=== PATIENT | female | born 1965 | race Caucasian/White ===

== ENCOUNTER 2023-11-13 18:46 | Inpatient (IN) | payer BC, SELFPAY ==
[2023-11-13] VITALS (31 sets, daily range): BP systolic 96–125; BP diastolic 52–82; PULSE 79–95; RESP 14–21; TEMP 36.4; O2SAT 96–100
--- NOTE | ~2023-11-13 | XR_ITS ---
EXAMINATION: XR chest 1V portable DATE: 11/13/2023 20:01 INDICATION: Shortness of breath. TECHNIQUE: A single frontal view of the chest was obtained. COMPARISON: Chest 2 views 02/19/2006, chest CT 03/08/2016 FINDINGS: Evette B lines are noted, consistent mild pulmonary edema. No pleural effusion or pneumotho rax. Cardiomegaly is noted. IMPRESSION: 1. Mild pulmonary edema. 2. Cardiomegaly. Reviewed, dictated and finalized at location E. CIPAL WEB DEVELOPER
--- NOTE | ~2023-11-13 | US_ITS ---
EXAMINATION: US art doppler w press UE BI DATE: 11/28/2023 10:49 INDICATION: Left upper extremity swelling TECHNIQUE: Segmental pressures and plethysmographic and Doppler waveforms of the upper extremity chelsea desmond were obtained. COMPARISON: None. FINDINGS: Left brachial artery pressures of 84 mm Hg. Right brachial artery pressures unable to be obtained due to a known venous thrombosis in the right upper arm. The right finger:brachial systolic pressure rat io is 0.90 (normal > 0.8). Arterial waveforms demonstrate brisk systolic upstrokes throughout the art eries of the right upper limb (normal upstroke < 0.2 s). The left finger:brachial systolic pressure ratio is 0.65. Arterial waveforms and brisk systolic upstr okes throughout the arteries of the left lower limb. IMPRESSION: 1. Mild arterial occlusive disease to the left lower limb with mildly decreased left finger brachial index of 0.65. 2. No significant arterial occlusive disease to the right lower limb with normal right finger brachia l index of 0.90. Reviewed, dictated and finalized at location A. OWNER ASSOCIATION MANAGER IMPRESSION: 1. Mild arterial occlusive disease to the left lower limb with mildly decreased left finger brachial index of 0.65. 2. No significant arterial occlusive disease to the right lower limb with mike l right finger brachial index of 0.90.
--- NOTE | ~2023-11-13 | US_ITS ---
EXAMINATION: US venous doppler UE RT DATE: 11/19/2023 15:03 INDICATION: New right arm edema . TECHNIQUE: Grayscale ultrasound images without and with compression and Doppler ultrasound images of the right upper extremity veins were obtained. COMPARISON: None. FINDINGS: The distal right basilic vein is distended and noncompressible, with partial flow. Incidental note of partial compressibility of the external jugular vein, with partial flow. The radial and ulnar veins are poorly visualized due to edema. The visualized portions of the right internal jugular vein, subcl nicole vein, axillary vein, brachial veins, and cephalic vein are patent. IMPRESSION: Acute-appearing nonocclusive thrombus in the distal right basilic vein. Incidental note of nonocclusi ve thrombus in the external jugular vein. Poorly visualized radial and ulnar veins. The remaining rig ht upper extremity veins are patent. Reviewed, dictated and finalized at location K. H MACHINE INSPECTOR IMPRESSION: Acute-appearing nonocclusive thrombus in the distal right basilic vein. Inciden trini note of nonocclusive thrombus in the external jugular vein. Poorly visualiz ed radial and ulnar veins. The remaining right upper extremity veins are patent .
--- NOTE | ~2023-11-13 | CT_ITS ---
EXAMINATION: CT chest abdomen pelvis wo con DATE: 11/21/2023 09:44 INDICATION: Hyperbilirubinemia. Elevated alkaline phosphatase. TECHNIQUE: Computed tomography (CT) of the chest, abdomen, and pelvis was performed without intraveno us contrast. Automated exposure control and iterative reconstruction technique were employed. The dos e-length product was 2043.24 mGy-cm. COMPARISON: Chest CT 03/08/16 FINDINGS: CHEST CT: There are small pleural effusions. There is mild dependent atelectasis bilaterally. There is smooth s eptal thickening in the lungs, consistent with mild pulmonary edema. Calcified pulmonary nodules and calcified hilar and mediastinal lymph nodes are consistent with old granulomatous disease. There is m ild noncalcified mediastinal lymphadenopathy, likely reactive. Cardiomegaly is noted. No pericardial effusion. The central pulmonary arteries are enlarged, consistent with pulmonary arterial hypertensio n. Body wall edema is noted. There is moderate thoracic spondylosis. There is mild chronic anterior w edging of multiple vertebral bodies. ABDOMEN/PELVIS CT: Calcifications in the liver and spleen are consistent with old granulomatous disease. There are galls tones in the gallbladder, which is normal in size. There is a small sliding hiatal hernia. The pancre as, adrenal glands, and kidneys are normal. There are no dilated loops of bowel. There is a ventral h ernia containing nonobstructed small and large bowel. There is a small volume of ascites. There is wi despread edema of the intra-abdominal fat and body wall. There is mild bilateral inguinal lymphadenop athy, likely reactive. There is moderate lumbar spondylosis. IMPRESSION: 1. Anasarca including small pleural effusions, mild pulmonary edema, and small volume of ascites. 2. Ventral hernia containing nonobstructed small and large bowel. 3. Mild mediastinal and bilateral inguinal lymphadenopathy, likely reactive. 4. Cholelithiasis. No evidence of acute cholecystitis. Reviewed, dictated and finalized at location A. LAR SPLITTING MACHINE TENDER
--- NOTE | ~2023-11-13 | US_ITS ---
EXAMINATION: US venous doppler [facility] DATE: 11/20/2023 20:17 INDICATION: Lower limb swelling TECHNIQUE: Grayscale ultrasound images without and with compression and Doppler ultrasound images of the bilateral lower extremity veins were obtained. COMPARISON: None. FINDINGS/IMPRESSION: Nondiagnostic quality study likely related to combination of patient body habitus and subcutaneous ed delmy with the deep veins of both lower limbs unable to be clearly visualized with either grayscale or color Doppler imaging. Reviewed, dictated and finalized at location A. TRICIAN BUS
--- NOTE | ~2023-11-13 | XR_ITS ---
EXAM: XR shoulder LT 1V DATE: 11/24/2023 15:18 HISTORY: pain and loss of rom, portable please . COMPARISON: None available. FINDINGS: Only frontal views are submitted and there is little change in position between the interna l and external rotation views. Decreased mineralization. Streaky left basilar pulmonary opacities. No fracture or dislocation. No lytic or blastic lesion. Moderate AC joint degenerative change. No erosi on or periosteal change. Soft tissues within normal limits. IMPRESSION: Exam limited by limited views and portable technique. No obvious acute osseous finding. C onsider a full series of dedicated, nonportable shoulder radiographs for further evaluation if the pa tient is capable. Possible left basilar atelectasis. Consider chest radiography if there are symptoms or complaints. Reviewed, dictated and finalized at [facility] K. TH SPA MANAGER IMPRESSION: Exam limited by limited views and portable technique. No obvious ac sonny osseous finding. Consider a full series of dedicated, nonportable shoulder radiographs for further evaluation if the patient is capable. Possible left basilar atelectasis. Consider chest radiography if there are symp toms or complaints.
--- NOTE | ~2023-11-13 | US_ITS ---
EXAMINATION: US venous doppler UE DATE: 11/23/2023 15:43 INDICATION: hx DVT; new onset arm pain . TECHNIQUE: Grayscale ultrasound images without and with compression and Doppler ultrasound images of the left upper extremity veins were obtained. COMPARISON: 11/16/2023. FINDINGS: The visualized portions of the left internal jugular vein, subclavian vein, axillary vein, brachial v eins, basilic vein, and cephalic vein, are patent. The radial and ulnar veins were not evaluated. IMPRESSION: No deep venous thrombosis. Reviewed, dictated and finalized at location K. STAINER IMPRESSION: No deep venous thrombosis.
--- NOTE | ~2023-11-13 | US_ITS ---
EXAMINATION: US abdomen limited DATE: 11/24/2023 12:47 INDICATION: ELEVATED TOTAL BILIRUBIN, GALLSTONE TECHNIQUE: Multiple grayscale and Doppler ultrasound images of limited portions of the abdomen were o btained. COMPARISON: Ultrasound renal 11/23/2023; CT CAP 11/21/2023. FINDINGS: Overall suboptimal imaging due to body habitus. Visualized portions of the pancreas are nor mal. The liver is normal with normal echogenicity and echotexture. No surface nodularity. Normal hepa topetal flow in the main portal vein. Gallbladder wall thickening. Gallbladder lumen is filled with s tones that obscure further evaluation. The common bile duct measures 5 mm. There was no sonographic M urphy sign. IMPRESSION: Cholelithiasis. Nonspecific gallbladder wall thickening. Negative sonographic Liu sign. Reviewed, dictated and finalized at location K. IE IMPRESSION: Cholelithiasis. Nonspecific gallbladder wall thickening. Negative sonographic M urphy sign.
--- NOTE | ~2023-11-13 | US_ITS ---
EXAMINATION: US venous doppler UE LT DATE: 11/16/2023 16:07 INDICATION: Edema of left arm . TECHNIQUE: Grayscale ultrasound images without and with compression and Doppler ultrasound images of the left upper extremity veins were obtained. COMPARISON: None. FINDINGS: The visualized portions of the left internal jugular vein, subclavian vein, axillary vein, brachial v eins, basilic vein, and cephalic vein are patent. The radial and ulnar veins were not evaluated. IMPRESSION: No deep venous thrombosis. Reviewed, dictated and finalized at location K. ING AGENCY MANAGER IMPRESSION: No deep venous thrombosis.
--- NOTE | ~2023-11-13 | XR_ITS ---
EXAMINATION: XR pelvis 1-2V DATE: 11/20/2023 20:21 INDICATION: Groin pain TECHNIQUE: An anteroposterior view of the pelvis was obtained. COMPARISON: None. FINDINGS: Evaluation is limited by patient body habitus which decreases contrast. Alignment appears normal. No fractures identified. Bilateral hip and right sacroiliac joint spaces appear normal. The left sacroil iac joint spaces not profiled due to some leftward rotation of the patient. IMPRESSION: 1. No evident osseous abnormality although evaluation is significantly limited by patient body habitu s. Reviewed, dictated and finalized at location A. STER IMPRESSION: 1. No evident osseous abnormality although evaluation is significantly limited by patient body habitus.
--- NOTE | ~2023-11-13 | XR_ITS ---
EXAMINATION: XR chest PICC line DATE: 11/29/2023 16:19 INDICATION: Central line placement. TECHNIQUE: A single frontal view of the chest was obtained. COMPARISON: Chest single view 11/26/2023 FINDINGS: There is no pneumonia, pleural effusion, or pneumothorax. Cardiomegaly is noted. A left upp er extremity peripherally inserted central venous catheter (PICC) is seen with tip at the superior ca voatrial junction. IMPRESSION: 1. PICC tip at the superior cavoatrial junction. 2. Cardiomegaly. Reviewed, dictated and finalized at location E. ING AND BRUSHING MACHINE OPERATOR
--- NOTE | ~2023-11-13 | US_ITS ---
EXAMINATION: US venous doppler UE DATE: 11/26/2023 14:16 INDICATION: Left upper limb swelling. TECHNIQUE: Grayscale ultrasound images without and with compression and Doppler ultrasound images of the left upper extremity veins were obtained. COMPARISON: Ultrasound 11/23/2023 FINDINGS: The visualized portions of the left internal jugular vein, subclavian vein, axillary vein, brachial v eins, basilic vein, cephalic vein, and ulnar vein are patent. Left renal vein is not visualized. Subc utaneous edema is noted. IMPRESSION: 1. No deep venous thrombosis. Reviewed, dictated and finalized at location A. GER ENVIRONMENTAL HEALTH
--- NOTE | ~2023-11-13 | US_ITS ---
Duplex Sonography of the right upper extremity: Indication: Thrombosis Sagittal and transverse B-mode images as well as color-flow imaging were performed on the right inter nal jugular, subclavian, axillary, brachial, basilic veins. B-mode examination was done without and with compression in the transverse plane. There is good visualization of the internal jugular, subcl nicole, axillary, brachial, and basilic veins. There is nonocclusive thrombus in the right internal jugular vein. There is nonocclusive thrombus in the right basilic vein. Remaining deep venous structures seen in the right upper extremity demonstrat e normal flow and compressibility. Right cephalic vein also patent. Impression: Nonocclusive DVT involving the right basilic vein and right internal jugular vein. Reviewed, dictated and finalized at location . R TUBE CUTTER Impression: Nonocclusive DVT involving the right basilic vein and right internal jugular ve in.
--- NOTE | ~2023-11-13 | XR_ITS ---
EXAMINATION: XR chest 1V portable DATE: 12/04/2023 12:31 INDICATION: Congestive heart failure. TECHNIQUE: A single frontal view of the chest was obtained. COMPARISON: Chest single view 11/29/23 FINDINGS: There is no pneumonia, pleural effusion, or pneumothorax. Cardiomegaly is noted. A left upp er extremity peripherally inserted central venous catheter (PICC) is seen with tip at the superior ca voatrial junction. IMPRESSION: 1. Cardiomegaly. Reviewed, dictated and finalized at location A. TING MACHINE OPERATOR TAPE CONTROL IMPRESSION: 1. Cardiomegaly.
--- NOTE | ~2023-11-13 | XR_ITS ---
EXAMINATION: XR chest 1V portable DATE: 11/26/2023 05:24 INDICATION: Shortness of breath. TECHNIQUE: A single frontal view of the chest was obtained. COMPARISON: Chest single view 11/13/2023 FINDINGS: There is no pneumonia, pleural effusion, or pneumothorax. Cardiomegaly is noted. IMPRESSION: 1. Cardiomegaly. Reviewed, dictated and finalized at location A. CASTING SUPERVISOR IMPRESSION: 1. Cardiomegaly.
--- NOTE | ~2023-11-13 | US_ITS ---
EXAMINATION: US renal BI DATE: 11/23/2023 15:46 INDICATION: MARY TECHNIQUE: Multiple grayscale and Doppler ultrasound images of the kidneys were obtained. COMPARISON: CT cap 11/21/2023 FINDINGS: Overall suboptimal imaging due to body habitus. The right kidney measures 10.7 x 6.0 x 6.7 cm. Right inferior pole is not well seen. The left kidney measures 12.0 x 5.4 x 7.3 cm. The kidneys demonstrate normal parenchymal echogenicity. There is no hydronephrosis. The bladder is empty/obscured by bowel gas. IMPRESSION: Limited examination. No hydronephrosis. Reviewed, dictated and finalized at location K. CIL MEMBER
--- NOTE | 2023-11-13 19:07 | ECG_ITS ---
Measurements Intervals [place] Rate: 93 P: 73 NV: 221 QRS: -61 QRSD: 150 T: 82 QT: 404 QTc: 503 Interpretive Statements SINUS RHYTHM WITH FIRST DEGREE AV BLOCK VENTRICULAR BIGEMINY LEFT AXIS DEVIATION LEFT BUNDLE BRANCH BLOCK LOW VOLTAGE- PRECORDIAL LEADS ABNORMAL ECG NO PREVIOUS ECG AVAILABLE FOR COMPARISON Electronically Signed On 11-14-2023 6:29:40 ENVIRONMENTAL COMPLIANCE TECHNICIAN by Sathish Sauer D.O.
--- NOTE | 2023-11-13 19:31 | ED.GENADULT ---
HPI - General Adult General Chief complaint: Arrhythmia/Palpitations Stated complaint: EXCESSIVE FLUID RETENTION, BIGEMINY Time Seen by Provider: 11/13/23 19:26 Source: patient and family (son) Mode of arrival: EMS Limitations: no limitations History of Present Illness HPI narrative: S patient presents with complaint of excess fluid retention. She notes that she has a history congestive failure seen doctor and has been medications over a year. She notes that she has had increased swelling in her legs and abdomen. She started developing shortness of breath overnight and worsening today. This occurs with exertion as well at rest occasionally today though reports she is not having any the time of HPI. She states she is feeling a bit anxious however given enterprise services manager told her she had bigeminy. No cough, fevers. She does have orthopnea and has to sleep sitting upright. She denies any pain (no chest pain). Does note an ulceration in left leg which is wrapped. Previous medication regimen was carvedilol, digoxin, lisinopril, spironolactone, and furosemide. Related Data Home Medications Medication Instructions Recorded Confirmed No Home Medications 11/14/23 11/14/23 Allergies Allergy/AdvReac Type Severity Reaction Status Date / Time No Known Allergies Allergy Mild Unverified 03/07/16 19:21 [facility] Past Medical History Medical History Congestive heart failure Family History Family History Father Patient's father is in good health Mother Family history of coronary artery disease Family history of congestive heart failure Acute myocardial infarction Social History Social History Smoking status: Former smoker Tobacco type: cigarettes Alcohol intake: never Substance use: never Substance use type: does not use Do You Feel Safe in your Home?: Yes Lack of Transportation: No Lack of Food: Never True Current Housing: I Have Housing Concerned About Future Housing: No Difficulty Paying Gas/Electric Bills: No Difficulty Paying for Meds: No Currently Unemployed: No Education: High School Diploma/GED Difficulty w/ Childcare or Family Care: No Living arrangements: with family Additional living arrangements comments: w/ son Spiritual care concerns: No Exam Narrative: GENERAL: well-nourished, and in no acute distress. HEAD: Normocephalic, atraumatic. EYES: Non injected, non icteric ENT: Nares clear, no rhinorrhea or epistaxis. Perioral cyanosis and cyanotic tip of nose. Poor dentition. NECK: Supple. CHEST: Speaking in complete sentences. No respiratory distress. Auscultation somewhat limited due to body habitus. HEART: Regular rate and rhythm. . ABDOMEN: Abdominal edema. Morbid obesity. EXTREMITIES: Venous stasis. Ulceration along R lower extremity. Significant bilateral edema into thighs. Peripheral cyanosis in the distal fingertips and nailbeds. SKIN: Warm, dry. NEURO: No focal deficits. Alert and oriented x3. PSYCH: Normal mood and affect. Course Vital Signs Vital signs: Vital Signs Temperature 97.6 F 11/13/23 18:47 Pulse Rate 95 11/13/23 18:47 Respiratory Rate 16 11/13/23 18:47 Blood Pressure 123/60 11/13/23 18:47 Pulse Oximetry 99 11/13/23 18:47 Oxygen Delivery Room Air 11/13/23 18:47 Temperature 97.7 F 11/14/23 05:58 Pulse Rate 79 11/14/23 08:00 Respiratory Rate 20 11/14/23 05:58 Blood Pressure 115/68 11/14/23 05:58 Pulse Oximetry 98 11/14/23 09:17 Oxygen Delivery Room Air 11/14/23 09:17 Medical Decision Making [facility] Narrative Medical decision making narrative: Patient presents with concern for swelling in legs and abdomen as well as acute shortenss of breath starting yesterday and worsening today. It is primarily with exertion though was occuring at res
[2023-11-13 19:33] LABS: Basophils Percent Auto 1.2 % (0.2-1.2); Eosinophils Absolute Auto 0.1 K/mm3 (0-0.3); Hematocrit 36.5 % (37.0-47.0); Hemoglobin 11.5 g/dL (12.0-15.0); Immature Granulocyte Absolute 0.01 K/mm3 (0.00-0.031); Immature Granulocyte Percent A 0.3 % (0-0.5); Lymphocytes Absolute Auto 0.44 K/mm3 (0.9-3.2); Lymphocytes Percent Auto 13.1 % (18.3-44.2); Mean Corpuscular HGB Conc 31.5 g/dl (32-36); Mean Corpuscular Hemoglobin 34.7 pg (26-34); Mean Corpuscular Volume 110.3 fl (80-100); Mean Platelet Volume 11.1 fl (7.4-10.4); Monocytes Absolute Auto 0.4 K/mm3 (0.1-0.6); Monocytes Percent Auto 12.2 % (2.6-8.5); Neutrophils Absolute Auto 2.4 K/mm3 (1.3-6.7); Neutrophils Percent Auto 70.2 % (45.5-73.1); Platelet Count Result 168 k/mm3 (150-375); Red Blood Count 3.31 M/mm3 (4.2-5.4); White Blood Count 3.4 K/mm3 (4.5-10.0)
[2023-11-13 19:42] LABS: Alanine Aminotransferase 12 U/L (6-35); Albumin Level 3.8 g/dL (3.5-5.1); Alkaline Phosphatase 224 U/L (38-126); Anion Gap 8 mmol/L (8-16); Aspartate Amino Transferase 22 U/L (14-36); Blood Urea Nitrogen 26 mg/dL (7-17); Calcium 8.8 mg/dL (8.4-10.2); Carbon Dioxide 29 mmol/L (22-30); Chloride 103 mmol/L (98-107); Estimated CRCL calculation 93 ml/min; Estimated Glomerular Filt Rate 57; Glucose 109 mg/dL (65-110); Potassium 3.4 mmol/L (3.4-5.0); Sodium 140 mmol/L (137-145)
[2023-11-13 19:44] LABS: INR 1.2; Partial Thromboplastin Time 34.8 SECONDS (22.3-36.8)
[2023-11-13 19:48] LABS: Platelet Estimate Adequate (Adequate)
[2023-11-13 19:49] LABS: Anisocytosis 2+ (NORMAL); Macrocytosis 1+ (NORMAL); Schistocytes None Seen (NORMAL)
[2023-11-13 19:50] LABS: Hypochromasia 1+ (NORMAL)
[2023-11-13 19:54] LABS: NT Pro B Type Natriuretic Pept 5450 pg/mL (19.9-100); Troponin I 0.014 ng/mL (0.000-0.034)
[2023-11-13 20:20] LABS: Alveolar/Arterial O2 Gradient 31.8 mmHg; Base Excess ABG 3.8 mEq/l (+/-2.0); Carboxyhemoglobin 1.3 % THb (0-2.0); Fractional Inspired Oxygen 21 %; HCO3 ABG 27.9 mEq/l (22.0-26.0); Methemoglobin ABG 0.2 %THb (0-1.5); Oxygen Content ABG 16.3 %vol (16.0-22.0); Oxygen Saturation ABG 94.8 % (95.0-100.0); Oxyhemoglobin 92.6 % THb (90.0-100.0); PCO2 ABG 40.3 mmHg (35.0-45.0); PO2 ABG 69.7 mmHg (80.0-100.0); PO2 FiO2 Ratio Arterial Blood 3.32 %; Reduced Hemoglobin 5.9 %THb (0-5.0); Total Hemoglobin 12.5 g/dL (12.0-18.0); pH ABG 7.458 (7.350-7.450)
[2023-11-13 20:21] LABS: Modified Allen's Test Pass; Site Drawn RIGHT RADIAL
[2023-11-13 20:28] LABS: Influenza A QL RT-PCR Negative (Negative); Influenza B QL RT-PCR Negative (Negative); RSV RNA, RT-PCR Negative (Negative); SARS-CoV-2 RNA PCR Negative (Negative)
--- NOTE | 2023-11-13 21:48 | PM.IMHP ---
H&P: HPI History of Present Illness Date/Time: 11/13/23 21:48 Chief Complaint: Shortness of breath Narrative: Patient presented to emergency department for evaluation of progressively worsening shortness of bread and weight gain. She has a history of CHF, she normally take furosemide but she has not been taking it for some months now because she ran out. She denies chest pain, cough congestion, sore throat or fever. She was evaluated in the ER and found to have elevated proBNP greater than 5000, and cardiomegaly with pulmonary edema. Oxygen saturation is above 90%. She was provided with 80 mg of IV furosemide in the ER and considering how much fluid evaluated patient he is, I was consulted for admission for observation of this patient. Patient told me that she is feeling better. Shortness of breath is less. Review of Systems Review of Systems: All systems reviewed & are unremarkable except as noted in HPI and below PMFSH Family History Family History (Updated 05/18/16 @ 23:21 by DOCTOR UNKNOWN) Father Patient's father is in good health Mother Family history of coronary artery disease Family history of congestive heart failure Acute myocardial infarction Social History Social History Alcohol intake: never Meds Home Medications and Allergies Allergies Allergy/AdvReac Type Severity Reaction Status Date / Time No Known Allergies Allergy Mild Unverified 03/07/16 19:21 Vital Signs Vital Signs - 24 hr 11/13/23 18:47 11/13/23 18:55 11/13/23 18:51 Temperature 97.6 F Pulse Rate 95 89 91 Respiratory Rate 16 20 Blood Pressure 123/60 Pulse Oximetry 99 98 Oxygen Delivery Room Air 11/13/23 19:00 11/13/23 19:01 11/13/23 19:15 Temperature Pulse Rate 87 89 86 Respiratory Rate 18 18 18 Blood Pressure 125/69 Pulse Oximetry 100 100 100 Oxygen Delivery 11/13/23 19:16 11/13/23 19:30 11/13/23 19:31 Temperature Pulse Rate 87 86 83 Respiratory Rate 17 14 16 Blood Pressure 124/72 Pulse Oximetry 100 100 100 Oxygen Delivery 11/13/23 19:32 11/13/23 19:45 11/13/23 19:46 Temperature Pulse Rate 83 84 88 Respiratory Rate 16 17 17 Blood Pressure 96/82 L Pulse Oximetry 100 100 100 Oxygen Delivery 11/13/23 20:00 11/13/23 20:01 11/13/23 20:15 Temperature Pulse Rate 83 83 86 Respiratory Rate 18 20 Blood Pressure 112/66 Pulse Oximetry 100 99 100 Oxygen Delivery Exam Narrative: General: Alert and oriented x4, pale, mild peripheral cyanosis involving the perioral area HEENT: Normocephalic atraumatic, EOMI, wet oral mucosa Respiratory: Decreased breath sounds bibasilarly, no wheezing Cardiovascular: Regular rate and rhythm, normal, intermittent skipped beats, bilateral lower extremity lymphedema with 2+ edema Gastrointestinal: Obese, umbilical hernia, nontender, bowel sounds hypoactive Musculoskeletal: Range of motion intact in all extremities Skin: No rash: Neurology: Alert and oriented x4, no focal neurological deficits Psych: Cooperative H&P: Results Labs Labs: Short CBC 11/13/23 Range/Units 19:08 WBC 3.4 L (4.5-10.0) K/mm3 Hgb 11.5 L (12.0-15.0) g/dL Hct 36.5 L (37.0-47.0) % Plt Count 168 (150-375) k/mm3 BMP 11/13/23 19:08 Sodium 140 Potassium 3.4 Chloride 103 Carbon Dioxide 29 BUN 26 H Creatinine 1.00 Glucose 109 Calcium 8.8 Cardiac Enzymes 11/13/23 Range/Units 19:08 Troponin I 0.014 (0.000-0.034) ng/mL Liver Function 11/13/23 Range/Units 19:08 Total Bilirubin 4.0 H (0.2-1.3) mg/dL AST 22 (14-36) U/L ALT 12 (6-35) U/L Alkaline Phosphatase 224 H (38-126) U/L Albumin 3.8 (3.5-5.1) g/dL ECG Interpretation: Sinus rhythm, First degree AV block, LAD, occasional PVCs, wide QRS, normal QT, No acute ST-T wave chnages Assessment and Plan Assessment and plan (1) 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
[2023-11-13] MEDS: FUROSEMIDE INJ 40 MG/4 ML VIAL IV PUSH ×2 (22:29→23:15)
[2023-11-14] VITALS (12 sets, daily range): BP systolic 100–119; BP diastolic 68–73; PULSE 72–101; RESP 17–22; TEMP 36.3–36.6; O2SAT 94–100; BMI 65.9
--- NOTE | 2023-11-14 | ECHO_ITS ---
Patient Info Name: Mey Herron Age: 58 years : 1965 Gender: Female Ht: 64 in Wt: 408 lbs BSA: 3.03 m2 HR: 73 bpm BP: 115 / 68 mmHg Heart Rhythm: Sinus Rhythm Technical Quality: Poor Exam Date: 11/14/2023 11:18 AM Exam Location: Echo Lab Patient Status: Inpatient Admit Date: 11/13/2023 Staff Ordering Physician: Renee Hickman Veterinarian Assistant: Steve Mccray RDCS Attending Provider: Renee Hickman Referring Physician: Vick ANG; Exam Type: CA echo dop color flow w con Study Info Indications - heart failure Complete two-dimensional, color flow and Doppler transthoracic echocardiogram is performed with contrast to opacify the left ventricle and to improve the deliniation of the left ventricle endocardial borders. Contrast/Agitated Saline Contrast/Ag. Saline: Definity Amount: 3.00 ml Reason for Poor Study: poor echocardiographic windows Summary 1. Left ventricular chamber dimension is severely enlarged. 2. Left ventricular systolic function is severely reduced, estimated at 15-20%. 3. The left ventricular diastolic function is grade III diastolic dysfunction. 4. Global hypokinesis of the left ventricle. 5. Right ventricular chamber dimension is mildly enlarged. 6. Left atrial chamber dimension is moderately enlarged. 7. Right atrial chamber dimension is moderately enlarged. 8. There is mild mitral valve regurgitation. 9. There is mild tricuspid valve regurgitation. 10. There is mild pulmonic regurgitation. 11. There is mildly increased left ventricular wall thickness. Left Ventricle Left ventricular chamber dimension is severely enlarged. Left ventricular systolic function is severely reduced, estimated at 15-20%. There is mildly increased left ventricular wall thickness. The left ventricular diastolic function is grade III diastolic dysfunction. Global hypokinesis of the left ventricle. Right Ventricle Right ventricular chamber dimension is mildly enlarged. Right ventricular systolic function is normal. Left Atria Left atrial chamber dimension is moderately enlarged. Right Atria Right atrial chamber dimension is moderately enlarged. Atrial Septum Intact interatrial septum visualized by color flow imaging. Aortic Valve The aortic valve is probable trileaflet. There is mild aortic valve sclerosis. There is no aortic valve stenosis. There is trace aortic valve regurgitation. Pulmonic Valve The pulmonic valve is normal. There is no pulmonic valve stenosis. There is mild pulmonic regurgitation. Mitral Valve The mitral valve has thickened leaflets. There is no mitral valve stenosis. There is mild mitral valve regurgitation. Tricuspid Valve The tricuspid valve leaflets are normal. There is no significant tricuspid valve stenosis. There is mild tricuspid valve regurgitation. No pulmonary hypertension, estimated pulmonary arterial systolic pressure is 34 mmHg. Pericardium/Pleural The pericardium appears normal. There is no pericardial effusion. Aorta The aortic root size at the sinus of Valsalva is normal. Left Ventricular Outflow Tract Name Value Normal LVOT 2D LVOT Diameter 2.19 cm LVOT Doppler
--- NOTE | 2023-11-14 03:17 | PC.NURSE ---
Patient stated that she was taking carvedilol, digoxin, spironolactone, and lisinopril. She was unsure of what the doses were and has not taken them in over a year, when she stopped seeing her tool crib supervisor. She was also prescribed furosemide 40 mg daily, but states PCP wouldn't refill until she saw a tool crib supervisor. Patient says she hasn't taken furosemide in about a month.
[2023-11-14 06:44] LABS: Eosinophils Absolute Auto 0.1 K/mm3 (0-0.3); Hematocrit 33.7 % (37.0-47.0); Hemoglobin 10.2 g/dL (12.0-15.0); Lymphocytes Absolute Auto 0.58 K/mm3 (0.9-3.2); Lymphocytes Percent Auto 19.3 % (18.3-44.2); Mean Corpuscular HGB Conc 30.3 g/dl (32-36); Mean Corpuscular Volume 112.3 fl (80-100); Mean Platelet Volume 11.2 fl (7.4-10.4); Monocytes Absolute Auto 0.4 K/mm3 (0.1-0.6); Monocytes Percent Auto 12.6 % (2.6-8.5); Neutrophils Absolute Auto 1.9 K/mm3 (1.3-6.7); Neutrophils Percent Auto 63.1 % (45.5-73.1); Platelet Count Result 138 k/mm3 (150-375); Red Cell Distribution Width 16.2 % (11.5-14.5)
[2023-11-14 07:06] LABS: Anion Gap 6 mmol/L (8-16); Blood Urea Nitrogen 26 mg/dL (7-17); Calcium 8.6 mg/dL (8.4-10.2); Carbon Dioxide 29 mmol/L (22-30); Chloride 105 mmol/L (98-107); Estimated CRCL calculation 94 ml/min; Estimated Glomerular Filt Rate 57; Glucose 89 mg/dL (65-110); Potassium 3.4 mmol/L (3.4-5.0); Sodium 140 mmol/L (137-145)
[2023-11-14 07:45] LABS: Microcytosis 1+ (NORMAL); Schistocytes None Seen (NORMAL)
[2023-11-14 07:46] LABS: Anisocytosis 1+ (NORMAL)
[2023-11-14] MEDS: BETAMETHASONE/CLOTRIMAZOLE CR 15 GM TUBE 1 APPLIC TOPICAL (09:33)
[2023-11-14] MEDS: ENOXAPARIN 40 MG/0.4 ML SYRINGE SUB-Q (09:34)
[2023-11-14] MEDS: TOLNAFTATE 1% POWDER 45 GM BTL 1 APPLIC TOPICAL ×2 (09:34→22:07)
[2023-11-14] MEDS: FUROSEMIDE INJ 40 MG/4 ML VIAL IV PUSH ×3 (09:34→17:31)
[2023-11-14] MEDS: PERFLUTREN LIPID MICROSPHERES 1.5 ML VIAL DILUTED TO 10 ML TOTAL VOLUME IV PUSH (11:30)
--- NOTE | 2023-11-14 11:54 | IVDEFINITY ---
Prior to administration of IV Definity the patient was educated on the risks and benefits of the imaging enhancing agent including potential adverse side effects. The patient verbalized understanding. Allergies were verified. No exclusion criteria were identified and at least one of the following inclusion criteria were met: 1) physician request, 2) patient technically difficult to image (per the [place] [employer] guidelines of two or more segments not discernable within the apical view), or 3) questionable left ventricular function. ?
--- NOTE | 2023-11-14 12:09 | PM.CNCAR ---
Assessment and Plan Assessment and plan (1) 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ailure: Code(s): I50.43 - 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ailure Status: Acute Assessment and Plan: Patient has not been taking any medications. Will increase her diuretics to 40 mg IV t.i.d.. Start her on standard CHF regimen including carvedilol 3.125 mg p.o. b.i.d. and up titrate as need be. Also will start her on Entresto 24/26 mg 1 tablet p.o. b.i.d.. Will follow her blood pressure and add to this regimen as needed or as able. Obviously like to start her on spironolactone and Jardiance or Farxiga also depending on tolerance of the above medications. 2D echocardiogram Doppler will be ordered and reviewed. Intake and output, daily weights, daily BMPs will be ordered. Encouraged compliance. (2) Hypokalemia: Code(s): E87.6 - Hypokalemia Status: Acute Assessment and Plan: Will replace with KCL 40 mEq p.o. x1 (3) Morbid obesity: Code(s): E66.01 - Morbid (severe) obesity due to excess calories Status: Acute Assessment and Plan: Dietary lifestyle modification for weight loss (4) Left bundle branch block: Code(s): I44.7 - Left bundle-branch block, unspecified Status: Acute Assessment and Plan: May benefit from resynchronization therapy at some point History of Present Illness History of Present Illness Consult date/time: 11/14/23 12:09 Reason For Visit: Acute on Chronic Heart Failure Exacerbation Narrative: Date of consultation 11/14/2023 Reason for consultation: CHF Requesting provider: Renee Hickman History patient is a 58-year-old female who has a history of chronic systolic and diastolic congestive heart failure, morbid obesity who presents to the hospital because of worsening swelling. She has been out of her furosemide for several months. She sees Dr. Puentes at [facility] as her primary client renewal specialist. She has not seen him in over a year. She also has a wound that she has been dealing with in treating herself in her left lower extremity. She also states she has been short of breath starting yesterday. Due to worsening edema, shortness of breath she finally came to hospital for further workup and evaluation. She is obviously of marked heart failure. No syncope, chest pain, paroxysmal nocturnal dyspnea, orthopnea, palpitations. She has been started on diuretics and Cardiology consultation has been requested. Review of Systems Review of Systems: All systems reviewed & are unremarkable except as noted in HPI and below Constitutional: Constitutional: Denies body ache(s) Eyes: Eyes: Denies blurry vision ENT: Reports Normal hearing present Cardiovascular: Cardiovascular: Denies chest pain, Reports pedal edema and Reports leg edema Respiratory: Respiratory: Reports dyspnea Gastrointestinal: Gastrointestinal: Reports abdominal pain Genitourinary: Genitourinary: Denies hematuria Musculoskeletal: Musculoskeletal: Denies back pain Integumentary/Breasts: Skin/Breast: Reports erythema and Reports wounds Neurologic: Denies Abnormal speech present Psychiatric: Psychiatric: Denies anxiety Endocrine: Endocrine: Denies excessive sweating Hematologic/Lymphatic: Hematologic/Lymphatic: Denies easy bleeding Allergic/Immunologic: Allergic/Immunologic: Denies GI upset with certain foods PMFSH Past Medical History Medical History Congestive heart failure Family History Family History Father Patient's father is in good health Mother Family history of coronary artery disease Family history of congestive heart failure Acute myocardial infarction Social History Social History
[2023-11-14] MEDS: POTASSIUM CHLORIDE 20 MEQ ER TABLET 40 MEQ PO (12:44)
--- NOTE | 2023-11-14 14:33 | PM.IMPN ---
Progress Note: A&P Assessment and Plan (1) 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ailure: Code(s): I50.43 - 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ailure Status: Acute Assessment and Plan: Presented in overt heart failure. ECHO showed decreased systolic function with EF of 15-20% and Grade 3 Diastolic Dysfunction Daily weight Accurate Intake and Output. Cardiology was consulted and I appreciate their recommendations. He has ordered increased Lasix to 40 mg TID IVP, Entresto and Carvedilol. BP tolerance permitting, would like to add Spironolactone with Jardiance or Farxiga. Continue to monitor VS and Labs Heart Healthy diet Encouraged compliance with medical treatment. (2) Candidal intertrigo: Code(s): B37.2 - Candidiasis of skin and nail Status: Acute Assessment and Plan: Wound nurse evaluated and recommendations were made for Tolfinate powder and wicking material to skin folds. To wound on LLE, apply Lotrisone cream. Encourage offloading weight by turning every two hours for skin health and drying skin thoroughly after bathing. (3) Left bundle branch block: Code(s): I44.7 - Left bundle-branch block, unspecified Status: Acute Assessment and Plan: As noted per Cardiology, Dr. Cruz. Continue Beta Blockade Consider conversion when medically appropriate (4) Noncompliance with medication regimen: Code(s): Z91.148 - Patient's other noncompliance with medication regimen for other reason Status: Acute Assessment and Plan: Acute on chronic in nature Pt was encouraged for compliance by both this provider and Cardiology. Will need routine maintenance appointments by Cardiology at discharge. (5) Abnormality of gait and mobility: Code(s): R26.9 - Unspecified abnormalities of gait and mobility Status: Acute Assessment and Plan: Most likely secondary to morbid obesity. BMI is 65.9. PT and OT therapies are ordered as pt states she hasn't been able to move for a month. Suspect pt may need placement at discharge as I cannot see how she can adequately care for herself in this state. (6) Morbid obesity: Code(s): E66.01 - Morbid (severe) obesity due to excess calories Status: Chronic Assessment and Plan: Heart healthy diet Compliance with regimens are promoted. Time Spent With Patient Time with patient: 25 - 35 minutes Subjective Date/time seen: 11/14/23 1015 Interval history: This 58 year old female pt was examined at the bedside today in interval assessment after being admitted to the hospital with fluid overload and wound to her LLE as well as to her coccyx. Pt. tells this provider that she has been without her Lasix for months. When asked why, she stated, I ran out, and when I asked my Primary doctor for a refill they wanted me to see a Floor Director and I just didn't. She states then that over the past few months she has had gradual weight increase and loss of mobility due partially to increased weight and partially due to being dyspneic when she attempts to move. She admits she hasn't been able to move for a month. She denies any acute pain, but states it is very hard for her to move her legs and likens the difficulty to the amount of edema she has. She has no other acute complaints or symptoms to discuss today. She has been evaluated by wound care for wound to her coccyx as well as chronic ulcer to LLE. Recommendations are made and ordered and will be continued upon discharge as well. In addition, cardiology is consulted and their recommendations have started as well. Pt with severe CHF. Started on Entresto, increased the dose of Lasix and started also on Carvedilol. After monitoring for toleration of this regimen, additional treatment with either Farxiga or Jardiance/Spironolactone will be started. Review of Systems Revie
[2023-11-14 21:32] LABS: Hemoglobin A1C 5.4 % (<5.7)
[2023-11-14] MEDS: SACUBITRIL/VALSARTAN 24-26 MG TABLET 1 TAB PO (22:06)
[2023-11-15] VITALS (15 sets, daily range): BP systolic 90–102; BP diastolic 38–57; PULSE 65–100; RESP 14–20; TEMP 36.1–36.4; O2SAT 91–100
[2023-11-15 06:32] LABS: Basophils Percent Auto 0.8 % (0.2-1.2); Eosinophils Absolute Auto 0.1 K/mm3 (0-0.3); Eosinophils Percent Auto 3.3 % (0-4.4); Hematocrit 31.9 % (37.0-47.0); Hemoglobin 10.1 g/dL (12.0-15.0); Immature Granulocyte Absolute 0.01 K/mm3 (0.00-0.031); Immature Granulocyte Percent A 0.3 % (0-0.5); Lymphocytes Absolute Auto 0.57 K/mm3 (0.9-3.2); Lymphocytes Percent Auto 15.4 % (18.3-44.2); Mean Corpuscular HGB Conc 31.7 g/dl (32-36); Mean Corpuscular Hemoglobin 34.7 pg (26-34); Mean Corpuscular Volume 109.6 fl (80-100); Mean Platelet Volume 10.6 fl (7.4-10.4); Monocytes Absolute Auto 0.4 K/mm3 (0.1-0.6); Monocytes Percent Auto 11.4 % (2.6-8.5); Neutrophils Absolute Auto 2.5 K/mm3 (1.3-6.7); Neutrophils Percent Auto 68.8 % (45.5-73.1); Platelet Count Result 147 k/mm3 (150-375); Red Blood Count 2.91 M/mm3 (4.2-5.4); Red Cell Distribution Width 16.2 % (11.5-14.5); White Blood Count 3.7 K/mm3 (4.5-10.0)
[2023-11-15 07:27] LABS: Blood Urea Nitrogen 28 mg/dL (7-17); Calcium 8.3 mg/dL (8.4-10.2); Carbon Dioxide 29 mmol/L (22-30); Estimated CRCL calculation 94 ml/min; Estimated Glomerular Filt Rate 57; Glucose 89 mg/dL (65-110)
[2023-11-15 07:28] LABS: Anisocytosis 1+ (NORMAL); Hypochromasia 1+ (NORMAL); Platelet Estimate Adequate (Adequate); Schistocytes None Seen (NORMAL)
[2023-11-15 07:30] LABS: Anion Gap 5 mmol/L (8-16); Chloride 103 mmol/L (98-107); Potassium 3.5 mmol/L (3.4-5.0); Sodium 137 mmol/L (137-145)
[2023-11-15] MEDS: SACUBITRIL/VALSARTAN 24-26 MG TABLET 1 TAB PO ×2 (08:19→20:40)
[2023-11-15] MEDS: ENOXAPARIN 40 MG/0.4 ML SYRINGE SUB-Q (08:19)
[2023-11-15] MEDS: carvediloL 3.125 MG TABLET PO ×2 (08:19→20:40)
[2023-11-15] MEDS: BETAMETHASONE/CLOTRIMAZOLE CR 15 GM TUBE 1 APPLIC TOPICAL (08:21)
[2023-11-15] MEDS: TOLNAFTATE 1% POWDER 45 GM BTL 1 APPLIC TOPICAL ×2 (08:22→20:40)
--- NOTE | 2023-11-15 09:32 | P.PNIM_ITS ---
Progress Note: A&P Assessment and Plan (1) 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ailure: Code(s): I50.43 - 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ailure Status: Acute Assessment and Plan: * Presented in overt heart failure. * ECHO showed decreased systolic function with EF of 15-20% and Grade 3 Diastolic Dysfunction * Daily weight * Accurate Intake and Output. * Cardiology was consulted and I appreciate their recommendations. He has ordered increased Lasix to 40 mg TID IVP, Entresto and Carvedilol. BP tolerance permitting, would like to add Spironolactone with Jardiance or Farxiga. * Continue to monitor VS and Labs * Heart Healthy diet * Encouraged compliance with medical treatment. * 11/15/23: Unable to initiate Spironolactone with Jardiance and/or Farxiga as pt's BP is maintaining low in the 90s/40s-50s. We will continue to monitor therapy with Entresto, Carvedilol and Lasix. I am hopeful that after we have adequate diuresis and are able to decrease her amount of Lasix we will be able to add Spironolactone. (2) Candidal intertrigo: Code(s): B37.2 - Candidiasis of skin and nail Status: Acute Assessment and Plan: * Wound nurse evaluated and recommendations were made for Tolfinate powder and wicking material to skin folds. * To wound on LLE, apply Lotrisone cream. * Encourage offloading weight by turning every two hours for skin health and drying skin thoroughly after bathing. * 11/15/23: Pt is intolerant of turning side to side in current bed. A bariatric bed has been ordered for her. (3) Left bundle branch block: Code(s): I44.7 - Left bundle-branch block, unspecified Status: Acute Assessment and Plan: * As noted per Cardiology, Dr. Cruz. * Continue Beta Blockade * Consider conversion when medically appropriate (4) Noncompliance with medication regimen: Code(s): Z91.148 - Patient's other noncompliance with medication regimen for other reason Status: Acute Assessment and Plan: * Acute on chronic in nature * Pt was encouraged for compliance by both this provider and Cardiology. * Will need routine maintenance appointments by Cardiology at discharge. * 11/15/23: Pt states she would be comfortable following with Dr. Cruz at discharge for continued cardiology care. (5) Abnormality of gait and mobility: Code(s): R26.9 - Unspecified abnormalities of gait and mobility Status: Acute Assessment and Plan: * Most likely secondary to morbid obesity. BMI is 65.9. * PT and OT therapies are ordered as pt states she hasn't been able to move for a month. * Suspect pt may need placement at discharge as I cannot see how she can adequately care for herself in this state. (6) Morbid obesity: Code(s): E66.01 - Morbid (severe) obesity due to excess calories Status: Chronic Assessment and Plan: * Heart healthy diet * Compliance with regimens are promoted. * 11/15/23: Pt with interval weight gain overnight of 2.86 lbs. Continue to monitor daily weights. Time Spent With Patient Time with patient: 15 - 25 minutes Subjective Date/time seen: 11/15/23 0900 Interval history: This pt was examined at the bedside today after having Cardiology evaluation yesterday with ECHO in her decompensated heart failure state. Pt was started on Entresto, Carvedilol and her Lasix dose was increased. Her BP's have tolerated, although they are running as low as 90s/40s. We are currently awaiting PT evaluation for santiago
--- NOTE | 2023-11-15 09:32 | PM.IMPN ---
Progress Note: A&P Assessment and Plan (1) 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ailure: Code(s): I50.43 - 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ailure Status: Acute Assessment and Plan: Presented in overt heart failure. ECHO showed decreased systolic function with EF of 15-20% and Grade 3 Diastolic Dysfunction Daily weight Accurate Intake and Output. Cardiology was consulted and I appreciate their recommendations. He has ordered increased Lasix to 40 mg TID IVP, Entresto and Carvedilol. BP tolerance permitting, would like to add Spironolactone with Jardiance or Farxiga. Continue to monitor VS and Labs Heart Healthy diet Encouraged compliance with medical treatment. 11/15/23: Unable to initiate Spironolactone with Jardiance and/or Farxiga as pt's BP is maintaining low in the 90s/40s-50s. We will continue to monitor therapy with Entresto, Carvedilol and Lasix. I am hopeful that after we have adequate diuresis and are able to decrease her amount of Lasix we will be able to add Spironolactone. (2) Candidal intertrigo: Code(s): B37.2 - Candidiasis of skin and nail Status: Acute Assessment and Plan: Wound nurse evaluated and recommendations were made for Tolfinate powder and wicking material to skin folds. To wound on LLE, apply Lotrisone cream. Encourage offloading weight by turning every two hours for skin health and drying skin thoroughly after bathing. 11/15/23: Pt is intolerant of turning side to side in current bed. A bariatric bed has been ordered for her. (3) Left bundle branch block: Code(s): I44.7 - Left bundle-branch block, unspecified Status: Acute Assessment and Plan: As noted per Cardiology, Dr. Cruz. Continue Beta Blockade Consider conversion when medically appropriate (4) Noncompliance with medication regimen: Code(s): Z91.148 - Patient's other noncompliance with medication regimen for other reason Status: Acute Assessment and Plan: Acute on chronic in nature Pt was encouraged for compliance by both this provider and Cardiology. Will need routine maintenance appointments by Cardiology at discharge. 11/15/23: Pt states she would be comfortable following with Dr. Nancy at discharge for continued cardiology care. (5) Abnormality of gait and mobility: Code(s): R26.9 - Unspecified abnormalities of gait and mobility Status: Acute Assessment and Plan: Most likely secondary to morbid obesity. BMI is 65.9. PT and OT therapies are ordered as pt states she hasn't been able to move for a month. Suspect pt may need placement at discharge as I cannot see how she can adequately care for herself in this state. (6) Morbid obesity: Code(s): E66.01 - Morbid (severe) obesity due to excess calories Status: Chronic Assessment and Plan: Heart healthy diet Compliance with regimens are promoted. 11/15/23: Pt with interval weight gain overnight of 2.86 lbs. Continue to monitor daily weights. Time Spent With Patient Time with patient: 15 - 25 minutes Subjective Date/time seen: 11/15/23 0900 Interval history: This pt was examined at the bedside today after having Cardiology evaluation yesterday with ECHO in her decompensated heart failure state. Pt was started on Entresto, Carvedilol and her Lasix dose was increased. Her BP's have tolerated, although they are running as low as 90s/40s. We are currently awaiting PT evaluation for further recommendations at this time. Pt. tells me today that she would be comfortable with following up with Dr. Cruz for continued Cardiac services. She complains today of being uncomfortable in her bed and also noted that her left arm is swollen but was not yesterday. She is going to receive a bariatric bed today and based upon appearance of the LUE, she is going to have a venous doppler. She denie
--- NOTE | 2023-11-15 10:00 | PM.PNCARD ---
Progress Note: A&P Assessment and Plan (1) 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ailure: Code(s): I50.43 - 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ailure Status: Acute Assessment and Plan: EF 15 - 20% with grade III diastolic dysfunction. Patient has not been taking any medications. Continue furosemide 40 mg IV t.i.d. Start her on standard GDMT including: Coreg 3.125 mg b.i.d Entresto b.i.d. Jardiance when she has diuresed more Spironolactone as BP allows Intake and output daily weights daily BMPs (2) Hypokalemia: Code(s): E87.6 - Hypokalemia Status: Acute Assessment and Plan: 3.5 today. Daily BMP while diuresing with K+ goal 4.0. Will add KCL 20 mEq p.o. daily. (3) Morbid obesity: Code(s): E66.01 - Morbid (severe) obesity due to excess calories Status: Chronic Assessment and Plan: Dietary lifestyle modification for weight loss (4) Left bundle branch block: Code(s): I44.7 - Left bundle-branch block, unspecified Status: Acute Assessment and Plan: May benefit from resynchronization therapy at some point Subjective Date/time seen: 11/15/23 10:00 Interval history: Cardiology follow up for cardiomyopathy, CHF She feels better today. Sitting up in the chair and is able to breath easier. Breathing comfortably on room air. No chest pain, palpitations. Review of Systems Review of Systems: All systems reviewed & are unremarkable except as noted in HPI and below Constitutional: Constitutional: Denies body ache(s) and Denies excessive sweating Eyes: Eyes: Denies blurry vision ENT: Reports Normal hearing present Cardiovascular: Cardiovascular: Denies chest pain, Reports pedal edema, Reports leg edema and Reports dyspnea Respiratory: Respiratory: Reports dyspnea Gastrointestinal: Gastrointestinal: Reports abdominal pain Genitourinary: Genitourinary: Denies hematuria Musculoskeletal: Musculoskeletal: Denies back pain Integumentary/Breasts: Skin/Breast: Reports erythema and Reports wounds Neurologic: Reports Normal hearing present and Denies Abnormal speech present Psychiatric: Psychiatric: Denies anxiety Endocrine: Endocrine: Denies excessive sweating Hematologic/Lymphatic: Hematologic/Lymphatic: Denies easy bleeding Allergic/Immunologic: Allergic/Immunologic: Denies GI upset with certain foods Exam Narrative: Awake alert oriented appears older than stated age Const: General: comfortable and no acute distress HENMT: Face/Nose/Sinus: Normal nares present Mouth: Yes moist mucous membranes Eyes: Sclera: sclerae normal Neck: Neck: supple and no JVD Carotids: no bruits Chest: Other: No reproducible chest wall pain to palpation Resp: Effort & Inspection: normal respiratory effort Auscultation: diminished lung sounds Cardio: Rate: regular rate Rhythm: regular rhythm Heart sounds: no murmurs Other: Distant heart tones GI: Inspection: non-distended Auscultation: normal bowel sounds Urinary Catheter: Urinary Catheter: patent and draining Skin: General skin exam: lesion Lesions: lesion noted Other: Large open wound noted to the medial left lower leg. Neuro: Cranial nerves: Yes Normal hearing present Speech: normal speech and No Abnormal speech present Extrem: General: edema Other: Markedly edematous up to and including her abdominal wall Psych: Mental Status: mental status grossly normal Affect: normal affect Objective Data Vital Signs Vital Signs: Vital Signs - 24 hr 11/14/23 13:01 11/14/23 14:00 11/14/23 15:50 Temperature 36.3 C L Pulse Rate 101 H 85 84 Respiratory Rate Blood Pressure 101/68 Pulse Oximetry 96 Oxygen Delivery 11/14/23 16:00 11/14/23 21:41 11/14/23 20:00 Temperature 36.3 C L Pulse Rate 85 88 Respiratory Rate 17
[2023-11-15] MEDS: FUROSEMIDE INJ 40 MG/4 ML VIAL IV PUSH (16:57)
[2023-11-16] VITALS (11 sets, daily range): BP systolic 90–118; BP diastolic 51–62; PULSE 61–68; RESP 20–24; TEMP 36.1–36.7; O2SAT 95–100
[2023-11-16 06:29] LABS: Hematocrit 33.8 % (37.0-47.0); Hemoglobin 10.4 g/dL (12.0-15.0); Mean Corpuscular HGB Conc 30.8 g/dl (32-36); Mean Corpuscular Hemoglobin 34.6 pg (26-34); Mean Corpuscular Volume 112.3 fl (80-100); Mean Platelet Volume 10.9 fl (7.4-10.4); Platelet Count Result 143 k/mm3 (150-375); Red Blood Count 3.01 M/mm3 (4.2-5.4); White Blood Count 3.7 K/mm3 (4.5-10.0)
[2023-11-16 06:44] LABS: Alanine Aminotransferase 9 U/L (6-35); Alkaline Phosphatase 179 U/L (38-126); Anion Gap 4 mmol/L (8-16); Aspartate Amino Transferase 20 U/L (14-36); Bilirubin,Total 3.2 mg/dL (0.2-1.3); Blood Urea Nitrogen 28 mg/dL (7-17); Calcium 8.3 mg/dL (8.4-10.2); Carbon Dioxide 32 mmol/L (22-30); Chloride 102 mmol/L (98-107); Estimated CRCL calculation 86 ml/min; Estimated Glomerular Filt Rate 51; Glucose 80 mg/dL (65-110); Potassium 3.4 mmol/L (3.4-5.0); Sodium 138 mmol/L (137-145)
[2023-11-16] MEDS: POTASSIUM CHLORIDE 20 MEQ ER TABLET PO (09:07)
[2023-11-16] MEDS: SACUBITRIL/VALSARTAN 24-26 MG TABLET 1 TAB PO (09:07)
[2023-11-16] MEDS: carvediloL 3.125 MG TABLET PO ×2 (09:07→20:30)
[2023-11-16] MEDS: ENOXAPARIN 40 MG/0.4 ML SYRINGE SUB-Q (09:07)
[2023-11-16] MEDS: TOLNAFTATE 1% POWDER 45 GM BTL 1 APPLIC TOPICAL ×2 (09:08→20:30)
[2023-11-16] MEDS: BETAMETHASONE/CLOTRIMAZOLE CR 15 GM TUBE 1 APPLIC TOPICAL (09:08)
--- NOTE | 2023-11-16 12:29 | PCOTNOTE ---
Pt is currently waiting to have a venous Doppler completed of LUE. At this time, pt is not appropriate for therapy until Doppler has been completed. Will continue per poc duration/frequency when medically appropriate.
--- NOTE | 2023-11-16 13:40 | P.PNIM_ITS ---
Progress Note: A&P Assessment and Plan (1) 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ailure: Code(s): I50.43 - 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ailure Status: Acute Assessment and Plan: * Presented in overt heart failure. * ECHO showed decreased systolic function with EF of 15-20% and Grade 3 Diastolic Dysfunction * Daily weight * Accurate Intake and Output. * Cardiology was consulted and I appreciate their recommendations. He has ordered increased Lasix to 40 mg TID IVP, Entresto and Carvedilol. BP tolerance permitting, would like to add Spironolactone with Jardiance or Farxiga. * Continue to monitor VS and Labs * Heart Healthy diet * Encouraged compliance with medical treatment. * 11/15/23: Unable to initiate Spironolactone with Jardiance and/or Farxiga as pt's BP is maintaining low in the 90s/40s-50s. We will continue to monitor therapy with Entresto, Carvedilol and Lasix. I am hopeful that after we have adequate diuresis and are able to decrease her amount of Lasix we will be able to add Spironolactone. * 11/16/23: BP remains low in 90/50s. Denies SOB/ Chest pain at this time * Cardiology adjusted medications: Decreased Entresto to 12/13 mg BID in order to allow ongoing diuresis with IV Lasix. Continue Coreg and Laxis at current doses. Still plan for Jardiance and Spironolactone when further diuresed. (2) Candidal intertrigo: Code(s): B37.2 - Candidiasis of skin and nail Status: Acute Assessment and Plan: * Wound nurse evaluated and recommendations were made for Tolfinate powder and wicking material to skin folds. * To wound on LLE, apply Lotrisone cream. * Encourage offloading weight by turning every two hours for skin health and drying skin thoroughly after bathing. * 11/15/23: Pt is intolerant of turning side to side in current bed. A bariatric bed has been ordered for her. * 11/16/23: Patient stated does not like bariatric bed. Educated on benefits of turning in bed to decrease skin or pressure issues. * LLE wound continue current care. (3) Left bundle branch block: Code(s): I44.7 - Left bundle-branch block, unspecified Status: Acute Assessment and Plan: * As noted per Cardiology, Dr. Cruz. * Continue Beta Blockade * Consider conversion when medically appropriate * 11/16/23: continue current management with Coreg (4) Noncompliance with medication regimen: Code(s): Z91.148 - Patient's other noncompliance with medication regimen for other reason Status: Acute Assessment and Plan: * Acute on chronic in nature * Pt was encouraged for compliance by both this provider and Cardiology. * Will need routine maintenance appointments by Cardiology at discharge. * 11/15/23: Pt states she would be comfortable following with Dr. Cruz at discharge for continued cardiology care. * 11/16/23: Discussed at length with the patient that compliance with medications and follow-up eare xtremely important. (5) Abnormality of gait and mobility: Code(s): R26.9 - Unspecified abnormalities of gait and mobility Status: Acute Assessment and Plan: * Most likely secondary to morbid obesity. BMI is 65.9. * PT and OT therapies are ordered as pt states she hasn't been able to move for a month. * Suspect pt may need placement at discharge as I cannot see how she can adequately care for herself in this state. * 11/16/23: PT evaluation noted she demonstrated decreased functional independence, min assist for sit/stand, CGA for EOB/commode, 3 ft of gait with 2w/w. PT stat
--- NOTE | 2023-11-16 13:40 | PM.IMPN ---
Progress Note: A&P Assessment and Plan (1) 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ailure: Code(s): I50.43 - 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ailure Status: Acute Assessment and Plan: Presented in overt heart failure. ECHO showed decreased systolic function with EF of 15-20% and Grade 3 Diastolic Dysfunction Daily weight Accurate Intake and Output. Cardiology was consulted and I appreciate their recommendations. He has ordered increased Lasix to 40 mg TID IVP, Entresto and Carvedilol. BP tolerance permitting, would like to add Spironolactone with Jardiance or Farxiga. Continue to monitor VS and Labs Heart Healthy diet Encouraged compliance with medical treatment. 11/15/23: Unable to initiate Spironolactone with Jardiance and/or Farxiga as pt's BP is maintaining low in the 90s/40s-50s. We will continue to monitor therapy with Entresto, Carvedilol and Lasix. I am hopeful that after we have adequate diuresis and are able to decrease her amount of Lasix we will be able to add Spironolactone. 11/16/23: BP remains low in 90/50s. Denies SOB/ Chest pain at this time Cardiology adjusted medications: Decreased Entresto to 12/13 mg BID in order to allow ongoing diuresis with IV Lasix. Continue Coreg and Laxis at current doses. Still plan for Jardiance and Spironolactone when further diuresed. (2) Candidal intertrigo: Code(s): B37.2 - Candidiasis of skin and nail Status: Acute Assessment and Plan: Wound nurse evaluated and recommendations were made for Tolfinate powder and wicking material to skin folds. To wound on LLE, apply Lotrisone cream. Encourage offloading weight by turning every two hours for skin health and drying skin thoroughly after bathing. 11/15/23: Pt is intolerant of turning side to side in current bed. A bariatric bed has been ordered for her. 11/16/23: Patient stated does not like bariatric bed. Educated on benefits of turning in bed to decrease skin or pressure issues. LLE wound continue current care. (3) Left bundle branch block: Code(s): I44.7 - Left bundle-branch block, unspecified Status: Acute Assessment and Plan: As noted per Cardiology, Dr. Cruz. Continue Beta Blockade Consider conversion when medically appropriate 11/16/23: continue current management with Coreg (4) Noncompliance with medication regimen: Code(s): Z91.148 - Patient's other noncompliance with medication regimen for other reason Status: Acute Assessment and Plan: Acute on chronic in nature Pt was encouraged for compliance by both this provider and Cardiology. Will need routine maintenance appointments by Cardiology at discharge. 11/15/23: Pt states she would be comfortable following with Dr. Cruz at discharge for continued cardiology care. 11/16/23: Discussed at length with the patient that compliance with medications and follow-up eare xtremely important. (5) Abnormality of gait and mobility: Code(s): R26.9 - Unspecified abnormalities of gait and mobility Status: Acute Assessment and Plan: Most likely secondary to morbid obesity. BMI is 65.9. PT and OT therapies are ordered as pt states she hasn't been able to move for a month. Suspect pt may need placement at discharge as I cannot see how she can adequately care for herself in this state. 11/16/23: PT evaluation noted she demonstrated decreased functional independence, min assist for sit/stand, CGA for EOB/commode, 3 ft of gait with 2w/w. PT state she could benefit from skilled PT post discharge. Patient is hopeful to return home, and questions if she could potentially have home health vs skilled facility (6) Morbid obesity: Code(s): E66.01 - Morbid (severe) obesity due to excess calories Status: Chronic Assessment and Plan: Heart healthy diet Compliance with regimens are promoted.
--- NOTE | 2023-11-16 14:34 | PM.PNCARD ---
Progress Note: A&P Assessment and Plan (1) 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ailure: Code(s): I50.43 - 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ailure Status: Acute Assessment and Plan: EF 15 - 20% with grade III diastolic dysfunction. Patient has not been taking any medications. Continue furosemide 40 mg IV t.i.d. Start her on standard GDMT including: Continue coreg 3.125 mg b.i.d Reduce entresto to 12/13 mg b.i.d. in order to allow ongoing diuresis with IV Lasix which she was not on this morning. Explained the benefit and function of her various medications. Jardiance when she has diuresed more Spironolactone as BP allows Continue accurate intake and output, daily weights. As documented she is essentially fluid balance positive thus far. daily weights Continue daily BMPs to monitor renal function electrolytes. DVT prophylaxis Discussed at length with the patient. All questions answered to her satisfaction. Compliance with medications a follow-up extremely important. Discussed length. (2) Hypokalemia: Code(s): E87.6 - Hypokalemia Status: Acute Assessment and Plan: 3.5 today. Daily BMP while diuresing with K+ goal 4.0. Will add KCL 20 mEq p.o. daily. Continue to replete and monitor daily. (3) Morbid obesity: Code(s): E66.01 - Morbid (severe) obesity due to excess calories Status: Chronic Assessment and Plan: Dietary lifestyle modification for weight loss (4) Left bundle branch block: Code(s): I44.7 - Left bundle-branch block, unspecified Status: Acute Assessment and Plan: May benefit from resynchronization therapy at some point Subjective Date/time seen: Date of Service: 11/16/23 14:34 Interval history: Cardiology follow up for cardiomyopathy, CHF She is uncomfortable in her bed but otherwise no chest pain or palpitations. She does no shortness of breath with moving around in her bed. She did not get her IV Lasix this morning due to reported hypotension. Review of Systems Review of Systems: All systems reviewed & are unremarkable except as noted in HPI and below Constitutional: Constitutional: Denies body ache(s) and Denies excessive sweating Eyes: Eyes: Denies blurry vision ENT: Reports Normal hearing present Cardiovascular: Cardiovascular: Denies chest pain, Reports pedal edema, Reports leg edema and Reports dyspnea Respiratory: Respiratory: Reports dyspnea Gastrointestinal: Gastrointestinal: Reports abdominal pain Genitourinary: Genitourinary: Denies hematuria Musculoskeletal: Musculoskeletal: Denies back pain Integumentary/Breasts: Skin/Breast: Reports erythema and Reports wounds Neurologic: Reports Normal hearing present and Denies Abnormal speech present Psychiatric: Psychiatric: Denies anxiety Endocrine: Endocrine: Denies excessive sweating Hematologic/Lymphatic: Hematologic/Lymphatic: Denies easy bleeding Allergic/Immunologic: Allergic/Immunologic: Denies GI upset with certain foods Exam Narrative: Awake alert oriented appears older than stated age Const: General: comfortable and no acute distress HENMT: Face/Nose/Sinus: Normal nares present Mouth: Yes moist mucous membranes Eyes: Sclera: sclerae normal Neck: Neck: supple and no JVD Carotids: no bruits Chest: Other: No reproducible chest wall pain to palpation Resp: Effort & Inspection: normal respiratory effort Auscultation: diminished lung sounds Cardio: Rate: regular rate Rhythm: regular rhythm Heart sounds: no murmurs Other: Distant heart tones GI: Inspection: non-distended Auscultation: normal bowel sounds Urinary Catheter: Urinary Catheter: patent and draining Skin: General skin exam: lesion Lesions: lesion noted Other: Large open wound noted to the medial left lower leg. Neuro: Cranial nerves: Yes No
[2023-11-16] MEDS: FUROSEMIDE INJ 40 MG/4 ML VIAL IV PUSH (17:49)
[2023-11-16] MEDS: SACUBITRIL/VALSARTAN 12-13 MG TABLET 1 TAB PO (20:30)
[2023-11-17] VITALS (10 sets, daily range): BP systolic 86–98; BP diastolic 44–50; PULSE 65–85; RESP 16–18; TEMP 36.4–37.1; O2SAT 96–98
[2023-11-17 07:22] LABS: Hematocrit 32.2 % (37.0-47.0); Mean Corpuscular HGB Conc 31.1 g/dl (32-36); Mean Corpuscular Hemoglobin 34.7 pg (26-34); Mean Corpuscular Volume 111.8 fl (80-100); Platelet Count Result 141 k/mm3 (150-375); Red Blood Count 2.88 M/mm3 (4.2-5.4); White Blood Count 3.5 K/mm3 (4.5-10.0)
[2023-11-17 07:37] LABS: Alanine Aminotransferase 9 U/L (6-35); Albumin Level 2.9 g/dL (3.5-5.1); Alkaline Phosphatase 173 U/L (38-126); Anion Gap 4 mmol/L (8-16); Aspartate Amino Transferase 18 U/L (14-36); Bilirubin,Total 3.3 mg/dL (0.2-1.3); Blood Urea Nitrogen 31 mg/dL (7-17); Calcium 8.2 mg/dL (8.4-10.2); Carbon Dioxide 30 mmol/L (22-30); Chloride 104 mmol/L (98-107); Estimated CRCL calculation 79 ml/min; Estimated Glomerular Filt Rate 46; Glucose 92 mg/dL (65-110); Potassium 3.8 mmol/L (3.4-5.0); Sodium 138 mmol/L (137-145)
[2023-11-17] MEDS: SACUBITRIL/VALSARTAN 12-13 MG TABLET 1 TAB PO ×2 (09:24→20:52)
[2023-11-17] MEDS: ENOXAPARIN 40 MG/0.4 ML SYRINGE SUB-Q (09:24)
[2023-11-17] MEDS: FUROSEMIDE INJ 40 MG/4 ML VIAL IV PUSH ×3 (09:24→16:31)
[2023-11-17] MEDS: TOLNAFTATE 1% POWDER 45 GM BTL 1 APPLIC TOPICAL ×2 (09:25→20:52)
[2023-11-17] MEDS: BETAMETHASONE/CLOTRIMAZOLE CR 15 GM TUBE 1 APPLIC TOPICAL (09:26)
--- NOTE | 2023-11-17 12:36 | PM.PNCARD ---
Progress Note: A&P Assessment and Plan (1) 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ailure: Code(s): I50.43 - 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ailure Status: Acute Assessment and Plan: EF 15 - 20% with grade III diastolic dysfunction. Patient has not been taking any medications. Continue furosemide 40 mg IV t.i.d. Start her on standard GDMT including: Continue coreg 3.125 mg b.i.d Reduce entresto to 12/13 mg b.i.d. in order to allow ongoing diuresis with IV Lasix which she was not on this morning. Explained the benefit and function of her various medications. Jardiance when she has diuresed more Spironolactone as BP allows Continue accurate intake and output, daily weights. As documented she is essentially fluid balance positive thus far. daily weights Continue daily BMPs to monitor renal function electrolytes. Give potassium chloride 40 mEq today. Increase daily potassium to 40 mEq daily. DVT prophylaxis Discussed at length with the patient. All questions answered to her satisfaction. Compliance with medications a follow-up extremely important. Discussed length. It is very difficult to assess her true volume status given in consistent daily weights, lack of reliable documentation input and output patient has conflicting description of her symptoms. The times she states she felt better she trip to Lasix yet her doses were held due to relative hypotension. She then states she felt better last night after receiving Lasix but then this morning feels worse where she also received Lasix. As such, will hold carvedilol for now but continue Entresto. May liberalize fluid intake to 2 L daily but continue IV diuresis. I explained the risk for counterproductive fluid balance yet 1500 cc daily is not a restriction she will maintain at home or in any other setting. No new issues on telemetry overnight. Hold carvedilol for now to observe response in BP, tolerance in general sense of well-being. Further recommendations to follow. I spent 37 minutes the care of this patient at bedside including examination, discussions, chart review, medical decision-making, and documentation. (2) Hypokalemia: Code(s): E87.6 - Hypokalemia Status: Acute Assessment and Plan: 3.5 today. Daily BMP while diuresing with K+ goal 4.0. Replete potassium. She states she cannot take pills will order powdered preparation. Continue to replete and monitor daily. (3) Left bundle branch block: Code(s): I44.7 - Left bundle-branch block, unspecified Status: Acute Assessment and Plan: May benefit from resynchronization therapy at some point (4) Morbid obesity: Code(s): E66.01 - Morbid (severe) obesity due to excess calories Status: Chronic Assessment and Plan: Dietary lifestyle modification for weight loss Subjective Date/time seen: Date of service: 11/17/23 12:36 Interval history: Cardiology follow up for cardiomyopathy, CHF Patient reports she has not feels well like she is dehydrated at times. Confusion we she states she feels better when she receives the Lasix and felt softer abdomen within this morning she is more firm his states she feels she needs to have more fluid intake to feel better. She also then mention that her blood pressure being lower may be causing her to feel less well at times but unable to correlate with particular hypotension. Ultimately, patient inquired if her fluid intake could be increased. She then states she felt better when she took Lasix at home when she was not on carvedilol and Entresto but denied having specific side effects with medications of which she was aware. No chest pain or palpitations. Patient was sitting on a couch working with physical therapy and has now noted her abdomen feels more full although she is sitting for words she had been lying back in bed unt
[2023-11-17] MEDS: POTASSIUM CHLORIDE 20 MEQ PACKET (FOR LIQUID) PO (13:18)
--- NOTE | 2023-11-17 13:50 | P.PNIM_ITS ---
Progress Note: A&P Assessment and Plan (1) 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ailure: Code(s): I50.43 - 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ailure Status: Acute Assessment and Plan: * Presented in overt heart failure. * ECHO showed decreased systolic function with EF of 15-20% and Grade 3 Diastolic Dysfunction * Daily weight * Accurate Intake and Output. * Cardiology was consulted and I appreciate their recommendations. He has ordered increased Lasix to 40 mg TID IVP, Entresto and Carvedilol. BP tolerance permitting, would like to add Spironolactone with Jardiance or Farxiga. * Continue to monitor VS and Labs * Heart Healthy diet * Encouraged compliance with medical treatment. * 11/15/23: Unable to initiate Spironolactone with Jardiance and/or Farxiga as pt's BP is maintaining low in the 90s/40s-50s. We will continue to monitor therapy with Entresto, Carvedilol and Lasix. I am hopeful that after we have adequate diuresis and are able to decrease her amount of Lasix we will be able to add Spironolactone. * 11/16/23: BP remains low in 90/50s. Denies SOB/ Chest pain at this time * Cardiology adjusted medications: Decreased Entresto to 12/13 mg BID in order to allow ongoing diuresis with IV Lasix. Continue Coreg and Laxis at current doses. Still plan for Jardiance and Spironolactone when further diuresed. * 11/17/23: BP this am 98/50: Cardiology to hold coreg, ass potassium chloride 40Mea daily, increase fluid intake to 2L/day, continue current entresto order and IV diuresis. (2) Candidal intertrigo: Code(s): B37.2 - Candidiasis of skin and nail Status: Acute Assessment and Plan: * Wound nurse evaluated and recommendations were made for Tolfinate powder and wicking material to skin folds. * To wound on LLE, apply Lotrisone cream. * Encourage offloading weight by turning every two hours for skin health and drying skin thoroughly after bathing. * 11/15/23: Pt is intolerant of turning side to side in current bed. A bariatric bed has been ordered for her. * 11/16/23: Patient stated does not like bariatric bed. Educated on benefits of turning in bed to decrease skin or pressure issues. * LLE wound continue current care. * 11/17/23: Patient agreeable to OOB with PT today, will aid in hygiene efforts. LLE covered with out signs of surrounding issues at this time (3) Left bundle branch block: Code(s): I44.7 - Left bundle-branch block, unspecified Status: Acute Assessment and Plan: * As noted per Cardiology, Dr. Cruz. * Continue Beta Blockade * Consider conversion when medically appropriate * 11/16/23: continue current management with Coreg * 11/17/23: Cardiology to hold Coreg, patient statements of too much medication at this time. Cardiology discussed medication uses as did this provider. (4) Noncompliance with medication regimen: Code(s): Z91.148 - Patient's other noncompliance with medication regimen for other reason Status: Acute Assessment and Plan: * Acute on chronic in nature * Pt was encouraged for compliance by both this provider and Cardiology. * Will need routine maintenance appointments by Cardiology at discharge. * 11/15/23: Pt states she would be comfortable following with Dr. Cruz at discharge for continued cardiology care. * 11/16/23: Discussed at length with the patient that compliance with medications and follow-up are extremely important * 11/17/23: Patient reluctant to continue all current medications, statements of too much medication at this time. Regimen and
--- NOTE | 2023-11-17 13:50 | PM.IMPN ---
Progress Note: A&P Assessment and Plan (1) 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ailure: Code(s): I50.43 - 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ailure Status: Acute Assessment and Plan: Presented in overt heart failure. ECHO showed decreased systolic function with EF of 15-20% and Grade 3 Diastolic Dysfunction Daily weight Accurate Intake and Output. Cardiology was consulted and I appreciate their recommendations. He has ordered increased Lasix to 40 mg TID IVP, Entresto and Carvedilol. BP tolerance permitting, would like to add Spironolactone with Jardiance or Farxiga. Continue to monitor VS and Labs Heart Healthy diet Encouraged compliance with medical treatment. 11/15/23: Unable to initiate Spironolactone with Jardiance and/or Farxiga as pt's BP is maintaining low in the 90s/40s-50s. We will continue to monitor therapy with Entresto, Carvedilol and Lasix. I am hopeful that after we have adequate diuresis and are able to decrease her amount of Lasix we will be able to add Spironolactone. 11/16/23: BP remains low in 90/50s. Denies SOB/ Chest pain at this time Cardiology adjusted medications: Decreased Entresto to 12/13 mg BID in order to allow ongoing diuresis with IV Lasix. Continue Coreg and Laxis at current doses. Still plan for Jardiance and Spironolactone when further diuresed. 11/17/23: BP this am 98/50: Cardiology to hold coreg, ass potassium chloride 40Mea daily, increase fluid intake to 2L/day, continue current entresto order and IV diuresis. (2) Candidal intertrigo: Code(s): B37.2 - Candidiasis of skin and nail Status: Acute Assessment and Plan: Wound nurse evaluated and recommendations were made for Tolfinate powder and wicking material to skin folds. To wound on LLE, apply Lotrisone cream. Encourage offloading weight by turning every two hours for skin health and drying skin thoroughly after bathing. 11/15/23: Pt is intolerant of turning side to side in current bed. A bariatric bed has been ordered for her. 11/16/23: Patient stated does not like bariatric bed. Educated on benefits of turning in bed to decrease skin or pressure issues. LLE wound continue current care. 11/17/23: Patient agreeable to OOB with PT today, will aid in hygiene efforts. LLE covered with out signs of surrounding issues at this time (3) Left bundle branch block: Code(s): I44.7 - Left bundle-branch block, unspecified Status: Acute Assessment and Plan: As noted per Cardiology, Dr. Cruz. Continue Beta Blockade Consider conversion when medically appropriate 11/16/23: continue current management with Coreg 11/17/23: Cardiology to hold Coreg, patient statements of too much medication at this time. Cardiology discussed medication uses as did this provider. (4) Noncompliance with medication regimen: Code(s): Z91.148 - Patient's other noncompliance with medication regimen for other reason Status: Acute Assessment and Plan: Acute on chronic in nature Pt was encouraged for compliance by both this provider and Cardiology. Will need routine maintenance appointments by Cardiology at discharge. 11/15/23: Pt states she would be comfortable following with Dr. Cruz at discharge for continued cardiology care. 11/16/23: Discussed at length with the patient that compliance with medications and follow-up are extremely important 11/17/23: Patient reluctant to continue all current medications, statements of too much medication at this time. Regimen and compliance discusse with patient by this provider and cardiology per note. Medications adjusted per cardiology. Patient agreeable to changes and continuing medications at this time. (5) Abnormality of gait and mobility: Code(s): R26.9 - Unspecified abnormalities of gait and mobility Status: Acute Assessment and Plan: Most likely seconda
[2023-11-18] VITALS (11 sets, daily range): BP systolic 79–113; BP diastolic 38–57; PULSE 62–86; RESP 18; TEMP 36.2–36.8; O2SAT 91–97
[2023-11-18 06:42] LABS: Hemoglobin 10.2 g/dL (12.0-15.0); Mean Corpuscular HGB Conc 31.9 g/dl (32-36); Mean Corpuscular Hemoglobin 34.6 pg (26-34); Mean Corpuscular Volume 108.5 fl (80-100); Mean Platelet Volume 10.6 fl (7.4-10.4); Platelet Count Result 142 k/mm3 (150-375); Red Blood Count 2.95 M/mm3 (4.2-5.4); Red Cell Distribution Width 16.1 % (11.5-14.5); White Blood Count 3.1 K/mm3 (4.5-10.0)
[2023-11-18 06:58] LABS: Alanine Aminotransferase 9 U/L (6-35); Albumin Level 2.9 g/dL (3.5-5.1); Alkaline Phosphatase 169 U/L (38-126); Anion Gap 3 mmol/L (8-16); Aspartate Amino Transferase 21 U/L (14-36); Bilirubin,Total 3.1 mg/dL (0.2-1.3); Blood Urea Nitrogen 32 mg/dL (7-17); Calcium 8.2 mg/dL (8.4-10.2); Carbon Dioxide 31 mmol/L (22-30); Chloride 103 mmol/L (98-107); Estimated CRCL calculation 79 ml/min; Estimated Glomerular Filt Rate 46; Glucose 96 mg/dL (65-110); Sodium 137 mmol/L (137-145)
[2023-11-18] MEDS: POTASSIUM CHLORIDE 20 MEQ PACKET (FOR LIQUID) 40 MEQ PO (08:49)
[2023-11-18] MEDS: FUROSEMIDE INJ 40 MG/4 ML VIAL IV PUSH ×3 (08:51→16:37)
[2023-11-18] MEDS: ENOXAPARIN 40 MG/0.4 ML SYRINGE SUB-Q (08:54)
[2023-11-18] MEDS: SACUBITRIL/VALSARTAN 12-13 MG TABLET 1 TAB PO ×2 (08:56→21:07)
[2023-11-18] MEDS: TOLNAFTATE 1% POWDER 45 GM BTL 1 APPLIC TOPICAL ×2 (08:57→21:07)
[2023-11-18] MEDS: BETAMETHASONE/CLOTRIMAZOLE CR 15 GM TUBE 1 APPLIC TOPICAL (08:58)
--- NOTE | 2023-11-18 10:16 | PM.PNCARD ---
Progress Note: A&P Assessment and Plan (1) 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ailure: Code(s): I50.43 - 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ailure Status: Acute Assessment and Plan: EF 15 - 20% with grade III diastolic dysfunction. Patient has not been taking any medications. Continue furosemide 40 mg IV t.i.d. Start her on standard GDMT including: Continue coreg 3.125 mg b.i.d continue entresto to 12/13 mg b.i.d. Jardiance when she has diuresed more Spironolactone as BP allows Continue accurate intake and output daily weights Continue daily BMPs to monitor renal function electrolytes. DVT prophylaxis Discussed at length with the patient. All questions answered to her satisfaction. Compliance with medications a follow-up extremely important. Discussed length. (2) Hypokalemia: Code(s): E87.6 - Hypokalemia Status: Acute Assessment and Plan: Daily BMP while diuresing with K+ goal 4.0. (3) Left bundle branch block: Code(s): I44.7 - Left bundle-branch block, unspecified Status: Acute Assessment and Plan: May benefit from resynchronization therapy at some point (4) Morbid obesity: Code(s): E66.01 - Morbid (severe) obesity due to excess calories Status: Chronic Assessment and Plan: Dietary lifestyle modification for weight loss Subjective Date/time seen: 11/18/23 10:16 Interval history: Cardiology follow up for cardiomyopathy, CHF Patient reports she has not feels well like she is dehydrated at times. Confusion we she states she feels better when she receives the Lasix and felt softer abdomen within this morning she is more firm his states she feels she needs to have more fluid intake to feel better. She also then mention that her blood pressure being lower may be causing her to feel less well at times but unable to correlate with particular hypotension. Ultimately, patient inquired if her fluid intake could be increased. She then states she felt better when she took Lasix at home when she was not on carvedilol and Entresto but denied having specific side effects with medications of which she was aware. No chest pain or palpitations. Patient was sitting on a couch working with physical therapy and has now noted her abdomen feels more full although she is sitting for words she had been lying back in bed until today. She also states she can not take potassium pills unable swallow them. She requests liquid form. Date of service 11/18/23: Feeling about the same today. No shortness of breath at rest but does have dyspnea with exertion including activity like moving around in bed. No chest pain or palpitations. Review of Systems Review of Systems: All systems reviewed & are unremarkable except as noted in HPI and below Constitutional: Constitutional: Denies body ache(s) and Denies excessive sweating Eyes: Eyes: Denies blurry vision ENT: Reports Normal hearing present Cardiovascular: Cardiovascular: Denies chest pain, Reports pedal edema, Reports leg edema and Reports dyspnea Respiratory: Respiratory: Reports dyspnea Gastrointestinal: Gastrointestinal: Reports abdominal pain Genitourinary: Genitourinary: Denies hematuria Musculoskeletal: Musculoskeletal: Denies back pain Integumentary/Breasts: Skin/Breast: Reports erythema and Reports wounds Neurologic: Reports Normal hearing present and Denies Abnormal speech present Psychiatric: Psychiatric: Denies anxiety Endocrine: Endocrine: Denies excessive sweating Hematologic/Lymphatic: Hematologic/Lymphatic: Denies easy bleeding Allergic/Immunologic: Allergic/Immunologic: Denies GI upset with certain foods Exam Narrative: Awake alert oriented appears older than stated age Const: General: comfortable and no acute distress HENMT: Face/Nose/Sinus: Normal nares prese
--- NOTE | 2023-11-18 12:56 | P.PNIM_ITS ---
Progress Note: A&P Assessment and Plan (1) 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ailure: Code(s): I50.43 - 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ailure Status: Acute Assessment and Plan: * Presented in overt heart failure. * ECHO showed decreased systolic function with EF of 15-20% and Grade 3 Diastolic Dysfunction * Daily weight * Accurate Intake and Output. * Cardiology was consulted and I appreciate their recommendations. He has ordered increased Lasix to 40 mg TID IVP, Entresto and Carvedilol. BP tolerance permitting, would like to add Spironolactone with Jardiance or Farxiga. * Continue to monitor VS and Labs * Heart Healthy diet * Encouraged compliance with medical treatment. * 11/15/23: Unable to initiate Spironolactone with Jardiance and/or Farxiga as pt's BP is maintaining low in the 90s/40s-50s. We will continue to monitor therapy with Entresto, Carvedilol and Lasix. I am hopeful that after we have adequate diuresis and are able to decrease her amount of Lasix we will be able to add Spironolactone. * 11/16/23: BP remains low in 90/50s. Denies SOB/ Chest pain at this time * Cardiology adjusted medications: Decreased Entresto to 12/13 mg BID in order to allow ongoing diuresis with IV Lasix. Continue Coreg and Laxis at current doses. Still plan for Jardiance and Spironolactone when further diuresed. * 11/17/23: BP this am 98/50: Cardiology to hold coreg, ass potassium chloride 40Mea daily, increase fluid intake to 2L/day, continue current entresto order and IV diuresis. * 11/18/23: BP this am 113/51. Patient received lasix dosing. * No daily weight charting available at this time. Continue to monitor daily weight, I&O * Appreciate Cardiology following patient and treatment as of 11/17 includes Entresto 12/13mg BID, Lasix 40 mg IV TID, 2L fluid restriction, hold Coreg, and hopeful to add spironolactone and Jardiance or Farxiga when she has diuresed more. (2) Candidal intertrigo: Code(s): B37.2 - Candidiasis of skin and nail Status: Acute Assessment and Plan: * Wound nurse evaluated and recommendations were made for Tolfinate powder and wicking material to skin folds. * To wound on LLE, apply Lotrisone cream. * Encourage offloading weight by turning every two hours for skin health and drying skin thoroughly after bathing. * 11/15/23: Pt is intolerant of turning side to side in current bed. A bariatric bed has been ordered for her. * 11/16/23: Patient stated does not like bariatric bed. Educated on benefits of turning in bed to decrease skin or pressure issues. * LLE wound continue current care. * 11/17/23: Patient agreeable to OOB with PT today, will aid in hygiene efforts. LLE covered with out signs of surrounding issues at this time * 11/18/23: LLE chronic venous stasis ulcer to left medial lower leg, lymphedema present to thigh, wound nurse recommendations continued- Lotrisone cream to open area to decrease yeast inflammation and irritation and cover with mepilex transfer to wick exudate. ABD pad and lightly wrapped kerlix. Elevate legs/ Compression. * Coccyx with yeast maceration and area of friction. Continue wound nurse reccomendations of Aloe [place] Clear Antifungal barrier cream. * Continue to monitor skin conditions. Educate patient to turn and reposition to aid with skin health. (3) Left bundle branch block: Code(s): I44.7 - Left bundle-branch block, unspecified Status: Acute Assessment and Plan: * As noted per Cardiology, Dr. Cruz. * Continue Beta Blockade * Consider conversi
--- NOTE | 2023-11-18 12:56 | PM.IMPN ---
Progress Note: A&P Assessment and Plan (1) 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ailure: Code(s): I50.43 - 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ailure Status: Acute Assessment and Plan: Presented in overt heart failure. ECHO showed decreased systolic function with EF of 15-20% and Grade 3 Diastolic Dysfunction Daily weight Accurate Intake and Output. Cardiology was consulted and I appreciate their recommendations. He has ordered increased Lasix to 40 mg TID IVP, Entresto and Carvedilol. BP tolerance permitting, would like to add Spironolactone with Jardiance or Farxiga. Continue to monitor VS and Labs Heart Healthy diet Encouraged compliance with medical treatment. 11/15/23: Unable to initiate Spironolactone with Jardiance and/or Farxiga as pt's BP is maintaining low in the 90s/40s-50s. We will continue to monitor therapy with Entresto, Carvedilol and Lasix. I am hopeful that after we have adequate diuresis and are able to decrease her amount of Lasix we will be able to add Spironolactone. 11/16/23: BP remains low in 90/50s. Denies SOB/ Chest pain at this time Cardiology adjusted medications: Decreased Entresto to 12/13 mg BID in order to allow ongoing diuresis with IV Lasix. Continue Coreg and Laxis at current doses. Still plan for Jardiance and Spironolactone when further diuresed. 11/17/23: BP this am 98/50: Cardiology to hold coreg, ass potassium chloride 40Mea daily, increase fluid intake to 2L/day, continue current entresto order and IV diuresis. 11/18/23: BP this am 113/51. Patient received lasix dosing. No daily weight charting available at this time. Continue to monitor daily weight, I&O Appreciate Cardiology following patient and treatment as of 11/17 includes Entresto 12/13mg BID, Lasix 40 mg IV TID, 2L fluid restriction, hold Coreg, and hopeful to add spironolactone and Jardiance or Farxiga when she has diuresed more. (2) Candidal intertrigo: Code(s): B37.2 - Candidiasis of skin and nail Status: Acute Assessment and Plan: Wound nurse evaluated and recommendations were made for Tolfinate powder and wicking material to skin folds. To wound on LLE, apply Lotrisone cream. Encourage offloading weight by turning every two hours for skin health and drying skin thoroughly after bathing. 11/15/23: Pt is intolerant of turning side to side in current bed. A bariatric bed has been ordered for her. 11/16/23: Patient stated does not like bariatric bed. Educated on benefits of turning in bed to decrease skin or pressure issues. LLE wound continue current care. 11/17/23: Patient agreeable to OOB with PT today, will aid in hygiene efforts. LLE covered with out signs of surrounding issues at this time 11/18/23: LLE chronic venous stasis ulcer to left medial lower leg, lymphedema present to thigh, wound nurse recommendations continued- Lotrisone cream to open area to decrease yeast inflammation and irritation and cover with mepilex transfer to wick exudate. ABD pad and lightly wrapped kerlix. Elevate legs/ Compression. Coccyx with yeast maceration and area of friction. Continue wound nurse reccomendations of Aloe [place] Clear Antifungal barrier cream. Continue to monitor skin conditions. Educate patient to turn and reposition to aid with skin health. (3) Left bundle branch block: Code(s): I44.7 - Left bundle-branch block, unspecified Status: Acute Assessment and Plan: As noted per Cardiology, Dr. Cruz. Continue Beta Blockade Consider conversion when medically appropriate 11/16/23: continue current management with Coreg 11/17/23: Cardiology to hold Coreg, patient statements of too much medication at this time. Cardiology discussed medication uses as did this provider. 11/18/23: HR 60s Cardiology to hold Coreg Continue to monitor (4) Noncompliance with medication regimen: Code(s): Z91.148
[2023-11-19] VITALS (12 sets, daily range): BP systolic 92–124; BP diastolic 41–70; PULSE 63–79; RESP 16–18; TEMP 36.2–36.3; O2SAT 93–98
[2023-11-19 06:42] LABS: Hematocrit 32.6 % (37.0-47.0); Hemoglobin 10.2 g/dL (12.0-15.0); Mean Corpuscular HGB Conc 31.3 g/dl (32-36); Mean Corpuscular Hemoglobin 34.3 pg (26-34); Mean Corpuscular Volume 109.8 fl (80-100); Mean Platelet Volume 10.7 fl (7.4-10.4); Platelet Count Result 143 k/mm3 (150-375); Red Blood Count 2.97 M/mm3 (4.2-5.4); Red Cell Distribution Width 16.2 % (11.5-14.5); White Blood Count 4.2 K/mm3 (4.5-10.0)
[2023-11-19 06:55] LABS: Alanine Aminotransferase 9 U/L (6-35); Albumin Level 2.8 g/dL (3.5-5.1); Alkaline Phosphatase 166 U/L (38-126); Anion Gap 4 mmol/L (8-16); Aspartate Amino Transferase 20 U/L (14-36); Bilirubin,Total 2.7 mg/dL (0.2-1.3); Blood Urea Nitrogen 33 mg/dL (7-17); Calcium 8.2 mg/dL (8.4-10.2); Carbon Dioxide 32 mmol/L (22-30); Chloride 103 mmol/L (98-107); Estimated CRCL calculation 79 ml/min; Estimated Glomerular Filt Rate 46; Glucose 94 mg/dL (65-110); Potassium 4.2 mmol/L (3.4-5.0); Sodium 139 mmol/L (137-145)
[2023-11-19] MEDS: BETAMETHASONE/CLOTRIMAZOLE CR 15 GM TUBE 1 APPLIC TOPICAL (09:00)
[2023-11-19] MEDS: TOLNAFTATE 1% POWDER 45 GM BTL 1 APPLIC TOPICAL ×2 (09:00→20:38)
[2023-11-19] MEDS: ENOXAPARIN 40 MG/0.4 ML SYRINGE SUB-Q (09:01)
[2023-11-19] MEDS: FUROSEMIDE INJ 40 MG/4 ML VIAL IV PUSH ×3 (09:02→17:37)
[2023-11-19] MEDS: POTASSIUM CHLORIDE 20 MEQ PACKET (FOR LIQUID) 40 MEQ PO (09:04)
[2023-11-19] MEDS: SACUBITRIL/VALSARTAN 12-13 MG TABLET 1 TAB PO ×2 (09:04→20:37)
--- NOTE | 2023-11-19 12:44 | P.PNIM_ITS ---
Progress Note: A&P Assessment and Plan (1) 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ailure: Code(s): I50.43 - 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ailure Status: Acute Assessment and Plan: * Presented in overt heart failure. * ECHO showed decreased systolic function with EF of 15-20% and Grade 3 Diastolic Dysfunction * Daily weight * Accurate Intake and Output. * Cardiology was consulted and I appreciate their recommendations. He has ordered increased Lasix to 40 mg TID IVP, Entresto and Carvedilol. BP tolerance permitting, would like to add Spironolactone with Jardiance or Farxiga. * Continue to monitor VS and Labs * Heart Healthy diet * Encouraged compliance with medical treatment. * 11/15/23: Unable to initiate Spironolactone with Jardiance and/or Farxiga as pt's BP is maintaining low in the 90s/40s-50s. We will continue to monitor therapy with Entresto, Carvedilol and Lasix. I am hopeful that after we have adequate diuresis and are able to decrease her amount of Lasix we will be able to add Spironolactone. * 11/16/23: BP remains low in 90/50s. Denies SOB/ Chest pain at this time * Cardiology adjusted medications: Decreased Entresto to 12/13 mg BID in order to allow ongoing diuresis with IV Lasix. Continue Coreg and Laxis at current doses. Still plan for Jardiance and Spironolactone when further diuresed. * 11/17/23: BP this am 98/50: Cardiology to hold coreg, ass potassium chloride 40Mea daily, increase fluid intake to 2L/day, continue current entresto order and IV diuresis. * 11/18/23: BP this am 113/51. Patient received lasix dosing. * No daily weight charting available at this time. Continue to monitor daily weight, I&O * Appreciate Cardiology following patient and treatment as of 11/17 includes Entresto 12/13mg BID, Lasix 40 mg IV TID, 2L fluid restriction, hold Coreg, and hopeful to add spironolactone and Jardiance or Farxiga when she has diuresed more. * 11/19/23: BP is am 102/41. Receiving lasix dosing consecutively. * Continue Cardiology treatment place: Entresto 12/13mg BID, Lasix 40 mg IV TID, 2L fluid restriction, hold Coreg, and hopeful to add spironolactone and Jardiance or Farxiga when she has diuresed * Discussed use of Jardiance or Farxiga (2) Candidal intertrigo: Code(s): B37.2 - Candidiasis of skin and nail Status: Acute Assessment and Plan: * Wound nurse evaluated and recommendations were made for Tolfinate powder and wicking material to skin folds. * To wound on LLE, apply Lotrisone cream. * Encourage offloading weight by turning every two hours for skin health and drying skin thoroughly after bathing. * 11/15/23: Pt is intolerant of turning side to side in current bed. A bariatric bed has been ordered for her. * 11/16/23: Patient stated does not like bariatric bed. Educated on benefits of turning in bed to decrease skin or pressure issues. * LLE wound continue current care. * 11/17/23: Patient agreeable to OOB with PT today, will aid in hygiene efforts. LLE covered with out signs of surrounding issues at this time * 11/18/23: LLE chronic venous stasis ulcer to left medial lower leg, lymphedema present to thigh, wound nurse recommendations continued- Lotrisone cream to open area to decrease yeast inflammation and irritation and cover with mepilex transfer to wick exudate. ABD pad and lightly wrapped kerlix. Elevate legs/ Compression. * Coccyx with yeast maceration and area of friction. Continue wound nurse reccom endations of Aloe [place] Clear Antifungal barrier cream. * Continue to monitor skin conditions. Educ
--- NOTE | 2023-11-19 12:44 | PM.IMPN ---
Progress Note: A&P Assessment and Plan (1) 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ailure: Code(s): I50.43 - 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ailure Status: Acute Assessment and Plan: Presented in overt heart failure. ECHO showed decreased systolic function with EF of 15-20% and Grade 3 Diastolic Dysfunction Daily weight Accurate Intake and Output. Cardiology was consulted and I appreciate their recommendations. He has ordered increased Lasix to 40 mg TID IVP, Entresto and Carvedilol. BP tolerance permitting, would like to add Spironolactone with Jardiance or Farxiga. Continue to monitor VS and Labs Heart Healthy diet Encouraged compliance with medical treatment. 11/15/23: Unable to initiate Spironolactone with Jardiance and/or Farxiga as pt's BP is maintaining low in the 90s/40s-50s. We will continue to monitor therapy with Entresto, Carvedilol and Lasix. I am hopeful that after we have adequate diuresis and are able to decrease her amount of Lasix we will be able to add Spironolactone. 11/16/23: BP remains low in 90/50s. Denies SOB/ Chest pain at this time Cardiology adjusted medications: Decreased Entresto to 12/13 mg BID in order to allow ongoing diuresis with IV Lasix. Continue Coreg and Laxis at current doses. Still plan for Jardiance and Spironolactone when further diuresed. 11/17/23: BP this am 98/50: Cardiology to hold coreg, ass potassium chloride 40Mea daily, increase fluid intake to 2L/day, continue current entresto order and IV diuresis. 11/18/23: BP this am 113/51. Patient received lasix dosing. No daily weight charting available at this time. Continue to monitor daily weight, I&O Appreciate Cardiology following patient and treatment as of 11/17 includes Entresto 12/13mg BID, Lasix 40 mg IV TID, 2L fluid restriction, hold Coreg, and hopeful to add spironolactone and Jardiance or Farxiga when she has diuresed more. 11/19/23: BP is am 102/41. Receiving lasix dosing consecutively. Continue Cardiology treatment place: Entresto 12/13mg BID, Lasix 40 mg IV TID, 2L fluid restriction, hold Coreg, and hopeful to add spironolactone and Jardiance or Farxiga when she has diuresed Discussed use of Jardiance or Farxiga (2) Candidal intertrigo: Code(s): B37.2 - Candidiasis of skin and nail Status: Acute Assessment and Plan: Wound nurse evaluated and recommendations were made for Tolfinate powder and wicking material to skin folds. To wound on LLE, apply Lotrisone cream. Encourage offloading weight by turning every two hours for skin health and drying skin thoroughly after bathing. 11/15/23: Pt is intolerant of turning side to side in current bed. A bariatric bed has been ordered for her. 11/16/23: Patient stated does not like bariatric bed. Educated on benefits of turning in bed to decrease skin or pressure issues. LLE wound continue current care. 11/17/23: Patient agreeable to OOB with PT today, will aid in hygiene efforts. LLE covered with out signs of surrounding issues at this time 11/18/23: LLE chronic venous stasis ulcer to left medial lower leg, lymphedema present to thigh, wound nurse recommendations continued- Lotrisone cream to open area to decrease yeast inflammation and irritation and cover with mepilex transfer to wick exudate. ABD pad and lightly wrapped kerlix. Elevate legs/ Compression. Coccyx with yeast maceration and area of friction. Continue wound nurse reccomendations of Aloe [place] Clear Antifungal barrier cream. Continue to monitor skin conditions. Educate patient to turn and reposition to aid with skin health. 11/19/23: LLE without pain per patient. She stated dressing has been changed daily. Stated unable to elevate legs, currently in high fowlers postion with LUE straight. Able to raise leg from bed minimally (3) Left bundle branch block: Code(s): I44.7 - Left bundle-branch block, uns
--- NOTE | 2023-11-19 15:02 | PM.PNCARD ---
Progress Note: A&P Assessment and Plan (1) 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ailure: Code(s): I50.43 - 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ailure Status: Acute Assessment and Plan: EF 15 - 20% with grade III diastolic dysfunction. Patient has not been taking any medications. Continue furosemide 40 mg IV t.i.d. Start her on standard GDMT including: Continue coreg 3.125 mg b.i.d Reduce entresto to 12/13 mg b.i.d. in order to allow ongoing diuresis with IV Lasix. Jardiance when she has diuresed more Spironolactone as BP allows Continue accurate intake and output, daily weights. As documented she is essentially fluid balance positive thus far ( No oral intake documented for today, which I doubt is accurate) daily weights. If possible, perform standing weight Continue daily BMPs to monitor renal function electrolytes. DVT prophylaxis Discussed at length with the patient. All questions answered to her satisfaction. Compliance with medications a follow-up extremely important. Discussed length. (2) Hypokalemia: Code(s): E87.6 - Hypokalemia Status: Acute Assessment and Plan: Daily BMP while diuresing with K+ goal 4.0. (3) Left bundle branch block: Code(s): I44.7 - Left bundle-branch block, unspecified Status: Acute Assessment and Plan: May benefit from resynchronization therapy at some point (4) Morbid obesity: Code(s): E66.01 - Morbid (severe) obesity due to excess calories Status: Chronic Assessment and Plan: Dietary lifestyle modification for weight loss Subjective Date/time seen: 11/19/23 15:02 Interval history: Cardiology follow up for cardiomyopathy, CHF Patient reports she has not feels well like she is dehydrated at times. Confusion we she states she feels better when she receives the Lasix and felt softer abdomen within this morning she is more firm his states she feels she needs to have more fluid intake to feel better. She also then mention that her blood pressure being lower may be causing her to feel less well at times but unable to correlate with particular hypotension. Ultimately, patient inquired if her fluid intake could be increased. She then states she felt better when she took Lasix at home when she was not on carvedilol and Entresto but denied having specific side effects with medications of which she was aware. No chest pain or palpitations. Patient was sitting on a couch working with physical therapy and has now noted her abdomen feels more full although she is sitting for words she had been lying back in bed until today. She also states she can not take potassium pills unable swallow them. She requests liquid form. Date of service 11/18/23: Feeling about the same today. No shortness of breath at rest but does have dyspnea with exertion including activity like moving around in bed. No chest pain or palpitations. Date of service 11/19/2023: doing okay today. She is complaining of some swelling in her right arm. She did just returned back from Radiology where she had a venous Doppler study done on the right arm that did show an acute appearing nonocclusive thrombus in the distal right basilic vein. Review of Systems Review of Systems: All systems reviewed & are unremarkable except as noted in HPI and below Constitutional: Constitutional: Denies body ache(s) and Denies excessive sweating Eyes: Eyes: Denies blurry vision ENT: Reports Normal hearing present Cardiovascular: Cardiovascular: Denies chest pain, Reports pedal edema, Reports leg edema and Reports dyspnea Respiratory: Respiratory: Reports dyspnea Gastrointestinal: Gastrointestinal: Reports abdominal pain Genitourinary: Genitourinary: Denies hematuria Musculoskeletal: Musculoskeletal: Denies back pain Integumentary/Breasts: Skin/Breast: Reports eryt
[2023-11-19] MEDS: APIXABAN 5 MG TABLET 10 MG PO (20:37)
[2023-11-20] VITALS (11 sets, daily range): BP systolic 95–114; BP diastolic 50–98; PULSE 67–102; RESP 16–18; TEMP 36.2–36.6; O2SAT 91–97
[2023-11-20 07:19] LABS: Hematocrit 33.6 % (37.0-47.0); Hemoglobin 10.2 g/dL (12.0-15.0); Mean Corpuscular HGB Conc 30.4 g/dl (32-36); Mean Platelet Volume 11.4 fl (7.4-10.4); Platelet Count Result 148 k/mm3 (150-375); Red Cell Distribution Width 16.2 % (11.5-14.5); White Blood Count 4.1 K/mm3 (4.5-10.0)
[2023-11-20 07:31] LABS: Alanine Aminotransferase 9 U/L (6-35); Albumin Level 2.9 g/dL (3.5-5.1); Alkaline Phosphatase 180 U/L (38-126); Anion Gap 4 mmol/L (8-16); Aspartate Amino Transferase 25 U/L (14-36); Bilirubin,Total 3.2 mg/dL (0.2-1.3); Blood Urea Nitrogen 32 mg/dL (7-17); Calcium 8.5 mg/dL (8.4-10.2); Carbon Dioxide 33 mmol/L (22-30); Chloride 101 mmol/L (98-107); Estimated CRCL calculation 85 ml/min; Estimated Glomerular Filt Rate 51; Glucose 89 mg/dL (65-110); Sodium 138 mmol/L (137-145)
--- NOTE | 2023-11-20 09:36 | PCNWS ---
Weekly nutritional screen. Patient is tolerating current diet with adequate intake. No weight loss reported. No nutritional needs at this time.
[2023-11-20] MEDS: APIXABAN 5 MG TABLET 10 MG PO ×2 (09:50→22:37)
[2023-11-20] MEDS: SACUBITRIL/VALSARTAN 12-13 MG TABLET 1 TAB PO ×2 (09:50→22:36)
[2023-11-20] MEDS: FUROSEMIDE INJ 40 MG/4 ML VIAL IV PUSH ×2 (09:50→13:51)
[2023-11-20] MEDS: POTASSIUM CHLORIDE 20 MEQ PACKET (FOR LIQUID) 40 MEQ PO (09:50)
[2023-11-20] MEDS: BETAMETHASONE/CLOTRIMAZOLE CR 15 GM TUBE 1 APPLIC TOPICAL (09:53)
[2023-11-20] MEDS: TOLNAFTATE 1% POWDER 45 GM BTL 1 APPLIC TOPICAL ×2 (09:53→22:36)
--- NOTE | 2023-11-20 11:30 | PCOTNOTE ---
Attempted to see Patient at this time. Patient stated she just recently layed down is not getting back up, she is feeling horrible. As Patient spoke, seems as if she is just having increased difficulty with the bed, for positioning, ease of getting in/out of. Patient declined this session.
--- NOTE | 2023-11-20 14:45 | PCOTNOTE ---
Attempted again this P.M. for OT treatment session. Upon entering the room, Patient was in bed, head covered, shaking. When addressed Patient verbalized she was freezing and very sore all over her body and can not move at all. Patient requested I get the RN, stating she is not doing well at all. RN assessing at this time.
[2023-11-21] VITALS (12 sets, daily range): BP systolic 82–95; BP diastolic 39–50; PULSE 68–99; RESP 18–32; TEMP 36.8–37.6; O2SAT 90–94
[2023-11-21] MEDS: MIDODRINE HCL 2.5 MG TABLET 15 MG PO (06:41)
[2023-11-21 07:58] LABS: Basophils Percent Auto 0.3 % (0.2-1.2); Eosinophils Percent Auto 0.2 % (0-4.4); Hematocrit 30.6 % (37.0-47.0); Hemoglobin 10.1 g/dL (12.0-15.0); Immature Granulocyte Absolute 0.05 K/mm3 (0.00-0.031); Immature Granulocyte Percent A 0.5 % (0-0.5); Lymphocytes Absolute Auto 0.37 K/mm3 (0.9-3.2); Lymphocytes Percent Auto 3.9 % (18.3-44.2); Mean Corpuscular Hemoglobin 35.2 pg (26-34); Mean Corpuscular Volume 106.6 fl (80-100); Mean Platelet Volume 11.5 fl (7.4-10.4); Monocytes Absolute Auto 0.7 K/mm3 (0.1-0.6); Monocytes Percent Auto 7.6 % (2.6-8.5); Neutrophils Absolute Auto 8.3 K/mm3 (1.3-6.7); Neutrophils Percent Auto 87.5 % (45.5-73.1); Platelet Count Result 144 k/mm3 (150-375); Red Blood Count 2.87 M/mm3 (4.2-5.4); Red Cell Distribution Width 16.3 % (11.5-14.5); White Blood Count 9.5 K/mm3 (4.5-10.0)
[2023-11-21 08:10] LABS: Anion Gap 5 mmol/L (8-16); Blood Urea Nitrogen 38 mg/dL (7-17); Calcium 8.3 mg/dL (8.4-10.2); Carbon Dioxide 32 mmol/L (22-30); Chloride 100 mmol/L (98-107); Estimated CRCL calculation 65 ml/min; Estimated Glomerular Filt Rate 39; Glucose 102 mg/dL (65-110); Magnesium 2.1 mg/dL (1.6-2.3); Potassium 4.5 mmol/L (3.4-5.0); Sodium 137 mmol/L (137-145)
--- NOTE | 2023-11-21 08:32 | P.PNIM_ITS ---
Progress Note: A&P Assessment and Plan (1) Abnormality of gait and mobility: Code(s): R26.9 - Unspecified abnormalities of gait and mobility Status: Acute (2) Noncompliance with medication regimen: Code(s): Z91.148 - Patient's other noncompliance with medication regimen for other reason Status: Acute (3) Candidal intertrigo: Code(s): B37.2 - Candidiasis of skin and nail Status: Acute (4) Left bundle branch block: Code(s): I44.7 - Left bundle-branch block, unspecified Status: Acute (5) Morbid obesity: Code(s): E66.01 - Morbid (severe) obesity due to excess calories Status: Chronic (6) Hypokalemia: Code(s): E87.6 - Hypokalemia Status: Acute (7) 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ailure: Code(s): I50.43 - 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ailure Status: Acute Plan Assessment and Plan (1) 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ailure: ?Code(s): I50.43 - 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ailure ?Status:?Acute ?Assessment and Plan: * Presented in overt heart failure. * ECHO showed decreased systolic function with EF of 15-20% and Grade 3 Diastolic Dysfunction * Daily weight * Accurate Intake and Output. * Cardiology was consulted and I appreciate their recommendations. He has ordered increased Lasix to 40 mg TID IVP, Entresto and Carvedilol. BP tolerance permitting, would like to add Spironolactone with Jardiance or Farxiga. * Continue to monitor VS and Labs * Heart Healthy diet * Encouraged compliance with medical treatment. * 11/15/23: Unable to initiate Spironolactone with Jardiance and/or Farxiga as pt's BP is maintaining low in the 90s/40s-50s. We will continue to monitor therapy with Entresto, Carvedilol and Lasix. I am hopeful that after we have adequate diuresis and are able to decrease her amount of Lasix we will be able to add Spironolactone. * 11/16/23: BP remains low in 90/50s. Denies SOB/ Chest pain at this time * Cardiology adjusted medications: Decreased Entresto to 12/13 mg BID in order to allow ongoing diuresis with IV Lasix. Continue Coreg and Laxis at current doses. Still plan for Jardiance and Spironolactone when further diuresed. * 11/17/23: BP this am 98/50: Cardiology to hold coreg, ass potassium chloride 40Mea daily, increase fluid intake to 2L/day, continue current entresto order and IV diuresis. * 11/18/23: BP this am 113/51. Patient received lasix dosing. * No daily weight charting available at this time. Continue to monitor daily weight, I&O * Appreciate Cardiology following patient and treatment as of 11/17 includes Entresto 12/13mg BID, Lasix 40 mg IV TID, 2L fluid restriction, hold Coreg, and hopeful to add spironolactone and Jardiance or Farxiga when she has diuresed more. * 11/19/23: BP is am 102/41. Receiving lasix dosing consecutively. * Continue Cardiology treatment place:? Entresto 12/13mg BID, Lasix 40 mg IV TID, 2L fluid restriction, hold Coreg, and hopeful to add spironolactone and Jardiance or Farxiga when she has diuresed * Discussed use of Jardiance or Farxiga 11/21 continue furosemide 40 mg t.i.d. push, converted low 3.125 mg b.i.d. per warehouse loader * Acute renal failure 11/21: BP is low creatinine is bumped up, albumin low, possible cardiorenal syndrome superimposed hypoalbuminemia Will provide albumin 50 g once 2 Elevated total bilirubin and alk phos,
--- NOTE | 2023-11-21 08:32 | PM.IMPN ---
Progress Note: A&P Assessment and Plan (1) Abnormality of gait and mobility: Code(s): R26.9 - Unspecified abnormalities of gait and mobility Status: Acute (2) Noncompliance with medication regimen: Code(s): Z91.148 - Patient's other noncompliance with medication regimen for other reason Status: Acute (3) Candidal intertrigo: Code(s): B37.2 - Candidiasis of skin and nail Status: Acute (4) Left bundle branch block: Code(s): I44.7 - Left bundle-branch block, unspecified Status: Acute (5) Morbid obesity: Code(s): E66.01 - Morbid (severe) obesity due to excess calories Status: Chronic (6) Hypokalemia: Code(s): E87.6 - Hypokalemia Status: Acute (7) 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ailure: Code(s): I50.43 - 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ailure Status: Acute Plan Assessment and Plan (1) 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ailure: ?Code(s): I50.43 - 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ailure ?Status:?Acute ?Assessment and Plan: Presented in overt heart failure. ECHO showed decreased systolic function with EF of 15-20% and Grade 3 Diastolic Dysfunction Daily weight Accurate Intake and Output. Cardiology was consulted and I appreciate their recommendations. He has ordered increased Lasix to 40 mg TID IVP, Entresto and Carvedilol. BP tolerance permitting, would like to add Spironolactone with Jardiance or Farxiga. Continue to monitor VS and Labs Heart Healthy diet Encouraged compliance with medical treatment. 11/15/23: Unable to initiate Spironolactone with Jardiance and/or Farxiga as pt's BP is maintaining low in the 90s/40s-50s. We will continue to monitor therapy with Entresto, Carvedilol and Lasix. I am hopeful that after we have adequate diuresis and are able to decrease her amount of Lasix we will be able to add Spironolactone. 11/16/23: BP remains low in 90/50s. Denies SOB/ Chest pain at this time Cardiology adjusted medications: Decreased Entresto to 12/13 mg BID in order to allow ongoing diuresis with IV Lasix. Continue Coreg and Laxis at current doses. Still plan for Jardiance and Spironolactone when further diuresed. 11/17/23: BP this am 98/50: Cardiology to hold coreg, ass potassium chloride 40Mea daily, increase fluid intake to 2L/day, continue current entresto order and IV diuresis. 11/18/23: BP this am 113/51. Patient received lasix dosing. No daily weight charting available at this time. Continue to monitor daily weight, I&O Appreciate Cardiology following patient and treatment as of 11/17 includes Entresto 12/13mg BID, Lasix 40 mg IV TID, 2L fluid restriction, hold Coreg, and hopeful to add spironolactone and Jardiance or Farxiga when she has diuresed more. 11/19/23: BP is am 102/41. Receiving lasix dosing consecutively. Continue Cardiology treatment place:? Entresto 12/13mg BID, Lasix 40 mg IV TID, 2L fluid restriction, hold Coreg, and hopeful to add spironolactone and Jardiance or Farxiga when she has diuresed Discussed use of Jardiance or Farxiga 2 continue furosemide 40 mg t.i.d. push, converted low 3.125 mg b.i.d. per filling technician Acute renal failure 2: BP is low creatinine is bumped up, albumin low, possible cardiorenal syndrome superimposed hypoalbuminemia Will provide albumin 50 g once 2/ Elevated total bilirubin and alk phos, AST ALT normal, hypoalbuminemia Patient has low-grade fever today order CT chest, abdomen pelvis, 1. Anasarca including small pleural effusions, mild pulmonary edema, and small volume of ascites. 2. Ventral hernia containing nonobstructed small and large bowel. 3. Mild mediastinal and bilateral inguinal lymphadenopathy, likely reactive. 4. Cholelithiasis. No evidence of acute cholecystitis. (2)
[2023-11-21 08:38] LABS: Platelet Estimate Adequate (Adequate)
[2023-11-21 08:39] LABS: Anisocytosis 1+ (NORMAL); Hypochromasia 1+ (NORMAL); Schistocytes None Seen (NORMAL)
[2023-11-21] MEDS: APIXABAN 5 MG TABLET 10 MG PO ×2 (10:16→20:26)
[2023-11-21] MEDS: POTASSIUM CHLORIDE 20 MEQ PACKET (FOR LIQUID) 40 MEQ PO (10:16)
[2023-11-21] MEDS: TOLNAFTATE 1% POWDER 45 GM BTL 1 APPLIC TOPICAL ×2 (10:17→20:27)
[2023-11-21] MEDS: BETAMETHASONE/CLOTRIMAZOLE CR 15 GM TUBE 1 APPLIC TOPICAL (10:17)
[2023-11-21] MEDS: ALBUMIN HUMAN 25% 25 GM/100 ML 200 ML IVPB (10:52)
[2023-11-21 10:59] LABS: Alanine Aminotransferase 13 U/L (6-35); Albumin Level 2.8 g/dL (3.5-5.1); Alkaline Phosphatase 203 U/L (38-126); Anion Gap 4 mmol/L (8-16); Aspartate Amino Transferase 30 U/L (14-36); Bilirubin,Total 7.3 mg/dL (0.2-1.3); Blood Urea Nitrogen 41 mg/dL (7-17); Calcium 8.2 mg/dL (8.4-10.2); Carbon Dioxide 32 mmol/L (22-30); Chloride 101 mmol/L (98-107); Estimated CRCL calculation 65 ml/min; Estimated Glomerular Filt Rate 39; Glucose 98 mg/dL (65-110); Potassium 4.5 mmol/L (3.4-5.0); Sodium 137 mmol/L (137-145)
--- NOTE | 2023-11-21 11:10 | PM.PNCARD ---
Progress Note: A&P Assessment and Plan (1) 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ailure: Code(s): I50.43 - 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ailure Status: Acute Assessment and Plan: EF 15 - 20% with grade III diastolic dysfunction. Patient has not been taking any medications. Resume furosemide 40 mg IV t.i.d. tomorrow If unable to tolerate bolus dosing of furosemide, can consider a furosemide drip Start her on standard GDMT including: Hold coreg 3.125 mg b.i.d for now continue entresto to 12/13 mg b.i.d. with holding parameters Jardiance when she has diuresed more Spironolactone as BP allows Continue accurate intake and output daily weights Continue daily BMPs to monitor renal function electrolytes. (2) Hypokalemia: Code(s): E87.6 - Hypokalemia Status: Acute Assessment and Plan: Daily BMP while diuresing with K+ goal 4.0. (3) Left bundle branch block: Code(s): I44.7 - Left bundle-branch block, unspecified Status: Acute Assessment and Plan: May benefit from resynchronization therapy at some point (4) Morbid obesity: Code(s): E66.01 - Morbid (severe) obesity due to excess calories Status: Chronic Assessment and Plan: Dietary lifestyle modification for weight loss Subjective Date/time seen: 11/21/23 11:10 Interval history: Cardiology follow up for cardiomyopathy, CHF Patient reports she has not feels well like she is dehydrated at times. Confusion we she states she feels better when she receives the Lasix and felt softer abdomen within this morning she is more firm his states she feels she needs to have more fluid intake to feel better. She also then mention that her blood pressure being lower may be causing her to feel less well at times but unable to correlate with particular hypotension. Ultimately, patient inquired if her fluid intake could be increased. She then states she felt better when she took Lasix at home when she was not on carvedilol and Entresto but denied having specific side effects with medications of which she was aware. No chest pain or palpitations. Patient was sitting on a couch working with physical therapy and has now noted her abdomen feels more full although she is sitting for words she had been lying back in bed until today. She also states she can not take potassium pills unable swallow them. She requests liquid form. Date of service 11/18/23: Feeling about the same today. No shortness of breath at rest but does have dyspnea with exertion including activity like moving around in bed. No chest pain or palpitations. Date of service 11/19/2023: doing okay today. She is complaining of some swelling in her right arm. She did just returned back from Radiology where she had a venous Doppler study done on the right arm that did show an acute appearing nonocclusive thrombus in the distal right basilic vein. Date of service 11/21/2023: Feels about the same today. She did have some asymptomatic hypotension last night. Therefore, her furosemide has been discontinued and carvedilol is on hold. Per RN report, her Entresto was also held this morning. Review of Systems Review of Systems: All systems reviewed & are unremarkable except as noted in HPI and below Constitutional: Constitutional: Denies body ache(s) and Denies excessive sweating Eyes: Eyes: Denies blurry vision ENT: Reports Normal hearing present Cardiovascular: Cardiovascular: Denies chest pain, Reports pedal edema, Reports leg edema and Reports dyspnea Respiratory: Respiratory: Reports dyspnea Gastrointestinal: Gastrointestinal: Reports abdominal pain Genitourinary: Genitourinary: Denies hematuria Musculoskeletal: Musculoskeletal: Denies back pain Integumentary/Breasts: Skin/Breast: Reports erythema and Reports wounds Neurologic: Reports Nor
[2023-11-21 12:06] LABS: NT Pro B Type Natriuretic Pept 18700 pg/mL (19.9-100)
[2023-11-22] VITALS (10 sets, daily range): BP systolic 85–115; BP diastolic 42–59; PULSE 64–81; RESP 16–20; TEMP 36.7–36.9; O2SAT 90–96
--- NOTE | 2023-11-22 08:13 | PM.IMPN ---
Progress Note: A&P Assessment and Plan (1) Abnormality of gait and mobility: Code(s): R26.9 - Unspecified abnormalities of gait and mobility Status: Acute (2) Noncompliance with medication regimen: Code(s): Z91.148 - Patient's other noncompliance with medication regimen for other reason Status: Acute (3) Candidal intertrigo: Code(s): B37.2 - Candidiasis of skin and nail Status: Acute (4) Left bundle branch block: Code(s): I44.7 - Left bundle-branch block, unspecified Status: Acute (5) Morbid obesity: Code(s): E66.01 - Morbid (severe) obesity due to excess calories Status: Chronic (6) Hypokalemia: Code(s): E87.6 - Hypokalemia Status: Acute (7) 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ailure: Code(s): I50.43 - 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ailure Status: Acute Plan Assessment and Plan (1) 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ailure: ?Code(s): I50.43 - 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ailure ?Status:?Acute ?Assessment and Plan: Presented in overt heart failure. ECHO showed decreased systolic function with EF of 15-20% and Grade 3 Diastolic Dysfunction Daily weight Accurate Intake and Output. Cardiology was consulted and I appreciate their recommendations. He has ordered increased Lasix to 40 mg TID IVP, Entresto and Carvedilol. BP tolerance permitting, would like to add Spironolactone with Jardiance or Farxiga. Continue to monitor VS and Labs Heart Healthy diet Encouraged compliance with medical treatment. 11/15/23: Unable to initiate Spironolactone with Jardiance and/or Farxiga as pt's BP is maintaining low in the 90s/40s-50s. We will continue to monitor therapy with Entresto, Carvedilol and Lasix. I am hopeful that after we have adequate diuresis and are able to decrease her amount of Lasix we will be able to add Spironolactone. 11/16/23: BP remains low in 90/50s. Denies SOB/ Chest pain at this time Cardiology adjusted medications: Decreased Entresto to 12/13 mg BID in order to allow ongoing diuresis with IV Lasix. Continue Coreg and Laxis at current doses. Still plan for Jardiance and Spironolactone when further diuresed. 11/17/23: BP this am 98/50: Cardiology to hold coreg, ass potassium chloride 40Mea daily, increase fluid intake to 2L/day, continue current entresto order and IV diuresis. 11/18/23: BP this am 113/51. Patient received lasix dosing. No daily weight charting available at this time. Continue to monitor daily weight, I&O Appreciate Cardiology following patient and treatment as of 11/17 includes Entresto 12/13mg BID, Lasix 40 mg IV TID, 2L fluid restriction, hold Coreg, and hopeful to add spironolactone and Jardiance or Farxiga when she has diuresed more. 11/19/23: BP is am 102/41. Receiving lasix dosing consecutively. Continue Cardiology treatment place:? Entresto 12/13mg BID, Lasix 40 mg IV TID, 2L fluid restriction, hold Coreg, and hopeful to add spironolactone and Jardiance or Farxiga when she has diuresed Discussed use of Jardiance or Farxiga 2 continue furosemide 40 mg t.i.d. push, converted low 3.125 mg b.i.d. per medical customer service representative Acute renal failure 2/: BP is low creatinine is bumped up, albumin low, possible cardiorenal syndrome superimposed hypoalbuminemia Will provide albumin 50 g once 2/2 BP on the lower side and BUN CR trends up. pt is on iv lasix per medical customer service representative, start ALBUMIN 50 G, Consult hotbed lever operator 2/1 Elevated total bilirubin and alk phos, AST ALT normal, hypoalbuminemia Patient has low-grade fever today order CT chest, abdomen pelvis, 1. Anasarca including small pleural effusions, mild pulmonary edema, and small volume of ascites. 2. Ventral hernia containing nonobstructed small and large bowel. 3. Mild med
--- NOTE | 2023-11-22 08:38 | PM.PNCARD ---
Progress Note: A&P Assessment and Plan (1) 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ailure: Code(s): I50.43 - 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ailure Status: Acute Plan 58-year-old lady with decompensated CHF and a challenging combination of soft blood pressure and massive obesity. Will continue low doses of Entresto and carvedilol. I will transition her diuretic regimen to oral furosemide and add spironolactone and stop the potassium supplement. Her noncompliance with medication as well as massive obesity makes this a very challenging situation. We will continue to follow with you while she is in the hospital, prognosis is obviously not good given these comorbidities. Chaz Hays MD [facility] Subjective Date/time seen: Date of service: 11/22/23 08:38 Interval history: Cardiology follow up for cardiomyopathy, CHF Patient reports she has not feels well like she is dehydrated at times. Confusion we she states she feels better when she receives the Lasix and felt softer abdomen within this morning she is more firm his states she feels she needs to have more fluid intake to feel better. She also then mention that her blood pressure being lower may be causing her to feel less well at times but unable to correlate with particular hypotension. Ultimately, patient inquired if her fluid intake could be increased. She then states she felt better when she took Lasix at home when she was not on carvedilol and Entresto but denied having specific side effects with medications of which she was aware. No chest pain or palpitations. Patient was sitting on a couch working with physical therapy and has now noted her abdomen feels more full although she is sitting for words she had been lying back in bed until today. She also states she can not take potassium pills unable swallow them. She requests liquid form. Date of service 11/18/23: Feeling about the same today. No shortness of breath at rest but does have dyspnea with exertion including activity like moving around in bed. No chest pain or palpitations. Date of service 11/19/2023: doing okay today. She is complaining of some swelling in her right arm. She did just returned back from Radiology where she had a venous Doppler study done on the right arm that did show an acute appearing nonocclusive thrombus in the distal right basilic vein. Date of service 11/21/2023: Feels about the same today. She did have some asymptomatic hypotension last night. Therefore, her furosemide has been discontinued and carvedilol is on hold. Per RN report, her Entresto was also held this morning. Date of service 11/22/2023: Patient without new or active cardiac complaints. She is massively obese and bed describes that her shortness of breath on presentation is improved. As stated above she had been a any cardiac medications for a long time because of noncompliance with follow-up with his physician. Exam Narrative: Awake alert oriented appears older than stated age Const: General: comfortable and no acute distress HENMT: Face/Nose/Sinus: Normal nares present Mouth: Yes moist mucous membranes Eyes: Sclera: sclerae normal Neck: Neck: supple and no JVD Carotids: no bruits Other: Impossible to assess for JVD Chest: Other: No reproducible chest wall pain to palpation Resp: Effort & Inspection: normal respiratory effort Auscultation: diminished lung sounds Cardio: Rate: regular rate Rhythm: regular rhythm Heart sounds: no murmurs Other: Distant heart tones GI: Inspection: distended Auscultation: normal bowel sounds Other: Morbidly obese, palpable subcutaneous edema Urinary Catheter: Urinary Catheter: patent and draining Skin: General skin exam: lesion Lesions: lesion noted Other: Large open wound noted to the medial left lower leg. Neuro: Front End Application Developer
[2023-11-22 09:00] LABS: Basophils Percent Auto 0.4 % (0.2-1.2); Eosinophils Percent Auto 0.7 % (0-4.4); Hemoglobin 9.5 g/dL (12.0-15.0); Immature Granulocyte Absolute 0.03 K/mm3 (0.00-0.031); Immature Granulocyte Percent A 0.5 % (0-0.5); Lymphocytes Percent Auto 5.5 % (18.3-44.2); Mean Corpuscular HGB Conc 31.7 g/dl (32-36); Mean Corpuscular Hemoglobin 34.3 pg (26-34); Mean Corpuscular Volume 108.3 fl (80-100); Mean Platelet Volume 11.1 fl (7.4-10.4); Monocytes Absolute Auto 0.4 K/mm3 (0.1-0.6); Monocytes Percent Auto 6.9 % (2.6-8.5); Neutrophils Absolute Auto 4.7 K/mm3 (1.3-6.7); Platelet Count Result 123 k/mm3 (150-375); Red Blood Count 2.77 M/mm3 (4.2-5.4); Red Cell Distribution Width 16.3 % (11.5-14.5); White Blood Count 5.5 K/mm3 (4.5-10.0)
[2023-11-22 09:20] LABS: Alanine Aminotransferase 12 U/L (6-35); Albumin Level 2.9 g/dL (3.5-5.1); Alkaline Phosphatase 189 U/L (38-126); Anion Gap 6 mmol/L (8-16); Aspartate Amino Transferase 26 U/L (14-36); Bilirubin,Total 8.1 mg/dL (0.2-1.3); Blood Urea Nitrogen 46 mg/dL (7-17); Calcium 8.3 mg/dL (8.4-10.2); Carbon Dioxide 29 mmol/L (22-30); Chloride 100 mmol/L (98-107); Estimated CRCL calculation 58 ml/min; Estimated Glomerular Filt Rate 33; Glucose 98 mg/dL (65-110); Potassium 4.4 mmol/L (3.4-5.0); Sodium 135 mmol/L (137-145)
[2023-11-22 09:23] LABS: Anisocytosis 1+ (NORMAL); Hypochromasia 1+ (NORMAL); Ovalocytes 1+ (NORMAL); Platelet Estimate Decreased (Adequate)
[2023-11-22 09:24] LABS: Schistocytes None Seen (NORMAL)
[2023-11-22 09:31] LABS: Magnesium 2.2 mg/dL (1.6-2.3); Phosphorus 3.6 mg/dL (2.5-4.5)
[2023-11-22] MEDS: SACUBITRIL/VALSARTAN 12-13 MG TABLET 1 TAB PO ×2 (10:05→20:20)
[2023-11-22] MEDS: APIXABAN 5 MG TABLET 10 MG PO ×2 (10:05→20:20)
[2023-11-22] MEDS: BETAMETHASONE/CLOTRIMAZOLE CR 15 GM TUBE 1 APPLIC TOPICAL (10:05)
[2023-11-22] MEDS: ACETAMINOPHEN 325 MG TABLET 650 MG PO ×2 (10:06→22:57)
[2023-11-22] MEDS: TOLNAFTATE 1% POWDER 45 GM BTL 1 APPLIC TOPICAL ×2 (10:06→20:20)
[2023-11-22] MEDS: FUROSEMIDE 40 MG TABLET PO ×2 (10:17→16:23)
[2023-11-22] MEDS: SPIRONOLACTONE 25 MG TABLET PO (10:17)
--- NOTE | 2023-11-22 13:39 | PCPTNOTE ---
Patient declined PT at this time. Patient states she would like to get up and walk but she has loose stool when she moves. PT will continue to follow per plan of care.
--- NOTE | 2023-11-22 14:13 | PCOTNOTE ---
Attempted Patient 2 times this date. Patient declining therapy services this date due to having continuous incontinent bowel accidents. Patient stated she can not move without going and she is worn out for today.
[2023-11-22] MEDS: ALBUMIN HUMAN 25% 25 GM/100 ML 200 ML IVPB (16:15)
--- NOTE | 2023-11-22 16:35 | PM.CNNEP ---
Assessment and Plan Assessment and plan (1) MARY (acute kidney injury): Code(s): N17.9 - Acute kidney failure, unspecified Status: Acute Assessment and Plan: normal creatinine at baseline/prior to admission HOWEVER, I wonder if this creatinine was dilutional due to her volume overload/#2 slow increase in creatinie/renal function with diuresus suspect she has an element of cardiorenal syndrome worsened by the need for diuretic therapy her relative hypotension may be contributing as well check urine studies and CPK check renal ultrasound follow repeat labs and UOP (2) 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ailure: Code(s): I50.43 - 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ailure Status: Acute Assessment and Plan: Echo with EF 15 - 20% with grade III diastolic dysfunction this is complicated by patient's non-compliance with medications on diuretics - switched to oral today on medical management - entresto and jardiance follow I/Os, daily weights, and volume status suspect her renal will always fluctuate depending on her cardiovasular status benefit to ionotropic therapy??? -- will defer to Cardiology I will continue to follow the patient with you while she remains hospitalized to make further recommendations as deemed necessary. Thank you for allowing me to participate in care this patient. History of Present Illness Reason for Consult Consult date: 11/22/23 Reason for consult: acute renal failure Chief Complaint Chief complaint: Acute on Chronic Heart Failure Exacerbation History of Present Illness Narrative: The patient is a 58-year-old female with a past medical history as outlined below who presented to [facility] Emergency room due to complaints of shortness of breath and increased swelling /edema. Apparently, the patient has not seen her primary core piler in almost a year and further complicating matters is that she has not been taking any medications for her known history of congestive heart failure for last several weeks if not longer. She apparently ran out of her diuretic therapy but did not disclose this information to anybody. She has noted in the last few days had particularly the day before admission that her shortness of breath and lower extremity swelling edema had been getting significantly worse and this prompted her to come to the emergency room for further assessment. Workup and evaluation in the emergency room demonstrated patient be relatively hypotensive but in no acute distress. Her exam was significant for significant volume overload and anasarca and her routine blood tests did not demonstrate any significant abnormalities per se. She was instead do an IV diuretic therapy and subsequently admitted to the hospital for further evaluation and therapy. It has been noted in the last few days that her creatinine has been trending up in conjunction with aggressive diuretic therapy and her her relative hypotension. Cardiology has been following the patient and just recently switched her diuretic therapy to oral meds. Renal consultation was requested due to her acute kidney injury/acute renal failure. From review of her labs at least on admission here at [facility], her creatinine was in the normal range at 1.0 mg/dL. Over the last several days it has been slowly climbing in conjunction with medical therapy geared at trying to optimize her volume status given her volume overload / chronic heart failure. She does not report or recall ever being told that she had any issues or problems with her kidneys but given her known history of noncompliance with medical follow-up and medications, is difficult to know for sure. In any case, her renal dysfunction is likely secondary to her a significant component /element of cardiorenal syndrome worsened by the need for diure
[2023-11-22 20:21] LABS: Folic Acid 6.9 ng/mL (2.76->20)
[2023-11-22 20:46] LABS: Sodium Urine Random 35 meq/L; Total Protein Urine Random 63 mg/dL; Ur Ttl Prot Creatinine Ratio 0.63 mg/mg (0-0.20); Urea Random Urine 633 MG/DL
[2023-11-22 20:59] LABS: Appearance Urine Turbid (Clear); Bacteria Urine 4+ /hpf; Bilirubin Urine 1+ (Negative); Blood Urine 3+ (Negative); Color Urine Dark Yellow (Yellow); Glucose Urine UA Negative (Negative); Ketones Urine Negative (Negative); Leukocyte Esterase Ur 3+ LEU/UL (Negative); Need Manual Microscopic Reviewed; Nitrate Urine Positive (Negative); Non Pathogenic Casts >20; Protein Urine 1+ mg/dL (Negative); RBC Urine 21-50 /hpf (0-2); Specific Grav Ur 1.013 (1.001-1.035); Squamous Epithelial Cell Urine Occasional /hpf (Few); WBC Urine >100 /hpf
[2023-11-22 21:00] LABS: Eosinophil Urine Rare % (None Seen); Urine Eos QC 2nd Tech Confirmed
[2023-11-22 21:02] LABS: Add Urine Microscopic? YES
[2023-11-23] VITALS (11 sets, daily range): BP systolic 81–112; BP diastolic 42–55; PULSE 70–83; RESP 20–22; TEMP 36.1–36.9; O2SAT 92–100
[2023-11-23] MEDS: ACETAMINOPHEN 325 MG TABLET 650 MG PO (05:44)
[2023-11-23 07:24] LABS: Basophils Percent Auto 0.5 % (0.2-1.2); Eosinophils Absolute Auto 0.1 K/mm3 (0-0.3); Eosinophils Percent Auto 2.4 % (0-4.4); Hematocrit 31.3 % (37.0-47.0); Immature Granulocyte Absolute 0.01 K/mm3 (0.00-0.031); Immature Granulocyte Percent A 0.2 % (0-0.5); Lymphocytes Absolute Auto 0.36 K/mm3 (0.9-3.2); Lymphocytes Percent Auto 8.5 % (18.3-44.2); Mean Corpuscular HGB Conc 31.9 g/dl (32-36); Mean Corpuscular Hemoglobin 34.5 pg (26-34); Mean Corpuscular Volume 107.9 fl (80-100); Mean Platelet Volume 11.5 fl (7.4-10.4); Monocytes Absolute Auto 0.4 K/mm3 (0.1-0.6); Monocytes Percent Auto 9.7 % (2.6-8.5); Neutrophils Absolute Auto 3.3 K/mm3 (1.3-6.7); Neutrophils Percent Auto 78.7 % (45.5-73.1); Platelet Count Result 112 k/mm3 (150-375); Red Cell Distribution Width 16.2 % (11.5-14.5); White Blood Count 4.2 K/mm3 (4.5-10.0)
[2023-11-23 07:27] LABS: Alanine Aminotransferase 12 U/L (6-35); Albumin Level 3.4 g/dL (3.5-5.1); Alkaline Phosphatase 189 U/L (38-126); Anion Gap 8 mmol/L (8-16); Aspartate Amino Transferase 25 U/L (14-36); Bilirubin,Total 7.3 mg/dL (0.2-1.3); Blood Urea Nitrogen 48 mg/dL (7-17); Calcium 8.5 mg/dL (8.4-10.2); Carbon Dioxide 28 mmol/L (22-30); Chloride 98 mmol/L (98-107); Estimated CRCL calculation 54 ml/min; Estimated Glomerular Filt Rate 31; Glucose 99 mg/dL (65-110); Magnesium 2.2 mg/dL (1.6-2.3); Phosphorus 3.5 mg/dL (2.5-4.5); Sodium 134 mmol/L (137-145)
[2023-11-23 07:42] LABS: Creatine Kinase 27 U/L (30-135)
--- NOTE | 2023-11-23 08:44 | P.PNIM_ITS ---
Progress Note: A&P Assessment and Plan (1) Abnormality of gait and mobility: Code(s): R26.9 - Unspecified abnormalities of gait and mobility Status: Acute (2) Noncompliance with medication regimen: Code(s): Z91.148 - Patient's other noncompliance with medication regimen for other reason Status: Acute (3) Candidal intertrigo: Code(s): B37.2 - Candidiasis of skin and nail Status: Acute (4) Left bundle branch block: Code(s): I44.7 - Left bundle-branch block, unspecified Status: Acute (5) Morbid obesity: Code(s): E66.01 - Morbid (severe) obesity due to excess calories Status: Chronic (6) Hypokalemia: Code(s): E87.6 - Hypokalemia Status: Acute (7) 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ailure: Code(s): I50.43 - 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ailure Status: Acute Plan Assessment and Plan 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ailure: ?Code(s): I50.43 - 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ailure ?Status:?Acute ?Assessment and Plan: * Presented in overt heart failure. * ECHO showed decreased systolic function with EF of 15-20% and Grade 3 Diastolic Dysfunction * Daily weight * Accurate Intake and Output. * Cardiology was consulted and I appreciate their recommendations. He has ordered increased Lasix to 40 mg TID IVP, Entresto and Carvedilol. BP tolerance permitting, would like to add Spironolactone with Jardiance or Farxiga. * Continue to monitor VS and Labs * Heart Healthy diet * Encouraged compliance with medical treatment. * 11/15/23: Unable to initiate Spironolactone with Jardiance and/or Farxiga as pt's BP is maintaining low in the 90s/40s-50s. We will continue to monitor therapy with Entresto, Carvedilol and Lasix. I am hopeful that after we have adequate diuresis and are able to decrease her amount of Lasix we will be able to add Spironolactone. * 11/16/23: BP remains low in 90/50s. Denies SOB/ Chest pain at this time * Cardiology adjusted medications: Decreased Entresto to 12/13 mg BID in order to allow ongoing diuresis with IV Lasix. Continue Coreg and Laxis at current doses. Still plan for Jardiance and Spironolactone when further diuresed. * 11/17/23: BP this am 98/50: Cardiology to hold coreg, ass potassium chloride 40Mea daily, increase fluid intake to 2L/day, continue current entresto order and IV diuresis. * 11/18/23: BP this am 113/51. Patient received lasix dosing. * No daily weight charting available at this time. Continue to monitor daily weight, I&O * Appreciate Cardiology following patient and treatment as of 11/17 includes Entresto 12/13mg BID, Lasix 40 mg IV TID, 2L fluid restriction, hold Coreg, and hopeful to add spironolactone and Jardiance or Farxiga when she has diuresed more. * 11/19/23: BP is am 102/41. Receiving lasix dosing consecutively. * Continue Cardiology treatment place:? Entresto 12/13mg BID, Lasix 40 mg IV TID, 2L fluid restriction, hold Coreg, and hopeful to add spironolactone and Jardiance or Farxiga when she has diuresed * Discussed use of Jardiance or Farxiga 11/21 continue furosemide 40 mg t.i.d. push, converted low 3.125 mg b.i.d. per glaze grinder 2/3: Per glaze grinder, continue low doses of Entresto and carvedilol.? transition her diuretic regimen to oral furosemide and add spironolactone and stop the potassium supplement. * Acute renal failure 2: BP is low cre
--- NOTE | 2023-11-23 08:44 | PM.IMPN ---
Progress Note: A&P Assessment and Plan (1) Abnormality of gait and mobility: Code(s): R26.9 - Unspecified abnormalities of gait and mobility Status: Acute (2) Noncompliance with medication regimen: Code(s): Z91.148 - Patient's other noncompliance with medication regimen for other reason Status: Acute (3) Candidal intertrigo: Code(s): B37.2 - Candidiasis of skin and nail Status: Acute (4) Left bundle branch block: Code(s): I44.7 - Left bundle-branch block, unspecified Status: Acute (5) Morbid obesity: Code(s): E66.01 - Morbid (severe) obesity due to excess calories Status: Chronic (6) Hypokalemia: Code(s): E87.6 - Hypokalemia Status: Acute (7) 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ailure: Code(s): I50.43 - 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ailure Status: Acute Plan Assessment and Plan 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ailure: ?Code(s): I50.43 - 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ailure ?Status:?Acute ?Assessment and Plan: Presented in overt heart failure. ECHO showed decreased systolic function with EF of 15-20% and Grade 3 Diastolic Dysfunction Daily weight Accurate Intake and Output. Cardiology was consulted and I appreciate their recommendations. He has ordered increased Lasix to 40 mg TID IVP, Entresto and Carvedilol. BP tolerance permitting, would like to add Spironolactone with Jardiance or Farxiga. Continue to monitor VS and Labs Heart Healthy diet Encouraged compliance with medical treatment. 11/15/23: Unable to initiate Spironolactone with Jardiance and/or Farxiga as pt's BP is maintaining low in the 90s/40s-50s. We will continue to monitor therapy with Entresto, Carvedilol and Lasix. I am hopeful that after we have adequate diuresis and are able to decrease her amount of Lasix we will be able to add Spironolactone. 11/16/23: BP remains low in 90/50s. Denies SOB/ Chest pain at this time Cardiology adjusted medications: Decreased Entresto to 12/13 mg BID in order to allow ongoing diuresis with IV Lasix. Continue Coreg and Laxis at current doses. Still plan for Jardiance and Spironolactone when further diuresed. 11/17/23: BP this am 98/50: Cardiology to hold coreg, ass potassium chloride 40Mea daily, increase fluid intake to 2L/day, continue current entresto order and IV diuresis. 11/18/23: BP this am 113/51. Patient received lasix dosing. No daily weight charting available at this time. Continue to monitor daily weight, I&O Appreciate Cardiology following patient and treatment as of 11/17 includes Entresto 12/13mg BID, Lasix 40 mg IV TID, 2L fluid restriction, hold Coreg, and hopeful to add spironolactone and Jardiance or Farxiga when she has diuresed more. 11/19/23: BP is am 102/41. Receiving lasix dosing consecutively. Continue Cardiology treatment place:? Entresto 12/13mg BID, Lasix 40 mg IV TID, 2L fluid restriction, hold Coreg, and hopeful to add spironolactone and Jardiance or Farxiga when she has diuresed Discussed use of Jardiance or Farxiga 2 continue furosemide 40 mg t.i.d. push, converted low 3.125 mg b.i.d. per customer orders clerk 2/3: Per customer orders clerk, continue low doses of Entresto and carvedilol.? transition her diuretic regimen to oral furosemide and add spironolactone and stop the potassium supplement. Acute renal failure 2/1: BP is low creatinine is bumped up, albumin low, possible cardiorenal syndrome superimposed hypoalbuminemia Will provide albumin 50 g once 2/2 BP on the lower side and BUN CR trends up. pt is on iv lasix per customer orders clerk, start ALBUMIN 50 G, Consult burr bench hand 2/3: Creatinine is trending up, renal ultrasound pending, consult burr bench hand, management per burr bench hand Complicated UTI UA shows pyuria, ur
[2023-11-23 09:03] LABS: Anisocytosis 1+ (NORMAL); Ovalocytes 1+ (NORMAL); Platelet Estimate Decreased (Adequate); Schistocytes None Seen (NORMAL)
[2023-11-23] MEDS: APIXABAN 5 MG TABLET 10 MG PO ×2 (09:05→20:07)
[2023-11-23] MEDS: TOLNAFTATE 1% POWDER 45 GM BTL 1 APPLIC TOPICAL ×2 (09:06→20:07)
[2023-11-23] MEDS: SPIRONOLACTONE 25 MG TABLET PO (09:06)
[2023-11-23] MEDS: SACUBITRIL/VALSARTAN 12-13 MG TABLET 1 TAB PO (09:06)
[2023-11-23] MEDS: BETAMETHASONE/CLOTRIMAZOLE CR 15 GM TUBE 1 APPLIC TOPICAL (09:06)
[2023-11-23] MEDS: FUROSEMIDE 40 MG TABLET PO ×2 (09:06→17:53)
--- NOTE | 2023-11-23 11:53 | PM.PNNEP ---
Progress Note: A&P Assessment and Plan (1) MARY (acute kidney injury): Code(s): N17.9 - Acute kidney failure, unspecified Status: Acute Assessment and Plan: normal creatinine at baseline/prior to admission Urine electrolytes are non pre renal but the fractional excretion of urea shows pre renal azotemia. CT abdomen shows normal kidneys. CK is normal urine protein is only 630 and so is not contributing much to the edema. I agree with Dr. Bain that the normal creatinine from before may have been due to dilution from all the fluid. The higher creatinine could be from several things. It could be from chronic pre renal azotemia due to the reduced LV ejection fraction. Renal venous hypertension could cause this as well. slow increase in creatinine/renal function with diuresus She was on furosemide 40mg IV 3 times a day during that time her creatinine michael from 1.0-1.4. Since then it michael to 1.7. This would speak against the renal venous hypertension because usually paresis well help the creatinine in that instance ( However, her intake/ output was not very negative these last few days either). consider a dobutamine drip? (2) 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ailure: Code(s): I50.43 - 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ailure Status: Acute Assessment and Plan: Echo with EF 15 - 20% with grade III diastolic dysfunction this is complicated by patient's non-compliance with medications on diuretics - switched to oral today on medical management - entresto and jardiance follow I/Os, daily weights, and volume status Subjective Date/time seen: 11/23/23 11:53 Interval history: Patient is resting in bed comfortably. Family in the room. She has swelling in the arms and legs. She had an IV in the left arm and it caused some shoulder pain. The nurses talking with the hospitalist. She already had a nonocclusive acute thrombus in the right jugular. She is on Eliquis. She is not short of breath. Review of Systems Cardiovascular: Cardiovascular: Reports no additional cardiovascular complaints Respiratory: Respiratory: Reports no additional respiratory complaints Gastrointestinal: Gastrointestinal: Reports no additional gastrointestinal complaints Genitourinary: Genitourinary: Reports no additional female genitourinary complaints Exam Narrative: WDWN in NAD skin no rash head ncat lungs clear cor reg no rub abd BS+ nontender and soft ext 2+ bilateral edema. Objective Data Vital Signs Vital Signs: Vital Signs - 24 hr 11/22/23 13:12 11/22/23 12:00 11/22/23 16:00 Temperature 98.5 F Pulse Rate 72 66 64 Respiratory Rate 18 Blood Pressure 95/42 L Pulse Oximetry 90 Oxygen Delivery Oxygen Flow Rate 11/22/23 21:41 11/22/23 20:20 11/22/23 20:00 Temperature 98.0 F Pulse Rate 71 69 Respiratory Rate 20 Blood Pressure 115/59 L Pulse Oximetry 96 96 Oxygen Delivery Nasal Cannula Oxygen Flow Rate 2 11/23/23 00:00 11/23/23 04:00 11/23/23 06:00 Temperature 97.0 F L Pulse Rate 70 77 71 Respiratory Rate 22 H Blood Pressure 83/48 L Pulse Oximetry 92 Oxygen Delivery Oxygen Flow Rate 11/23/23 09:00 Temperature Pulse Rate Respiratory Rate Blood Pressure Pulse Oximetry 92 Oxygen Delivery Room Air Oxygen Flow Rate Intake/Output Intake/Output: Intake & Output 11/20/23 11/21/23 11/22/23 11/23/23 23:59 23:59 23:59 23:59 Intake Total 1956 1800 2120 877 Output Total 1450 1450 525 450 Balance 807 157 7974 427 Meds/Results Medications: Active Medications Generic Name Dose Route Start Last Admin Trade Name Freq PRN Reason Stop Dose Admin Acetaminophen 650 mg 11/13/23 21:01 11/23/23 05:44 Acetaminophen 325 Mg Tablet PO 650 mg Q4H PRN Administration Mild Pain (1-3) or
--- NOTE | 2023-11-23 12:40 | PC.NURSE ---
This RN found the pt on RA. Pt appeared to be SOB. O2 was 85%; this RN put NC back on pt. This RN inquired why the oxygen was taken off and pt replied, I could not feel any air coming out of the tube, so I took it off. This RN educated pt about the importance of oxygen needs at this time; pt stated that she understood. MD notified of new oxygen requirements.
--- NOTE | 2023-11-23 13:08 | PCPTNOTE ---
PT was attempted for today and pt refused due to L arm pain, she reports RN is aware. Will continue physical therapy per POC.
[2023-11-23] MEDS: oxyCODONE/ACETAMINOPHEN (*CRX) 5-325 MG TABLET 1 TABLET PO (13:18)
--- NOTE | 2023-11-23 13:24 | PCOTNOTE ---
Attempted to see pt for occuaptional therapy treatment. Per RN, pt is currently not appropirate for therapy at this time due to change in medical status. Will continue if appropriate.
[2023-11-24] VITALS (24 sets, daily range): BP systolic 75–104; BP diastolic 15–57; PULSE 60–96; RESP 20; TEMP 36.3–37.1; O2SAT 96–100; BMI 10.0
[2023-11-24] MEDS: oxyCODONE/ACETAMINOPHEN (*CRX) 5-325 MG TABLET 1 TABLET PO ×2 (01:05→14:02)
[2023-11-24 06:31] LABS: Basophils Percent Auto 0.3 % (0.2-1.2); Eosinophils Absolute Auto 0.1 K/mm3 (0-0.3); Hematocrit 30.5 % (37.0-47.0); Hemoglobin 9.9 g/dL (12.0-15.0); Immature Granulocyte Absolute 0.04 K/mm3 (0.00-0.031); Immature Granulocyte Percent A 0.6 % (0-0.5); Lymphocytes Absolute Auto 0.39 K/mm3 (0.9-3.2); Lymphocytes Percent Auto 6.2 % (18.3-44.2); Mean Corpuscular HGB Conc 32.5 g/dl (32-36); Mean Corpuscular Hemoglobin 34.6 pg (26-34); Mean Corpuscular Volume 106.6 fl (80-100); Monocytes Absolute Auto 0.9 K/mm3 (0.1-0.6); Monocytes Percent Auto 13.7 % (2.6-8.5); Neutrophils Absolute Auto 4.9 K/mm3 (1.3-6.7); Neutrophils Percent Auto 78.2 % (45.5-73.1); Platelet Count Result 114 k/mm3 (150-375); Red Blood Count 2.86 M/mm3 (4.2-5.4); White Blood Count 6.3 K/mm3 (4.5-10.0)
[2023-11-24 06:58] LABS: Alanine Aminotransferase 11 U/L (6-35); Albumin Level 2.8 g/dL (3.5-5.1); Alkaline Phosphatase 192 U/L (38-126); Anion Gap 4 mmol/L (8-16); Aspartate Amino Transferase 28 U/L (14-36); Blood Urea Nitrogen 50 mg/dL (7-17); Calcium 8.3 mg/dL (8.4-10.2); Carbon Dioxide 30 mmol/L (22-30); Chloride 99 mmol/L (98-107); Estimated CRCL calculation 57 ml/min; Estimated Glomerular Filt Rate 33; Glucose 100 mg/dL (65-110); Magnesium 2.2 mg/dL (1.6-2.3); Phosphorus 3.7 mg/dL (2.5-4.5); Potassium 4.1 mmol/L (3.4-5.0); Sodium 133 mmol/L (137-145)
[2023-11-24] MEDS: APIXABAN 5 MG TABLET 10 MG PO ×2 (08:18→22:32)
[2023-11-24] MEDS: FUROSEMIDE 40 MG TABLET PO ×2 (08:18→16:53)
[2023-11-24] MEDS: SPIRONOLACTONE 25 MG TABLET PO (08:18)
[2023-11-24] MEDS: ACETAMINOPHEN 325 MG TABLET 650 MG PO (08:23)
[2023-11-24] MEDS: SACUBITRIL/VALSARTAN 12-13 MG TABLET 1 TAB PO (08:23)
[2023-11-24] MEDS: BETAMETHASONE/CLOTRIMAZOLE CR 15 GM TUBE 1 APPLIC TOPICAL (08:24)
[2023-11-24] MEDS: TOLNAFTATE 1% POWDER 45 GM BTL 1 APPLIC TOPICAL ×2 (08:25→22:33)
--- NOTE | 2023-11-24 10:06 | P.PNNP_ITS ---
Progress Note: A&P Assessment and Plan (1) MARY (acute kidney injury): Code(s): N17.9 - Acute kidney failure, unspecified Status: Acute Assessment and Plan: * normal creatinine at baseline/prior to admission * Urine electrolytes are non pre renal but the fractional excretion of urea shows pre renal azotemia. * CT abdomen shows normal kidneys. * CK is normal * urine protein is only 630 and so is not contributing much to the edema. * I agree with Dr. Bain that the normal creatinine from before may have been due to dilution from all the fluid. * most likely the patient has chronic pre renal azotemia from cardiorenal syndrome. I discussed with Dr. Triplett. he will start the patient on dobutamine. * Consider restarting IV diuretics as well depending on how she response to the dobutamine. (2) 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ailure: Code(s): I50.43 - 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ailure Status: Acute Assessment and Plan: * Echo with EF 15 - 20% with grade III diastolic dysfunction * this is complicated by patient's non-compliance with medications * on medical management - diuretics, entresto and jardiance * follow I/Os, daily weights, and volume status Subjective Date/time seen: 11/24/23 10:06 Interval history: Mey is feeling about the same. Sitting up in bed and eating some breakfast. Still very swollen. Breathing is fair Exam Narrative: WDWN in NAD skin no acute rash. Significant chronic venous stasis changes head ncat lungs clear cor reg no rub abd BS+ nontender and soft ext 2+ bilateral edema. Objective Data Vital Signs Vital Signs: Vital Signs - 24 hr 11/23/23 14:00 11/23/23 10:37 11/23/23 12:00 Temperature 97.7 F Pulse Rate 83 81 Respiratory Rate 22 H Blood Pressure 112/55 L Pulse Oximetry 100 94 Oxygen Delivery Nasal Cannula Oxygen Flow Rate 3 11/23/23 16:00 11/23/23 20:05 11/23/23 20:00 Temperature 98.4 F Pulse Rate 72 74 78 Respiratory Rate 20 Blood Pressure 81/42 L Pulse Oximetry 96 Oxygen Delivery Oxygen Flow Rate 11/24/23 00:00 11/24/23 04:00 11/24/23 06:00 Temperature 98.6 F Pulse Rate 70 60 70 Respiratory Rate 20 Blood Pressure 84/39 L Pulse Oximetry 99 Oxygen Delivery Oxygen Flow Rate 11/24/23 08:15 Temperature Pulse Rate Respiratory Rate Blood Pressure Pulse Oximetry 98 Oxygen Delivery Nasal Cannula Oxygen Flow Rate 3 Intake/Output Intake/Output: Intake & Output 11/21/23 11/22/23 11/23/23 11/24/23 23:59 23:59 23:59 23:59 Intake Total 1800 2120 1784 240 Output Total 3588 685 3318 500 Balance 350 1595 584 -260 Meds/Results Medications: Active Medications Generic Name Dose Route Start Last Admin Trade Name Freq PRN Reason Stop Dose Admin Acetaminophen 650 mg 11/13/23 21:01 11/24/23 08:23 Acetaminophe
--- NOTE | 2023-11-24 10:06 | PM.PNNEP ---
Progress Note: A&P Assessment and Plan (1) MARY (acute kidney injury): Code(s): N17.9 - Acute kidney failure, unspecified Status: Acute Assessment and Plan: normal creatinine at baseline/prior to admission Urine electrolytes are non pre renal but the fractional excretion of urea shows pre renal azotemia. CT abdomen shows normal kidneys. CK is normal urine protein is only 630 and so is not contributing much to the edema. I agree with Dr. Bain that the normal creatinine from before may have been due to dilution from all the fluid. most likely the patient has chronic pre renal azotemia from cardiorenal syndrome. I discussed with Dr. Triplett. he will start the patient on dobutamine. Consider restarting IV diuretics as well depending on how she response to the dobutamine. (2) 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ailure: Code(s): I50.43 - 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ailure Status: Acute Assessment and Plan: Echo with EF 15 - 20% with grade III diastolic dysfunction this is complicated by patient's non-compliance with medications on medical management - diuretics, entresto and jardiance follow I/Os, daily weights, and volume status Subjective Date/time seen: 11/24/23 10:06 Interval history: Mey is feeling about the same. Sitting up in bed and eating some breakfast. Still very swollen. Breathing is fair Exam Narrative: WDWN in NAD skin no acute rash. Significant chronic venous stasis changes head ncat lungs clear cor reg no rub abd BS+ nontender and soft ext 2+ bilateral edema. Objective Data Vital Signs Vital Signs: Vital Signs - 24 hr 11/23/23 14:00 11/23/23 10:37 11/23/23 12:00 Temperature 97.7 F Pulse Rate 83 81 Respiratory Rate 22 H Blood Pressure 112/55 L Pulse Oximetry 100 94 Oxygen Delivery Nasal Cannula Oxygen Flow Rate 3 11/23/23 16:00 11/23/23 20:05 11/23/23 20:00 Temperature 98.4 F Pulse Rate 72 74 78 Respiratory Rate 20 Blood Pressure 81/42 L Pulse Oximetry 96 Oxygen Delivery Oxygen Flow Rate 11/24/23 00:00 11/24/23 04:00 11/24/23 06:00 Temperature 98.6 F Pulse Rate 70 60 70 Respiratory Rate 20 Blood Pressure 84/39 L Pulse Oximetry 99 Oxygen Delivery Oxygen Flow Rate 11/24/23 08:15 Temperature Pulse Rate Respiratory Rate Blood Pressure Pulse Oximetry 98 Oxygen Delivery Nasal Cannula Oxygen Flow Rate 3 Intake/Output Intake/Output: Intake & Output 11/21/23 11/22/23 11/23/23 11/24/23 23:59 23:59 23:59 23:59 Intake Total 1800 2120 1784 240 Output Total 6248 793 0949 500 Balance 350 1595 584 -260 Meds/Results Medications: Active Medications Generic Name Dose Route Start Last Admin Trade Name Freq PRN Reason Stop Dose Admin Acetaminophen 650 mg 11/13/23 21:01 11/24/23 08:23 Acetaminophen 325 Mg Tablet PO 650 mg Q4H PRN Administration Mild Pain (1-3) or Fever Apixaban 10 mg 11/19/23 21:00 11/24/23 08:18 Apixaban 5 Mg Tablet PO 11/26/23 20:59 10 mg Q12HR ALEXYS Administration Apixaban 5 mg 11/26/23 21:00 Apixaban 5 Mg Tablet PO Q12HR [facility] Carvedilol 3.125 mg 11/14/23 21:00 11/17/23 13:12 Carvedilol 3.125 Mg Tablet PO Not Given Q12HR [facility] Clotrimazole 1 applic 11/14/23 09:00 11/24/23 08:24 Betamethasone/Clotrimazole Cr 15 Gm Tube TOPICAL 1 applic DAILY ALEXYS Administration Furosemide 40 mg 11/22/23 09:00 11/24/23 08:18 Furosemide 40 Mg Tablet PO 40 mg BID ALEXYS Administration Ceftriaxone Sodium 1 gm in 50 mls @ 100 mls/hr 11/23/23 09:00 11/23/23 09:15 Rocephin 1 Gm/Ns 50 Ml IVPB Not Given Q24H [facility] Miconazole Nitrate 1 applic 11/14/23 09:00 11/24/23 08:25 Miconazole 2% Antifungal Ointment 56 Gm TOPICAL 1 applic Q12HR ALEXYS Administration Oxycodone/A
--- NOTE | 2023-11-24 11:03 | PM.PNCARD ---
Progress Note: A&P Assessment and Plan (1) 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ailure: Code(s): I50.43 - 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ailure Status: Acute Assessment and Plan: 58-year-old female with history of CHF with reduced ejection fraction (unclear etiology)-with acute on chronic CHF with reduced ejection fraction. -diuresis with oral furosemide with close monitoring of electrolytes, renal function, ins and outs. -patient currently on beta-zeb, very low-dose sacubitril/valsartan, spironolactone. May have to hold sacubitril/valsartan and spironolactone if worsening renal function. Add SGLT2i when able. -spoke at length with the patient and her son about previous cardiac workup. She does not recall any invasive ischemic workup in the past. 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 In any case, at this time, optimal tolerable medical treatment for CHF with reduced ejection fraction is recommended. -outpatient Cardiology follow-up for additional management. Patient intends to follow up with Dr. Cruz after hospital discharge. (2) MARY (acute kidney injury): Code(s): N17.9 - Acute kidney failure, unspecified Status: Acute Assessment and Plan: MARY with decreased urine output in the setting of CHF with reduced ejection fraction, likely cardiorenal syndrome. Patient reluctant for inotropic support at this time. Continue to monitor electrolytes and renal function. Discussed with Nephrology. (3) At risk for sleep apnea: Code(s): Z91.89 - Other specified personal risk factors, not elsewhere classified Status: Acute Assessment and Plan: Patient is morbidly obese and probably has KRZYSZTOF. Not interested in sleep study as an outpatient at this time. (4) Noncompliance with medication regimen: Code(s): Z91.148 - Patient's other noncompliance with medication regimen for other reason Status: Acute Assessment and Plan: Discussed importance of medication compliance and outpatient follow-up with the patient. She verbalized understanding. She remains at risk for rehospitalization. Subjective Date/time seen: 11/24/23 11:03 Interval history: Date of service: 11/24/2023 Interval history: Patient was sitting up in the recliner, reported improvement in her shortness of breath. At the time of evaluation, patient's son and the nurse was in the room. I spoke at length with the patient and her son about her previous cardiac history. She states that she was diagnosed with CHF many many years ago. According to patient's son, she was probably diagnosed with heart failure after childbirth. Patient does not recall any ischemic evaluation in the past. She has not been fully compliant with medical regimen as an outpatient. Patient denies documented history of KRZYSZTOF and is not willing for evaluation for possible sleep apnea given her morbid obesity. Dr. Alcazar from Nephrology had concerns about patient's renal function and decreased urine output and was wondering about inotropic support. However, after discussion with the patient, patient does not want any additional IV medications at this time. Exam Narrative: PHYSICAL EXAMINATION: GENERAL: Morbidly obese female, alert, oriented, no acute distress MENTAL STATUS: affect appropriate to mood EYES: Extraocular movements intact, no pallor EARS: External ears appear normal, hearing grossly normal NOSE: Normal and patent, no discharge MOUTH: Mucous membranes moist, tongue normal NECK: Supple, no JVD CHEST: Decreased breath sounds due to body habitus HEART: Normal rate, regular rhythm at present ABDOMEN: Soft, obese NEUROLOGICAL: Alert, oriented, normal speech, no gross motor deficits MUSCULOSKELETAL: No major deformity, no amputation EXTREMITIES: Bi
--- NOTE | 2023-11-24 14:39 | PM.IMPN ---
Progress Note: A&P Assessment and Plan (1) 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ailure: Code(s): I50.43 - 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ailure Status: Acute Assessment and Plan: ECHO ?1. Left ventricular chamber dimension is severely enlarged. ? 2. Left ventricular systolic function is severely reduced, estimated at 15-20%. ? 3. The left ventricular diastolic function is grade III diastolic dysfunction. ? 4. Global hypokinesis of the left ventricle. ? 5. Right ventricular chamber dimension is mildly enlarged. ? 6. Left atrial chamber dimension is moderately enlarged. ? 7. Right atrial chamber dimension is moderately enlarged. ? 8. There is mild mitral valve regurgitation. ? 9. There is mild tricuspid valve regurgitation. ? 10. There is mild pulmonic regurgitation. ? 11. There is mildly increased left ventricular wall thickness. 2/4 Discussed with patient and family at bedside possible dobutamine infusion to improve the perfusion of kidneys and no they were initially opposed because of misconception about additional IVs they currently wished to proceed. Cardiology notified by nursing staff and orders for dobutamine and transfer to IMU entered. Continue to monitor labs, I and O. (2) Left bundle branch block: Code(s): I44.7 - Left bundle-branch block, unspecified Status: Acute Assessment and Plan: Stable (3) MARY (acute kidney injury): Code(s): N17.9 - Acute kidney failure, unspecified Status: Acute Assessment and Plan: Likely due to poor perfusion caused by acute on chronic systolic heart failure (4) UTI (urinary tract infection), bacterial: Code(s): N39.0 - Urinary tract infection, site not specified; A49.9 - Bacterial infection, unspecified Status: Acute Assessment and Plan: 2/4 culture growing E coli, continue ceftriaxone (5) Deep vein thrombosis: Code(s): I82.409 - Acute embolism and thrombosis of unspecified deep veins of unspecified lower extremity Status: Acute Assessment and Plan: right basilic vein continue apixaban (6) Jaundice: Code(s): R17 - Unspecified jaundice Status: Acute Assessment and Plan: Possible cardiac cirrhosis 2/4 abdominal ultrasound completed and results pending (7) Left shoulder pain: Code(s): M25.512 - Pain in left shoulder Status: Acute Assessment and Plan: Clinically has adhesive capsulitis 2/4 x-ray, heat, physical therapy ordered (8) Venous stasis ulcer: Code(s): I83.009 - Varicose veins of unspecified lower extremity with ulcer of unspecified site; L97.909 - Non-pressure chronic ulcer of unspecified part of unspecified lower leg with unspecified severity Status: Acute Assessment and Plan: Distal left leg Continue dressing changes (9) Candidal intertrigo: Code(s): B37.2 - Candidiasis of skin and nail Status: Acute Assessment and Plan: Continue topical medication (10) Noncompliance with medication regimen: Code(s): Z91.148 - Patient's other noncompliance with medication regimen for other reason Status: Acute Assessment and Plan: 2/ discussed with patient and family at bedside the importance of regular follow-up with primary care and Cardiology as well as her high risk for sudden cardiac in light of her severely impaired ejection fraction. (11) Morbid obesity: Code(s): E66.01 - Morbid (severe) obesity due to excess calories Status: Chronic (12) Hypokalemia: Code(s): E87.6 - Hypokalemia Status: Acute Assessment and Plan: Resolved (13) Abnormality of gait and mobility: Code(s): R26.9 - Unspecified abnormalities of gait and mobility Status: Acute Assessment and Plan: Would benefit from therapy Subjective Date/time seen: 11/24/23
--- NOTE | 2023-11-24 17:34 | PC.NURSE ---
This RN gave report to receiving IMU RNPoli. RN accepted to provide pt with care.
--- NOTE | 2023-11-24 17:52 | PC.NURSE ---
Pt transferred to [facility] @ [id number]
[2023-11-24] MEDS: DOBUTamine 250 MG/D5W 250 ML 250 MG/250 ML BAG 25.71 MG IV CONT ×2 (18:03→21:39)
--- NOTE | 2023-11-24 18:34 | WPDGICN ---
Assessment and Plan Assessment and plan (1) Jaundice: Code(s): R17 - Unspecified jaundice Status: Acute Assessment and Plan: Most likely congestive hepatopathy from heart failure and anasarca will check hepatitis panel and work up for other chronic liver conditions she is morbidly obese and wonder if could have underlying nafld vs knapp noted bilirubin increased since admission and probably related to heart condition- cardiology to start on dobutamine drip, no abdominal pain (2) 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ailure: Code(s): I50.43 - 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ailure Status: Acute Assessment and Plan: by cardiology on diuretics dobutamine gtt (3) Morbid obesity: Code(s): E66.01 - Morbid (severe) obesity due to excess calories Status: Chronic (4) Left bundle branch block: Code(s): I44.7 - Left bundle-branch block, unspecified Status: Acute (5) MARY (acute kidney injury): Code(s): N17.9 - Acute kidney failure, unspecified Status: Acute GI Consult Note Consult date/time: 11/24/23 18:34 Reason for consult: jaundice, CHF exacerbation HPI: Mey Herron is a 58 year old female with history of chronic systolic and diastolic congestive heart failure apparently also cardiomyopathy during her , morbid obesity who presents to the hospital several days ago with worsening swelling and dyspnea on exertion, she was out of her furosemide for several months.?ECHO with left ventricular chamber dimension is severely enlarged. Left ventricular systolic function is severely reduced, estimated at 15-20%. CT scan showed Anasarca including small pleural effusions, mild pulmonary edema, and small volume of ascites. Ventral hernia containing nonobstructed small and large bowel. Mild mediastinal and bilateral inguinal lymphadenopathy, likely reactive. Cholelithiasis. No evidence of acute cholecystitis. She has been diuresed but still symptomatic with leg edema. Cardiology team planning to start dobutamine drip. Denies abdominal pain, no history of liver disease, no alcohol use. Bili from 3 on admission up to 7-8 but normal transaminases, platelets 120. Review of Systems Constitutional: Constitutional: Denies chills Eyes: Eyes: Denies blurry vision ENT: Reports Normal hearing present Cardiovascular: Cardiovascular: Reports leg edema Respiratory: Respiratory: Reports dyspnea on exertion Gastrointestinal: Gastrointestinal: Denies abdominal pain Genitourinary: Genitourinary: Denies urinary urgency Musculoskeletal: Musculoskeletal: Denies neck pain Integumentary/Breasts: Skin/Breast: Denies rash Neurologic: Denies Abnormal speech present Psychiatric: Psychiatric: Denies behavioral changes [facility] Past Medical History Medical History (Updated 11/24/23 @ 15:09 by Malik Kurtz MD) Abnormality of gait and mobility Candidal intertrigo Congestive heart failure Noncompliance with medication regimen Family History Family History Father Patient's father is in good health Mother Family history of coronary artery disease Family history of congestive heart failure Acute myocardial infarction Social History Social History Smoking status: Former smoker Tobacco type: cigarettes Alcohol intake: never Substance use: never Substance use type: does not use Do You Feel Safe in your Home?: Yes Lack of Transportation: No Lack of Food: Never True Current Housing: I Have Housing Concerned About Future Housing: No Difficulty Paying Gas/Electric Bills: No Difficulty Paying for Meds: No Currently Unemployed: No Education: High School Diploma/GED Difficulty w/ Childcare or Family Care: No Living arrangements: with family
--- NOTE | 2023-11-24 19:58 | PC.NURSE ---
This patient, Mey Herron, was received from [3rd med-surg ] on 11/24/23 at 1800. Patient/family oriented to unit policies and routines. patient alert and oriented.
--- NOTE | 2023-11-24 20:01 | PC.NURSE ---
Patient's blood pressure remains low (83/33). Started dobutamine drip, patient's BP remains low at 78/34. JAILYN Godwin notified.
[2023-11-24] MEDS: MIDODRINE HCL 2.5 MG TABLET 10 MG PO (23:31)
--- NOTE | 2023-11-24 23:33 | P.PNCROSS_ITS ---
Event Note Event Note Event Note: Cross Coverage Starting at around 21:15, patient sustaining systolic in the 70's. Patient is currently asymptomatic and denying dizziness, syncope, blurred vision, chest pain, or palpitations. Hypotensive despite dobutamine gtt, initially running at 2.5 mcg/kg/min. Drip titrated by 0.5 mcg/kg/min. Increased to 5 mcg/kg/min without change in current blood pressure. Nursing staff directed to reach out to Cardiology. Bedside RN spoke with Marybeth QUINN. She recommended stopping all blood pressure lowering medications, discontinuing dobutamine drip, and add midodrine. Meds d/c'd at 23:00: Dobutamine gtt, Entresto, spironolactone, and Lasix. [place] continued, however may be discontinued if concerns arise that this is also contributing to patient's hypotension. Patient is requesting less blood pressure assessments, does not want a central line, and would like to avoid an a-line. Voiced frustrations with current medical conditions. Critical Care Time: I personally spent 30 minutes of direct patient care including (but not limited to) the physical examination, decision-making, bedside evaluation, review of medical records, review of labs and imaging, discussion with nursing staff and other providers for collaborative, critical care management of this patient.
--- NOTE | 2023-11-24 23:40 | PC.NURSE ---
Spoke with patient about further care decisions. Blood pressures have been low on floor and are decreasing with dobutamine drip. Patient does not want a central line for blood pressure support or arterial line for accurate BP. Patient also confirms DNR status.
[2023-11-25] VITALS (20 sets, daily range): BP systolic 74–112; BP diastolic 26–98; PULSE 68–90; RESP 16–20; TEMP 36.3–37.5; O2SAT 93–100
[2023-11-25 04:11] LABS: Basophils Percent Auto 0.2 % (0.2-1.2); Eosinophils Percent Auto 0.4 % (0-4.4); Hematocrit 29.9 % (37.0-47.0); Hemoglobin 9.6 g/dL (12.0-15.0); Immature Granulocyte Absolute 0.09 K/mm3 (0.00-0.031); Immature Granulocyte Percent A 0.9 % (0-0.5); Lymphocytes Absolute Auto 0.38 K/mm3 (0.9-3.2); Lymphocytes Percent Auto 3.7 % (18.3-44.2); Mean Corpuscular HGB Conc 32.1 g/dl (32-36); Mean Corpuscular Hemoglobin 34.4 pg (26-34); Mean Corpuscular Volume 107.2 fl (80-100); Mean Platelet Volume 12.1 fl (7.4-10.4); Monocytes Percent Auto 9.6 % (2.6-8.5); Neutrophils Absolute Auto 8.8 K/mm3 (1.3-6.7); Neutrophils Percent Auto 85.2 % (45.5-73.1); Platelet Count Result 117 k/mm3 (150-375); Red Blood Count 2.79 M/mm3 (4.2-5.4); Red Cell Distribution Width 15.8 % (11.5-14.5); White Blood Count 10.3 K/mm3 (4.5-10.0)
[2023-11-25 04:21] LABS: Alanine Aminotransferase 12 U/L (6-35); Albumin Level 2.8 g/dL (3.5-5.1); Alkaline Phosphatase 193 U/L (38-126); Anion Gap 5 mmol/L (8-16); Aspartate Amino Transferase 25 U/L (14-36); Bilirubin,Total 7.5 mg/dL (0.2-1.3); Blood Urea Nitrogen 53 mg/dL (7-17); Calcium 8.1 mg/dL (8.4-10.2); Carbon Dioxide 31 mmol/L (22-30); Chloride 98 mmol/L (98-107); Estimated CRCL calculation 46 ml/min; Estimated Glomerular Filt Rate 26; Glucose 102 mg/dL (65-110); Magnesium 2.2 mg/dL (1.6-2.3); Phosphorus 3.5 mg/dL (2.5-4.5); Potassium 3.8 mmol/L (3.4-5.0); Sodium 134 mmol/L (137-145)
[2023-11-25 04:37] LABS: Anisocytosis 1+ (NORMAL); Platelet Estimate Adequate (Adequate); Schistocytes Rare (NORMAL)
[2023-11-25 04:38] LABS: Ovalocytes 1+ (NORMAL)
[2023-11-25 04:50] LABS: Hepatitis B Surface Antigen Negative (Negative)
[2023-11-25 04:55] LABS: HAV RESULT Negative (Negative); Hepatitis B Core IgM Result Negative (Negative)
[2023-11-25 05:07] LABS: Hepatitis C Virus Antibody Negative (Negative)
[2023-11-25] MEDS: APIXABAN 5 MG TABLET 10 MG PO ×2 (09:34→21:42)
[2023-11-25] MEDS: MIDODRINE HCL 10 MG TABLET PO ×3 (09:35→16:49)
[2023-11-25] MEDS: BETAMETHASONE/CLOTRIMAZOLE CR 15 GM TUBE 1 APPLIC TOPICAL (09:37)
[2023-11-25] MEDS: TOLNAFTATE 1% POWDER 45 GM BTL 1 APPLIC TOPICAL ×2 (09:38→21:42)
--- NOTE | 2023-11-25 10:46 | PM.PNNEP ---
Progress Note: A&P Assessment and Plan (1) MARY (acute kidney injury): Code(s): N17.9 - Acute kidney failure, unspecified Status: Acute Assessment and Plan: ongoing worsening noted normal creatinine at baseline/prior to admission evaluation to date: urine electrolytes are non pre renal by FeNA but the FeUrea shows pre renal azotemia CT abdomen/renal ultrasound shows normal kidneys and no hydronephrosois CK is normal urine protein/creatinine ratio 630 (so this is not contributing much to the edema) suspect the normal creatinine from before may have been due to dilution from all the fluid/volume overload this is likely chronic pre renal azotemia from cardiorenal syndrome unfortunately, limited response to dobutamine gtt (as noted by events overnight -- off dobutamine gtt currently. follow trend of renal function and UOP (2) 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ailure: Code(s): I50.43 - 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ailure Status: Acute Assessment and Plan: Echo with EF 15 - 20% with grade III diastolic dysfunction this is complicated by patient's non-compliance with medications medical management and therapy difficult to continue due to hypotension Cardiology following follow I/Os, daily weights, and volume status Long and extensive discussion (> 20minutes) with patient and family at bedside; the patient seems somewhat frustrated by ongoing medication changes and therapy that has not really improved her clinical situation -- family and patient inquired about no further escalation of care and possibility just going home. Encouraged them to discuss this with hospitalist and care coordination. Will continue to follow. Subjective Date/time seen: 11/25/23 10:46 Interval history: Follow-up for acute kidney injury/acute renal failure. Chart reviewed since last seen -- events noted with significant hypotension overnight despite titration of dobutamine gtt; all BP medications as well as dobutamine gtt has since been discontinued and was started on high dose midodrine with better BP reading this AM. Exam Narrative: General: Large Caucasioan female in NAD Heart: normal S1 and S2; no rub Lungs: clear anteriorly Abdomen: soft, nontender, nondistended, positive bowel sounds Extremities: no cyanosis or clubbing; 2+ edema Skin: chronic venous stasis changes Objective Data Vital Signs Vital Signs: Vital Signs Temp Pulse Resp BP Pulse Ox O2 Del Method O2 Flow Rate 11/25/23 10:00 80 11/25/23 08:00 86 11/25/23 08:53 94 Nasal Cannula 2 11/25/23 08:09 98.2 F 80 16 112/98 H 96 11/25/23 06:00 73 11/25/23 04:00 97 Nasal Cannula 2 11/25/23 04:00 84 11/25/23 04:28 97.3 F L 86 20 74/26 L 97 11/25/23 01:59 74 11/25/23 00:00 83 11/24/23 22:00 96 11/24/23 20:00 92 11/24/23 20:00 98 Nasal Cannula 3 11/25/23 00:16 97.8 F 90 20 76/28 L 93 11/24/23 22:20 76/25 L 11/24/23 22:10 77/31 L 11/24/23 22:01 76/24 L 11/24/23 21:50 78/30 L 11/24/23 21:30 76/22 L 11/24/23 21:15 76/17 L 11/24/23 21:56 78/21 L 11/24/23 21:45 75/30 L 11/24/23 21:00 81/15 L 11/24/23 21:39 76/17 L 11/24/23 20:47 98 Nasal Cannula 2 11/24/23 20:11 97.6 F 91 20 78/34 L 97 11/24/23 18:00 79 11/24/23 18:06 98.8 F 81 20 83/33 L 96 11/24/23 18:03 82 83/33 L 11/24/23 14:00 97.4 F L 87 20 104/57 L 100 Intake/Output Intake/Output: Intake & Output 11/22/23 11/23/23 11/24/23 11/25/23 23:59 23:59 23:59 23:59 Intake Total 2120 1784 780 240 Output Total 525 1200 825 200 Balance 1595 584 -45 40 Meds/Results Medications: Active Medications Generic Name Dose Route Start Last Adm
--- NOTE | 2023-11-25 10:46 | P.PNNP_ITS ---
Progress Note: A&P Assessment and Plan (1) AMRY (acute kidney injury): Code(s): N17.9 - Acute kidney failure, unspecified Status: Acute Assessment and Plan: * ongoing worsening noted * normal creatinine at baseline/prior to admission * evaluation to date: * urine electrolytes are non pre renal by FeNA but the FeUrea shows pre renal azotemia * CT abdomen/renal ultrasound shows normal kidneys and no hydronephrosois * CK is normal * urine protein/creatinine ratio 630 (so this is not contributing much to the edema) * suspect the normal creatinine from before may have been due to dilution from all the fluid/volume overload * this is likely chronic pre renal azotemia from cardiorenal syndrome * unfortunately, limited response to dobutamine gtt (as noted by events overnight -- off dobutamine gtt currently. * follow trend of renal function and UOP (2) 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ailure: Code(s): I50.43 - 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ailure Status: Acute Assessment and Plan: * Echo with EF 15 - 20% with grade III diastolic dysfunction * this is complicated by patient's non-compliance with medications * medical management and therapy difficult to continue due to hypotension * Cardiology following * follow I/Os, daily weights, and volume status Long and extensive discussion (> 20minutes) with patient and family at bedside; the patient seems somewhat frustrated by ongoing medication changes and therapy that has not really improved her clinical situation -- family and patient inquired about no further escalation of care and possibility just going home. Encouraged them to discuss this with hospitalist and care coordination. Will continue to follow. Subjective Date/time seen: 11/25/23 10:46 Interval history: Follow-up for acute kidney injury/acute renal failure. Chart reviewed since last seen -- events noted with significant hypotension overnight despite titration of dobutamine gtt; all BP medications as well as d obutamine gtt has since been discontinued and was started on high dose midodrine with better BP reading this AM. Exam Narrative: General: Large Caucasioan female in NAD Heart: normal S1 and S2; no rub Lungs: clear anteriorly Abdomen: soft, nontender, nondistended, positive bowel sounds Extremities: no cyanosis or clubbing; 2+ edema Skin: chronic venous stasis changes Objective Data Vital Signs Vital Signs: Vital Signs Temp Pulse Resp BP Pulse Ox O2 Del Method O2 Flow Rate 11/25/23 10:00 80 11/25/23 08:00 86 11/25/23 08:53 94 Nasal Cannula 2 11/25/23 08:09 98.2 F 80 16 112/98 H 96 11/25/23 06:00 73 11/25/23 04:00 97 Nasal Cannula 2 11/25/23 04:00 84 11/25/23 04:28 97.3 F L 86 20 7426 L 97 11/25/23 01:59 74 11/25/23 00:00 83 11/24/23 22:00 96 11/24/23 20:00 92 11/24/23 20:00 98 Nasal Cannula 3 11/25/23 00:16 97.8 F 90 20 76/28 L 93 11/24/23 22:20 76/25 L 11/24/23 22:10 77/31 L 11/24/23 22:01 76/24 L 11/24/23 21:50 78/30 L 11/24/23 21:30 76/22 L 11/24/23 21:15 76/17 L 11/24/23 21:56
--- NOTE | 2023-11-25 14:34 | WPDGIPROGNO ---
Progress Note: A&P Assessment and Plan (1) 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ailure: Code(s): I50.43 - 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ailure Status: Acute Assessment and Plan: by cardiology, here with anasarca did not tolerate dobutamine drip (2) Jaundice: Code(s): R17 - Unspecified jaundice Status: Acute Assessment and Plan: most likely driven by CHF and subsequent congestive hepatopathy she also probably have component of fatty liver disease given morbid obesity continue medical support hepatitis negative, pending seymour/ama will follow from [place] as needed (3) Anasarca: Code(s): R60.1 - Generalized edema Status: Acute (4) MARY (acute kidney injury): Code(s): N17.9 - Acute kidney failure, unspecified Status: Acute Assessment and Plan: by nephrology (5) Morbid obesity: Code(s): E66.01 - Morbid (severe) obesity due to excess calories Status: Chronic Subjective Date/time seen: 11/25/23 14:34 Interval history: she did not tolerate dobutamine gtt because hypotension and worsening renal failure today no changes otherwise Review of Systems Review of Systems: All systems reviewed & are unremarkable except as noted in HPI and below Exam Narrative: GENERAL: Morbidly obese female, alert, oriented, no acute distress MENTAL STATUS: affect appropriate to mood EYES: Extraocular movements intact, no pallor EARS: External ears appear normal, hearing grossly normal NOSE: Normal and patent, no discharge MOUTH: Mucous membranes moist, tongue normal NECK: Supple CHEST: Decreased breath sounds due to body habitus HEART: Normal rate, regular rhythm at present ABDOMEN: Soft, obese NEUROLOGICAL: Alert, oriented, normal speech, no gross motor deficits MUSCULOSKELETAL: No major deformity EXTREMITIES: Bilateral pedal edema with chronic venous stasis changes SKIN: Skin changes due to underlying edema in the lower extremities PSYCHIATRIC: Normal mood, appropriate affect Objective Data Vital Signs Vital Signs: Vital Signs - 24 hr 11/24/23 18:03 11/24/23 18:06 11/24/23 18:00 Temperature 98.8 F Pulse Rate 82 81 79 Respiratory Rate 20 Blood Pressure 83/33 L 83/33 L Pulse Oximetry 96 Oxygen Delivery Oxygen Flow Rate 11/24/23 20:11 11/24/23 20:47 11/24/23 21:39 Temperature 97.6 F Pulse Rate 91 Respiratory Rate 20 Blood Pressure 78/34 L 76/17 L Pulse Oximetry 97 98 Oxygen Delivery Nasal Cannula Oxygen Flow Rate 2 11/24/23 21:00 11/24/23 21:45 11/24/23 21:56 Temperature Pulse Rate Respiratory Rate Blood Pressure 81/15 L 75/30 L 78/21 L Pulse Oximetry Oxygen Delivery Oxygen Flow Rate 11/24/23 21:15 11/24/23 21:30 11/24/23 21:50 Temperature Pulse Rate Respiratory Rate Blood Pressure 76/17 L 76/22 L 78/30 L Pulse Oximetry Oxygen Delivery Oxygen Flow Rate 11/24/23 22:01 11/24/23 22:10 11/24/23 22:20 Temperature Pulse Rate Respiratory Rate Blood Pressure 76/24 L 77/31 L 76/25 L Pulse Oximetry Oxygen Delivery Oxygen Flow Rate 11/25/23 00:16 11/24/23 20:00 11/24/23 20:00 Temperature 97.8 F Pulse Rate 90 92 Respiratory Rate 20 Blood Pressure 76/28 L Pulse Oximetry 93 98 Oxygen Delivery Nasal Cannula Oxygen Flow Rate 3 11/24/23 22:00 11/25/23 00:00 11/25/23 01:59 Temperature Pulse Rate 96 83 74 Respiratory Rate Blood Pressure Pulse Oximetry Oxygen Delivery Oxygen Flow Rate 11/25/23 04:28 11/25/23 04:00 11/25/23 04:00 Temperature 97.3 F L Pulse Rate 86 84 Respiratory Rate 20 Blood Pressure 74/26 L Pulse Oximetry 97 97 Oxygen Delivery Nasal Cannula Oxygen Flow Rate 2 11/25/23 06:00 11/25/23 08:09 11/25/23 08:53 Temperature 98.2 F Pulse Rate 73 80 Respir
--- NOTE | 2023-11-25 14:46 | PM.IMPN ---
Progress Note: A&P Assessment and Plan (1) 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ailure: Code(s): I50.43 - 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ailure Status: Acute Assessment and Plan: ECHO ?EF is 20% (2) Left bundle branch block: Code(s): I44.7 - Left bundle-branch block, unspecified Status: Acute Assessment and Plan: Stable (3) MARY (acute kidney injury): Code(s): N17.9 - Acute kidney failure, unspecified Status: Acute Assessment and Plan: Likely due to poor perfusion caused by acute on chronic systolic heart failure creat is 2 pt has been on lasix/ dobutamine drip (4) UTI (urinary tract infection), bacterial: Code(s): N39.0 - Urinary tract infection, site not specified; A49.9 - Bacterial infection, unspecified Status: Acute Assessment and Plan: 2/4 culture growing E coli, continue ceftriaxone for EColi UTI (5) Deep vein thrombosis: Code(s): I82.409 - Acute embolism and thrombosis of unspecified deep veins of unspecified lower extremity Status: Acute Assessment and Plan: right basilic vein continue apixaban (6) Jaundice: Code(s): R17 - Unspecified jaundice Status: Acute Assessment and Plan: Possible cardiac cirrhosis 2/4 abdominal ultrasound completed and results pending (7) Left shoulder pain: Code(s): M25.512 - Pain in left shoulder Status: Acute Assessment and Plan: Clinically has adhesive capsulitis 2/4 x-ray, heat, physical therapy ordered (8) Venous stasis ulcer: Code(s): I83.009 - Varicose veins of unspecified lower extremity with ulcer of unspecified site; L97.909 - Non-pressure chronic ulcer of unspecified part of unspecified lower leg with unspecified severity Status: Acute Assessment and Plan: Distal left leg Continue dressing changes (9) Candidal intertrigo: Code(s): B37.2 - Candidiasis of skin and nail Status: Acute Assessment and Plan: Continue topical medication (10) Noncompliance with medication regimen: Code(s): Z91.148 - Patient's other noncompliance with medication regimen for other reason Status: Acute Assessment and Plan: severely impaired ejection fraction. stressed emphasis on compliance to medications (11) Morbid obesity: Code(s): E66.01 - Morbid (severe) obesity due to excess calories Status: Chronic (12) Hypokalemia: Code(s): E87.6 - Hypokalemia Status: Acute Assessment and Plan: Resolved (13) Abnormality of gait and mobility: Code(s): R26.9 - Unspecified abnormalities of gait and mobility Status: Acute Assessment and Plan: Would benefit from therapy PT/ OT ordered pt will benefit from sitting in chair Subjective Date/time seen: 11/25/23 14:46 Interval history: Patient presented to emergency department for evaluation of progressively worsening shortness of bread and weight gain.? She has a history of CHF, she normally take furosemide but she has not been taking it for some months now because she ran out.? Pt admitted for chf exacerbation has been on lasix and dobutamine but blood pressure dropped so they were stopped and midodrine started. kidney function being followed by nephrology. As per nephrology, pt may benefit from palliative care consult. Continue to follow in hospital. Review of Systems Review of Systems: Ongoing edema of arms and legs and abdomen All systems reviewed & are unremarkable except as noted in HPI and below (Subjective) Exam Narrative: GENERAL: Pleasant, in no acute distress. Well-nourished. Morbid obesity - EYES: EOMI. Jaundice - HENT: Moist mucous membranes. - LUNGS: Scattered coarse breath sound bilateral lobe no wheezing, rhonchi - CARDIOVASCULAR: Regular rate and rhythm. N
[2023-11-25] MEDS: ACETAMINOPHEN 325 MG TABLET 650 MG PO (17:02)
[2023-11-26] VITALS (18 sets, daily range): BP systolic 77–95; BP diastolic 29–43; PULSE 3–78; RESP 18–22; TEMP 36.1–36.7; O2SAT 94–100
[2023-11-26] MEDS: CEPHALEXIN 500 MG CAPSULE PO (06:33)
[2023-11-26 06:41] LABS: Basophils Percent Auto 0.4 % (0.2-1.2); Eosinophils Absolute Auto 0.1 K/mm3 (0-0.3); Eosinophils Percent Auto 1.3 % (0-4.4); Hematocrit 28.3 % (37.0-47.0); Hemoglobin 8.9 g/dL (12.0-15.0); Immature Granulocyte Absolute 0.21 K/mm3 (0.00-0.031); Immature Granulocyte Percent A 2.2 % (0-0.5); Lymphocytes Absolute Auto 0.56 K/mm3 (0.9-3.2); Lymphocytes Percent Auto 5.9 % (18.3-44.2); Mean Corpuscular HGB Conc 31.4 g/dl (32-36); Mean Corpuscular Hemoglobin 34.1 pg (26-34); Mean Corpuscular Volume 108.4 fl (80-100); Mean Platelet Volume 12.4 fl (7.4-10.4); Monocytes Absolute Auto 0.7 K/mm3 (0.1-0.6); Monocytes Percent Auto 7.5 % (2.6-8.5); Neutrophils Absolute Auto 7.8 K/mm3 (1.3-6.7); Neutrophils Percent Auto 82.7 % (45.5-73.1); Platelet Count Result 136 k/mm3 (150-375); Red Blood Count 2.61 M/mm3 (4.2-5.4); Red Cell Distribution Width 15.9 % (11.5-14.5); White Blood Count 9.4 K/mm3 (4.5-10.0)
[2023-11-26 06:59] LABS: Anisocytosis 1+ (NORMAL); Crenated RBC 1+ (NORMAL); Macrocytosis 1+ (NORMAL); Ovalocytes 1+ (NORMAL); Platelet Estimate Decreased (Adequate); Schistocytes None Seen (NORMAL)
[2023-11-26 08:13] LABS: Alanine Aminotransferase 11 U/L (6-35); Albumin Level 2.6 g/dL (3.5-5.1); Alkaline Phosphatase 181 U/L (38-126); Anion Gap 5 mmol/L (8-16); Aspartate Amino Transferase 28 U/L (14-36); Bilirubin,Total 8.2 mg/dL (0.2-1.3); Blood Urea Nitrogen 59 mg/dL (7-17); Carbon Dioxide 28 mmol/L (22-30); Chloride 99 mmol/L (98-107); Estimated CRCL calculation 44 ml/min; Estimated Glomerular Filt Rate 23; Glucose 100 mg/dL (65-110); Magnesium 2.2 mg/dL (1.6-2.3); Phosphorus 3.7 mg/dL (2.5-4.5); Potassium 3.8 mmol/L (3.4-5.0); Sodium 132 mmol/L (137-145)
[2023-11-26] MEDS: MIDODRINE HCL 10 MG TABLET PO ×3 (08:55→17:41)
[2023-11-26] MEDS: APIXABAN 5 MG TABLET 10 MG PO (08:55)
[2023-11-26] MEDS: BETAMETHASONE/CLOTRIMAZOLE CR 15 GM TUBE 1 APPLIC TOPICAL (08:59)
[2023-11-26] MEDS: TOLNAFTATE 1% POWDER 45 GM BTL 1 APPLIC TOPICAL ×2 (08:59→21:14)
--- NOTE | 2023-11-26 09:13 | PM.PNCARD ---
Progress Note: A&P Assessment and Plan (1) 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ailure: Code(s): I50.43 - 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ailure Status: Acute Assessment and Plan: 58-year-old female with history of CHF with reduced ejection fraction (unclear etiology)-with acute on chronic CHF with reduced ejection fraction. -Furosemide on hold for now because of hypotension. Chest x-ray this morning did not show any pulmonary edema. -hold sacubitril/valsartan, spironolactone because of worsening renal function in addition to hypotension. Resume when renal function improves. - Coreg also on hold because of hypotension. Resume when appropriate. -outpatient Cardiology follow-up for additional management. Patient intends to follow up with Dr. Cruz after hospital discharge. (2) MARY (acute kidney injury): Code(s): N17.9 - Acute kidney failure, unspecified Status: Acute Assessment and Plan: MARY with decreased urine output in the setting of CHF with reduced ejection fraction, likely cardiorenal syndrome. Patient reluctant for inotropic support at this time. Continue to monitor electrolytes and renal function. (3) At risk for sleep apnea: Code(s): Z91.89 - Other specified personal risk factors, not elsewhere classified Status: Acute Assessment and Plan: Patient is morbidly obese and probably has KRZYSZTOF. Not interested in sleep study as an outpatient at this time. (4) Noncompliance with medication regimen: Code(s): Z91.148 - Patient's other noncompliance with medication regimen for other reason Status: Acute Assessment and Plan: Discussed importance of medication compliance and outpatient follow-up with the patient. She verbalized understanding. She remains at risk for rehospitalization. Subjective Date/time seen: 11/26/23 09:13 Interval history: Date of service: 11/24/2023 Interval history: Patient was sitting up in the recliner, reported improvement in her shortness of breath. At the time of evaluation, patient's son and the nurse was in the room. I spoke at length with the patient and her son about her previous cardiac history. She states that she was diagnosed with CHF many many years ago. According to patient's son, she was probably diagnosed with heart failure after childbirth. Patient does not recall any ischemic evaluation in the past. She has not been fully compliant with medical regimen as an outpatient. Patient denies documented history of KRZYSZTOF and is not willing for evaluation for possible sleep apnea given her morbid obesity. Dr. Alcazar from Nephrology had concerns about patient's renal function and decreased urine output and was wondering about inotropic support. However, after discussion with the patient, patient does not want any additional IV medications at this time. Date of service 11/26/2023: denies any shortness of breath, chest pain, palpitations. She is complaining of pain and swelling in her left arm. Review of Systems Review of Systems: All systems reviewed & are unremarkable except as noted in HPI and below Constitutional: Constitutional: Denies body ache(s) and Denies excessive sweating Eyes: Eyes: Denies blurry vision ENT: Reports Normal hearing present Cardiovascular: Cardiovascular: Denies chest pain, Reports pedal edema, Reports leg edema and Reports dyspnea Respiratory: Respiratory: Reports dyspnea Gastrointestinal: Gastrointestinal: Reports abdominal pain Genitourinary: Genitourinary: Denies hematuria Musculoskeletal: Musculoskeletal: Denies back pain Integumentary/Breasts: Skin/Breast: Reports erythema and Reports wounds Neurologic: Reports Normal hearing present and Denies Abnormal speech present Psychiatric: Psychiatric: Denies anxiety Endocrine: Endocrine: Denies excessive sweating Hematologic/Lymphatic: Hem
[2023-11-26 09:56] LABS: Albumin 3.4 g/dL (3.8-4.8); Alpha 1 Globulin 0.3 g/dL (0.2-0.3); Alpha 2 Globulin 0.5 g/dL (0.5-0.9); Beta 1 Globulin 0.3 g/dL (0.4-0.6); Gamma Globulin 1.8 g/dL (0.8-1.7); Protein, Total 6.6 g/dL (6.1-8.1)
--- NOTE | 2023-11-26 10:21 | P.PNNP_ITS ---
Progress Note: A&P Assessment and Plan (1) MARY (acute kidney injury): Code(s): N17.9 - Acute kidney failure, unspecified Status: Acute Assessment and Plan: * ongoing worsening noted * normal creatinine at baseline/prior to admission * evaluation to date: * urine electrolytes are non pre renal by FeNA but the FeUrea shows pre renal azotemia * CT abdomen/renal ultrasound shows normal kidneys and no hydronephrosois * CK is normal * urine protein/creatinine ratio 630 (so this is not contributing much to the edema) * suspect the normal creatinine from before may have been due to dilution from all the fluid/volume overload * this is likely chronic pre renal azotemia from cardiorenal syndrome * unfortunately, limited response to dobutamine gtt (as noted by events 11/24/23 evening) -- off dobutamine gtt currently. * this is further complicated by her chronic hypotension * follow trend of renal function and UOP (2) 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ailure: Code(s): I50.43 - 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ailure Status: Acute Assessment and Plan: * Echo with EF 15 - 20% with grade III diastolic dysfunction * this is complicated by patient's non-compliance with medications * medical management and therapy difficult to continue due to hypotension * Cardiology following * follow I/Os, daily weights, and volume status (3) Urinary tract infection: Code(s): N39.0 - Urinary tract infection, site not specified Status: Acute Assessment and Plan: * culture with E.coli * on antibiotics Patient has repeatedly stated that she is not interested in escalation of care (i.e. transfer to ICU) or invasive procedure (i.e. MERCERIZER/dialysis); unfortunately, we may be reaching the limits of care given the patient's wishes... Will continue to follow. Subjective Date/time seen: 11/26/23 10:21 Interval history: Follow-up for acute kidney injury/acute renal failure. Renal function continues to worsen in association with declining urine output; still with issues related to hypotension despite high dose midodrine therapy; no acite distress at the time of my visit. Exam Narrative: General: Large Caucasioan female in NAD Heart: normal S1 and S2; no rub Lungs: clear anteriorly Abdomen: soft, nontender, nondistended, positive bowel sounds Extremities: no cyanosis or clubbing; 2+ edema Skin: chronic venous stasis changes Objective Data Vital Signs Vital Signs: Vital Signs Temp Pulse Resp BP Pulse Ox O2 Del Method O2 Flow Rate 11/26/23 08:00 97 Nasal Cannula 1.5 11/26/23 08:00 97 F L 78 22 H 94/43 L 97 11/26/23 08:31 95 Nasal Cannula 1.5 11/26/23 08:25 96 Nasal Cannula 2 11/26/23 06:00 64 11/26/23 05:20 97.6 F 64 20 82/32 L 98 11/26/23 04:00 98 Nasal Cannula 2 11/26/23 04:00 60 11/26/23 02:00 67 11/26/23 00:00 97 Nasal Cannula 2 11/26/23 00:00 73 11/26/23 00:26 97.5 F L 77 20 77/29 L 94 11/25/23 20:00 100 Nasal Cannula 2 11/25/23 22:00 68 11/25/23 20:00 82 11/25/23 20:30 84/36 L 11/25/23 20:25 98.0 F 75 20 84/39 L 100 11/25/23 18:00 73
--- NOTE | 2023-11-26 10:21 | PM.PNNEP ---
Progress Note: A&P Assessment and Plan (1) MARY (acute kidney injury): Code(s): N17.9 - Acute kidney failure, unspecified Status: Acute Assessment and Plan: ongoing worsening noted normal creatinine at baseline/prior to admission evaluation to date: urine electrolytes are non pre renal by FeNA but the FeUrea shows pre renal azotemia CT abdomen/renal ultrasound shows normal kidneys and no hydronephrosois CK is normal urine protein/creatinine ratio 630 (so this is not contributing much to the edema) suspect the normal creatinine from before may have been due to dilution from all the fluid/volume overload this is likely chronic pre renal azotemia from cardiorenal syndrome unfortunately, limited response to dobutamine gtt (as noted by events 11/24/23 evening) -- off dobutamine gtt currently. this is further complicated by her chronic hypotension follow trend of renal function and UOP (2) 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ailure: Code(s): I50.43 - 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ailure Status: Acute Assessment and Plan: Echo with EF 15 - 20% with grade III diastolic dysfunction this is complicated by patient's non-compliance with medications medical management and therapy difficult to continue due to hypotension Cardiology following follow I/Os, daily weights, and volume status (3) Urinary tract infection: Code(s): N39.0 - Urinary tract infection, site not specified Status: Acute Assessment and Plan: culture with E.coli on antibiotics Patient has repeatedly stated that she is not interested in escalation of care (i.e. transfer to ICU) or invasive procedure (i.e. TUBE REBUILDER/dialysis); unfortunately, we may be reaching the limits of care given the patient's wishes... Will continue to follow. Subjective Date/time seen: 11/26/23 10:21 Interval history: Follow-up for acute kidney injury/acute renal failure. Renal function continues to worsen in association with declining urine output; still with issues related to hypotension despite high dose midodrine therapy; no acite distress at the time of my visit. Exam Narrative: General: Large Caucasioan female in NAD Heart: normal S1 and S2; no rub Lungs: clear anteriorly Abdomen: soft, nontender, nondistended, positive bowel sounds Extremities: no cyanosis or clubbing; 2+ edema Skin: chronic venous stasis changes Objective Data Vital Signs Vital Signs: Vital Signs Temp Pulse Resp BP Pulse Ox O2 Del Method O2 Flow Rate 11/26/23 08:00 97 Nasal Cannula 1.5 11/26/23 08:00 97 F L 78 22 H 94/43 L 97 11/26/23 08:31 95 Nasal Cannula 1.5 11/26/23 08:25 96 Nasal Cannula 2 11/26/23 06:00 64 11/26/23 05:20 97.6 F 64 20 82/32 L 98 11/26/23 04:00 98 Nasal Cannula 2 11/26/23 04:00 60 11/26/23 02:00 67 11/26/23 00:00 97 Nasal Cannula 2 11/26/23 00:00 73 11/26/23 00:26 97.5 F L 77 20 77/29 L 94 11/25/23 20:00 100 Nasal Cannula 2 11/25/23 22:00 68 11/25/23 20:00 82 11/25/23 20:30 84/36 L 11/25/23 20:25 98.0 F 75 20 84/39 L 100 11/25/23 18:00 73 11/25/23 16:00 80 11/25/23 14:00 79 11/25/23 12:00 84 11/25/23 15:50 99.4 F 70 20 80/26 L 98 11/25/23 11:51 99.5 F 82 18 82/41 L 97 Intake/Output Intake/Output: Intake & Output 11/23/23 11/24/23 11/25/23 11/26/23 23:59 23:59 23:59 23:59 Intake Total 1649 704 8074 550 Output Total 1200 825 450 50 Balance 584 -45 670 500 Meds/Results Medications: Active Medications Generic Name Dose Route Start Last Admin Trade Name Freq PRN Reason Stop Dose Admin Acetaminophen 650 mg 11/13/23 21:01 11/25/23 17:02 Acetaminophen 325 Mg Tablet PO 650 mg Q4H PRN Administration Mi
[2023-11-26 11:13] LABS: Folic Acid 4.8 ng/mL (2.76->20)
[2023-11-26] MEDS: APIXABAN 5 MG TABLET PO (21:13)
[2023-11-27] VITALS (11 sets, daily range): BP systolic 82–94; BP diastolic 33–45; PULSE 59–82; RESP 16–18; TEMP 36.4–36.7; O2SAT 94–100
[2023-11-27 05:32] LABS: Basophils Percent Auto 0.5 % (0.2-1.2); Eosinophils Absolute Auto 0.2 K/mm3 (0-0.3); Eosinophils Percent Auto 1.9 % (0-4.4); Hematocrit 29.7 % (37.0-47.0); Hemoglobin 9.6 g/dL (12.0-15.0); Immature Granulocyte Percent A 2.3 % (0-0.5); Lymphocytes Absolute Auto 0.71 K/mm3 (0.9-3.2); Lymphocytes Percent Auto 8.3 % (18.3-44.2); Mean Corpuscular HGB Conc 32.3 g/dl (32-36); Mean Corpuscular Hemoglobin 34.2 pg (26-34); Mean Corpuscular Volume 105.7 fl (80-100); Mean Platelet Volume 11.9 fl (7.4-10.4); Monocytes Absolute Auto 0.6 K/mm3 (0.1-0.6); Monocytes Percent Auto 7.2 % (2.6-8.5); Neutrophils Absolute Auto 6.8 K/mm3 (1.3-6.7); Neutrophils Percent Auto 79.8 % (45.5-73.1); Platelet Count Result 163 k/mm3 (150-375); Red Blood Count 2.81 M/mm3 (4.2-5.4); White Blood Count 8.6 K/mm3 (4.5-10.0)
[2023-11-27 05:51] LABS: Alanine Aminotransferase 12 U/L (6-35); Albumin Level 2.8 g/dL (3.5-5.1); Alkaline Phosphatase 216 U/L (38-126); Anion Gap 5 mmol/L (8-16); Aspartate Amino Transferase 26 U/L (14-36); Bilirubin,Total 8.4 mg/dL (0.2-1.3); Blood Urea Nitrogen 64 mg/dL (7-17); Calcium 8.2 mg/dL (8.4-10.2); Carbon Dioxide 26 mmol/L (22-30); Chloride 100 mmol/L (98-107); Estimated CRCL calculation 44 ml/min; Estimated Glomerular Filt Rate 23; Glucose 92 mg/dL (65-110); Magnesium 2.4 mg/dL (1.6-2.3); Phosphorus 3.8 mg/dL (2.5-4.5); Sodium 131 mmol/L (137-145)
[2023-11-27] MEDS: CEPHALEXIN 500 MG CAPSULE PO ×3 (06:00→20:15)
[2023-11-27 06:43] LABS: Anisocytosis 1+ (NORMAL); Macrocytosis 2+ (NORMAL); Platelet Estimate Adequate (Adequate)
[2023-11-27 06:44] LABS: Hypochromasia 1+ (NORMAL); Ovalocytes 1+ (NORMAL); Schistocytes None Seen (NORMAL)
[2023-11-27] MEDS: APIXABAN 5 MG TABLET PO ×2 (10:22→20:15)
[2023-11-27] MEDS: MIDODRINE HCL 10 MG TABLET PO ×3 (10:22→17:28)
[2023-11-27] MEDS: BETAMETHASONE/CLOTRIMAZOLE CR 15 GM TUBE 1 APPLIC TOPICAL (10:23)
[2023-11-27] MEDS: TOLNAFTATE 1% POWDER 45 GM BTL 1 APPLIC TOPICAL ×2 (10:23→20:16)
--- NOTE | 2023-11-27 11:52 | PCOTNOTE ---
Patient refused treatment this session due to I'm really not wanting to do anything that is going to mess with this arm. Patient was educated on importance of continuing to move and participate in therapy. Patient continue to refuse.
--- NOTE | 2023-11-27 12:34 | PM.PNNEP ---
Progress Note: A&P Assessment and Plan (1) MARY (acute kidney injury): Code(s): N17.9 - Acute kidney failure, unspecified Status: Acute Assessment and Plan: ongoing worsening noted normal creatinine at baseline/prior to admission evaluation to date: urine electrolytes are non pre renal by FeNA but the FeUrea shows pre renal azotemia CT abdomen/renal ultrasound shows normal kidneys and no hydronephrosois CK is normal urine protein/creatinine ratio 630 (so this is not contributing much to the edema) suspect the normal creatinine from before may have been due to dilution from all the fluid/volume overload this is likely chronic pre renal azotemia from cardiorenal syndrome unfortunately, limited response to dobutamine gtt (as noted by events 11/24/23 evening) -- off dobutamine gtt currently this is further complicated by her chronic hypotension follow trend of renal function and UOP (2) 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ailure: Code(s): I50.43 - 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ailure Status: Acute Assessment and Plan: Echo with EF 15 - 20% with grade III diastolic dysfunction this is complicated by patient's non-compliance with medications medical management and therapy difficult to continue due to hypotension Cardiology following follow I/Os, daily weights, and volume status (3) Urinary tract infection: Code(s): N39.0 - Urinary tract infection, site not specified Status: Acute Assessment and Plan: culture with E.coli on antibiotics Reportedly willing to consider LAND DEVELOPMENT PROJECT MANAGER/dialysis now but this intervention maybe limited by the same issue we have been dealing with -- chronic hypotension; it may be difficult to achieve reasonable/significant ultrafiltration/fluid removal with dialysis with sub-optimal hemodynamics... Will continue to follow. Subjective Date/time seen: 11/27/23 12:34 Interval history: Follow-up for acute kidney injury/acute renal failure. No real significant change at this time -- still quite swollen and marginal urine output noted in the last 24 hours; systolic BP a tad better with midodrine therapy; no other acute issues/events overnight or earlier this morning; renal function remains unchanged since yesterday. Exam Narrative: General: Large Caucasioan female in NAD Heart: normal S1 and S2; no rub Lungs: clear anteriorly Abdomen: soft, nontender, nondistended, positive bowel sounds Extremities: no cyanosis or clubbing; 2+ edema Skin: chronic venous stasis changes present Objective Data Vital Signs Vital Signs: Vital Signs Temp Pulse Resp BP Pulse Ox O2 Del Method O2 Flow Rate 11/27/23 08:00 82 11/27/23 08:27 98 Nasal Cannula 1 11/27/23 05:14 97.6 F 67 18 82/41 L 100 11/27/23 04:00 62 11/27/23 00:00 59 L 11/26/23 20:00 98 Nasal Cannula 2 11/26/23 20:00 67 11/26/23 23:43 97.5 F L 61 18 80/33 L 98 11/26/23 20:41 98.1 F 67 18 80/30 L 99 11/26/23 16:00 72 11/26/23 16:11 97.5 F L 78 18 85/32 L 100 11/26/23 14:00 64 Intake/Output Intake/Output: Intake & Output 11/24/23 11/25/23 11/26/23 11/27/23 23:59 23:59 23:59 23:59 Intake Total 780 1120 1660 490 Output Total 825 450 425 200 Balance -45 670 1235 290 Meds/Results Medications: Active Medications Generic Name Dose Route Start Last Admin Trade Name Freq PRN Reason Stop Dose Admin Acetaminophen 650 mg 11/13/23 21:01 11/25/23 17:02 Acetaminophen 325 Mg Tablet PO 650 mg Q4H PRN Administration Mild Pain (1-3) or Fever Apixaban 5 mg 11/26/23 21:00 11/27/23 10:22 Apixaban 5 Mg Tablet PO 5 mg Q12HR ALEXYS Administration Cephalexin HCl 500 mg 11/27/23 06:00 11/27/23 06:00 Cephalexin 500 Mg Capsule PO 11/27/23 22:01 500 mg Q8HR ALEXYS
--- NOTE | 2023-11-27 12:34 | P.PNNP_ITS ---
Progress Note: A&P Assessment and Plan (1) MARY (acute kidney injury): Code(s): N17.9 - Acute kidney failure, unspecified Status: Acute Assessment and Plan: * ongoing worsening noted * normal creatinine at baseline/prior to admission * evaluation to date: * urine electrolytes are non pre renal by FeNA but the FeUrea shows pre renal azotemia * CT abdomen/renal ultrasound shows normal kidneys and no hydronephrosois * CK is normal * urine protein/creatinine ratio 630 (so this is not contributing much to the edema) * suspect the normal creatinine from before may have been due to dilution from all the fluid/volume overload * this is likely chronic pre renal azotemia from cardiorenal syndrome * unfortunately, limited response to dobutamine gtt (as noted by events 11/24/23 evening) -- off dobutamine gtt currently * this is further complicated by her chronic hypotension * follow trend of renal function and UOP (2) 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ailure: Code(s): I50.43 - 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ailure Status: Acute Assessment and Plan: * Echo with EF 15 - 20% with grade III diastolic dysfunction * this is complicated by patient's non-compliance with medications * medical management and therapy difficult to continue due to hypotension * Cardiology following * follow I/Os, daily weights, and volume status (3) Urinary tract infection: Code(s): N39.0 - Urinary tract infection, site not specified Status: Acute Assessment and Plan: * culture with E.coli * on antibiotics Reportedly willing to consider TECHNICAL PUBLICATIONS WRITER/dialysis now but this intervention maybe limited by the same issue we have been dealing with -- chronic hypotension; it may be difficult to achieve reasonable/significant ultrafiltration/fluid removal with dialysis with sub-optimal hemodynamics... Will continue to follow. Subjective Date/time seen: 11/27/23 12:34 Interval history: Follow-up for acute kidney injury/acute renal failure. No real significant change at this time -- still quite swollen and marginal urin e output noted in the last 24 hours; systolic BP a tad better with midodrine therapy; no other acute issues/events overnight or earlier this morning; renal function remains unchanged since yesterday. Exam Narrative: General: Large Caucasioan female in NAD Heart: normal S1 and S2; no rub Lungs: clear anteriorly Abdomen: soft, nontender, nondistended, positive bowel sounds Extremities: no cyanosis or clubbing; 2+ edema Skin: chronic venous stasis changes present Objective Data Vital Signs Vital Signs: Vital Signs Temp Pulse Resp BP Pulse Ox O2 Del Method O2 Flow Rate 11/27/23 08:00 82 11/27/23 08:27 98 Nasal Cannula 1 11/27/23 05:14 97.6 F 67 18 82/41 L 100 11/27/23 04:00 62 11/27/23 00:00 59 L 11/26/23 20:00 98 Nasal Cannula 2 11/26/23 20:00 67 11/26/23 23:43 97.5 F L 61 18 80/33 L 98 11/26/23 20:41 98.1 F 67 18 80/30 L 99 11/26/23 16:00 72 11/26/23 16:11 97.5 F L 78 18 85/32 L 100 11/26/23 14:00 64 Intake/Output Intake/Output: Intake & Output 11/24/23
--- NOTE | 2023-11-27 15:42 | P.PNIM_ITS ---
Progress Note: A&P Assessment and Plan (1) 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ailure: Code(s): I50.43 - 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ailure Status: Acute Assessment and Plan: ECHO ?EF is 20% (2) Left bundle branch block: Code(s): I44.7 - Left bundle-branch block, unspecified Status: Acute Assessment and Plan: * Stable (3) MARY (acute kidney injury): Code(s): N17.9 - Acute kidney failure, unspecified Status: Acute Assessment and Plan: * Likely due to poor perfusion caused by acute on chronic systolic heart failure * creat is 2 * pt has been on lasix/ dobutamine drip (4) UTI (urinary tract infection), bacterial: Code(s): N39.0 - Urinary tract infection, site not specified; A49.9 - Bacterial infection, unspecified Status: Acute Assessment and Plan: * 2/4 culture growing E coli, continue ceftriaxone for EColi UTI (5) Deep vein thrombosis: Code(s): I82.409 - Acute embolism and thrombosis of unspecified deep veins of unspecified lower extremity Status: Acute Assessment and Plan: * right basilic vein * continue apixaban (6) Jaundice: Code(s): R17 - Unspecified jaundice Status: Acute Assessment and Plan: * Possible cardiac cirrhosis * 2/4 abdominal ultrasound completed and results pending (7) Left shoulder pain: Code(s): M25.512 - Pain in left shoulder Status: Acute Assessment and Plan: * Clinically has adhesive capsulitis * 2/4 x-ray, heat, physical therapy ordered (8) Venous stasis ulcer: Code(s): I83.009 - Varicose veins of unspecified lower extremity with ulcer of unspecified site; L97.909 - Non-pressure chronic ulcer of unspecified part of unspecified lower leg with unspecified severity Status: Acute Assessment and Plan: * Distal left leg * Continue dressing changes (9) Candidal intertrigo: Code(s): B37.2 - Candidiasis of skin and nail Status: Acute Assessment and Plan: * Continue topical medication (10) Noncompliance with medication regimen: Code(s): Z91.148 - Patient's other noncompliance with medication regimen for other reason Status: Acute Assessment and Plan: * severely impaired ejection fraction. stressed emphasis on compliance to medications (11) Morbid obesity: Code(s): E66.01 - Morbid (severe) obesity due to excess calories Status: Chronic (12) Hypokalemia: Code(s): E87.6 - Hypokalemia Status: Acute Assessment and Plan: * Resolved (13) Abnormality of gait and mobility: Code(s): R26.9 - Unspecified abnormalities of gait and mobility Status: Acute Assessment and Plan: * Would benefit from therapy * PT/ OT ordered * pt will benefit from sitting in chair Subjective Date/time seen: 11/27/23 15:42 Interval history: Patient off dobutamine and lasix drip BP still soft Review of Systems Review of Systems: Ongoing edema of arms and legs and abdomen All systems reviewed & are unremarkable except as noted in HPI and below (Subjective) Exam Narrative: GENERAL: Pleasant, in no acute distress. Well-nourished. Morbid obesity - EYES: EOMI. Jaundice - HENT: Moist mucous membranes.
--- NOTE | 2023-11-27 15:42 | PM.IMPN ---
Progress Note: A&P Assessment and Plan (1) 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ailure: Code(s): I50.43 - 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ailure Status: Acute Assessment and Plan: ECHO ?EF is 20% (2) Left bundle branch block: Code(s): I44.7 - Left bundle-branch block, unspecified Status: Acute Assessment and Plan: Stable (3) MARY (acute kidney injury): Code(s): N17.9 - Acute kidney failure, unspecified Status: Acute Assessment and Plan: Likely due to poor perfusion caused by acute on chronic systolic heart failure creat is 2 pt has been on lasix/ dobutamine drip (4) UTI (urinary tract infection), bacterial: Code(s): N39.0 - Urinary tract infection, site not specified; A49.9 - Bacterial infection, unspecified Status: Acute Assessment and Plan: 2/4 culture growing E coli, continue ceftriaxone for EColi UTI (5) Deep vein thrombosis: Code(s): I82.409 - Acute embolism and thrombosis of unspecified deep veins of unspecified lower extremity Status: Acute Assessment and Plan: right basilic vein continue apixaban (6) Jaundice: Code(s): R17 - Unspecified jaundice Status: Acute Assessment and Plan: Possible cardiac cirrhosis 2/4 abdominal ultrasound completed and results pending (7) Left shoulder pain: Code(s): M25.512 - Pain in left shoulder Status: Acute Assessment and Plan: Clinically has adhesive capsulitis 2/4 x-ray, heat, physical therapy ordered (8) Venous stasis ulcer: Code(s): I83.009 - Varicose veins of unspecified lower extremity with ulcer of unspecified site; L97.909 - Non-pressure chronic ulcer of unspecified part of unspecified lower leg with unspecified severity Status: Acute Assessment and Plan: Distal left leg Continue dressing changes (9) Candidal intertrigo: Code(s): B37.2 - Candidiasis of skin and nail Status: Acute Assessment and Plan: Continue topical medication (10) Noncompliance with medication regimen: Code(s): Z91.148 - Patient's other noncompliance with medication regimen for other reason Status: Acute Assessment and Plan: severely impaired ejection fraction. stressed emphasis on compliance to medications (11) Morbid obesity: Code(s): E66.01 - Morbid (severe) obesity due to excess calories Status: Chronic (12) Hypokalemia: Code(s): E87.6 - Hypokalemia Status: Acute Assessment and Plan: Resolved (13) Abnormality of gait and mobility: Code(s): R26.9 - Unspecified abnormalities of gait and mobility Status: Acute Assessment and Plan: Would benefit from therapy PT/ OT ordered pt will benefit from sitting in chair Subjective Date/time seen: 11/27/23 15:42 Interval history: Patient off dobutamine and lasix drip BP still soft Review of Systems Review of Systems: Ongoing edema of arms and legs and abdomen All systems reviewed & are unremarkable except as noted in HPI and below (Subjective) Exam Narrative: GENERAL: Pleasant, in no acute distress. Well-nourished. Morbid obesity - EYES: EOMI. Jaundice - HENT: Moist mucous membranes. - LUNGS: Scattered coarse breath sound bilateral lobe no wheezing, rhonchi - CARDIOVASCULAR: Regular rate and rhythm. No murmur. No JVD. - ABDOMEN: Soft, non-tender and non-distended. No palpable masses. - EXTREMITIES: 3+ lower extremities edema. Right arm edema, peripheral pulses 2+. Non-tender. - NEUROLOGIC: No focal neurological deficits. CN II-XII grossly intact. General weakness - PSYCHIATRIC: Awake, Alert and oriented x 3. Appropriate mood and affect. - SKIN: Nonhealing ulcer of left lower extremity. Const: General: comfortable and no acute distress Other: A&O x3
--- NOTE | 2023-11-27 15:59 | P.PNIM_ITS ---
Progress Note: A&P Assessment and Plan (1) 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ailure: Code(s): I50.43 - 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ailure Status: Acute Assessment and Plan: ECHO ?EF is 20% patient may need dialysis for fluid overload, since BP precludes diuresis (2) Left bundle branch block: Code(s): I44.7 - Left bundle-branch block, unspecified Status: Acute Assessment and Plan: * Stable (3) MARY (acute kidney injury): Code(s): N17.9 - Acute kidney failure, unspecified Status: Acute Assessment and Plan: * Likely due to poor perfusion caused by acute on chronic systolic heart failure * creat is 2.2 * s/p dobutamine and lasix * Patient not on any diuresis at this time due to soft BP (4) UTI (urinary tract infection), bacterial: Code(s): N39.0 - Urinary tract infection, site not specified; A49.9 - Bacterial infection, unspecified Status: Acute Assessment and Plan: * 2/4 culture growing E coli, sensitivity evaluated now on Kelflex (5) Deep vein thrombosis: Code(s): I82.409 - Acute embolism and thrombosis of unspecified deep veins of unspecified lower extremity Status: Acute Assessment and Plan: * right basilic vein, a superficial vein, i do not think needs anticoagulation. will research and make sure i am uptodate with the literature, if consistent will discontinue * continue apixaban * US venous doppler negative for LUE (6) Jaundice: Code(s): R17 - Unspecified jaundice Status: Acute Assessment and Plan: * Possible cardiac cirrhosis * 2/4 US abd showed cholelithiasis with non specific gb thickening negative smith's sign * Bilirubin still elevated, unable to do MRCP due to GFR less than 30 to avoid NSF * b12/folate, LDH, haptoglobin (7) Left shoulder pain: Code(s): M25.512 - Pain in left shoulder Status: Acute Assessment and Plan: * Clinically has adhesive capsulitis * 2/4 x-ray, heat, physical therapy ordered (8) Venous stasis ulcer: Code(s): I83.009 - Varicose veins of unspecified lower extremity with ulcer of unspecified site; L97.909 - Non-pressure chronic ulcer of unspecified part of unspecified lower leg with unspecified severity Status: Acute Assessment and Plan: * Distal left leg * Continue dressing changes (9) Candidal intertrigo: Code(s): B37.2 - Candidiasis of skin and nail Status: Acute Assessment and Plan: * Continue topical medication (10) Noncompliance with medication regimen: Code(s): Z91.148 - Patient's other noncompliance with medication regimen for other reason Status: Acute Assessment and Plan: * severely impaired ejection fraction. stressed emphasis on compliance to medications (11) Morbid obesity: Code(s): E66.01 - Morbid (severe) obesity due to excess calories Status: Chronic (12) Hypokalemia: Code(s): E87.6 - Hypokalemia Status: Acute Assessment and Plan: * Resolved (13) Abnormality of gait and mobility: Code(s): R26.9 - Unspecified abnormalities of gait and mobility Status: Acute Assessment and Plan: * Would benefit from therapy * PT/ OT ordered * pt will benefit from sitting in chair Subjective Date/time seen: 11/27/23 15:59 Interval history: Patient initially against dialysis and now open to it BP
--- NOTE | 2023-11-27 15:59 | PM.IMPN ---
Progress Note: A&P Assessment and Plan (1) 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ailure: Code(s): I50.43 - 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ailure Status: Acute Assessment and Plan: ECHO ?EF is 20% patient may need dialysis for fluid overload, since BP precludes diuresis (2) Left bundle branch block: Code(s): I44.7 - Left bundle-branch block, unspecified Status: Acute Assessment and Plan: Stable (3) MARY (acute kidney injury): Code(s): N17.9 - Acute kidney failure, unspecified Status: Acute Assessment and Plan: Likely due to poor perfusion caused by acute on chronic systolic heart failure creat is 2.2 s/p dobutamine and lasix Patient not on any diuresis at this time due to soft BP (4) UTI (urinary tract infection), bacterial: Code(s): N39.0 - Urinary tract infection, site not specified; A49.9 - Bacterial infection, unspecified Status: Acute Assessment and Plan: 2/4 culture growing E coli, sensitivity evaluated now on Kelflex (5) Deep vein thrombosis: Code(s): I82.409 - Acute embolism and thrombosis of unspecified deep veins of unspecified lower extremity Status: Acute Assessment and Plan: right basilic vein, a superficial vein, i do not think needs anticoagulation. will research and make sure i am uptodate with the literature, if consistent will discontinue continue apixaban US venous doppler negative for LUE (6) Jaundice: Code(s): R17 - Unspecified jaundice Status: Acute Assessment and Plan: Possible cardiac cirrhosis 2/4 US abd showed cholelithiasis with non specific gb thickening negative smith's sign Bilirubin still elevated, unable to do MRCP due to GFR less than 30 to avoid NSF b12/folate, LDH, haptoglobin (7) Left shoulder pain: Code(s): M25.512 - Pain in left shoulder Status: Acute Assessment and Plan: Clinically has adhesive capsulitis 2/4 x-ray, heat, physical therapy ordered (8) Venous stasis ulcer: Code(s): I83.009 - Varicose veins of unspecified lower extremity with ulcer of unspecified site; L97.909 - Non-pressure chronic ulcer of unspecified part of unspecified lower leg with unspecified severity Status: Acute Assessment and Plan: Distal left leg Continue dressing changes (9) Candidal intertrigo: Code(s): B37.2 - Candidiasis of skin and nail Status: Acute Assessment and Plan: Continue topical medication (10) Noncompliance with medication regimen: Code(s): Z91.148 - Patient's other noncompliance with medication regimen for other reason Status: Acute Assessment and Plan: severely impaired ejection fraction. stressed emphasis on compliance to medications (11) Morbid obesity: Code(s): E66.01 - Morbid (severe) obesity due to excess calories Status: Chronic (12) Hypokalemia: Code(s): E87.6 - Hypokalemia Status: Acute Assessment and Plan: Resolved (13) Abnormality of gait and mobility: Code(s): R26.9 - Unspecified abnormalities of gait and mobility Status: Acute Assessment and Plan: Would benefit from therapy PT/ OT ordered pt will benefit from sitting in chair Subjective Date/time seen: 11/27/23 15:59 Interval history: Patient initially against dialysis and now open to it BP still soft all medcations on hold except for Midodrine Review of Systems Review of Systems: Ongoing edema of arms and legs and abdomen All systems reviewed & are unremarkable except as noted in HPI and below (Subjective) Exam Narrative: GENERAL: Pleasant, in no acute distress. Well-nourished. Morbid obesity - EYES: EOMI. Jaundice - HENT: Moist mucous membranes. - LUNGS: Scattered coarse breath sound bilateral lobe no wheezing, rhonchi
[2023-11-27 19:44] LABS: Lactate Dehydrogenase 190 U/L (120-246)
[2023-11-27] MEDS: SENNOSIDES 8.6 MG TABLET PO (20:15)
[2023-11-28] VITALS (12 sets, daily range): BP systolic 90–100; BP diastolic 40–49; PULSE 57–82; RESP 18–20; TEMP 36.6–36.8; O2SAT 93–99; BMI 10.0
[2023-11-28 06:03] LABS: Basophils Absolute Auto 0.1 K/mm3 (0.0-0.1); Basophils Percent Auto 0.9 % (0.2-1.2); Eosinophils Absolute Auto 0.1 K/mm3 (0-0.3); Eosinophils Percent Auto 1.7 % (0-4.4); Hematocrit 28.6 % (37.0-47.0); Hemoglobin 9.3 g/dL (12.0-15.0); Immature Granulocyte Absolute 0.18 K/mm3 (0.00-0.031); Immature Granulocyte Percent A 2.6 % (0-0.5); Lymphocytes Absolute Auto 0.61 K/mm3 (0.9-3.2); Lymphocytes Percent Auto 8.7 % (18.3-44.2); Mean Corpuscular HGB Conc 32.5 g/dl (32-36); Mean Corpuscular Hemoglobin 34.7 pg (26-34); Mean Corpuscular Volume 106.7 fl (80-100); Mean Platelet Volume 11.9 fl (7.4-10.4); Monocytes Absolute Auto 0.6 K/mm3 (0.1-0.6); Neutrophils Absolute Auto 5.4 K/mm3 (1.3-6.7); Neutrophils Percent Auto 77.1 % (45.5-73.1); Platelet Count Result 187 k/mm3 (150-375); Red Blood Count 2.68 M/mm3 (4.2-5.4); Red Cell Distribution Width 16.1 % (11.5-14.5)
[2023-11-28 06:22] LABS: Alanine Aminotransferase 11 U/L (6-35); Albumin Level 2.6 g/dL (3.5-5.1); Alkaline Phosphatase 243 U/L (38-126); Anion Gap 3 mmol/L (8-16); Aspartate Amino Transferase 33 U/L (14-36); Bilirubin,Total 7.3 mg/dL (0.2-1.3); Blood Urea Nitrogen 63 mg/dL (7-17); Calcium 8.1 mg/dL (8.4-10.2); Carbon Dioxide 31 mmol/L (22-30); Chloride 100 mmol/L (98-107); Estimated CRCL calculation 44 ml/min; Estimated Glomerular Filt Rate 23; Glucose 92 mg/dL (65-110); Magnesium 2.4 mg/dL (1.6-2.3); Potassium 3.9 mmol/L (3.4-5.0); Sodium 134 mmol/L (137-145)
[2023-11-28 06:56] LABS: Macrocytosis 1+ (NORMAL); Ovalocytes 1+ (NORMAL); Platelet Estimate Adequate (Adequate); Schistocytes Rare (NORMAL); Target Cells 1+ (NORMAL)
--- NOTE | 2023-11-28 09:32 | PM.PNCARD ---
Progress Note: A&P Assessment and Plan (1) 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ailure: Code(s): I50.43 - 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ailure Status: Acute Assessment and Plan: 58-year-old female with history of CHF with reduced ejection fraction (unclear etiology)-with acute on chronic CHF with reduced ejection fraction. -Furosemide on hold for now because of hypotension. Chest x-ray yesterday did not show any pulmonary edema. -hold sacubitril/valsartan, spironolactone because of worsening renal function in addition to hypotension. Resume when renal function improves. -Coreg also on hold because of hypotension. Resume when appropriate. -outpatient Cardiology follow-up for additional management. Patient intends to follow up with Dr. Cruz after hospital discharge. (2) MARY (acute kidney injury): Code(s): N17.9 - Acute kidney failure, unspecified Status: Acute Assessment and Plan: MARY with decreased urine output in the setting of CHF with reduced ejection fraction, likely cardiorenal syndrome. Nephrology is following. (3) At risk for sleep apnea: Code(s): Z91.89 - Other specified personal risk factors, not elsewhere classified Status: Acute Assessment and Plan: Patient is morbidly obese and probably has KRZYSZTOF. Not interested in sleep study as an outpatient at this time. (4) Noncompliance with medication regimen: Code(s): Z91.148 - Patient's other noncompliance with medication regimen for other reason Status: Acute Assessment and Plan: Discussed importance of medication compliance and outpatient follow-up with the patient. She verbalized understanding. She remains at risk for rehospitalization. Subjective Date/time seen: 11/28/23 09:32 Interval history: Date of service: 11/24/2023 Interval history: Patient was sitting up in the recliner, reported improvement in her shortness of breath. At the time of evaluation, patient's son and the nurse was in the room. I spoke at length with the patient and her son about her previous cardiac history. She states that she was diagnosed with CHF many many years ago. According to patient's son, she was probably diagnosed with heart failure after childbirth. Patient does not recall any ischemic evaluation in the past. She has not been fully compliant with medical regimen as an outpatient. Patient denies documented history of KRZYSZTOF and is not willing for evaluation for possible sleep apnea given her morbid obesity. Dr. Alcazar from Nephrology had concerns about patient's renal function and decreased urine output and was wondering about inotropic support. However, after discussion with the patient, patient does not want any additional IV medications at this time. Date of service 11/26/2023: denies any shortness of breath, chest pain, palpitations. She is complaining of pain and swelling in her left arm. Date of service 11/28/2023: Feels about the same today. Denies any shortness of breath, chest pain. She is feeling frustrated with the length of her hospitalization. Review of Systems Review of Systems: All systems reviewed & are unremarkable except as noted in HPI and below Constitutional: Constitutional: Denies body ache(s) and Denies excessive sweating Eyes: Eyes: Denies blurry vision ENT: Reports Normal hearing present Cardiovascular: Cardiovascular: Denies chest pain, Reports pedal edema, Reports leg edema and Reports dyspnea Respiratory: Respiratory: Reports dyspnea Gastrointestinal: Gastrointestinal: Reports abdominal pain Genitourinary: Genitourinary: Denies hematuria Musculoskeletal: Musculoskeletal: Denies back pain Integumentary/Breasts: Skin/Breast: Reports erythema and Reports wounds Neurologic: Reports Normal hearing present and Denies Abnormal speech present Psychiatric: Psychiatric: Denies a
[2023-11-28] MEDS: MIDODRINE HCL 10 MG TABLET PO ×3 (09:39→16:20)
[2023-11-28] MEDS: APIXABAN 5 MG TABLET PO ×2 (09:39→21:02)
[2023-11-28] MEDS: TOLNAFTATE 1% POWDER 45 GM BTL 1 APPLIC TOPICAL ×2 (09:40→21:03)
[2023-11-28] MEDS: BETAMETHASONE/CLOTRIMAZOLE CR 15 GM TUBE 1 APPLIC TOPICAL (09:54)
--- NOTE | 2023-11-28 11:18 | PCOTNOTE ---
Patient refused treatment this session. Patient stated No I just can't do anything with that arm.
--- NOTE | 2023-11-28 12:15 | PM.PNNEP ---
Progress Note: A&P Assessment and Plan (1) MARY (acute kidney injury): Code(s): N17.9 - Acute kidney failure, unspecified Status: Acute Assessment and Plan: ongoing worsening noted normal creatinine at baseline/prior to admission evaluation to date: urine electrolytes are non pre renal by FeNA but the FeUrea shows pre renal azotemia CT abdomen/renal ultrasound shows normal kidneys and no hydronephrosois CK is normal urine protein/creatinine ratio 630 (so this is not contributing much to the edema) suspect the normal creatinine from before may have been due to dilution from all the fluid/volume overload this is likely chronic pre renal azotemia from cardiorenal syndrome unfortunately, limited response to dobutamine gtt (as noted by events 11/24/23 evening) -- off dobutamine gtt this is further complicated by her chronic hypotension follow trend of renal function and UOP (2) 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ailure: Code(s): I50.43 - 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ailure Status: Acute Assessment and Plan: Echo with EF 15 - 20% with grade III diastolic dysfunction this is complicated by patient's non-compliance with medications medical management and therapy difficult to continue due to hypotension Cardiology following is it worth giving another trial of dobutamine and IV diuretics? - defer to Cardiology with regard to that decision... follow I/Os, daily weights, and volume status (3) Urinary tract infection: Code(s): N39.0 - Urinary tract infection, site not specified Status: Acute Assessment and Plan: culture with E.coli on antibiotics Reportedly willing to consider PALEOLOGY TEACHER/dialysis now but this intervention maybe limited by the same issue we have been dealing with up until now -- chronic hypotension; it may be difficult to achieve reasonable/significant ultrafiltration/fluid removal with dialysis with sub-optimal hemodynamics... long and extensive discussion (> 20 minutes) with patient regarding this issue. Will continue to follow. Subjective Date/time seen: 11/28/23 12:15 Interval history: Follow-up for acute kidney injury/acute renal failure. Better urine output noted in the last 24 hours -- possibly secondary to improved systolic BP with use of midodrine therapy (?); creatinine/renal function remains stable as well; no apparent distress other than swelling/discomfort in right arm; no other acute issues voiced on this visit. Exam Narrative: General: Large Caucasioan female in NAD Heart: normal S1 and S2; no rub Lungs: clear anteriorly Abdomen: soft, nontender, nondistended, positive bowel sounds Extremities: no cyanosis or clubbing; 2+ edema Skin: chronic venous stasis changes apparent Objective Data Vital Signs Vital Signs: Vital Signs Temp Pulse Resp BP Pulse Ox O2 Del Method O2 Flow Rate 11/28/23 12:04 77 11/28/23 08:01 60 11/28/23 09:54 97 Nasal Cannula 1 11/28/23 05:40 97.8 F 74 18 90/40 L 98 11/28/23 04:00 66 11/28/23 00:00 57 L 11/27/23 20:00 69 11/27/23 20:00 78 18 94 Nasal Cannula 1 11/27/23 19:58 98.0 F 82 18 94/33 L 96 Intake/Output Intake/Output: Intake & Output 11/25/23 11/26/23 11/27/23 11/28/23 23:59 23:59 23:59 23:59 Intake Total 1120 1660 970 480 Output Total 450 103 925 0356 Balance 670 1235 120 -800 Meds/Results Medications: Active Medications Generic Name Dose Route Start Last Admin Trade Name Freq PRN Reason Stop Dose Admin Acetaminophen 650 mg 11/13/23 21:01 11/25/23 17:02 Acetaminophen 325 Mg Tablet PO 650 mg Q4H PRN Administration Mild Pain (1-3) or Fever Apixaban 5 mg 11/26/23 21:00 11/28/23 09:39 Apixaban 5 Mg Tablet PO 5 mg Q12HR ALEXYS Administration Clotrimazole 1 applic 11/14/
--- NOTE | 2023-11-28 12:15 | P.PNNP_ITS ---
Progress Note: A&P Assessment and Plan (1) MARY (acute kidney injury): Code(s): N17.9 - Acute kidney failure, unspecified Status: Acute Assessment and Plan: * ongoing worsening noted * normal creatinine at baseline/prior to admission * evaluation to date: * urine electrolytes are non pre renal by FeNA but the FeUrea shows pre renal azotemia * CT abdomen/renal ultrasound shows normal kidneys and no hydronephrosois * CK is normal * urine protein/creatinine ratio 630 (so this is not contributing much to the edema) * suspect the normal creatinine from before may have been due to dilution from all the fluid/volume overload * this is likely chronic pre renal azotemia from cardiorenal syndrome * unfortunately, limited response to dobutamine gtt (as noted by events 11/24/23 evening) -- off dobutamine gtt * this is further complicated by her chronic hypotension * follow trend of renal function and UOP (2) 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ailure: Code(s): I50.43 - 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ailure Status: Acute Assessment and Plan: * Echo with EF 15 - 20% with grade III diastolic dysfunction * this is complicated by patient's non-compliance with medications * medical management and therapy difficult to continue due to hypotension * Cardiology following * is it worth giving another trial of dobutamine and IV diuretics? - defer to Cardiology with regard to that decision... * follow I/Os, daily weights, and volume status (3) Urinary tract infection: Code(s): N39.0 - Urinary tract infection, site not specified Status: Acute Assessment and Plan: * culture with E.coli * on antibiotics Reportedly willing to consider VOUCHER CLERK/dialysis now but this intervention maybe limited by the same issue we have been dealing with up until now -- chronic hypotension; it may be difficult to achieve reasonable/significant u ltrafiltration/fluid removal with dialysis with sub-optimal hemodynamics... long and extensive discussion (> 20 minutes) with patient regarding this issue. Will continue to follow. Subjective Date/time seen: 11/28/23 12:15 Interval history: Follow-up for acute kidney injury/acute renal failure. Better urine output noted in the last 24 hours -- possibly secondary to improved systolic BP with use of midodrine therapy (?); creatinine/renal function remains stable as well; no apparent distress other than swelling/discomfort in right arm; no other acute issues voiced on this visit. Exam Narrative: General: Large Caucasioan female in NAD Heart: normal S1 and S2; no rub Lungs: clear anteriorly Abdomen: soft, nontender, nondistended, positive bowel sounds Extremities: no cyanosis or clubbing; 2+ edema Skin: chronic venous stasis changes apparent Objective Data Vital Signs Vital Signs: Vital Signs Temp Pulse Resp BP Pulse Ox O2 Del Method O2 Flow Rate 11/28/23 12:04 77 11/28/23 08:01 60 11/28/23 09:54 97 Nasal Cannula 1 11/28/23 05:40 97.8 F 74 18 90/40 L 98 11/28/23 04:00 66 11/28/23 00:00 57 L 11/27/23 20:00 69 11/27/23 20:00 78 18 94 Nasal Cannula 1 11/27/23 19:58 98.0 F 82 18 94/33 L 96 Intake/Output Intake/Output:
--- NOTE | 2023-11-28 12:24 | P.PNIM_ITS ---
Progress Note: A&P Assessment and Plan (1) 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ailure: Code(s): I50.43 - 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ailure Status: Acute Assessment and Plan: ECHO ?EF is 20% patient may need dialysis for fluid overload, since BP precludes diuresis cardiology following (2) Left bundle branch block: Code(s): I44.7 - Left bundle-branch block, unspecified Status: Acute Assessment and Plan: * Stable (3) MARY (acute kidney injury): Code(s): N17.9 - Acute kidney failure, unspecified Status: Acute Assessment and Plan: * Likely due to poor perfusion caused by acute on chronic systolic heart failure * creat is 2.2 * s/p dobutamine and lasix * Patient not on any diuresis at this time due to soft BP * Nephrology on board (4) UTI (urinary tract infection), bacterial: Code(s): N39.0 - Urinary tract infection, site not specified; A49.9 - Bacterial infection, unspecified Status: Acute Assessment and Plan: * 2/4 culture growing E coli, sensitivity evaluated now on Kelflex (5) Deep vein thrombosis: Code(s): I82.409 - Acute embolism and thrombosis of unspecified deep veins of unspecified lower extremity Status: Acute Assessment and Plan: * right basilic vein and external jugular vein thrombosis * continue apixaban * US venous doppler negative for LUE (6) Jaundice: Code(s): R17 - Unspecified jaundice Status: Acute Assessment and Plan: * Possible cardiac cirrhosis * 2/4 US abd showed cholelithiasis with non specific gb thickening negative smith's sign * Bilirubin still elevated, unable to do MRCP due to GFR less than 30 to avoid NSF * b12/folate wnl, LDH, haptoglobin pending (7) Left shoulder pain: Code(s): M25.512 - Pain in left shoulder Status: Acute Assessment and Plan: * Clinically has adhesive capsulitis * 2/4 x-ray, heat, physical therapy ordered (8) Venous stasis ulcer: Code(s): I83.009 - Varicose veins of unspecified lower extremity with ulcer of unspecified site; L97.909 - Non-pressure chronic ulcer of unspecified part of unspecified lower leg with unspecified severity Status: Acute Assessment and Plan: * Distal left leg * Continue dressing changes (9) Candidal intertrigo: Code(s): B37.2 - Candidiasis of skin and nail Status: Acute Assessment and Plan: * Continue topical medication (10) Noncompliance with medication regimen: Code(s): Z91.148 - Patient's other noncompliance with medication regimen for other reason Status: Acute Assessment and Plan: * severely impaired ejection fraction. stressed emphasis on compliance to medications (11) Morbid obesity: Code(s): E66.01 - Morbid (severe) obesity due to excess calories Status: Chronic (12) Hypokalemia: Code(s): E87.6 - Hypokalemia Status: Acute Assessment and Plan: * Resolved (13) Abnormality of gait and mobility: Code(s): R26.9 - Unspecified abnormalities of gait and mobility Status: Acute Assessment and Plan: * Would benefit from therapy * PT/ OT ordered * pt will benefit from sitting in chair Subjective Date/time seen: 11/28/23 12:24 Interval history: Patient being managed for CHF exacerbation with ef 15-20%, s/p Dobutamine and lasix infusion, all medications on hold now
--- NOTE | 2023-11-28 12:24 | PM.IMPN ---
Progress Note: A&P Assessment and Plan (1) 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ailure: Code(s): I50.43 - 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ailure Status: Acute Assessment and Plan: ECHO ?EF is 20% patient may need dialysis for fluid overload, since BP precludes diuresis cardiology following (2) Left bundle branch block: Code(s): I44.7 - Left bundle-branch block, unspecified Status: Acute Assessment and Plan: Stable (3) MARY (acute kidney injury): Code(s): N17.9 - Acute kidney failure, unspecified Status: Acute Assessment and Plan: Likely due to poor perfusion caused by acute on chronic systolic heart failure creat is 2.2 s/p dobutamine and lasix Patient not on any diuresis at this time due to soft BP Nephrology on board (4) UTI (urinary tract infection), bacterial: Code(s): N39.0 - Urinary tract infection, site not specified; A49.9 - Bacterial infection, unspecified Status: Acute Assessment and Plan: 2/4 culture growing E coli, sensitivity evaluated now on Kelflex (5) Deep vein thrombosis: Code(s): I82.409 - Acute embolism and thrombosis of unspecified deep veins of unspecified lower extremity Status: Acute Assessment and Plan: right basilic vein and external jugular vein thrombosis continue apixaban US venous doppler negative for LUE (6) Jaundice: Code(s): R17 - Unspecified jaundice Status: Acute Assessment and Plan: Possible cardiac cirrhosis 2/4 US abd showed cholelithiasis with non specific gb thickening negative smith's sign Bilirubin still elevated, unable to do MRCP due to GFR less than 30 to avoid NSF b12/folate wnl, LDH, haptoglobin pending (7) Left shoulder pain: Code(s): M25.512 - Pain in left shoulder Status: Acute Assessment and Plan: Clinically has adhesive capsulitis 2/4 x-ray, heat, physical therapy ordered (8) Venous stasis ulcer: Code(s): I83.009 - Varicose veins of unspecified lower extremity with ulcer of unspecified site; L97.909 - Non-pressure chronic ulcer of unspecified part of unspecified lower leg with unspecified severity Status: Acute Assessment and Plan: Distal left leg Continue dressing changes (9) Candidal intertrigo: Code(s): B37.2 - Candidiasis of skin and nail Status: Acute Assessment and Plan: Continue topical medication (10) Noncompliance with medication regimen: Code(s): Z91.148 - Patient's other noncompliance with medication regimen for other reason Status: Acute Assessment and Plan: severely impaired ejection fraction. stressed emphasis on compliance to medications (11) Morbid obesity: Code(s): E66.01 - Morbid (severe) obesity due to excess calories Status: Chronic (12) Hypokalemia: Code(s): E87.6 - Hypokalemia Status: Acute Assessment and Plan: Resolved (13) Abnormality of gait and mobility: Code(s): R26.9 - Unspecified abnormalities of gait and mobility Status: Acute Assessment and Plan: Would benefit from therapy PT/ OT ordered pt will benefit from sitting in chair Subjective Date/time seen: 11/28/23 12:24 Interval history: Patient being managed for CHF exacerbation with ef 15-20%, s/p Dobutamine and lasix infusion, all medications on hold now except for Midodrine for soft blood pressure . Still fluid overloaded and initially declined possible [employer], she is now open to it after discussing her options yesterday Review of Systems Review of Systems: Ongoing edema of arms and legs and abdomen All systems reviewed & are unremarkable except as noted in HPI and below (Subjective) Exam Narrative: GENERAL: Pleasant, in no acute distress. Well-nourished. Morbid obesity - EYES: EOMI.
--- NOTE | 2023-11-28 12:43 | PCNWS ---
Weekly nutritional screen. Patient is tolerating current diet with adequate intake (80-100%). No weight loss reported. No nutritional needs at this time. Assistance needed with opening items on meal tray. Will ask food truck caterer to help with this.
[2023-11-28 23:06] LABS: Creatinine, Random Urine 97 mg/dL (20-275); Total Protein/Creatinine Ratio 753 mg/g creat (24-184)
[2023-11-29] VITALS (13 sets, daily range): BP systolic 79–99; BP diastolic 27–47; PULSE 67–98; RESP 18–20; TEMP 36.1–36.6; O2SAT 93–100
[2023-11-29 04:55] LABS: Anti Nuclear Antibody Titer 1:40 (Negative)
[2023-11-29 05:59] LABS: Basophils Absolute Auto 0.1 K/mm3 (0.0-0.1); Basophils Percent Auto 1.1 % (0.2-1.2); Eosinophils Absolute Auto 0.1 K/mm3 (0-0.3); Eosinophils Percent Auto 1.1 % (0-4.4); Hematocrit 33.9 % (37.0-47.0); Hemoglobin 10.2 g/dL (12.0-15.0); Immature Granulocyte Absolute 0.28 K/mm3 (0.00-0.031); Immature Granulocyte Percent A 3.8 % (0-0.5); Lymphocytes Percent Auto 9.4 % (18.3-44.2); Mean Corpuscular HGB Conc 30.1 g/dl (32-36); Mean Corpuscular Hemoglobin 35.1 pg (26-34); Mean Corpuscular Volume 116.5 fl (80-100); Mean Platelet Volume 11.4 fl (7.4-10.4); Monocytes Absolute Auto 0.7 K/mm3 (0.1-0.6); Monocytes Percent Auto 9.2 % (2.6-8.5); Neutrophils Absolute Auto 5.6 K/mm3 (1.3-6.7); Neutrophils Percent Auto 75.4 % (45.5-73.1); Platelet Count Result 204 k/mm3 (150-375); Red Blood Count 2.91 M/mm3 (4.2-5.4); Red Cell Distribution Width 16.6 % (11.5-14.5); White Blood Count 7.4 K/mm3 (4.5-10.0)
[2023-11-29 06:10] LABS: Alanine Aminotransferase 11 U/L (6-35); Albumin Level 2.7 g/dL (3.5-5.1); Alkaline Phosphatase 238 U/L (38-126); Anion Gap 5 mmol/L (8-16); Aspartate Amino Transferase 33 U/L (14-36); Bilirubin,Total 7.9 mg/dL (0.2-1.3); Blood Urea Nitrogen 67 mg/dL (7-17); Carbon Dioxide 26 mmol/L (22-30); Chloride 101 mmol/L (98-107); Estimated CRCL calculation 52 ml/min; Estimated Glomerular Filt Rate 29; Glucose 93 mg/dL (65-110); Magnesium 2.5 mg/dL (1.6-2.3); Potassium 4.6 mmol/L (3.4-5.0); Sodium 132 mmol/L (137-145)
[2023-11-29 06:23] LABS: Platelet Estimate Adequate (Adequate); Schistocytes None Seen (NORMAL)
[2023-11-29 06:24] LABS: Hypochromasia 2+ (NORMAL); Ovalocytes 2+ (NORMAL); Target Cells 2+ (NORMAL)
[2023-11-29] MEDS: MIDODRINE HCL 10 MG TABLET PO ×2 (08:49→13:42)
[2023-11-29] MEDS: APIXABAN 5 MG TABLET PO ×2 (08:49→23:03)
[2023-11-29] MEDS: BETAMETHASONE/CLOTRIMAZOLE CR 15 GM TUBE 1 APPLIC TOPICAL (08:50)
[2023-11-29] MEDS: TOLNAFTATE 1% POWDER 45 GM BTL 1 APPLIC TOPICAL ×2 (08:50→23:04)
[2023-11-29] MEDS: ACETAMINOPHEN 325 MG TABLET 650 MG PO ×2 (08:55→18:35)
--- NOTE | 2023-11-29 12:17 | PM.PNNEP ---
Progress Note: A&P Assessment and Plan (1) MARY (acute kidney injury): Code(s): N17.9 - Acute kidney failure, unspecified Status: Acute Assessment and Plan: ongoing worsening noted normal creatinine at baseline/prior to admission evaluation to date: urine electrolytes are non pre renal by FeNA but the FeUrea shows pre renal azotemia CT abdomen/renal ultrasound shows normal kidneys and no hydronephrosois CK is normal urine protein/creatinine ratio 630 (so this is not contributing much to the edema) suspect the normal creatinine from before may have been due to dilution from all the fluid/volume overload this is likely chronic pre renal azotemia from cardiorenal syndrome this is further complicated by her chronic hypotension follow trend of renal function and UOP (2) 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ailure: Code(s): I50.43 - 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ailure Status: Acute Assessment and Plan: Echo with EF 15 - 20% with grade III diastolic dysfunction this is complicated by patient's non-compliance with medications medical management and therapy difficult to continue due to hypotension Cardiology following trial of dobutamine gtt again (discussed with JAILYN Carlson with Cardiology) hold midodrine resume diuretics PRN follow I/Os, daily weights, and volume status (3) Urinary tract infection: Code(s): N39.0 - Urinary tract infection, site not specified Status: Acute Assessment and Plan: culture with E.coli completed course of antibiotics Will continue to follow. Subjective Date/time seen: 11/29/23 12:17 Interval history: Follow-up for acute kidney injury/acute renal failure. Better urine output noted in the last 24 - 48 hours -- possibly secondary to improved systolic BP with use of midodrine therapy (?); creatinine/renal function better by AM labs as well; no other issues/events overnight or earlier today; swelling/edema seem about the same. Exam Narrative: General: Large Caucasioan female in NAD Heart: normal S1 and S2; no rub Lungs: clear anteriorly Abdomen: soft, nontender, nondistended, positive bowel sounds Extremities: no cyanosis or clubbing; 2+ edema Skin: chronic venous stasis changes noted Objective Data Vital Signs Vital Signs: Vital Signs Temp Pulse Resp BP Pulse Ox O2 Del Method 11/29/23 12:00 97.9 68 20 90/30 L 96 Room Air 11/29/23 08:00 77 11/29/23 08:39 Room Air 11/28/23 22:34 96 Room Air 11/29/23 05:00 67 11/29/23 03:13 97.5 F L 72 20 90/30 L 96 11/29/23 00:00 68 11/28/23 20:00 81 11/28/23 20:50 Room Air 11/28/23 20:27 98.2 F 77 20 100/49 L 93 Intake/Output Intake/Output: Intake & Output 11/26/23 11/27/23 11/28/23 11/29/23 23:59 23:59 23:59 23:59 Intake Total 1660 970 720 770 Output Total 358 169 8174 1100 Balance 1235 677 -085 -395 Meds/Results Medications: Active Medications Generic Name Dose Route Start Last Admin Trade Name Freq PRN Reason Stop Dose Admin Acetaminophen 650 mg 11/13/23 21:01 11/29/23 08:55 Acetaminophen 325 Mg Tablet PO 650 mg Q4H PRN Administration Mild Pain (1-3) or Fever Apixaban 5 mg 11/26/23 21:00 11/29/23 08:49 Apixaban 5 Mg Tablet PO 5 mg Q12HR ALEXYS Administration Clotrimazole 1 applic 11/14/23 09:00 11/29/23 08:50 Betamethasone/Clotrimazole Cr 15 Gm Tube TOPICAL 1 applic DAILY ALEXYS Administration Dobutamine HCl/Dextrose 250 mg in 250 mls @ 26.505 mls/hr 11/29/23 13:20 11/29/23 17:03 Dobutamine 250 Mg/D5w 250 Ml IV CONT 2.5 mcg/kg/min .Q9H26M ALEXYS 26.51 mls/hr Administration 2.5 MCG/KG/MIN Miconazole Nitrate 1 applic 11/14/23 09:00 11/29/23 08:50 Miconazole 2% Antifungal Ointment 56 Gm TOPICAL 1 applic Q12HR ALEXYS Admi
--- NOTE | 2023-11-29 12:17 | P.PNNP_ITS ---
Progress Note: A&P Assessment and Plan (1) MARY (acute kidney injury): Code(s): N17.9 - Acute kidney failure, unspecified Status: Acute Assessment and Plan: * ongoing worsening noted * normal creatinine at baseline/prior to admission * evaluation to date: * urine electrolytes are non pre renal by FeNA but the FeUrea shows pre renal azotemia * CT abdomen/renal ultrasound shows normal kidneys and no hydronephrosois * CK is normal * urine protein/creatinine ratio 630 (so this is not contributing much to the edema) * suspect the normal creatinine from before may have been due to dilution from all the fluid/volume overload * this is likely chronic pre renal azotemia from cardiorenal syndrome * this is further complicated by her chronic hypotension * follow trend of renal function and UOP (2) 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ailure: Code(s): I50.43 - 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ailure Status: Acute Assessment and Plan: * Echo with EF 15 - 20% with grade III diastolic dysfunction * this is complicated by patient's non-compliance with medications * medical management and therapy difficult to continue due to hypotension * Cardiology following * trial of dobutamine gtt again (discussed with JAILYN Carlson with Cardiology) * hold midodrine * resume diuretics PRN * follow I/Os, daily weights, and volume status (3) Urinary tract infection: Code(s): N39.0 - Urinary tract infection, site not specified Status: Acute Assessment and Plan: * culture with E.coli * completed course of antibiotics Will continue to follow. Subjective Date/time seen: 11/29/23 12:17 Interval history: Follow-up for acute kidney injury/acute renal failure. Better urine output noted in the last 24 - 48 hours -- possibly secondary to improved systolic BP with use of midodrine therapy (?); creatinine/renal func tion better by AM labs as well; no other issues/events overnight or earlier today; swelling/edema seem about the same. Exam Narrative: General: Large Caucasioan female in NAD Heart: normal S1 and S2; no rub Lungs: clear anteriorly Abdomen: soft, nontender, nondistended, positive bowel sounds Extremities: no cyanosis or clubbing; 2+ edema Skin: chronic venous stasis changes noted Objective Data Vital Signs Vital Signs: Vital Signs Temp Pulse Resp BP Pulse Ox O2 Del Method 11/29/23 12:00 97.9 68 20 90/30 L 96 Room Air 11/29/23 08:00 77 11/29/23 08:39 Room Air 11/28/23 22:34 96 Room Air 11/29/23 05:00 67 11/29/23 03:13 97.5 F L 72 20 90/30 L 96 11/29/23 00:00 68 11/28/23 20:00 81 11/28/23 20:50 Room Air 11/28/23 20:27 98.2 F 77 20 100/49 L 93 Intake/Output Intake/Output: Intake & Output 11/26/23 11/27/23 11/28/23 11/29/23 23:59 23:59 23:59 23:59 Intake Total 1660 970 720 770 Output Total 122 629 9443 1100 Balance 1235 619 -159 -399 Meds/Results Medications: Active Medications Generic Name Dose Route Start Last Admin Trade Name Freq PRN Reason Stop Dose Admin
--- NOTE | 2023-11-29 12:58 | PM.PNCARD ---
Progress Note: A&P Assessment and Plan (1) 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ailure: Code(s): I50.43 - 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ailure Status: Acute Assessment and Plan: 58-year-old female with history of CHF with reduced ejection fraction (unclear etiology)-with acute on chronic CHF with reduced ejection fraction. -Furosemide has been on hold because of worsening renal function and MARY -sacubitril/valsartan, spironolactone also on hold because of worsening renal function in addition to hypotension. -Coreg also on hold because of hypotension. -Discussed patient's case at length with Dr. Bain. Plan to once again trial diuresing with the help of Dobutamine. Transfer to IMU -Discontinue midodrine -resume furosemide -outpatient Cardiology follow-up for additional management. Patient intends to follow up with Dr. Cruz after hospital discharge. (2) MARY (acute kidney injury): Code(s): N17.9 - Acute kidney failure, unspecified Status: Acute Assessment and Plan: MARY with decreased urine output in the setting of CHF with reduced ejection fraction, likely cardiorenal syndrome. Nephrology is following. Plan as above (3) At risk for sleep apnea: Code(s): Z91.89 - Other specified personal risk factors, not elsewhere classified Status: Acute Assessment and Plan: Patient is morbidly obese and probably has KRZYSZTOF. Not interested in sleep study as an outpatient at this time. (4) Noncompliance with medication regimen: Code(s): Z91.148 - Patient's other noncompliance with medication regimen for other reason Status: Acute Assessment and Plan: Discussed importance of medication compliance and outpatient follow-up with the patient. She verbalized understanding. She remains at risk for rehospitalization. Subjective Date/time seen: 11/29/23 12:58 Interval history: Date of service: 11/24/2023 Interval history: Patient was sitting up in the recliner, reported improvement in her shortness of breath. At the time of evaluation, patient's son and the nurse was in the room. I spoke at length with the patient and her son about her previous cardiac history. She states that she was diagnosed with CHF many many years ago. According to patient's son, she was probably diagnosed with heart failure after childbirth. Patient does not recall any ischemic evaluation in the past. She has not been fully compliant with medical regimen as an outpatient. Patient denies documented history of KRZYSZTOF and is not willing for evaluation for possible sleep apnea given her morbid obesity. Dr. Alcazar from Nephrology had concerns about patient's renal function and decreased urine output and was wondering about inotropic support. However, after discussion with the patient, patient does not want any additional IV medications at this time. Date of service 11/26/2023: denies any shortness of breath, chest pain, palpitations. She is complaining of pain and swelling in her left arm. Date of service 11/28/2023: Feels about the same today. Denies any shortness of breath, chest pain. She is feeling frustrated with the length of her hospitalization. Date of service 11/29/2023: Left arm remains painful and swollen. BP slightly better and she is actually urinating a little more despite diuretics being held. Review of Systems Review of Systems: All systems reviewed & are unremarkable except as noted in HPI and below Constitutional: Constitutional: Denies body ache(s) and Denies excessive sweating Eyes: Eyes: Denies blurry vision ENT: Reports Normal hearing present Cardiovascular: Cardiovascular: Denies chest pain, Reports pedal edema, Reports leg edema and Reports dyspnea Respiratory: Respiratory: Reports dyspnea Gastrointestinal: Gastrointestinal: Reports abdominal pain Genitourinary: Genitou
--- NOTE | 2023-11-29 13:07 | P.PNIM_ITS ---
Progress Note: A&P Assessment and Plan (1) 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ailure: Code(s): I50.43 - 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ailure Status: Acute Assessment and Plan: ECHO ?EF is 20% patient may need dialysis for fluid overload, since BP precludes diuresis cardiology following Nephrology following (2) Left bundle branch block: Code(s): I44.7 - Left bundle-branch block, unspecified Status: Acute Assessment and Plan: * Stable (3) MARY (acute kidney injury): Code(s): N17.9 - Acute kidney failure, unspecified Status: Acute Assessment and Plan: * Creatinine on admission was 1. Worsened with diuresis with creatinine up to 2.2 Associated acute on chronic systolic heart failure Was placed on dobutamine infusion during the hospital stay Now off dobutamine Diuresis currently on hold due to MARY Nephrology on board (4) UTI (urinary tract infection), bacterial: Code(s): N39.0 - Urinary tract infection, site not specified; A49.9 - Bacterial infection, unspecified Status: Acute Assessment and Plan: * 2/4 culture growing E coli, sensitivity evaluated now on Kelflex finished course of antibiotics (5) Deep vein thrombosis: Code(s): I82.409 - Acute embolism and thrombosis of unspecified deep veins of unspecified lower extremity Status: Acute Assessment and Plan: * right basilic vein and external jugular vein thrombosis * continue apixaban * US venous doppler negative for LUE this is still edematous. Elevate arm (6) Jaundice: Code(s): R17 - Unspecified jaundice Status: Acute Assessment and Plan: * Possible cardiac cirrhosis * 2/4 US abd showed cholelithiasis with non specific gb thickening negative smith's sign * Bilirubin still elevated, unable to do MRCP due to GFR less than 30 to avoid NSF * b12/folate wnl, LDH, haptoglobin pending Anti mitochondrial antibody pending ROSEANNA positive, 1 is 40 * Nuclear, Homogeneous * Homogeneous pattern is associated with systemic lupus * erythematosus (SLE), drug-induced lupus and juvenile * idiopathic arthritis. * AC-1: Homogeneous * Will check specific panel (7) Left shoulder pain: Code(s): M25.512 - Pain in left shoulder Status: Acute Assessment and Plan: * Clinically has adhesive capsulitis * 2/4 x-ray, heat, physical therapy ordered (8) Venous stasis ulcer: Code(s): I83.009 - Varicose veins of unspecified lower extremity with ulcer of unspecified site; L97.909 - Non-pressure chronic ulcer of unspecified part of unspecified lower leg with unspecified severity Status: Acute Assessment and Plan: * Distal left leg * Continue dressing changes (9) Candidal intertrigo: Code(s): B37.2 - Candidiasis of skin and nail Status: Acute Assessment and Plan: * Continue topical medication (10) Noncompliance with medication regimen: Code(s): Z91.148 - Patient's other noncompliance with medication regimen for other reason Status: Acute Assessment and Plan: * severely impaired ejection fraction. stressed emphasis on compliance to medications (11) Morbid obesity: Code(s): E66.01 - Morbid (severe) obesity due to excess calories Status: Chronic (12) Hypokalemia: Code(s): E87.6 - Hypokalemia Status: Acute Assessment and Plan: * Resolved (13) Abnormality of
--- NOTE | 2023-11-29 13:07 | PM.IMPN ---
Progress Note: A&P Assessment and Plan (1) 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ailure: Code(s): I50.43 - 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ailure Status: Acute Assessment and Plan: ECHO ?EF is 20% patient may need dialysis for fluid overload, since BP precludes diuresis cardiology following Nephrology following (2) Left bundle branch block: Code(s): I44.7 - Left bundle-branch block, unspecified Status: Acute Assessment and Plan: Stable (3) MARY (acute kidney injury): Code(s): N17.9 - Acute kidney failure, unspecified Status: Acute Assessment and Plan: Creatinine on admission was 1. Worsened with diuresis with creatinine up to 2.2 Associated acute on chronic systolic heart failure Was placed on dobutamine infusion during the hospital stay Now off dobutamine Diuresis currently on hold due to MARY Nephrology on board (4) UTI (urinary tract infection), bacterial: Code(s): N39.0 - Urinary tract infection, site not specified; A49.9 - Bacterial infection, unspecified Status: Acute Assessment and Plan: 2/4 culture growing E coli, sensitivity evaluated now on Kelflex finished course of antibiotics (5) Deep vein thrombosis: Code(s): I82.409 - Acute embolism and thrombosis of unspecified deep veins of unspecified lower extremity Status: Acute Assessment and Plan: right basilic vein and external jugular vein thrombosis continue apixaban US venous doppler negative for LUE this is still edematous. Elevate arm (6) Jaundice: Code(s): R17 - Unspecified jaundice Status: Acute Assessment and Plan: Possible cardiac cirrhosis 2/4 US abd showed cholelithiasis with non specific gb thickening negative smith's sign Bilirubin still elevated, unable to do MRCP due to GFR less than 30 to avoid NSF b12/folate wnl, LDH, haptoglobin pending Anti mitochondrial antibody pending ROSEANNA positive, 1 is 40 Nuclear, Homogeneous Homogeneous pattern is associated with systemic lupus erythematosus (SLE), drug-induced lupus and juvenile idiopathic arthritis. AC-1: Homogeneous Will check specific panel (7) Left shoulder pain: Code(s): M25.512 - Pain in left shoulder Status: Acute Assessment and Plan: Clinically has adhesive capsulitis 2/4 x-ray, heat, physical therapy ordered (8) Venous stasis ulcer: Code(s): I83.009 - Varicose veins of unspecified lower extremity with ulcer of unspecified site; L97.909 - Non-pressure chronic ulcer of unspecified part of unspecified lower leg with unspecified severity Status: Acute Assessment and Plan: Distal left leg Continue dressing changes (9) Candidal intertrigo: Code(s): B37.2 - Candidiasis of skin and nail Status: Acute Assessment and Plan: Continue topical medication (10) Noncompliance with medication regimen: Code(s): Z91.148 - Patient's other noncompliance with medication regimen for other reason Status: Acute Assessment and Plan: severely impaired ejection fraction. stressed emphasis on compliance to medications (11) Morbid obesity: Code(s): E66.01 - Morbid (severe) obesity due to excess calories Status: Chronic (12) Hypokalemia: Code(s): E87.6 - Hypokalemia Status: Acute Assessment and Plan: Resolved (13) Abnormality of gait and mobility: Code(s): R26.9 - Unspecified abnormalities of gait and mobility Status: Acute Assessment and Plan: Would benefit from therapy PT/ OT ordered pt will benefit from sitting in chair Subjective Date/time seen: 11/29/23 13:07 Interval history: No overnight events. Feels okay. Shortness of breath on exertion. On midodrine Lasix on hold blood pressure borderline. Remains on apixaban 5 mg b.i.d.. Pr
[2023-11-29 13:45] LABS: Mitochondrial (M2) Ab (IgG) <=20.0 U (<=20.0)
[2023-11-29] MEDS: LIDOCAINE HCL 1% PF INJ 5 ML VIAL INFILTRATE (15:45)
[2023-11-29] MEDS: DOBUTamine 250 MG/D5W 250 ML 250 MG/250 ML BAG 26.51 MG IV CONT (17:03)
--- NOTE | 2023-11-29 17:23 | PC.NURSE ---
This patient, Mey Herron, was received from [[address] [place] [address] ] on 11/29/23 at 1500. Patient/family oriented to unit policies and routines. Patient alert and oriented vitals stable at this time.
[2023-11-29 19:46] LABS: Haptoglobin 80 mg/dL (43-212)
[2023-11-29] MEDS: CENTRAL LINE FLUSH 10 ML IV PUSH ×2 (23:05)
[2023-11-30] VITALS (24 sets, daily range): BP systolic 74–90; BP diastolic 27–43; PULSE 78–118; RESP 16–20; TEMP 36–36.9; O2SAT 93–95; BMI 10.0
[2023-11-30] MEDS: DOBUTamine 250 MG/D5W 250 ML 250 MG/250 ML BAG 26.51 MG IV CONT (03:06)
[2023-11-30] MEDS: CENTRAL LINE FLUSH 20 ML IV PUSH (05:56)
[2023-11-30] MEDS: CENTRAL LINE FLUSH 10 ML IV PUSH ×4 (05:56→21:37)
[2023-11-30 06:12] LABS: Basophils Percent Auto 0.4 % (0.2-1.2); Eosinophils Absolute Auto 0.1 K/mm3 (0-0.3); Eosinophils Percent Auto 0.9 % (0-4.4); Hematocrit 26.8 % (37.0-47.0); Hemoglobin 8.8 g/dL (12.0-15.0); Immature Granulocyte Absolute 0.25 K/mm3 (0.00-0.031); Immature Granulocyte Percent A 3.7 % (0-0.5); Lymphocytes Absolute Auto 0.57 K/mm3 (0.9-3.2); Lymphocytes Percent Auto 8.5 % (18.3-44.2); Mean Corpuscular HGB Conc 32.8 g/dl (32-36); Mean Corpuscular Hemoglobin 34.5 pg (26-34); Mean Corpuscular Volume 105.1 fl (80-100); Mean Platelet Volume 11.6 fl (7.4-10.4); Monocytes Absolute Auto 0.6 K/mm3 (0.1-0.6); Monocytes Percent Auto 8.5 % (2.6-8.5); Neutrophils Absolute Auto 5.2 K/mm3 (1.3-6.7); Platelet Count Result 185 k/mm3 (150-375); Red Blood Count 2.55 M/mm3 (4.2-5.4); Red Cell Distribution Width 16.3 % (11.5-14.5); White Blood Count 6.7 K/mm3 (4.5-10.0)
[2023-11-30 06:21] LABS: Alanine Aminotransferase 10 U/L (6-35); Albumin Level 2.5 g/dL (3.5-5.1); Alkaline Phosphatase 227 U/L (38-126); Anion Gap 2 mmol/L (8-16); Aspartate Amino Transferase 32 U/L (14-36); Blood Urea Nitrogen 63 mg/dL (7-17); Calcium 8.1 mg/dL (8.4-10.2); Carbon Dioxide 32 mmol/L (22-30); Chloride 101 mmol/L (98-107); Estimated CRCL calculation 54 ml/min; Estimated Glomerular Filt Rate 29; Glucose 97 mg/dL (65-110); Magnesium 2.3 mg/dL (1.6-2.3); Potassium 3.9 mmol/L (3.4-5.0); Sodium 135 mmol/L (137-145)
[2023-11-30 07:13] LABS: Platelet Estimate Adequate (Adequate); Schistocytes Rare (NORMAL)
[2023-11-30 07:14] LABS: Hypochromasia 2+ (NORMAL); Ovalocytes 1+ (NORMAL)
--- NOTE | 2023-11-30 09:27 | PM.PNCARD ---
Progress Note: A&P Assessment and Plan (1) 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ailure: Code(s): I50.43 - 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ailure Status: Acute Assessment and Plan: 58-year-old female with history of CHF with reduced ejection fraction (unclear etiology)-with acute on chronic CHF with reduced ejection fraction. Basically on no medications at this point to treat her heart failure due to hypotension and renal failure. She does seem to be diuresing some with the addition of dobutamine. Will increase dobutamine to 5 micrograms/kilogram per minute. If no significant progress is made within the next 48 hours or so, should consider transferring her to [facility] for advanced heart failure management -Furosemide has been on hold because of worsening renal function and MARY -sacubitril/valsartan, spironolactone also on hold because of worsening renal function in addition to hypotension. -Coreg also on hold because of hypotension. -Discussed patient's case at length with Dr. Bain. Plan to once again trial diuresing with the help of Dobutamine. Transfer to IMU -Discontinue midodrine -outpatient Cardiology follow-up for additional management. Patient intends to follow up with Dr. Cruz after hospital discharge. (2) MARY (acute kidney injury): Code(s): N17.9 - Acute kidney failure, unspecified Status: Acute Assessment and Plan: Creatinine is stable 1.8 today. Likely from cardiorenal syndrome Nephrology is following. Plan as above (3) At risk for sleep apnea: Code(s): Z91.89 - Other specified personal risk factors, not elsewhere classified Status: Acute Assessment and Plan: Patient is morbidly obese and probably has KRZYSZTOF. Not interested in sleep study as an outpatient at this time. (4) Noncompliance with medication regimen: Code(s): Z91.148 - Patient's other noncompliance with medication regimen for other reason Status: Acute Assessment and Plan: Discussed importance of medication compliance and outpatient follow-up with the patient. She verbalized understanding. She remains at risk for rehospitalization. Subjective Date/time seen: 11/30/23 09:27 Interval history: Date of service: 11/24/2023 Interval history: Patient was sitting up in the recliner, reported improvement in her shortness of breath. At the time of evaluation, patient's son and the nurse was in the room. I spoke at length with the patient and her son about her previous cardiac history. She states that she was diagnosed with CHF many many years ago. According to patient's son, she was probably diagnosed with heart failure after childbirth. Patient does not recall any ischemic evaluation in the past. She has not been fully compliant with medical regimen as an outpatient. Patient denies documented history of KRZYSZTOF and is not willing for evaluation for possible sleep apnea given her morbid obesity. Dr. Alcazar from Nephrology had concerns about patient's renal function and decreased urine output and was wondering about inotropic support. However, after discussion with the patient, patient does not want any additional IV medications at this time. Date of service 11/26/2023: denies any shortness of breath, chest pain, palpitations. She is complaining of pain and swelling in her left arm. Date of service 11/28/2023: Feels about the same today. Denies any shortness of breath, chest pain. She is feeling frustrated with the length of her hospitalization. Date of service 11/29/2023: Left arm remains painful and swollen. BP slightly better and she is actually urinating a little more despite diuretics being held. Date of service 11/30/2023: Seems to be tolerating dobutamine. No chest pain or shortness of breath. Renal function creatinine 1.8 Review of Systems Review of Systems: All systems reviewed & are
[2023-11-30] MEDS: APIXABAN 5 MG TABLET PO ×2 (09:48→21:36)
[2023-11-30] MEDS: BETAMETHASONE/CLOTRIMAZOLE CR 15 GM TUBE 1 APPLIC TOPICAL (09:50)
[2023-11-30] MEDS: TOLNAFTATE 1% POWDER 45 GM BTL 1 APPLIC TOPICAL ×2 (09:50→21:36)
--- NOTE | 2023-11-30 10:32 | P.PNNP_ITS ---
Progress Note: A&P Assessment and Plan (1) MARY (acute kidney injury): Code(s): N17.9 - Acute kidney failure, unspecified Status: Acute Assessment and Plan: * holding stable at this time if not better * normal creatinine at baseline/prior to admission * evaluation to date: * urine electrolytes are non pre renal by FeNA but the FeUrea shows pre renal azotemia * CT abdomen/renal ultrasound shows normal kidneys and no hydronephrosois * CK is normal * urine protein/creatinine ratio 630 (so this is not contributing much to the edema) * suspect the normal creatinine from before may have been due to dilution from a ll the fluid/volume overload * this is likely chronic pre renal azotemia from cardiorenal syndrome * this is further complicated by her chronic hypotension * follow trend of renal function and UOP (2) 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ailure: Code(s): I50.43 - 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ailure Status: Acute Assessment and Plan: * Echo with EF 15 - 20% with grade III diastolic dysfunction * this is complicated by patient's non-compliance with medications * medical management and therapy difficult to continue due to hypotension * Cardiology following * trial of dobutamine gtt currently * IV diuretics PRN * follow I/Os, daily weights, and volume status (3) Urinary tract infection: Code(s): N39.0 - Urinary tract infection, site not specified Status: Acute Assessment and Plan: * culture with E.coli * completed course of antibiotics Will continue to follow. Subjective Date/time seen: 11/30/23 10:32 Interval history: Follow-up for acute kidney injury/acute renal failure. Moved to IMU with subsequent initiation of dobutamine gtt -- renal function and urine output seem stable at this time; no other significant change noted; no apparent distress noted at the time of my visit; appears comfortable. Exam Narrative: General: Large female in NAD Heart: normal S1 and S2; no rub Lungs: clear anteriorly Abdomen: soft, nontender, nondistended, positive bowel sounds Extremities: no cyanosis or clubbing; 2+ edema Skin: chronic venous stasis changes noted Objective Data Vital Signs Vital Signs: Vital Signs Temp Pulse Resp BP Pulse Ox O2 Del Method 11/30/23 10:00 98.4 F 101 H 18 81/43 L 93 02/10/24 08:00 91 11/30/23 08:00 Room Air 11/30/23 09:48 84 11/30/23 07:00 78 11/30/23 07:37 98.2 F 90 20 76/33 L 95 11/30/23 06:00 81 11/30/23 04:00 89 11/30/23 04:00 87 20 94 Room Air 11/30/23 04:00 96.8 F L 87 20 90/27 L 94 11/30/23 03:06 78 83/40 L 11/30/23 02:00 81 83/40 L 11/30/23 00:00 87 20 93 Room Air 11/29/23 20:00 96 20 94 Room Air 11/30/23 00:00 87 79/27 L 11/29/23 22:00 84 11/29/23 20:00 96 82/29 L 11/30/23 01:44 81 11/30/23 00:00 88 11/29/23 22:00 84 11/29/23 20:00 98 11/29/23 23:40 97 F L 87 20 79/27 L 93 11/29/23 19:56 97.1 F L 96 20 82/29 L 94 Intake/Output Intake/Output: Intake & Output
--- NOTE | 2023-11-30 10:32 | PM.PNNEP ---
Progress Note: A&P Assessment and Plan (1) MARY (acute kidney injury): Code(s): N17.9 - Acute kidney failure, unspecified Status: Acute Assessment and Plan: holding stable at this time if not better normal creatinine at baseline/prior to admission evaluation to date: urine electrolytes are non pre renal by FeNA but the FeUrea shows pre renal azotemia CT abdomen/renal ultrasound shows normal kidneys and no hydronephrosois CK is normal urine protein/creatinine ratio 630 (so this is not contributing much to the edema) suspect the normal creatinine from before may have been due to dilution from all the fluid/volume overload this is likely chronic pre renal azotemia from cardiorenal syndrome this is further complicated by her chronic hypotension follow trend of renal function and UOP (2) 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ailure: Code(s): I50.43 - 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ailure Status: Acute Assessment and Plan: Echo with EF 15 - 20% with grade III diastolic dysfunction this is complicated by patient's non-compliance with medications medical management and therapy difficult to continue due to hypotension Cardiology following trial of dobutamine gtt currently IV diuretics PRN follow I/Os, daily weights, and volume status (3) Urinary tract infection: Code(s): N39.0 - Urinary tract infection, site not specified Status: Acute Assessment and Plan: culture with E.coli completed course of antibiotics Will continue to follow. Subjective Date/time seen: 11/30/23 10:32 Interval history: Follow-up for acute kidney injury/acute renal failure. Moved to IMU with subsequent initiation of dobutamine gtt -- renal function and urine output seem stable at this time; no other significant change noted; no apparent distress noted at the time of my visit; appears comfortable. Exam Narrative: General: Large female in NAD Heart: normal S1 and S2; no rub Lungs: clear anteriorly Abdomen: soft, nontender, nondistended, positive bowel sounds Extremities: no cyanosis or clubbing; 2+ edema Skin: chronic venous stasis changes noted Objective Data Vital Signs Vital Signs: Vital Signs Temp Pulse Resp BP Pulse Ox O2 Del Method 11/30/23 10:00 98.4 F 101 H 18 81/43 L 93 11/30/23 08:00 91 11/30/23 08:00 Room Air 11/30/23 09:48 84 11/30/23 07:00 78 11/30/23 07:37 98.2 F 90 20 76/33 L 95 11/30/23 06:00 81 11/30/23 04:00 89 11/30/23 04:00 87 20 94 Room Air 11/30/23 04:00 96.8 F L 87 20 90/27 L 94 11/30/23 03:06 78 83/40 L 11/30/23 02:00 81 83/40 L 11/30/23 00:00 87 20 93 Room Air 11/29/23 20:00 96 20 94 Room Air 11/30/23 00:00 87 79/27 L 11/29/23 22:00 84 11/29/23 20:00 96 82/29 L 11/30/23 01:44 81 11/30/23 00:00 88 11/29/23 22:00 84 11/29/23 20:00 98 11/29/23 23:40 97 F L 87 20 79/27 L 93 11/29/23 19:56 97.1 F L 96 20 82/29 L 94 Intake/Output Intake/Output: Intake & Output 11/27/23 11/28/23 11/29/23 11/30/23 23:59 23:59 23:59 23:59 Intake Total 161 883 2387 1140 Output Total 850 1280 1450 450 Balance 120 560 -226 690 Meds/Results Medications: Active Medications Generic Name Dose Route Start Last Admin Trade Name Freq PRN Reason Stop Dose Admin Acetaminophen 650 mg 11/13/23 21:01 11/30/23 10:35 Acetaminophen 325 Mg Tablet PO 650 mg Q4H PRN Administration Mild Pain (1-3) or Fever Apixaban 5 mg 11/26/23 21:00 11/30/23 09:48 Apixaban 5 Mg Tablet PO 5 mg Q12HR ALEXYS Administration Clotrimazole 1 applic 11/14/23 09:00 11/30/23 09:50 Betamethasone/Clotrimazole Cr 15 Gm Tube TOPICAL 1 applic DAILY ALEXYS Administration Dobutamine HCl/
[2023-11-30] MEDS: ACETAMINOPHEN 325 MG TABLET 650 MG PO (10:35)
[2023-11-30] MEDS: DOBUTamine 250 MG/D5W 250 ML 250 MG/250 ML BAG 53.01 MG IV CONT ×3 (12:07→22:29)
--- NOTE | 2023-11-30 13:55 | P.PNIM_ITS ---
Progress Note: A&P Assessment and Plan (1) 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ailure: Code(s): I50.43 - 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ailure Status: Acute Assessment and Plan: ECHO ?EF is 20% patient may need dialysis for fluid overload, since BP precludes diuresis cardiology following Nephrology following (2) Left bundle branch block: Code(s): I44.7 - Left bundle-branch block, unspecified Status: Acute Assessment and Plan: * Stable (3) MARY (acute kidney injury): Code(s): N17.9 - Acute kidney failure, unspecified Status: Acute Assessment and Plan: * Creatinine on admission was 1. Worsened with diuresis with creatinine up to 2.2 Associated acute on chronic systolic heart failure Was placed on dobutamine infusion during the hospital stay Now off dobutamine Diuresis currently on hold due to MARY Nephrology on board (4) UTI (urinary tract infection), bacterial: Code(s): N39.0 - Urinary tract infection, site not specified; A49.9 - Bacterial infection, unspecified Status: Acute Assessment and Plan: * 2/ culture growing E coli, sensitivity evaluated now on Kelflex finished course of antibiotics (5) Deep vein thrombosis: Code(s): I82.409 - Acute embolism and thrombosis of unspecified deep veins of unspecified lower extremity Status: Acute Assessment and Plan: * right basilic vein and external jugular vein thrombosis * continue apixaban * US venous doppler negative for LUE this is still edematous. Elevate arm * Will cover with Ancef for possible cellulitis (6) Jaundice: Code(s): R17 - Unspecified jaundice Status: Acute Assessment and Plan: * Possible cardiac cirrhosis * 2/4 US abd showed cholelithiasis with non specific gb thickening negative smith's sign * Bilirubin still elevated, unable to do MRCP due to GFR less than 30 to avoid NSF * b12/folate wnl, LDH, haptoglobin pending Anti mitochondrial antibody pending ROSEANNA positive, 1 is 40 * Nuclear, Homogeneous * Homogeneous pattern is associated with systemic lupus * erythematosus (SLE), drug-induced lupus and juvenile * idiopathic arthritis. * AC-1: Homogeneous * Will check specific panel (7) Left shoulder pain: Code(s): M25.512 - Pain in left shoulder Status: Acute Assessment and Plan: * Clinically has adhesive capsulitis * 2/4 x-ray, heat, physical therapy ordered (8) Venous stasis ulcer: Code(s): I83.009 - Varicose veins of unspecified lower extremity with ulcer of unspecified site; L97.909 - Non-pressure chronic ulcer of unspecified part of unspecified lower leg with unspecified severity Status: Acute Assessment and Plan: * Distal left leg * Continue dressing changes (9) Candidal intertrigo: Code(s): B37.2 - Candidiasis of skin and nail Status: Acute Assessment and Plan: * Continue topical medication (10) Noncompliance with medication regimen: Code(s): Z91.148 - Patient's other noncompliance with medication regimen for other reason Status: Acute Assessment and Plan: * severely impaired ejection fraction. stressed emphasis on compliance to medications (11) Morbid obesity: Code(s): E66.01 - Morbid (severe) obesity due to excess calories Status: Chronic (12) Hypokalemia: Code(s): E87.6 - Hypokalemia Status: Acute Assessment
--- NOTE | 2023-11-30 13:55 | PM.IMPN ---
Progress Note: A&P Assessment and Plan (1) 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ailure: Code(s): I50.43 - 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ailure Status: Acute Assessment and Plan: ECHO ?EF is 20% patient may need dialysis for fluid overload, since BP precludes diuresis cardiology following Nephrology following (2) Left bundle branch block: Code(s): I44.7 - Left bundle-branch block, unspecified Status: Acute Assessment and Plan: Stable (3) MARY (acute kidney injury): Code(s): N17.9 - Acute kidney failure, unspecified Status: Acute Assessment and Plan: Creatinine on admission was 1. Worsened with diuresis with creatinine up to 2.2 Associated acute on chronic systolic heart failure Was placed on dobutamine infusion during the hospital stay Now off dobutamine Diuresis currently on hold due to MARY Nephrology on board (4) UTI (urinary tract infection), bacterial: Code(s): N39.0 - Urinary tract infection, site not specified; A49.9 - Bacterial infection, unspecified Status: Acute Assessment and Plan: 2/4 culture growing E coli, sensitivity evaluated now on Kelflex finished course of antibiotics (5) Deep vein thrombosis: Code(s): I82.409 - Acute embolism and thrombosis of unspecified deep veins of unspecified lower extremity Status: Acute Assessment and Plan: right basilic vein and external jugular vein thrombosis continue apixaban US venous doppler negative for LUE this is still edematous. 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 AC-1: Homogeneous Will check specific panel (7) Left shoulder pain: Code(s): M25.512 - Pain in left shoulder Status: Acute Assessment and Plan: Clinically has adhesive capsulitis 2/4 x-ray, heat, physical therapy ordered (8) Venous stasis ulcer: Code(s): I83.009 - Varicose veins of unspecified lower extremity with ulcer of unspecified site; L97.909 - Non-pressure chronic ulcer of unspecified part of unspecified lower leg with unspecified severity Status: Acute Assessment and Plan: Distal left leg Continue dressing changes (9) Candidal intertrigo: Code(s): B37.2 - Candidiasis of skin and nail Status: Acute Assessment and Plan: Continue topical medication (10) Noncompliance with medication regimen: Code(s): Z91.148 - Patient's other noncompliance with medication regimen for other reason Status: Acute Assessment and Plan: severely impaired ejection fraction. stressed emphasis on compliance to medications (11) Morbid obesity: Code(s): E66.01 - Morbid (severe) obesity due to excess calories Status: Chronic (12) Hypokalemia: Code(s): E87.6 - Hypokalemia Status: Acute Assessment and Plan: Resolved (13) Abnormality of gait and mobility: Code(s): R26.9 - Unspecified abnormalities of gait and mobility Status: Acute Assessment and Plan: Would benefit from therapy PT/ OT ordered pt will benefit from sitting in chair Subjective Date/time seen: 11/30/23 13:55 Interval history: No overnight events. Feels okay. Shortness of breath on exertion. On midodrine Lasix on hold blood pressure b
[2023-11-30] MEDS: ceFAZolin 1 GM/NS 50 ML 1 GM/50 ML BAG IVPB ×2 (15:26→21:36)
[2023-12-01] VITALS (21 sets, daily range): BP systolic 77–105; BP diastolic 30–61; PULSE 73–116; RESP 18–20; TEMP 36.3–36.9; O2SAT 95–97
[2023-12-01] MEDS: DOBUTamine 250 MG/D5W 250 ML 250 MG/250 ML BAG 53.01 MG IV CONT ×4 (04:48→20:52)
[2023-12-01] MEDS: CENTRAL LINE FLUSH 10 ML IV PUSH ×3 (06:25→20:52)
[2023-12-01] MEDS: ceFAZolin 1 GM/NS 50 ML 1 GM/50 ML BAG IVPB ×3 (06:25→20:51)
[2023-12-01] MEDS: FUROSEMIDE INJ 40 MG/4 ML VIAL IV PUSH (09:34)
[2023-12-01] MEDS: APIXABAN 5 MG TABLET PO ×2 (09:34→20:50)
[2023-12-01] MEDS: BETAMETHASONE/CLOTRIMAZOLE CR 15 GM TUBE 1 APPLIC TOPICAL (09:34)
[2023-12-01] MEDS: TOLNAFTATE 1% POWDER 45 GM BTL 1 APPLIC TOPICAL ×2 (09:34→20:51)
--- NOTE | 2023-12-01 09:58 | PM.PNCARD ---
Progress Note: A&P Assessment and Plan (1) 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ailure: Code(s): I50.43 - 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ailure Status: Acute Assessment and Plan: 58-year-old female with history of CHF with reduced ejection fraction (unclear etiology)-with acute on chronic CHF with reduced ejection fraction. Basically on no medications at this point to treat her heart failure due to hypotension and renal failure. She does seem to be diuresing some with the addition of dobutamine. Continue dobutamine to 5 micrograms/kilogram per minute. If no significant progress is made within the next 48 hours or so, should consider transferring her to [facility] for advanced heart failure management -furosemide 40 mg IV x1 now that she is on inotropes -sacubitril/valsartan, spironolactone also on hold because of worsening renal function in addition to hypotension. -Coreg also on hold because of hypotension. -Discussed patient's case at length with Dr. Bain. Plan to once again trial diuresing with the help of Dobutamine. Transfer to IMU -she very well may need transfer to advanced heart failure facilities. May need to dialyze simply for volume removal which may actually help her get back on the Starling curve. Defer to nephrology -outpatient Cardiology follow-up for additional management. Patient intends to follow up with Dr. Cruz after hospital discharge. (2) MARY (acute kidney injury): Code(s): N17.9 - Acute kidney failure, unspecified Status: Acute Assessment and Plan: Creatinine is stable 1.8 today. Likely from cardiorenal syndrome Nephrology is following. Plan as above (3) At risk for sleep apnea: Code(s): Z91.89 - Other specified personal risk factors, not elsewhere classified Status: Acute Assessment and Plan: Patient is morbidly obese and probably has KRZYSZTOF. Not interested in sleep study as an outpatient at this time. (4) Noncompliance with medication regimen: Code(s): Z91.148 - Patient's other noncompliance with medication regimen for other reason Status: Acute Assessment and Plan: Discussed importance of medication compliance and outpatient follow-up with the patient. She verbalized understanding. She remains at risk for rehospitalization. Subjective Date/time seen: 12/01/23 09:58 Interval history: Date of service: 11/24/2023 Interval history: Patient was sitting up in the recliner, reported improvement in her shortness of breath. At the time of evaluation, patient's son and the nurse was in the room. I spoke at length with the patient and her son about her previous cardiac history. She states that she was diagnosed with CHF many many years ago. According to patient's son, she was probably diagnosed with heart failure after childbirth. Patient does not recall any ischemic evaluation in the past. She has not been fully compliant with medical regimen as an outpatient. Patient denies documented history of KRZYSZTOF and is not willing for evaluation for possible sleep apnea given her morbid obesity. Dr. Alcazar from Nephrology had concerns about patient's renal function and decreased urine output and was wondering about inotropic support. However, after discussion with the patient, patient does not want any additional IV medications at this time. Date of service 11/26/2023: denies any shortness of breath, chest pain, palpitations. She is complaining of pain and swelling in her left arm. Date of service 11/28/2023: Feels about the same today. Denies any shortness of breath, chest pain. She is feeling frustrated with the length of her hospitalization. Date of service 11/29/2023: Left arm remains painful and swollen. BP slightly better and she is actually urinating a little more despite diuretics being held. Date of service 11/30/2023: Seems to be tolerating
[2023-12-01] MEDS: ACETAMINOPHEN 325 MG TABLET 650 MG PO (10:37)
[2023-12-01 11:21] LABS: Hematocrit 27.7 % (37.0-47.0); Hemoglobin 8.9 g/dL (12.0-15.0); Mean Corpuscular HGB Conc 32.1 g/dl (32-36); Mean Corpuscular Hemoglobin 34.1 pg (26-34); Mean Corpuscular Volume 106.1 fl (80-100); Mean Platelet Volume 11.3 fl (7.4-10.4); Platelet Count Result 201 k/mm3 (150-375); Red Blood Count 2.61 M/mm3 (4.2-5.4); Red Cell Distribution Width 16.4 % (11.5-14.5); White Blood Count 6.6 K/mm3 (4.5-10.0)
[2023-12-01 11:31] LABS: Albumin Level 2.5 g/dL (3.5-5.1); Anion Gap 4 mmol/L (8-16); Blood Urea Nitrogen 58 mg/dL (7-17); Calcium 8.2 mg/dL (8.4-10.2); Carbon Dioxide 30 mmol/L (22-30); Chloride 100 mmol/L (98-107); Estimated CRCL calculation 64 ml/min; Estimated Glomerular Filt Rate 36; Glucose 104 mg/dL (65-110); Phosphorus 3.5 mg/dL (2.5-4.5); Potassium 4.2 mmol/L (3.4-5.0); Sodium 134 mmol/L (137-145)
--- NOTE | 2023-12-01 11:47 | P.PNNP_ITS ---
Progress Note: A&P Assessment and Plan (1) MARY (acute kidney injury): Code(s): N17.9 - Acute kidney failure, unspecified Status: Acute Assessment and Plan: * holding stable at this time if not better * normal creatinine at baseline/prior to admission * evaluation to date: * urine electrolytes are non pre renal by FeNA but the FeUrea shows pre renal azotemia * CT abdomen/renal ultrasound shows normal kidneys and no hydronephrosois * CK is normal * urine protein/creatinine ratio 630 (so this is not contributing much to the edema) * suspect the normal creatinine from before may have been due to dilution from a ll the fluid/volume overload * this is likely chronic pre renal azotemia from cardiorenal syndrome * this is further complicated by her chronic hypotension * follow trend of renal function and UOP (2) 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ailure: Code(s): I50.43 - 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ailure Status: Acute Assessment and Plan: * Echo with EF 15 - 20% with grade III diastolic dysfunction * this is complicated by patient's non-compliance with medications * medical management and therapy difficult to continue due to hypotension * Cardiology following * trial of dobutamine gtt currently * IV diuretics PRN * follow I/Os, daily weights, and volume status (3) Urinary tract infection: Code(s): N39.0 - Urinary tract infection, site not specified Status: Acute Assessment and Plan: * culture with E.coli * completed course of antibiotics Will continue to follow. Subjective Date/time seen: 12/01/23 11:47 Interval history: Follow-up for acute kidney injury/acute renal failure. Despite dobutamine gtt, swelling/edema persists and remains in positive fluid balance; renal function slightly better and making urine; IV diuretics give this AM in an attempt to facilitate more aggressive diuresis; otherwise, no significant changes noted. Exam Narrative: General: Large female in NAD Heart: normal S1 and S2; no rub Lungs: clear anteriorly Abdomen: soft, nontender, nondistended, positive bowel sounds Extremities: no cyanosis or clubbing; 2+ edema Skin: chronic venous stasis changes present Objective Data Vital Signs Vital Signs: Vital Signs Temp Pulse Resp BP Pulse Ox O2 Del Method 12/01/23 11:22 98.0 F 100 18 89/38 L 95 12/01/23 10:00 86 12/01/23 08:00 101 H 12/01/23 08:00 Room Air 12/01/23 10:03 95 Room Air 12/01/23 09:33 80 12/01/23 09:31 80 12/01/23 08:00 98.1 F 100 20 84/31 L 96 12/01/23 06:00 91 12/01/23 04:00 97 Room Air 12/01/23 04:00 73 12/01/23 02:00 101 H 12/01/23 04:00 97.4 F L 79 18 90/48 L 97 12/01/23 00:00 95 Room Air 12/01/23 00:00 100 11/30/23 22:00 111 H 11/30/23 20:00 94 Room Air 11/30/23 20:00 104 H 11/30/23 23:44 97.4 F L 104 H 16 89/37 L 95 11/30/23 20:00 96.8 F L 113 H 18 87/29 L 94 11/30/23 18:00 104 H 11/30/23 17:58 80 Intake/Output Intake/Output: Intake
--- NOTE | 2023-12-01 11:47 | PM.PNNEP ---
Progress Note: A&P Assessment and Plan (1) MARY (acute kidney injury): Code(s): N17.9 - Acute kidney failure, unspecified Status: Acute Assessment and Plan: holding stable at this time if not better normal creatinine at baseline/prior to admission evaluation to date: urine electrolytes are non pre renal by FeNA but the FeUrea shows pre renal azotemia CT abdomen/renal ultrasound shows normal kidneys and no hydronephrosois CK is normal urine protein/creatinine ratio 630 (so this is not contributing much to the edema) suspect the normal creatinine from before may have been due to dilution from all the fluid/volume overload this is likely chronic pre renal azotemia from cardiorenal syndrome this is further complicated by her chronic hypotension follow trend of renal function and UOP (2) 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ailure: Code(s): I50.43 - 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ailure Status: Acute Assessment and Plan: Echo with EF 15 - 20% with grade III diastolic dysfunction this is complicated by patient's non-compliance with medications medical management and therapy difficult to continue due to hypotension Cardiology following trial of dobutamine gtt currently IV diuretics PRN follow I/Os, daily weights, and volume status (3) Urinary tract infection: Code(s): N39.0 - Urinary tract infection, site not specified Status: Acute Assessment and Plan: culture with E.coli completed course of antibiotics Will continue to follow. Subjective Date/time seen: 12/01/23 11:47 Interval history: Follow-up for acute kidney injury/acute renal failure. Despite dobutamine gtt, swelling/edema persists and remains in positive fluid balance; renal function slightly better and making urine; IV diuretics give this AM in an attempt to facilitate more aggressive diuresis; otherwise, no significant changes noted. Exam Narrative: General: Large female in NAD Heart: normal S1 and S2; no rub Lungs: clear anteriorly Abdomen: soft, nontender, nondistended, positive bowel sounds Extremities: no cyanosis or clubbing; 2+ edema Skin: chronic venous stasis changes present Objective Data Vital Signs Vital Signs: Vital Signs Temp Pulse Resp BP Pulse Ox O2 Del Method 12/01/23 11:22 98.0 F 100 18 89/38 L 95 12/01/23 10:00 86 12/01/23 08:00 101 H 12/01/23 08:00 Room Air 12/01/23 10:03 95 Room Air 12/01/23 09:33 80 12/01/23 09:31 80 12/01/23 08:00 98.1 F 100 20 84/31 L 96 12/01/23 06:00 91 12/01/23 04:00 97 Room Air 12/01/23 04:00 73 12/01/23 02:00 101 H 12/01/23 04:00 97.4 F L 79 18 90/48 L 97 12/01/23 00:00 95 Room Air 12/01/23 00:00 100 11/30/23 22:00 111 H 11/30/23 20:00 94 Room Air 11/30/23 20:00 104 H 11/30/23 23:44 97.4 F L 104 H 16 89/37 L 95 11/30/23 20:00 96.8 F L 113 H 18 87/29 L 94 11/30/23 18:00 104 H 11/30/23 17:58 80 Intake/Output Intake/Output: Intake & Output 11/28/23 11/29/23 11/30/23 12/01/23 23:59 23:59 23:59 23:59 Intake Total 720 1010 2600 1406 Output Total 1280 1450 1250 1750 Balance -560 -440 1350 -344 Meds/Results Medications: Active Medications Generic Name Dose Route Start Last Admin Trade Name Freq PRN Reason Stop Dose Admin Acetaminophen 650 mg 11/13/23 21:01 12/01/23 10:37 Acetaminophen 325 Mg Tablet PO 650 mg Q4H PRN Administration Mild Pain (1-3) or Fever Apixaban 5 mg 11/26/23 21:00 12/01/23 09:34 Apixaban 5 Mg Tablet PO 5 mg Q12HR ALEXYS Administration Clotrimazole 1 applic 11/14/23 09:00 12/01/23 09:34 Betamethasone/Clotrimazole Cr 15 Gm Tube TOPICAL 1 applic DAILY ALEXYS Administration Dobutamine HCl/Dex
--- NOTE | 2023-12-01 13:17 | P.PNIM_ITS ---
Progress Note: A&P Assessment and Plan (1) 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ailure: Code(s): I50.43 - 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ailure Status: Acute Assessment and Plan: ECHO ?EF is 20% patient may need dialysis for fluid overload, since BP precludes diuresis cardiology following Nephrology following (2) Left bundle branch block: Code(s): I44.7 - Left bundle-branch block, unspecified Status: Acute Assessment and Plan: * Stable (3) MARY (acute kidney injury): Code(s): N17.9 - Acute kidney failure, unspecified Status: Acute Assessment and Plan: * Creatinine on admission was 1. Worsened with diuresis with creatinine up to 2.2 Associated acute on chronic systolic heart failure Was placed on dobutamine infusion during the hospital stay Now off dobutamine Diuresis currently on hold due to MARY but now restarted Nephrology on board Will also add albumin (4) UTI (urinary tract infection), bacterial: Code(s): N39.0 - Urinary tract infection, site not specified; A49.9 - Bacterial infection, unspecified Status: Acute Assessment and Plan: * 2/4 culture growing E coli, sensitivity evaluated now on Kelflex finished course of antibiotics (5) Deep vein thrombosis: Code(s): I82.409 - Acute embolism and thrombosis of unspecified deep veins of unspecified lower extremity Status: Acute Assessment and Plan: * right basilic vein and external jugular vein thrombosis * continue apixaban * US venous doppler negative for LUE this is still edematous. Elevate arm * Will cover with Ancef for possible cellulitis (6) Jaundice: Code(s): R17 - Unspecified jaundice Status: Acute Assessment and Plan: * Possible cardiac cirrhosis * 2/4 US abd showed cholelithiasis with non specific gb thickening negative smith's sign * Bilirubin still elevated, unable to do MRCP due to GFR less than 30 to avoid NSF * b12/folate wnl, LDH, haptoglobin pending Anti mitochondrial antibody pending ROSEANNA positive, 1 is 40 * Nuclear, Homogeneous * Homogeneous pattern is associated with systemic lupus * erythematosus (SLE), drug-induced lupus and juvenile * idiopathic arthritis. * AC-1: Homogeneous * Will check specific panel (7) Left shoulder pain: Code(s): M25.512 - Pain in left shoulder Status: Acute Assessment and Plan: * Clinically has adhesive capsulitis * 2/4 x-ray, heat, physical therapy ordered (8) Venous stasis ulcer: Code(s): I83.009 - Varicose veins of unspecified lower extremity with ulcer of unspecified site; L97.909 - Non-pressure chronic ulcer of unspecified part of unspecified lower leg with unspecified severity Status: Acute Assessment and Plan: * Distal left leg * Continue dressing changes (9) Candidal intertrigo: Code(s): B37.2 - Candidiasis of skin and nail Status: Acute Assessment and Plan: * Continue topical medication (10) Noncompliance with medication regimen: Code(s): Z91.148 - Patient's other noncompliance with medication regimen for other reason Status: Acute Assessment and Plan: * severely impaired ejection fraction. stressed emphasis on compliance to medications (11) Morbid obesity: Code(s): E66.01 - Morbid (severe) obesity due to excess calories Status: Chronic (12) Hypokalemia: Code(s): E87.6 - Hypokalemia
--- NOTE | 2023-12-01 13:17 | PM.IMPN ---
Progress Note: A&P Assessment and Plan (1) 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ailure: Code(s): I50.43 - 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ailure Status: Acute Assessment and Plan: ECHO ?EF is 20% patient may need dialysis for fluid overload, since BP precludes diuresis cardiology following Nephrology following (2) Left bundle branch block: Code(s): I44.7 - Left bundle-branch block, unspecified Status: Acute Assessment and Plan: Stable (3) MARY (acute kidney injury): Code(s): N17.9 - Acute kidney failure, unspecified Status: Acute Assessment and Plan: Creatinine on admission was 1. Worsened with diuresis with creatinine up to 2.2 Associated acute on chronic systolic heart failure Was placed on dobutamine infusion during the hospital stay Now off dobutamine Diuresis currently on hold due to MARY but now restarted Nephrology on board Will also add albumin (4) UTI (urinary tract infection), bacterial: Code(s): N39.0 - Urinary tract infection, site not specified; A49.9 - Bacterial infection, unspecified Status: Acute Assessment and Plan: 2/4 culture growing E coli, sensitivity evaluated now on Kelflex finished course of antibiotics (5) Deep vein thrombosis: Code(s): I82.409 - Acute embolism and thrombosis of unspecified deep veins of unspecified lower extremity Status: Acute Assessment and Plan: right basilic vein and external jugular vein thrombosis continue apixaban US venous doppler negative for LUE this is still edematous. 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 AC-1: Homogeneous Will check specific panel (7) Left shoulder pain: Code(s): M25.512 - Pain in left shoulder Status: Acute Assessment and Plan: Clinically has adhesive capsulitis 2/4 x-ray, heat, physical therapy ordered (8) Venous stasis ulcer: Code(s): I83.009 - Varicose veins of unspecified lower extremity with ulcer of unspecified site; L97.909 - Non-pressure chronic ulcer of unspecified part of unspecified lower leg with unspecified severity Status: Acute Assessment and Plan: Distal left leg Continue dressing changes (9) Candidal intertrigo: Code(s): B37.2 - Candidiasis of skin and nail Status: Acute Assessment and Plan: Continue topical medication (10) Noncompliance with medication regimen: Code(s): Z91.148 - Patient's other noncompliance with medication regimen for other reason Status: Acute Assessment and Plan: severely impaired ejection fraction. stressed emphasis on compliance to medications (11) Morbid obesity: Code(s): E66.01 - Morbid (severe) obesity due to excess calories Status: Chronic (12) Hypokalemia: Code(s): E87.6 - Hypokalemia Status: Acute Assessment and Plan: Resolved (13) Abnormality of gait and mobility: Code(s): R26.9 - Unspecified abnormalities of gait and mobility Status: Acute Assessment and Plan: Would benefit from therapy PT/ OT ordered pt will benefit from sitting in chair Subjective Date/time seen: 12/01/23 13:17 Interval history: No overnight events. Feels okay. Shortness of breath on exertion. On mi
[2023-12-01] MEDS: FUROSEMIDE INJ 40 MG/4 ML VIAL 20 MG IV PUSH (14:32)
[2023-12-01] MEDS: ALBUMIN HUMAN 25% 25 GM/100 ML 100 ML IVPB ×2 (17:55→23:57)
[2023-12-02] VITALS (18 sets, daily range): BP systolic 83–106; BP diastolic 32–55; PULSE 74–108; RESP 18–20; TEMP 36.5–37.2; O2SAT 92–100
[2023-12-02] MEDS: DOBUTamine 250 MG/D5W 250 ML 250 MG/250 ML BAG 53.01 MG IV CONT ×5 (02:08→22:42)
[2023-12-02] MEDS: ceFAZolin 1 GM/NS 50 ML 1 GM/50 ML BAG IVPB ×3 (05:45→22:43)
[2023-12-02] MEDS: CENTRAL LINE FLUSH 10 ML IV PUSH ×3 (05:46→20:55)
[2023-12-02] MEDS: ALBUMIN HUMAN 25% 25 GM/100 ML 100 ML IVPB ×4 (05:46→23:22)
[2023-12-02 05:59] LABS: Basophils Percent Auto 0.5 % (0.2-1.2); Eosinophils Absolute Auto 0.1 K/mm3 (0-0.3); Eosinophils Percent Auto 1.4 % (0-4.4); Hematocrit 25.4 % (37.0-47.0); Hemoglobin 8.2 g/dL (12.0-15.0); Immature Granulocyte Absolute 0.27 K/mm3 (0.00-0.031); Immature Granulocyte Percent A 4.8 % (0-0.5); Lymphocytes Absolute Auto 0.55 K/mm3 (0.9-3.2); Lymphocytes Percent Auto 9.8 % (18.3-44.2); Mean Corpuscular HGB Conc 32.3 g/dl (32-36); Mean Corpuscular Hemoglobin 34.2 pg (26-34); Mean Corpuscular Volume 105.8 fl (80-100); Mean Platelet Volume 11.2 fl (7.4-10.4); Monocytes Absolute Auto 0.4 K/mm3 (0.1-0.6); Monocytes Percent Auto 7.3 % (2.6-8.5); Neutrophils Absolute Auto 4.3 K/mm3 (1.3-6.7); Neutrophils Percent Auto 76.2 % (45.5-73.1); Platelet Count Result 207 k/mm3 (150-375); Red Cell Distribution Width 16.4 % (11.5-14.5); White Blood Count 5.6 K/mm3 (4.5-10.0)
[2023-12-02 06:19] LABS: Alanine Aminotransferase 9 U/L (6-35); Albumin Level 2.9 g/dL (3.5-5.1); Alkaline Phosphatase 207 U/L (38-126); Anion Gap 2 mmol/L (8-16); Aspartate Amino Transferase 38 U/L (14-36); Bilirubin,Total 5.5 mg/dL (0.2-1.3); Blood Urea Nitrogen 56 mg/dL (7-17); Calcium 8.4 mg/dL (8.4-10.2); Carbon Dioxide 33 mmol/L (22-30); Chloride 100 mmol/L (98-107); Estimated CRCL calculation 68 ml/min; Estimated Glomerular Filt Rate 39; Glucose 95 mg/dL (65-110); Magnesium 2.2 mg/dL (1.6-2.3); Phosphorus 3.5 mg/dL (2.5-4.5); Potassium 4.1 mmol/L (3.4-5.0); Sodium 135 mmol/L (137-145)
--- NOTE | 2023-12-02 08:30 | PM.PNCARD ---
Progress Note: A&P Assessment and Plan (1) 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ailure: Code(s): I50.43 - 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ailure Status: Acute Assessment and Plan: 58-year-old female with history of CHF with reduced ejection fraction (unclear etiology)-with acute on chronic CHF with reduced ejection fraction. Basically on no medications at this point to treat her heart failure due to hypotension and renal failure. She does seem to be diuresing some with the addition of dobutamine. Continue dobutamine to 5 micrograms/kilogram per minute. If no significant progress is made within the next 48 hours or so, should consider transferring her to [place] for advanced heart failure management Tolerated furosemide yesterday. Will start scheduled furosemide 40 mg IV q.12 hours -sacubitril/valsartan, spironolactone also on hold because of worsening renal function in addition to hypotension. -Coreg also on hold because of hypotension. -Discussed patient's case at length with Dr. Bain. Plan to once again trial diuresing with the help of Dobutamine. Transfer to IMU -she very well may need transfer to advanced heart failure facilities. May need to dialyze simply for volume removal which may actually help her get back on the Starling curve. Defer to nephrology -outpatient Cardiology follow-up for additional management. Patient intends to follow up with Dr. Cruz after hospital discharge. (2) MARY (acute kidney injury): Code(s): N17.9 - Acute kidney failure, unspecified Status: Acute Assessment and Plan: Creatinine is stable 1.4 today. Likely from cardiorenal syndrome Nephrology is following. Plan as above (3) At risk for sleep apnea: Code(s): Z91.89 - Other specified personal risk factors, not elsewhere classified Status: Acute Assessment and Plan: Patient is morbidly obese and probably has KRZYSZTOF. Not interested in sleep study as an outpatient at this time. (4) Noncompliance with medication regimen: Code(s): Z91.148 - Patient's other noncompliance with medication regimen for other reason Status: Acute Assessment and Plan: Discussed importance of medication compliance and outpatient follow-up with the patient. She verbalized understanding. She remains at risk for rehospitalization. Subjective Date/time seen: 12/02/23 08:30 Interval history: Date of service: 11/24/2023 Interval history: Patient was sitting up in the recliner, reported improvement in her shortness of breath. At the time of evaluation, patient's son and the nurse was in the room. I spoke at length with the patient and her son about her previous cardiac history. She states that she was diagnosed with CHF many many years ago. According to patient's son, she was probably diagnosed with heart failure after childbirth. Patient does not recall any ischemic evaluation in the past. She has not been fully compliant with medical regimen as an outpatient. Patient denies documented history of KRZYSZTOF and is not willing for evaluation for possible sleep apnea given her morbid obesity. Dr. Alcazar from Nephrology had concerns about patient's renal function and decreased urine output and was wondering about inotropic support. However, after discussion with the patient, patient does not want any additional IV medications at this time. Date of service 11/26/2023: denies any shortness of breath, chest pain, palpitations. She is complaining of pain and swelling in her left arm. Date of service 11/28/2023: Feels about the same today. Denies any shortness of breath, chest pain. She is feeling frustrated with the length of her hospitalization. Date of service 11/29/2023: Left arm remains painful and swollen. BP slightly better and she is actually urinating a little more despite diuretics being held. Date of service
[2023-12-02] MEDS: APIXABAN 5 MG TABLET PO ×2 (09:30→20:54)
[2023-12-02] MEDS: FUROSEMIDE INJ 40 MG/4 ML VIAL IV PUSH ×2 (09:31→17:44)
--- NOTE | 2023-12-02 11:40 | P.PNNP_ITS ---
Progress Note: A&P Assessment and Plan (1) MARY (acute kidney injury): Code(s): N17.9 - Acute kidney failure, unspecified Status: Acute Assessment and Plan: * improvement noted * normal creatinine at baseline/prior to admission * evaluation to date: * urine electrolytes are non pre renal by FeNA but the FeUrea shows pre renal azotemia * CT abdomen/renal ultrasound shows normal kidneys and no hydronephrosois * CK is normal * urine protein/creatinine ratio 630 (so this is not contributing much to the edema) * suspect the normal creatinine from admision may have been due to dilution from all the fluid/volume overload * this is likely chronic pre renal azotemia from cardiorenal syndrome * this is further complicated by her chronic hypotension * follow trend of renal function and UOP (2) 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ailure: Code(s): I50.43 - 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ailure Status: Acute Assessment and Plan: * Echo with EF 15 - 20% with grade III diastolic dysfunction * this is complicated by patient's non-compliance with medications * medical management and therapy difficult to continue due to hypotension * Cardiology following * trial of dobutamine gtt currently * IV diuretics scheduled * follow I/Os, daily weights, and volume status (3) Deep vein thrombosis: Code(s): I82.409 - Acute embolism and thrombosis of unspecified deep veins of unspecified lower extremity Status: Acute Assessment and Plan: * right basilic vein and external jugular vein thrombosis by imaging * on apixaban (4) Urinary tract infection: Code(s): N39.0 - Urinary tract infection, site not specified Status: Acute Assessment and Plan: * culture with E.coli * completed course of antibiotics Although dialysis is an option with regard to fluid removal/ultrafiltration, I suspect the same problem that she has here will be the same problem with dialysis; her blood pressure -- her chronic hypotension will probably limit how much fluid we can remove with each dialysis treatment Will continue to follow. Subjective Date/time seen: 12/02/23 11:40 Interval history: Follow-up for acute kidney injury/acute renal failure. Better urine output with IV lasix yesterday but still remains markedly swollen/edematous at this time; started on scheduled IV lasix today and being continued on dobutamine gtt; no apparent distress noted; renal function improving by trend of labs. Exam Narrative: General: Large female in NAD Heart: normal S1 and S2; no rub Lungs: clear anteriorly Abdomen: soft, nontender, nondistended, positive bowel sounds Extremities: no cyanosis or clubbing; 2+ edema Skin: chronic venous stasis changes apparent Objective Data Vital Signs Vital Signs: Vital Signs Temp Pulse Resp BP Pulse Ox O2 Del Method 12/02/23 11:40 97.8 F 108 H 18 106/51 L 95 12/02/23 08:00 Room Air 12/02/23 10:00 105 H 12/02/23 08:00 98 12/02/23 08:00 98.9 F 102 H 20 104/46 L 93 12/02/23 07:49 102 H 20 93 Room Air 12/02/23 04:00 95 Room Air 12/02/23 04:00 101 H 12/02/23 04:16 98.7 F 104 H 18 89/43 L 95 12/02/23 02:00 101 H
--- NOTE | 2023-12-02 11:40 | PM.PNNEP ---
Progress Note: A&P Assessment and Plan (1) MARY (acute kidney injury): Code(s): N17.9 - Acute kidney failure, unspecified Status: Acute Assessment and Plan: improvement noted normal creatinine at baseline/prior to admission evaluation to date: urine electrolytes are non pre renal by FeNA but the FeUrea shows pre renal azotemia CT abdomen/renal ultrasound shows normal kidneys and no hydronephrosois CK is normal urine protein/creatinine ratio 630 (so this is not contributing much to the edema) suspect the normal creatinine from admision may have been due to dilution from all the fluid/volume overload this is likely chronic pre renal azotemia from cardiorenal syndrome this is further complicated by her chronic hypotension follow trend of renal function and UOP (2) 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ailure: Code(s): I50.43 - 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ailure Status: Acute Assessment and Plan: Echo with EF 15 - 20% with grade III diastolic dysfunction this is complicated by patient's non-compliance with medications medical management and therapy difficult to continue due to hypotension Cardiology following trial of dobutamine gtt currently IV diuretics scheduled follow I/Os, daily weights, and volume status (3) Deep vein thrombosis: Code(s): I82.409 - Acute embolism and thrombosis of unspecified deep veins of unspecified lower extremity Status: Acute Assessment and Plan: right basilic vein and external jugular vein thrombosis by imaging on apixaban (4) Urinary tract infection: Code(s): N39.0 - Urinary tract infection, site not specified Status: Acute Assessment and Plan: culture with E.coli completed course of antibiotics Although dialysis is an option with regard to fluid removal/ultrafiltration, I suspect the same problem that she has here will be the same problem with dialysis; her blood pressure -- her chronic hypotension will probably limit how much fluid we can remove with each dialysis treatment Will continue to follow. Subjective Date/time seen: 12/02/23 11:40 Interval history: Follow-up for acute kidney injury/acute renal failure. Better urine output with IV lasix yesterday but still remains markedly swollen/edematous at this time; started on scheduled IV lasix today and being continued on dobutamine gtt; no apparent distress noted; renal function improving by trend of labs. Exam Narrative: General: Large female in NAD Heart: normal S1 and S2; no rub Lungs: clear anteriorly Abdomen: soft, nontender, nondistended, positive bowel sounds Extremities: no cyanosis or clubbing; 2+ edema Skin: chronic venous stasis changes apparent Objective Data Vital Signs Vital Signs: Vital Signs Temp Pulse Resp BP Pulse Ox O2 Del Method 12/02/23 11:40 97.8 F 108 H 18 106/51 L 95 12/02/23 08:00 Room Air 12/02/23 10:00 105 H 12/02/23 08:00 98 12/02/23 08:00 98.9 F 102 H 20 104/46 L 93 12/02/23 07:49 102 H 20 93 Room Air 12/02/23 04:00 95 Room Air 12/02/23 04:00 101 H 12/02/23 04:16 98.7 F 104 H 18 89/43 L 95 12/02/23 02:00 101 H 12/02/23 00:00 92 Room Air 12/02/23 00:00 92 12/02/23 00:24 98.8 F 106 H 18 83/32 L 92 12/01/23 22:00 91 12/01/23 20:00 96 Room Air 12/01/23 20:00 100 12/01/23 20:35 98.2 F 101 H 20 77/30 L 96 12/01/23 18:00 99 12/01/23 16:00 91 12/01/23 16:00 Room Air 12/01/23 17:13 98.4 F 107 H 20 94/61 L 96 12/01/23 15:57 98.0 F 96 20 105/37 L 96 12/01/23 14:00 99 12/01/23 14:29 80 12/01/23 14:16 80 Intake/Output Intake/Output: Intake & Output 11/29/23 11/30/23 12/01/23 12/02/23 23:59 23:59 23:59 23:59
--- NOTE | 2023-12-02 13:11 | P.PNIM_ITS ---
Progress Note: A&P Assessment and Plan (1) 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ailure: Code(s): I50.43 - 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ailure Status: Acute Assessment and Plan: ECHO ?EF is 20% patient may need dialysis for fluid overload, since BP precludes diuresis cardiology following Nephrology following Now getting diuresed as tolerated blood pressure has improved some. (2) Left bundle branch block: Code(s): I44.7 - Left bundle-branch block, unspecified Status: Acute Assessment and Plan: * Stable (3) MARY (acute kidney injury): Code(s): N17.9 - Acute kidney failure, unspecified Status: Acute Assessment and Plan: * Creatinine on admission was 1. Worsened with diuresis with creatinine up to 2.2 Associated acute on chronic systolic heart failure Was placed on dobutamine infusion during the hospital stay Now off dobutamine Diuresis currently on hold due to MARY but now restarted Nephrology on board Added albumin (4) UTI (urinary tract infection), bacterial: Code(s): N39.0 - Urinary tract infection, site not specified; A49.9 - Bacterial infection, unspecified Status: Acute Assessment and Plan: * 2/4 culture growing E coli, sensitivity evaluated now on Kelflex finished course of antibiotics (5) Deep vein thrombosis: Code(s): I82.409 - Acute embolism and thrombosis of unspecified deep veins of unspecified lower extremity Status: Acute Assessment and Plan: * right basilic vein and external jugular vein thrombosis * continue apixaban * US venous doppler negative for LUE this is still edematous. Elevate arm * Will cover with Ancef for possible cellulitis (6) Jaundice: Code(s): R17 - Unspecified jaundice Status: Acute Assessment and Plan: * Possible cardiac cirrhosis * 2/4 US abd showed cholelithiasis with non specific gb thickening negative smith's sign * Bilirubin still elevated, unable to do MRCP due to GFR less than 30 to avoid NSF * b12/folate wnl, LDH, haptoglobin pending Anti mitochondrial antibody pending ROSEANNA positive, 1 is 40 * Nuclear, Homogeneous * Homogeneous pattern is associated with systemic lupus * erythematosus (SLE), drug-induced lupus and juvenile * idiopathic arthritis. * AC-1: Homogeneous * Will check specific panel (7) Left shoulder pain: Code(s): M25.512 - Pain in left shoulder Status: Acute Assessment and Plan: * Clinically has adhesive capsulitis * 2/4 x-ray, heat, physical therapy ordered (8) Venous stasis ulcer: Code(s): I83.009 - Varicose veins of unspecified lower extremity with ulcer of unspecified site; L97.909 - Non-pressure chronic ulcer of unspecified part of u nspecified lower leg with unspecified severity Status: Acute Assessment and Plan: * Distal left leg * Continue dressing changes (9) Candidal intertrigo: Code(s): B37.2 - Candidiasis of skin and nail Status: Acute Assessment and Plan: * Continue topical medication (10) Noncompliance with medication regimen: Code(s): Z91.148 - Patient's other noncompliance with medication regimen for other reason Status: Acute Assessment and Plan: * severely impaired ejection fraction. stressed emphasis on compliance to medications (11) Morbid obesity: Code(s): E66.01 - Morbid (severe) obesity due to excess calories Status: Chronic (12) Hy
--- NOTE | 2023-12-02 13:11 | PM.IMPN ---
Progress Note: A&P Assessment and Plan (1) 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ailure: Code(s): I50.43 - 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ailure Status: Acute Assessment and Plan: ECHO ?EF is 20% patient may need dialysis for fluid overload, since BP precludes diuresis cardiology following Nephrology following Now getting diuresed as tolerated blood pressure has improved some. (2) Left bundle branch block: Code(s): I44.7 - Left bundle-branch block, unspecified Status: Acute Assessment and Plan: Stable (3) MARY (acute kidney injury): Code(s): N17.9 - Acute kidney failure, unspecified Status: Acute Assessment and Plan: Creatinine on admission was 1. Worsened with diuresis with creatinine up to 2.2 Associated acute on chronic systolic heart failure Was placed on dobutamine infusion during the hospital stay Now off dobutamine Diuresis currently on hold due to MARY but now restarted Nephrology on board Added albumin (4) UTI (urinary tract infection), bacterial: Code(s): N39.0 - Urinary tract infection, site not specified; A49.9 - Bacterial infection, unspecified Status: Acute Assessment and Plan: 2/ culture growing E coli, sensitivity evaluated now on Kelflex finished course of antibiotics (5) Deep vein thrombosis: Code(s): I82.409 - Acute embolism and thrombosis of unspecified deep veins of unspecified lower extremity Status: Acute Assessment and Plan: right basilic vein and external jugular vein thrombosis continue apixaban US venous doppler negative for LUE this is still edematous. 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 AC-1: Homogeneous Will check specific panel (7) Left shoulder pain: Code(s): M25.512 - Pain in left shoulder Status: Acute Assessment and Plan: Clinically has adhesive capsulitis 2/4 x-ray, heat, physical therapy ordered (8) Venous stasis ulcer: Code(s): I83.009 - Varicose veins of unspecified lower extremity with ulcer of unspecified site; L97.909 - Non-pressure chronic ulcer of unspecified part of unspecified lower leg with unspecified severity Status: Acute Assessment and Plan: Distal left leg Continue dressing changes (9) Candidal intertrigo: Code(s): B37.2 - Candidiasis of skin and nail Status: Acute Assessment and Plan: Continue topical medication (10) Noncompliance with medication regimen: Code(s): Z91.148 - Patient's other noncompliance with medication regimen for other reason Status: Acute Assessment and Plan: severely impaired ejection fraction. stressed emphasis on compliance to medications (11) Morbid obesity: Code(s): E66.01 - Morbid (severe) obesity due to excess calories Status: Chronic (12) Hypokalemia: Code(s): E87.6 - Hypokalemia Status: Acute Assessment and Plan: Resolved (13) Abnormality of gait and mobility: Code(s): R26.9 - Unspecified abnormalities of gait and mobility Status: Acute Assessment and Plan: Would benefit from therapy PT/ OT ordered pt will benefit from sitting in chair Subjective Date/time seen: 12/02/23 13:11 Interval history: Follow-up for
[2023-12-02] MEDS: BETAMETHASONE/CLOTRIMAZOLE CR 15 GM TUBE 1 APPLIC TOPICAL (18:15)
[2023-12-02] MEDS: TOLNAFTATE 1% POWDER 45 GM BTL 1 APPLIC TOPICAL ×2 (18:15→20:54)
[2023-12-03] VITALS (17 sets, daily range): BP systolic 86–117; BP diastolic 48–71; PULSE 86–108; RESP 18–24; TEMP 36.1–37.2; O2SAT 92–98
[2023-12-03] MEDS: DOBUTamine 250 MG/D5W 250 ML 250 MG/250 ML BAG 53.01 MG IV CONT ×5 (03:32→23:17)
[2023-12-03] MEDS: ceFAZolin 1 GM/NS 50 ML 1 GM/50 ML BAG IVPB (05:22)
[2023-12-03] MEDS: CENTRAL LINE FLUSH 10 ML IV PUSH ×3 (05:23→22:51)
[2023-12-03 05:37] LABS: Basophils Percent Auto 0.8 % (0.2-1.2); Eosinophils Absolute Auto 0.1 K/mm3 (0-0.3); Eosinophils Percent Auto 1.4 % (0-4.4); Hematocrit 24.3 % (37.0-47.0); Hemoglobin 7.8 g/dL (12.0-15.0); Immature Granulocyte Absolute 0.16 K/mm3 (0.00-0.031); Immature Granulocyte Percent A 3.3 % (0-0.5); Lymphocytes Absolute Auto 0.55 K/mm3 (0.9-3.2); Lymphocytes Percent Auto 11.2 % (18.3-44.2); Mean Corpuscular HGB Conc 32.1 g/dl (32-36); Mean Corpuscular Hemoglobin 34.4 pg (26-34); Monocytes Absolute Auto 0.4 K/mm3 (0.1-0.6); Neutrophils Absolute Auto 3.7 K/mm3 (1.3-6.7); Neutrophils Percent Auto 75.3 % (45.5-73.1); Platelet Count Result 176 k/mm3 (150-375); Red Blood Count 2.27 M/mm3 (4.2-5.4); Red Cell Distribution Width 16.8 % (11.5-14.5); White Blood Count 4.9 K/mm3 (4.5-10.0)
[2023-12-03 05:46] LABS: Alanine Aminotransferase 6 U/L (6-35); Albumin Level 3.2 g/dL (3.5-5.1); Alkaline Phosphatase 176 U/L (38-126); Anion Gap 5 mmol/L (8-16); Aspartate Amino Transferase 23 U/L (14-36); Bilirubin,Total 6.3 mg/dL (0.2-1.3); Blood Urea Nitrogen 45 mg/dL (7-17); Calcium 8.3 mg/dL (8.4-10.2); Carbon Dioxide 29 mmol/L (22-30); Chloride 97 mmol/L (98-107); Estimated CRCL calculation 79 ml/min; Estimated Glomerular Filt Rate 46; Glucose 258 mg/dL (65-110); Phosphorus 3.2 mg/dL (2.5-4.5); Potassium 3.8 mmol/L (3.4-5.0); Sodium 131 mmol/L (137-145)
[2023-12-03] MEDS: ALBUMIN HUMAN 25% 25 GM/100 ML 100 ML IVPB ×2 (06:15→12:11)
[2023-12-03 06:23] LABS: Anisocytosis 1+ (NORMAL); Hypochromasia 1+ (NORMAL); Ovalocytes 1+ (NORMAL); Platelet Estimate Adequate (Adequate); Schistocytes None Seen (NORMAL)
[2023-12-03] MEDS: APIXABAN 5 MG TABLET PO ×2 (09:09→20:41)
[2023-12-03] MEDS: FUROSEMIDE INJ 40 MG/4 ML VIAL IV PUSH (09:09)
--- NOTE | 2023-12-03 10:01 | PM.PNNEP ---
Progress Note: A&P Assessment and Plan (1) MARY (acute kidney injury): Code(s): N17.9 - Acute kidney failure, unspecified Status: Acute Assessment and Plan: improvement noted normal creatinine at baseline/prior to admission evaluation to date: urine electrolytes are non pre renal by FeNA but the FeUrea shows pre renal azotemia CT abdomen/renal ultrasound shows normal kidneys and no hydronephrosois CK is normal urine protein/creatinine ratio 630 (so this is not contributing much to the edema) suspect the normal creatinine from admision may have been due to dilution from all the fluid/volume overload this is likely chronic pre renal azotemia from cardiorenal syndrome this is further complicated by her chronic hypotension follow trend of renal function and UOP (2) 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ailure: Code(s): I50.43 - 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ailure Status: Acute Assessment and Plan: Echo with EF 15 - 20% with grade III diastolic dysfunction this is complicated by patient's non-compliance with medications medical management and therapy difficult to continue due to hypotension Cardiology following trial of dobutamine gtt currently IV diuretics scheduled - consider increasing dose versus frequency to augment diuresis? follow I/Os, daily weights, and volume status (3) Deep vein thrombosis: Code(s): I82.409 - Acute embolism and thrombosis of unspecified deep veins of unspecified lower extremity Status: Acute Assessment and Plan: right basilic vein and external jugular vein thrombosis by imaging on apixaban (4) Urinary tract infection: Code(s): N39.0 - Urinary tract infection, site not specified Status: Acute Assessment and Plan: culture with E.coli completed course of antibiotics Although dialysis is an option with regard to fluid removal/ultrafiltration, I suspect the same problem that she has here will be the same problem with dialysis; her blood pressure -- her chronic hypotension will probably limit how much fluid we can remove with each dialysis treatment and will likely worsen her hypotension as well. Will continue to follow. Subjective Date/time seen: 12/03/23 10:01 Interval history: Follow-up for acute kidney injury/acute renal failure. Good urine output with combination of dobutamine and lasix with associated improvement in renal function/creatinine but still not in significant negative fluid balance based on I/Os; IV albumin added yesterday; still with swelling/edema present as well. Exam Narrative: General: Large female in NAD Heart: normal S1 and S2; no rub Lungs: clear anteriorly Abdomen: soft, nontender, nondistended, positive bowel sounds Extremities: no cyanosis or clubbing; 2+ edema Skin: chronic venous stasis changes Objective Data Vital Signs Vital Signs: Vital Signs Temp Pulse Resp BP Pulse Ox O2 Del Method 12/03/23 10:00 98.4 F 108 H 24 H 109/63 95 12/03/23 08:00 89 18 94 Room Air 12/03/23 08:00 89 12/03/23 08:31 89 12/03/23 07:50 98.1 F 89 18 117/65 94 12/03/23 05:59 88 12/03/23 04:00 97.0 F L 86 18 86/48 L 96 12/03/23 03:42 88 18 98 Room Air 12/03/23 03:42 88 12/03/23 03:32 92 12/03/23 02:00 90 12/03/23 00:00 92 18 98 Room Air 12/03/23 00:00 92 12/02/23 23:58 97.9 F 94 18 101/49 L 98 12/02/23 22:42 84 12/02/23 22:00 74 12/02/23 20:00 95 18 100 Room Air 12/02/23 20:00 98 12/02/23 20:39 97.7 F 95 18 96/52 L 100 12/02/23 16:00 Room Air 12/02/23 12:00 Room Air 12/02/23 18:00 100 12/02/23 16:00 95 12/02/23 14:00 101 H 12/02/23 12:00 106 H 12/02/23 16:00 98.5 F 103 H 18 103/55 L 93
--- NOTE | 2023-12-03 10:01 | P.PNNP_ITS ---
Progress Note: A&P Assessment and Plan (1) MARY (acute kidney injury): Code(s): N17.9 - Acute kidney failure, unspecified Status: Acute Assessment and Plan: * improvement noted * normal creatinine at baseline/prior to admission * evaluation to date: * urine electrolytes are non pre renal by FeNA but the FeUrea shows pre renal azotemia * CT abdomen/renal ultrasound shows normal kidneys and no hydronephrosois * CK is normal * urine protein/creatinine ratio 630 (so this is not contributing much to the edema) * suspect the normal creatinine from admision may have been due to dilution from all the fluid/volume overload * this is likely chronic pre renal azotemia from cardiorenal syndrome * this is further complicated by her chronic hypotension * follow trend of renal function and UOP (2) 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ailure: Code(s): I50.43 - 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ailure Status: Acute Assessment and Plan: * Echo with EF 15 - 20% with grade III diastolic dysfunction * this is complicated by patient's non-compliance with medications * medical management and therapy difficult to continue due to hypotension * Cardiology following * trial of dobutamine gtt currently * IV diuretics scheduled - consider increasing dose versus frequency to augment diuresis? * follow I/Os, daily weights, and volume status (3) Deep vein thrombosis: Code(s): I82.409 - Acute embolism and thrombosis of unspecified deep veins of unspecified lower extremity Status: Acute Assessment and Plan: * right basilic vein and external jugular vein thrombosis by imaging * on apixaban (4) Urinary tract infection: Code(s): N39.0 - Urinary tract infection, site not specified Status: Acute Assessment and Plan: * culture with E.coli * completed course of antibiotics Although dialysis is an option with regard to fluid removal/ultrafiltration, I suspect the same problem that she has here will be the same problem with dialysis; her blood pressure -- her chronic hypotension will probably limit how much fluid we can remove with each dialysis treatment and will likely worsen her hypotension as well. Will continue to follow. Subjective Date/time seen: 12/03/23 10:01 Interval history: Follow-up for acute kidney injury/acute renal failure. Good urine output with combination of dobutamine and lasix with associated improvement in renal function/creatinine but still not in significant negative fluid balance based on I/Os; IV albumin added yesterday; still with swelling/edema present as well. Exam Narrative: General: Large female in NAD Heart: normal S1 and S2; no rub Lungs: clear anteriorly Abdomen: soft, nontender, nondistended, positive bowel sounds Extremities: no cyanosis or clubbing; 2+ edema Skin: chronic venous stasis changes Objective Data Vital Signs Vital Signs: Vital Signs Temp Pulse Resp BP Pulse Ox O2 Del Method 12/03/23 10:00 98.4 F 108 H 24 H 109/63 95 12/03/23 08:00 89 18 94 Room Air 12/03/23 08:00 89 12/03/23 08:31 89 12/03/23 07:50 98.1 F 89 18 117/65 94 12/03/23 05:59 88 12/03/23 04:00 97.0 F L 86 18 86/48 L 96 12/03/23 03:42
--- NOTE | 2023-12-03 12:27 | P.PNIM_ITS ---
Progress Note: A&P Assessment and Plan (1) 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ailure: Code(s): I50.43 - 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ailure Status: Acute Assessment and Plan: ECHO ?EF is 20% patient may need dialysis for fluid overload, since BP precludes diuresis cardiology following Nephrology following Now getting diuresed as tolerated blood pressure has improved some. (2) Left bundle branch block: Code(s): I44.7 - Left bundle-branch block, unspecified Status: Acute Assessment and Plan: * Stable (3) MARY (acute kidney injury): Code(s): N17.9 - Acute kidney failure, unspecified Status: Acute Assessment and Plan: * Creatinine on admission was 1. Worsened with diuresis with creatinine up to 2.2 Associated acute on chronic systolic heart failure Was placed on dobutamine infusion during the hospital stay Now off dobutamine Diuresis currently on hold due to MARY but now restarted Nephrology on board Added albumin (4) UTI (urinary tract infection), bacterial: Code(s): N39.0 - Urinary tract infection, site not specified; A49.9 - Bacterial infection, unspecified Status: Acute Assessment and Plan: * 2/4 culture growing E coli, sensitivity evaluated now on Kelflex finished course of antibiotics (5) Deep vein thrombosis: Code(s): I82.409 - Acute embolism and thrombosis of unspecified deep veins of unspecified lower extremity Status: Acute Assessment and Plan: * right basilic vein and external jugular vein thrombosis * continue apixaban * US venous doppler negative for LUE this is still edematous. Elevate arm * Will cover with Ancef for possible cellulitis will switch to Keflex to complete 7 days course (6) Jaundice: Code(s): R17 - Unspecified jaundice Status: Acute Assessment and Plan: * Possible cardiac cirrhosis * 2/4 US abd showed cholelithiasis with non specific gb thickening negative smith's sign * Bilirubin still elevated, unable to do MRCP due to GFR less than 30 to avoid NSF * b12/folate wnl, LDH, haptoglobin pending Anti mitochondrial antibody pending ROSEANNA positive, 1 is 40 * Nuclear, Homogeneous * Homogeneous pattern is associated with systemic lupus * erythematosus (SLE), drug-induced lupus and juvenile * idiopathic arthritis. * AC-1: Homogeneous * Will check specific panel. These are pending (7) Left shoulder pain: Code(s): M25.512 - Pain in left shoulder Status: Acute Assessment and Plan: * Clinically has adhesive capsulitis * 2/4 x-ray, heat, physical therapy ordered (8) Venous stasis ulcer: Code(s): I83.009 - Varicose veins of unspecified lower extremity with ulcer of unspecified site; L97.909 - Non-pressure chronic ulcer of unspecified part of unspecified lower leg with unspecified severity Status: Acute Assessment and Plan: * Distal left leg * Continue dressing changes (9) Candidal intertrigo: Code(s): B37.2 - Candidiasis of skin and nail Status: Acute Assessment and Plan: * Continue topical medication (10) Noncompliance with medication regimen: Code(s): Z91.148 - Patient's other noncompliance with medication regimen for other reason Status: Acute Assessment and Plan: * severely impaired ejection fraction. stressed emphasis on compliance to medications (11) Morbid obesity: Code(s): E66.01 - Morbid (luis
--- NOTE | 2023-12-03 12:27 | PM.IMPN ---
Progress Note: A&P Assessment and Plan (1) 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ailure: Code(s): I50.43 - 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ailure Status: Acute Assessment and Plan: ECHO ?EF is 20% patient may need dialysis for fluid overload, since BP precludes diuresis cardiology following Nephrology following Now getting diuresed as tolerated blood pressure has improved some. (2) Left bundle branch block: Code(s): I44.7 - Left bundle-branch block, unspecified Status: Acute Assessment and Plan: Stable (3) MARY (acute kidney injury): Code(s): N17.9 - Acute kidney failure, unspecified Status: Acute Assessment and Plan: Creatinine on admission was 1. Worsened with diuresis with creatinine up to 2.2 Associated acute on chronic systolic heart failure Was placed on dobutamine infusion during the hospital stay Now off dobutamine Diuresis currently on hold due to MARY but now restarted Nephrology on board Added albumin (4) UTI (urinary tract infection), bacterial: Code(s): N39.0 - Urinary tract infection, site not specified; A49.9 - Bacterial infection, unspecified Status: Acute Assessment and Plan: 2/ culture growing E coli, sensitivity evaluated now on Kelflex finished course of antibiotics (5) Deep vein thrombosis: Code(s): I82.409 - Acute embolism and thrombosis of unspecified deep veins of unspecified lower extremity Status: Acute Assessment and Plan: right basilic vein and external jugular vein thrombosis continue apixaban US venous doppler negative for LUE this is still edematous. 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 AC-1: Homogeneous Will check specific panel. These are pending (7) Left shoulder pain: Code(s): M25.512 - Pain in left shoulder Status: Acute Assessment and Plan: Clinically has adhesive capsulitis 2/4 x-ray, heat, physical therapy ordered (8) Venous stasis ulcer: Code(s): I83.009 - Varicose veins of unspecified lower extremity with ulcer of unspecified site; L97.909 - Non-pressure chronic ulcer of unspecified part of unspecified lower leg with unspecified severity Status: Acute Assessment and Plan: Distal left leg Continue dressing changes (9) Candidal intertrigo: Code(s): B37.2 - Candidiasis of skin and nail Status: Acute Assessment and Plan: Continue topical medication (10) Noncompliance with medication regimen: Code(s): Z91.148 - Patient's other noncompliance with medication regimen for other reason Status: Acute Assessment and Plan: severely impaired ejection fraction. stressed emphasis on compliance to medications (11) Morbid obesity: Code(s): E66.01 - Morbid (severe) obesity due to excess calories Status: Chronic (12) Hypokalemia: Code(s): E87.6 - Hypokalemia Status: Acute Assessment and Plan: Resolved (13) Abnormality of gait and mobility: Code(s): R26.9 - Unspecified abnormalities of gait and mobility Status: Acute Assessment and Plan: Would benefit from therapy PT/ OT ordered pt will benefit from sitting in chair Subjective Da
--- NOTE | 2023-12-03 13:27 | PM.PNCARD ---
Progress Note: A&P Assessment and Plan (1) 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ailure: Code(s): I50.43 - 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ailure Status: Acute Assessment and Plan: 58-year-old female with history of CHF with reduced ejection fraction (unclear etiology)-with acute on chronic CHF with reduced ejection fraction. 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 -I am going to stop the albumin since she remains fluid balance positive -Without inotropic support I am concerned diuresis will be very difficult, so may want to consider transfer to [facility] for advanced therapies, though her candidacy for advanced support is questionable (2) MARY (acute kidney injury): Code(s): N17.9 - Acute kidney failure, unspecified Status: Acute Assessment and Plan: Creatinine is improving, 1.2 today. Likely from cardiorenal syndrome Nephrology is following. Plan as above (3) At risk for sleep apnea: Code(s): Z91.89 - Other specified personal risk factors, not elsewhere classified Status: Acute Assessment and Plan: Patient is morbidly obese and probably has KRZYSZTOF. Not interested in sleep study as an outpatient at this time. (4) Noncompliance with medication regimen: Code(s): Z91.148 - Patient's other noncompliance with medication regimen for other reason Status: Acute Assessment and Plan: Discussed importance of medication compliance and outpatient follow-up with the patient. She verbalized understanding. She remains at risk for rehospitalization. Subjective Date/time seen: 12/03/23 13:27 Interval history: Date of service: 11/24/2023 Interval history: Patient was sitting up in the recliner, reported improvement in her shortness of breath. At the time of evaluation, patient's son and the nurse was in the room. I spoke at length with the patient and her son about her previous cardiac history. She states that she was diagnosed with CHF many many years ago. According to patient's son, she was probably diagnosed with heart failure after childbirth. Patient does not recall any ischemic evaluation in the past. She has not been fully compliant with medical regimen as an outpatient. Patient denies documented history of KRZYSZTOF and is not willing for evaluation for possible sleep apnea given her morbid obesity. Dr. Alcazar from Nephrology had concerns about patient's renal function and decreased urine output and was wondering about inotropic support. However, after discussion with the patient, patient does not want any additional IV medications at this time. Date of service 11/26/2023: denies any shortness of breath, chest pain, palpitations. She is complaining of pain and swelling in her left arm. Date of service 11/28/2023: Feels about the same today. Denies any shortness of breath, chest pain. She is feeling frustrated with the length of her hospitalization. Date of service 11/29/2023: Left arm remains painful and swollen. BP slightly better and she is actually urinating a little more despite diuretics being held. Date of service 11/30/2023: Seems to be tolerating dobutamine. No chest pain or shortness of breath. Renal function creatinine 1.8 Date of service 12/01/2023: Making no progress and in fact she feels like she is more swollen today Which does correlate to her positive fluid balance. She denies any chest pain. No trouble breathing date of service 12/02/2023: She tolerated furosemide yesterday. No chest pain. Still has marked edema. Date of service 12/03/2023: She is still fluid balance positive and remains edematous. Blood pressure is stable. No francesca
[2023-12-03] MEDS: BETAMETHASONE/CLOTRIMAZOLE CR 15 GM TUBE 1 APPLIC TOPICAL (15:11)
[2023-12-03] MEDS: TOLNAFTATE 1% POWDER 45 GM BTL 1 APPLIC TOPICAL ×2 (15:12→20:41)
[2023-12-03] MEDS: BUMETANIDE INJ 1 MG/4 ML VIAL IV PUSH ×2 (17:08→22:50)
[2023-12-03] MEDS: CEPHALEXIN 500 MG CAPSULE PO ×2 (17:09→23:20)
[2023-12-04] VITALS (18 sets, daily range): BP systolic 90–104; BP diastolic 48–60; PULSE 88–115; RESP 18–24; TEMP 36.4–37.3; O2SAT 92–99
[2023-12-04] MEDS: ACETAMINOPHEN 325 MG TABLET 650 MG PO ×3 (00:48→21:44)
[2023-12-04] MEDS: DOBUTamine 250 MG/D5W 250 ML 250 MG/250 ML BAG 53.01 MG IV CONT ×4 (04:08→23:33)
[2023-12-04] MEDS: CEPHALEXIN 500 MG CAPSULE PO ×3 (05:10→23:31)
[2023-12-04] MEDS: CENTRAL LINE FLUSH 10 ML IV PUSH ×3 (05:10→21:45)
[2023-12-04 05:33] LABS: Basophils Percent Auto 0.6 % (0.2-1.2); Eosinophils Absolute Auto 0.1 K/mm3 (0-0.3); Eosinophils Percent Auto 1.3 % (0-4.4); Hematocrit 23.7 % (37.0-47.0); Hemoglobin 7.6 g/dL (12.0-15.0); Immature Granulocyte Absolute 0.07 K/mm3 (0.00-0.031); Immature Granulocyte Percent A 1.3 % (0-0.5); Lymphocytes Absolute Auto 0.59 K/mm3 (0.9-3.2); Lymphocytes Percent Auto 11.2 % (18.3-44.2); Mean Corpuscular HGB Conc 32.1 g/dl (32-36); Mean Corpuscular Hemoglobin 34.5 pg (26-34); Mean Corpuscular Volume 107.7 fl (80-100); Mean Platelet Volume 11.5 fl (7.4-10.4); Monocytes Absolute Auto 0.4 K/mm3 (0.1-0.6); Monocytes Percent Auto 6.7 % (2.6-8.5); Neutrophils Absolute Auto 4.1 K/mm3 (1.3-6.7); Neutrophils Percent Auto 78.9 % (45.5-73.1); Platelet Count Result 187 k/mm3 (150-375); Red Cell Distribution Width 16.7 % (11.5-14.5); White Blood Count 5.3 K/mm3 (4.5-10.0)
[2023-12-04 05:55] LABS: Albumin Level 2.9 g/dL (3.5-5.1); Alkaline Phosphatase 165 U/L (38-126); Aspartate Amino Transferase 24 U/L (14-36); Bilirubin,Total 5.8 mg/dL (0.2-1.3); Blood Urea Nitrogen 43 mg/dL (7-17); Carbon Dioxide 29 mmol/L (22-30); Estimated CRCL calculation 84 ml/min; Estimated Glomerular Filt Rate 51; Glucose 307 mg/dL (65-110); Magnesium 1.9 mg/dL (1.6-2.3); Phosphorus 2.9 mg/dL (2.5-4.5)
[2023-12-04 06:00] LABS: Alanine Aminotransferase < 6 U/L (6-35)
[2023-12-04 06:21] LABS: Anion Gap 5 mmol/L (8-16); Chloride 95 mmol/L (98-107); Potassium 3.5 mmol/L (3.4-5.0); Sodium 129 mmol/L (137-145)
[2023-12-04 07:15] LABS: Anisocytosis 1+ (NORMAL); Ovalocytes 1+ (NORMAL); Platelet Estimate Adequate (Adequate); Schistocytes None Seen (NORMAL)
[2023-12-04] MEDS: APIXABAN 5 MG TABLET PO ×2 (08:36→21:43)
[2023-12-04] MEDS: metOLazone 5 MG TABLET PO (08:36)
[2023-12-04] MEDS: TOLNAFTATE 1% POWDER 45 GM BTL 1 APPLIC TOPICAL ×2 (08:41→21:44)
[2023-12-04] MEDS: BETAMETHASONE/CLOTRIMAZOLE CR 15 GM TUBE 1 APPLIC TOPICAL (08:46)
[2023-12-04] MEDS: BUMETANIDE INJ 1 MG/4 ML VIAL IV PUSH ×3 (08:46→17:21)
--- NOTE | 2023-12-04 09:30 | PCNWS ---
Weekly nutritional screen. Patient is tolerating current diet with adequate intake. Intakes 10-100%, mostly 100%. No weight loss reported. No nutritional needs at this time.
--- NOTE | 2023-12-04 10:17 | PM.IMPN ---
Progress Note: A&P Assessment and Plan (1) Urinary tract infection: Code(s): N39.0 - Urinary tract infection, site not specified Status: Acute (2) Anasarca: Code(s): R60.1 - Generalized edema Status: Acute (3) Deep vein thrombosis: Code(s): I82.409 - Acute embolism and thrombosis of unspecified deep veins of unspecified lower extremity Status: Acute (4) Left shoulder pain: Code(s): M25.512 - Pain in left shoulder Status: Acute (5) UTI (urinary tract infection), bacterial: Code(s): N39.0 - Urinary tract infection, site not specified; A49.9 - Bacterial infection, unspecified Status: Acute (6) Jaundice: Code(s): R17 - Unspecified jaundice Status: Acute (7) Venous stasis ulcer: Code(s): I83.009 - Varicose veins of unspecified lower extremity with ulcer of unspecified site; L97.909 - Non-pressure chronic ulcer of unspecified part of unspecified lower leg with unspecified severity Status: Acute (8) At risk for sleep apnea: Code(s): Z91.89 - Other specified personal risk factors, not elsewhere classified Status: Acute (9) MARY (acute kidney injury): Code(s): N17.9 - Acute kidney failure, unspecified Status: Acute Plan (1) 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ailure: ?Code(s): I50.43 - 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ailure ?Status:?Acute ?Assessment and Plan: ECHO ?EF is 20% patient may need dialysis for fluid overload, since BP precludes diuresis cardiology following Nephrology following Now getting diuresed as tolerated blood pressure has improved some. ?Remains on dobutamine drip.? Left arm swelling still persists. (2) Left bundle branch block: ?Code(s): I44.7 - Left bundle-branch block, unspecified ?Status:?Acute ?Assessment and Plan: Stable (3) MARY (acute kidney injury): ?Code(s): N17.9 - Acute kidney failure, unspecified ?Status:?Acute ?Assessment and Plan: Creatinine on admission was 1.?Worsened with diuresis with creatinine up to 2.2 Associated acute on chronic systolic heart failure Was placed on dobutamine infusion during the hospital stay Now off dobutamine Diuresis currently on hold due to MARY but now restarted Nephrology on board Added albumin Chronic anemia Hemoglobin trending down slowly Follow-up stool guaiac, iron panel, ferritin level, reticulocyte (4) UTI (urinary tract infection), bacterial: ?Code(s): N39.0 - Urinary tract infection, site not specified; A49.9 - Bacterial infection, unspecified ?Status:?Acute ?Assessment and Plan: 2 culture growing E coli, sensitivity evaluated now on Kelflex finished course of antibiotics(5) Deep vein thrombosis: Per nurse report, patient declined Keflex p.o. today 12/04. Discussed with patient about importance of compliance with medical treatment I82.409 - Acute embolism and thrombosis of unspecified deep veins of unspecified lower extremity ?Status:?Acute ?Assessment and Plan: right basilic vein and external jugular vein thrombosis continue apixaban US venous doppler negative for LUE this is still edematous.? 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 AC-1: Mary
[2023-12-04 10:51] LABS: Immature Reticulocyte Fraction 19.6 % (3.0-15.9); Reticulocyte Hemoglobin Conten 35.9 pg (28.2-35.7); Reticulocyte Percent 2.61 % (0.7-4.3); Reticulocytes Absolute 0.06 M/mm3 (0.02-0.1)
--- NOTE | 2023-12-04 11:20 | PM.PNCARD ---
Progress Note: A&P Assessment and Plan (1) 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ailure: Code(s): I50.43 - 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ailure Status: Acute Assessment and Plan: 58-year-old female with history of CHF with reduced ejection fraction (unclear etiology)-with acute on chronic CHF with reduced ejection fraction. 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 x1 -Without inotropic support I am concerned diuresis will be very difficult, so may want to consider transfer to [facility] for advanced therapies, though her candidacy for advanced support is questionable (2) MARY (acute kidney injury): Code(s): N17.9 - Acute kidney failure, unspecified Status: Acute Assessment and Plan: Creatinine is improving, 1.2 today. Likely from cardiorenal syndrome Nephrology is following. Plan as above (3) At risk for sleep apnea: Code(s): Z91.89 - Other specified personal risk factors, not elsewhere classified Status: Acute Assessment and Plan: Patient is morbidly obese and probably has KRZYSZTOF. Not interested in sleep study as an outpatient at this time. (4) Noncompliance with medication regimen: Code(s): Z91.148 - Patient's other noncompliance with medication regimen for other reason Status: Acute Assessment and Plan: Discussed importance of medication compliance and outpatient follow-up with the patient. She verbalized understanding. She remains at risk for rehospitalization. Subjective Date/time seen: 12/04/23 11:20 Interval history: Date of service: 11/24/2023 Interval history: Patient was sitting up in the recliner, reported improvement in her shortness of breath. At the time of evaluation, patient's son and the nurse was in the room. I spoke at length with the patient and her son about her previous cardiac history. She states that she was diagnosed with CHF many many years ago. According to patient's son, she was probably diagnosed with heart failure after childbirth. Patient does not recall any ischemic evaluation in the past. She has not been fully compliant with medical regimen as an outpatient. Patient denies documented history of KRZYSZTOF and is not willing for evaluation for possible sleep apnea given her morbid obesity. Dr. Alcazar from Nephrology had concerns about patient's renal function and decreased urine output and was wondering about inotropic support. However, after discussion with the patient, patient does not want any additional IV medications at this time. Date of service 11/26/2023: denies any shortness of breath, chest pain, palpitations. She is complaining of pain and swelling in her left arm. Date of service 11/28/2023: Feels about the same today. Denies any shortness of breath, chest pain. She is feeling frustrated with the length of her hospitalization. Date of service 11/29/2023: Left arm remains painful and swollen. BP slightly better and she is actually urinating a little more despite diuretics being held. Date of service 11/30/2023: Seems to be tolerating dobutamine. No chest pain or shortness of breath. Renal function creatinine 1.8 Date of service 12/01/2023: Making no progress and in fact she feels like she is more swollen today Which does correlate to her positive fluid balance. She denies any chest pain. No trouble breathing date of service 12/02/2023: She tolerated furosemide yesterday. No chest pain. Still has marked edema. Date of service 12/03/2023: She is still fluid balance positive and remains edematous. Blood pressure is stable. No shortness of breath, chest pain, palpitations. Left arm swelling/pain is improving Date of service 12/04/2023:
[2023-12-04 12:43] LABS: Iron 100 ug/dL (37-170)
--- NOTE | 2023-12-04 12:57 | PM.PNNEP ---
Progress Note: A&P Assessment and Plan (1) MARY (acute kidney injury): Code(s): N17.9 - Acute kidney failure, unspecified Status: Acute Assessment and Plan: improvement noted normal creatinine at baseline/prior to admission evaluation to date: urine electrolytes are non pre renal by FeNA but the FeUrea shows pre renal azotemia CT abdomen/renal ultrasound shows normal kidneys and no hydronephrosois CK is normal urine protein/creatinine ratio 630 (so this is not contributing much to the edema) suspect the normal creatinine from admission may have been due to dilution from all the fluid/volume overload etiology is likely chronic pre renal azotemia from cardiorenal syndrome this is further complicated by her chronic hypotension follow trend of renal function and UOP (2) 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ailure: Code(s): I50.43 - 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ailure Status: Acute Assessment and Plan: Echo with EF 15 - 20% with grade III diastolic dysfunction this is complicated by patient's non-compliance with medications medical management and therapy difficult to continue due to hypotension Cardiology following ondobutamine gtt currently on scheduled IV diuretics follow I/Os, daily weights, and volume status (3) Anemia: Code(s): D64.9 - Anemia, unspecified Status: Acute Assessment and Plan: suspect chronic disease no evidence of iron deficiency by anemia studies consider trial of JENNIFER (?) follow trend of H/H (4) Deep vein thrombosis: Code(s): I82.409 - Acute embolism and thrombosis of unspecified deep veins of unspecified lower extremity Status: Acute Assessment and Plan: right basilic vein and external jugular vein thrombosis by imaging on apixaban (5) Urinary tract infection: Code(s): N39.0 - Urinary tract infection, site not specified Status: Acute Assessment and Plan: culture with E.coli completed course of antibiotics Although dialysis is an option with regard to fluid removal/ultrafiltration, I suspect the same problem that she has here will be the same problem with dialysis; her blood pressure -- her chronic hypotension will probably limit how much fluid we can remove with each dialysis treatment and will likely worsen her hypotension as well. Will continue to follow. Subjective Date/time seen: 12/04/23 12:57 Interval history: Follow-up for acute kidney injury/acute renal failure. Better urine output with changing to IV bumex along with TID frequency in conjunction with ongoing dobutamine gtt; still quite swollen/edematous at this time; one-time dose of metolazone given this AM as well; renal function continues to improve as well. Exam Narrative: General: Large female in NAD Heart: normal S1 and S2; no rub Lungs: clear anteriorly Abdomen: soft, nontender, nondistended, positive bowel sounds Extremities: no cyanosis or clubbing; 2+ edema Skin: chronic venous stasis changes noted Objective Data Vital Signs Vital Signs: Vital Signs Temp Pulse Resp BP Pulse Ox O2 Del Method 12/04/23 12:00 95 Room Air 12/04/23 11:41 97.7 F 88 18 101/56 L 95 12/04/23 08:00 115 H 24 H 95 Room Air 12/04/23 08:00 98.2 F 102 H 24 H 103/60 96 12/04/23 05:28 104 H 12/04/23 05:21 97.8 F 94 18 92/53 L 99 12/04/23 04:00 105 H 18 92 Room Air 12/04/23 04:00 105 H 12/04/23 04:08 93 12/04/23 02:00 100 12/04/23 00:42 97.6 F 95 18 102/56 L 92 12/03/23 23:44 98 18 92 Room Air 12/03/23 23:44 98 12/03/23 23:17 102 H 12/03/23 22:00 104 H 12/03/23 20:00 97 18 92 Room Air 12/03/23 20:00 101 H 12/03/23 20:00 97.5 F L 97 18 99/56 L 92 12/03/23 16:00 Room Air
--- NOTE | 2023-12-04 12:57 | P.PNNP_ITS ---
Progress Note: A&P Assessment and Plan (1) MARY (acute kidney injury): Code(s): N17.9 - Acute kidney failure, unspecified Status: Acute Assessment and Plan: * improvement noted * normal creatinine at baseline/prior to admission * evaluation to date: * urine electrolytes are non pre renal by FeNA but the FeUrea shows pre renal azotemia * CT abdomen/renal ultrasound shows normal kidneys and no hydronephrosois * CK is normal * urine protein/creatinine ratio 630 (so this is not contributing much to the edema) * suspect the normal creatinine from admission may have been due to dilution from all the fluid/volume overload * etiology is likely chronic pre renal azotemia from cardiorenal syndrome * this is further complicated by her chronic hypotension * follow trend of renal function and UOP (2) 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ailure: Code(s): I50.43 - 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ailure Status: Acute Assessment and Plan: * Echo with EF 15 - 20% with grade III diastolic dysfunction * this is complicated by patient's non-compliance with medications * medical management and therapy difficult to continue due to hypotension * Cardiology following * ondobutamine gtt currently * on scheduled IV diuretics * follow I/Os, daily weights, and volume status (3) Anemia: Code(s): D64.9 - Anemia, unspecified Status: Acute Assessment and Plan: * suspect chronic disease * no evidence of iron deficiency by anemia studies * consider trial of JENNIFER (?) * follow trend of H/H (4) Deep vein thrombosis: Code(s): I82.409 - Acute embolism and thrombosis of unspecified deep veins of unspecified lower extremity Status: Acute Assessment and Plan: * right basilic vein and external jugular vein thrombosis by imaging * on apixaban (5) Urinary tract infection: Code(s): N39.0 - Urinary tract infection, site not specified Status: Acute Assessment and Plan: * culture with E.coli * completed course of antibiotics Although dialysis is an option with regard to fluid removal/ultrafiltration, I suspect the same problem that she has here will be the same problem with dialysis; her blood pressure -- her chronic hypotension will probably limit how much fluid we can remove with each dialysis treatment and will likely worsen her hypotension as well. Will continue to follow. Subjective Date/time seen: 12/04/23 12:57 Interval history: Follow-up for acute kidney injury/acute renal failure. Better urine output with changing to IV bumex along with TID frequency in conjunction with ongoing dobutamine gtt; still quite swollen/edematous at this time; one-time dose of metolazone given this AM as well; renal function continues to improve as well. Exam Narrative: General: Large female in NAD Heart: normal S1 and S2; no rub Lungs: clear anteriorly Abdomen: soft, nontender, nondistended, positive bowel sounds Extremities: no cyanosis or clubbing; 2+ edema Skin: chronic venous stasis changes noted Objective Data Vital Signs Vital Signs: Vital Signs Temp Pulse Resp BP Pulse Ox O2 Del Method 12/04/23 12:00 95 Room Air 12/04/23 11:41 97.7 F 88 18 101/56 L 95 12/04/23 08:00 115 H 24 H 95
[2023-12-04 13:05] LABS: Percent Iron Saturation 50 % (20-50)
--- NOTE | 2023-12-04 13:11 | PC.NURSE ---
Pt given 5 mg of Zaroxolyn at 0836. shortly after discontinued the order and ordered one time dose of 2.5 mg of Zaroxolyn. Clarified with Dr. Gay to hold the 2.5 dose since it was a duplicate.
[2023-12-05] VITALS (17 sets, daily range): BP systolic 83–122; BP diastolic 35–67; PULSE 54–106; RESP 18–24; TEMP 36.1–36.8; O2SAT 92–96
[2023-12-05] MEDS: DOBUTamine 250 MG/D5W 250 ML 250 MG/250 ML BAG 53.01 MG IV CONT ×4 (04:22→21:22)
[2023-12-05] MEDS: CEPHALEXIN 500 MG CAPSULE PO ×3 (05:28→23:42)
[2023-12-05] MEDS: CENTRAL LINE FLUSH 10 ML IV PUSH ×3 (05:28→21:23)
[2023-12-05 05:54] LABS: Basophils Percent Auto 0.7 % (0.2-1.2); Eosinophils Absolute Auto 0.1 K/mm3 (0-0.3); Eosinophils Percent Auto 1.4 % (0-4.4); Hemoglobin 7.9 g/dL (12.0-15.0); Immature Granulocyte Absolute 0.06 K/mm3 (0.00-0.031); Lymphocytes Percent Auto 10.4 % (18.3-44.2); Mean Corpuscular HGB Conc 31.6 g/dl (32-36); Mean Corpuscular Hemoglobin 33.5 pg (26-34); Mean Corpuscular Volume 105.9 fl (80-100); Monocytes Absolute Auto 0.4 K/mm3 (0.1-0.6); Monocytes Percent Auto 6.4 % (2.6-8.5); Neutrophils Absolute Auto 4.6 K/mm3 (1.3-6.7); Neutrophils Percent Auto 80.1 % (45.5-73.1); Platelet Count Result 214 k/mm3 (150-375); Red Blood Count 2.36 M/mm3 (4.2-5.4); Red Cell Distribution Width 16.7 % (11.5-14.5); White Blood Count 5.8 K/mm3 (4.5-10.0)
[2023-12-05 06:08] LABS: Alanine Aminotransferase 6 U/L (6-35); Albumin Level 3.1 g/dL (3.5-5.1); Alkaline Phosphatase 189 U/L (38-126); Anion Gap 5 mmol/L (8-16); Aspartate Amino Transferase 23 U/L (14-36); Bilirubin,Total 5.8 mg/dL (0.2-1.3); Blood Urea Nitrogen 41 mg/dL (7-17); Calcium 8.7 mg/dL (8.4-10.2); Carbon Dioxide 33 mmol/L (22-30); Chloride 97 mmol/L (98-107); Estimated CRCL calculation 83 ml/min; Estimated Glomerular Filt Rate 51; Glucose 96 mg/dL (65-110); Magnesium 1.9 mg/dL (1.6-2.3); Phosphorus 3.1 mg/dL (2.5-4.5); Potassium 3.6 mmol/L (3.4-5.0); Sodium 135 mmol/L (137-145)
[2023-12-05 06:41] LABS: Anisocytosis 1+ (NORMAL); Hypochromasia 1+ (NORMAL); Macrocytosis 1+ (NORMAL); Platelet Estimate Adequate (Adequate); Schistocytes None Seen (NORMAL)
[2023-12-05] MEDS: APIXABAN 5 MG TABLET PO ×2 (09:22→21:22)
[2023-12-05] MEDS: BUMETANIDE INJ 1 MG/4 ML VIAL IV PUSH ×3 (09:24→18:45)
--- NOTE | 2023-12-05 09:48 | PM.IMPN ---
Progress Note: A&P Assessment and Plan (1) Urinary tract infection: Code(s): N39.0 - Urinary tract infection, site not specified Status: Acute (2) Anasarca: Code(s): R60.1 - Generalized edema Status: Acute (3) Deep vein thrombosis: Code(s): I82.409 - Acute embolism and thrombosis of unspecified deep veins of unspecified lower extremity Status: Acute (4) Left shoulder pain: Code(s): M25.512 - Pain in left shoulder Status: Acute (5) UTI (urinary tract infection), bacterial: Code(s): N39.0 - Urinary tract infection, site not specified; A49.9 - Bacterial infection, unspecified Status: Acute (6) Jaundice: Code(s): R17 - Unspecified jaundice Status: Acute (7) Venous stasis ulcer: Code(s): I83.009 - Varicose veins of unspecified lower extremity with ulcer of unspecified site; L97.909 - Non-pressure chronic ulcer of unspecified part of unspecified lower leg with unspecified severity Status: Acute (8) At risk for sleep apnea: Code(s): Z91.89 - Other specified personal risk factors, not elsewhere classified Status: Acute (9) MARY (acute kidney injury): Code(s): N17.9 - Acute kidney failure, unspecified Status: Acute Plan (1) 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ailure: ?Code(s): I50.43 - 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ailure ?Status:?Acute ?Assessment and Plan: ECHO ?EF is 20% patient may need dialysis for fluid overload, since BP precludes diuresis cardiology following Nephrology following Now getting diuresed as tolerated blood pressure has improved some. 2/15 Continue dobutamine drip.? Left arm swelling still persists, 2/14 started Bumex 1 mg t.i.d. push, negative input output balance 3.73 L in past 24 hours (2) Left bundle branch block: ?Code(s): I44.7 - Left bundle-branch block, unspecified ?Status:?Acute ?Assessment and Plan: Stable (3) MARY (acute kidney injury): ?Code(s): N17.9 - Acute kidney failure, unspecified ?Status:?Acute ?Assessment and Plan: Creatinine on admission was 1.?Worsened with diuresis with creatinine up to 2.2 Possible cardiorenal syndrome Nephrology on board Added albumin Continue dobutamine and Bumex 1 mg t.i.d. IV Kidney function continue to improve Chronic anemia Hemoglobin trending down slowly Follow-up stool guaiac, iron panel: Iron 100, ferritin level 336, reticulocyte: High No need iron supplement now Hemoglobin stable (4) UTI (urinary tract infection), bacterial: ?Code(s): N39.0 - Urinary tract infection, site not specified; A49.9 - Bacterial infection, unspecified ?Status:?Acute ?Assessment and Plan: 11/24 culture growing E coli, sensitivity evaluated now on Kelflex finished course of antibiotics(5) Deep vein thrombosis: Per nurse report, patient declined Keflex p.o. today 12/04. Discussed with patient about importance of compliance with medical treatment I82.409 - Acute embolism and thrombosis of unspecified deep veins of unspecified lower extremity ?Status:?Acute ?Assessment and Plan: right basilic vein and external jugular vein thrombosis continue apixaban US venous doppler negative for LUE this is still edematous.? 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
--- NOTE | 2023-12-05 11:05 | PM.PNCARD ---
Progress Note: A&P Assessment and Plan (1) 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ailure: Code(s): I50.43 - 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ailure Status: Acute Assessment and Plan: 58-year-old female with history of CHF with reduced ejection fraction (unclear etiology)-with acute on chronic CHF with reduced ejection fraction. -Standard GDMT on hold because of hypotension and renal function, both of which are improving so perhaps can reintroduce some meds tomorrow -For now continue [employer] gtt at 5mcg/kg/min will give an additional dose of metolazone 2.5 mg p.o. x1 today. -Without inotropic support I am concerned diuresis will be very difficult, so may want to consider transfer to [facility] for advanced therapies, though her candidacy for advanced support is questionable Her blood pressure is improved. Hopefully will be able to wean dobutamine over the weekend and start transitioning her to standard heart failure meds. In the meantime will continue to aggressively diurese her and follow renal function (2) MARY (acute kidney injury): Code(s): N17.9 - Acute kidney failure, unspecified Status: Acute Assessment and Plan: Creatinine is improving, 1.2 today. Likely from cardiorenal syndrome Nephrology is following. Plan as above (3) At risk for sleep apnea: Code(s): Z91.89 - Other specified personal risk factors, not elsewhere classified Status: Acute Assessment and Plan: Patient is morbidly obese and probably has KRZYSZTOF. Not interested in sleep study as an outpatient at this time. (4) Noncompliance with medication regimen: Code(s): Z91.148 - Patient's other noncompliance with medication regimen for other reason Status: Acute Assessment and Plan: Discussed importance of medication compliance and outpatient follow-up with the patient. She verbalized understanding. She remains at risk for rehospitalization. Subjective Date/time seen: 12/05/23 11:05 Interval history: Date of service: 11/24/2023 Interval history: Patient was sitting up in the recliner, reported improvement in her shortness of breath. At the time of evaluation, patient's son and the nurse was in the room. I spoke at length with the patient and her son about her previous cardiac history. She states that she was diagnosed with CHF many many years ago. According to patient's son, she was probably diagnosed with heart failure after childbirth. Patient does not recall any ischemic evaluation in the past. She has not been fully compliant with medical regimen as an outpatient. Patient denies documented history of KRZYSZTOF and is not willing for evaluation for possible sleep apnea given her morbid obesity. Dr. Alcazar from Nephrology had concerns about patient's renal function and decreased urine output and was wondering about inotropic support. However, after discussion with the patient, patient does not want any additional IV medications at this time. Date of service 11/26/2023: denies any shortness of breath, chest pain, palpitations. She is complaining of pain and swelling in her left arm. Date of service 11/28/2023: Feels about the same today. Denies any shortness of breath, chest pain. She is feeling frustrated with the length of her hospitalization. Date of service 11/29/2023: Left arm remains painful and swollen. BP slightly better and she is actually urinating a little more despite diuretics being held. Date of service 11/30/2023: Seems to be tolerating dobutamine. No chest pain or shortness of breath. Renal function creatinine 1.8 Date of service 12/01/2023: Making no progress and in fact she feels like she is more swollen today Which does correlate to her positive fluid balance. She denies any chest pain. No trouble breathing date of service 12/02/2023: She tolerated furosemide yesterday. No chest pain. Stil
--- NOTE | 2023-12-05 11:47 | P.PNNP_ITS ---
Progress Note: A&P Assessment and Plan (1) MARY (acute kidney injury): Code(s): N17.9 - Acute kidney failure, unspecified Status: Acute Assessment and Plan: * improvement noted * normal creatinine at baseline/prior to admission * evaluation to date: * urine electrolytes are non pre renal by FeNA but the FeUrea shows pre renal azotemia * CT abdomen/renal ultrasound shows normal kidneys and no hydronephrosois * CK is normal * urine protein/creatinine ratio 630 (so this is not contributing much to the edema) * suspect the normal creatinine from admission may have been due to dilution from all the fluid/volume overload * etiology is likely chronic pre renal azotemia from cardiorenal syndrome * this is further complicated by her chronic hypotension * follow trend of renal function and UOP (2) 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ailure: Code(s): I50.43 - 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ailure Status: Acute Assessment and Plan: * Echo with EF 15 - 20% with grade III diastolic dysfunction * this is complicated by patient's non-compliance with medications * medical management and therapy difficult to continue due to hypotension * Cardiology following * on dobutamine gtt currently * on scheduled IV diuretics * follow I/Os, daily weights, and volume status (3) Anemia: Code(s): D64.9 - Anemia, unspecified Status: Acute Assessment and Plan: * suspect chronic disease * no evidence of iron deficiency by anemia studies * consider trial of JENNIFER (?) * follow trend of H/H (4) Deep vein thrombosis: Code(s): I82.409 - Acute embolism and thrombosis of unspecified deep veins of unspecified lower extremity Status: Acute Assessment and Plan: * right basilic vein and external jugular vein thrombosis by imaging * on apixaban (5) Urinary tract infection: Code(s): N39.0 - Urinary tract infection, site not specified Status: Acute Assessment and Plan: * culture with E.coli * completed course of antibiotics Although dialysis is an option with regard to fluid removal/ultrafiltration, I suspect the same problem that she has here will be the same problem with dialysis; her blood pressure -- her chronic hypotension will probably limit how much fluid we can remove with each dialysis treatment and will likely worsen her hypotension as well; would continue current therapy as this time Will continue to follow. Subjective Date/time seen: 12/05/23 11:47 Interval history: Follow-up for acute kidney injury/acute renal failure. Negative fluid balance achieved in the last 24 hours with current interventions/therapy to date; additional dose of metolazone given this AM; still with significant swelling/edema some improvement noted per patient; renal function stable as well; no apparent distress noted; denies any shortness of breath or chest pain. Exam Narrative: General: Large female in NAD Heart: normal S1 and S2; no rub Lungs: clear anteriorly Abdomen: soft, nontender, nondistended, positive bowel sounds Extremities: no cyanosis or clubbing; 2+ edema Skin: chronic venous stasis changes noted Objective Data Vital Signs Vital Signs: Vital Signs Temp Pulse Resp BP Pulse Ox O2 Del Method 12/05/23 11:00 98.2 F
--- NOTE | 2023-12-05 11:47 | PM.PNNEP ---
Progress Note: A&P Assessment and Plan (1) MARY (acute kidney injury): Code(s): N17.9 - Acute kidney failure, unspecified Status: Acute Assessment and Plan: improvement noted normal creatinine at baseline/prior to admission evaluation to date: urine electrolytes are non pre renal by FeNA but the FeUrea shows pre renal azotemia CT abdomen/renal ultrasound shows normal kidneys and no hydronephrosois CK is normal urine protein/creatinine ratio 630 (so this is not contributing much to the edema) suspect the normal creatinine from admission may have been due to dilution from all the fluid/volume overload etiology is likely chronic pre renal azotemia from cardiorenal syndrome this is further complicated by her chronic hypotension follow trend of renal function and UOP (2) 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ailure: Code(s): I50.43 - 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ailure Status: Acute Assessment and Plan: Echo with EF 15 - 20% with grade III diastolic dysfunction this is complicated by patient's non-compliance with medications medical management and therapy difficult to continue due to hypotension Cardiology following on dobutamine gtt currently on scheduled IV diuretics follow I/Os, daily weights, and volume status (3) Anemia: Code(s): D64.9 - Anemia, unspecified Status: Acute Assessment and Plan: suspect chronic disease no evidence of iron deficiency by anemia studies consider trial of JENNIFER (?) follow trend of H/H (4) Deep vein thrombosis: Code(s): I82.409 - Acute embolism and thrombosis of unspecified deep veins of unspecified lower extremity Status: Acute Assessment and Plan: right basilic vein and external jugular vein thrombosis by imaging on apixaban (5) Urinary tract infection: Code(s): N39.0 - Urinary tract infection, site not specified Status: Acute Assessment and Plan: culture with E.coli completed course of antibiotics Although dialysis is an option with regard to fluid removal/ultrafiltration, I suspect the same problem that she has here will be the same problem with dialysis; her blood pressure -- her chronic hypotension will probably limit how much fluid we can remove with each dialysis treatment and will likely worsen her hypotension as well; would continue current therapy as this time Will continue to follow. Subjective Date/time seen: 12/05/23 11:47 Interval history: Follow-up for acute kidney injury/acute renal failure. Negative fluid balance achieved in the last 24 hours with current interventions/therapy to date; additional dose of metolazone given this AM; still with significant swelling/edema some improvement noted per patient; renal function stable as well; no apparent distress noted; denies any shortness of breath or chest pain. Exam Narrative: General: Large female in NAD Heart: normal S1 and S2; no rub Lungs: clear anteriorly Abdomen: soft, nontender, nondistended, positive bowel sounds Extremities: no cyanosis or clubbing; 2+ edema Skin: chronic venous stasis changes noted Objective Data Vital Signs Vital Signs: Vital Signs Temp Pulse Resp BP Pulse Ox O2 Del Method 12/05/23 11:00 98.2 F 106 H 20 96/53 L 94 12/05/23 09:18 95 12/05/23 08:59 90 94 Room Air 12/05/23 08:00 98 F 102 H 24 H 122/67 94 12/05/23 06:00 94 12/05/23 04:00 86 18 95 Room Air 12/05/23 04:00 86 12/05/23 04:22 102 H 12/05/23 04:00 97.2 F L 92 18 115/61 95 12/05/23 02:00 98 12/04/23 23:59 92 18 93 Room Air 12/04/23 23:59 92 12/04/23 23:36 99.2 F 94 18 102/60 93 12/04/23 23:33 98 12/04/23 22:00 90 12/04/23 20:00 95 20 95 Room Air 12/04/23 20:00 95
[2023-12-05 12:07] LABS: RNP Antibodies <1.0; SS-A <1.0; SS-B <1.0
[2023-12-05] MEDS: BETAMETHASONE/CLOTRIMAZOLE CR 15 GM TUBE 1 APPLIC TOPICAL (12:30)
[2023-12-05] MEDS: TOLNAFTATE 1% POWDER 45 GM BTL 1 APPLIC TOPICAL ×2 (12:30→21:23)
[2023-12-05] MEDS: metOLazone 2.5 MG TABLET PO (12:51)
[2023-12-05] MEDS: ACETAMINOPHEN 325 MG TABLET 650 MG PO (23:43)
[2023-12-06] VITALS (19 sets, daily range): BP systolic 86–115; BP diastolic 34–68; PULSE 78–102; RESP 14–24; TEMP 36.4–37.2; O2SAT 92–96
[2023-12-06] MEDS: DOBUTamine 250 MG/D5W 250 ML 250 MG/250 ML BAG 53.01 MG IV CONT ×3 (02:05→11:10)
[2023-12-06] MEDS: CEPHALEXIN 500 MG CAPSULE PO ×4 (05:57→23:38)
[2023-12-06] MEDS: CENTRAL LINE FLUSH 10 ML IV PUSH ×3 (05:58→21:08)
--- NOTE | 2023-12-06 08:31 | P.PNNP_ITS ---
Progress Note: A&P Assessment and Plan (1) MARY (acute kidney injury): Code(s): N17.9 - Acute kidney failure, unspecified Status: Acute Assessment and Plan: * improvement noted * normal creatinine at baseline/prior to admission * evaluation to date: * urine electrolytes are non pre renal by FeNA but the FeUrea shows pre renal azotemia * CT abdomen/renal ultrasound shows normal kidneys and no hydronephrosois * CK is normal * urine protein/creatinine ratio 630 (so this is not contributing much to the edema) * suspect the normal creatinine from admission may have been due to dilution from all the fluid/volume overload. The creatinine might worsen with diuretics. * The patient is getting dobutamine as well so better heart function may help the creatinine. * Will follow things along and see where the creatinine ends up. * etiology is likely chronic pre renal azotemia from cardiorenal syndrome * this is further complicated by her chronic hypotension * Labs pending today (2) 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ailure: Code(s): I50.43 - Acute on chronic combined systolic (congestive) and diastolic (co ngestive) heart failure Status: Acute Assessment and Plan: * Echo with EF 15 - 20% with grade III diastolic dysfunction * this is complicated by patient's non-compliance with medications * medical management and therapy difficult to continue due to hypotension * Cardiology following * on dobutamine gtt currently * on scheduled IV diuretics * making more urine. * Labs pending for today (3) Anemia: Code(s): D64.9 - Anemia, unspecified Status: Acute Assessment and Plan: * suspect chronic disease * no evidence of iron deficiency by anemia studies * CBC pending today. (4) Deep vein thrombosis: Code(s): I82.409 - Acute embolism and thrombosis of unspecified deep veins of unspecified lower extremity Status: Acute Assessment and Plan: * right basilic vein and external jugular vein thrombosis by imaging * on apixaban (5) Urinary tract infection: Code(s): N39.0 - Urinary tract infection, site not specified Status: Acute Assessment and Plan: * culture with E.coli * completed course of antibiotics Subjective Date/time seen: 12/06/23 08:31 Interval history: Patient is alert. She is wondering how long she will continue the Keflex. I referred her to the hospitalist. She is making lots of urine she says. Breathing is okay Exam Narrative: General: well-developed well-nourished female in NAD Heart: normal S1 and S2; no rub or gallop Lungs: clear anteriorly Abdomen: soft, nontender, nondistended, positive bowel sounds Extremities: no cyanosis or clubbing; 2+ edema bilateral Skin: chronic venous stasis changes noted Objective Data Vital Signs Vital Signs: Vital Signs - 24 hr 12/05/23 08:59 12/05/23 09:18 12/05/23 12:00 Temperature 98.2 F Pulse Rate 90 95 106 H Respiratory Rate 20 Blood Pressure 96/53 L Pulse Oximetry 94 94 Oxygen Delivery Room Air 12/05/23 15:17 12/05/23 10:00 12/05/23 12:00 Temperature Pulse Rate 95 93 100 Respiratory Rate Blood Pressure Pulse Oximetry
--- NOTE | 2023-12-06 08:31 | PM.PNNEP ---
Progress Note: A&P Assessment and Plan (1) MARY (acute kidney injury): Code(s): N17.9 - Acute kidney failure, unspecified Status: Acute Assessment and Plan: improvement noted normal creatinine at baseline/prior to admission evaluation to date: urine electrolytes are non pre renal by FeNA but the FeUrea shows pre renal azotemia CT abdomen/renal ultrasound shows normal kidneys and no hydronephrosois CK is normal urine protein/creatinine ratio 630 (so this is not contributing much to the edema) suspect the normal creatinine from admission may have been due to dilution from all the fluid/volume overload. The creatinine might worsen with diuretics. The patient is getting dobutamine as well so better heart function may help the creatinine. Will follow things along and see where the creatinine ends up. etiology is likely chronic pre renal azotemia from cardiorenal syndrome this is further complicated by her chronic hypotension Labs pending today (2) 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ailure: Code(s): I50.43 - 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ailure Status: Acute Assessment and Plan: Echo with EF 15 - 20% with grade III diastolic dysfunction this is complicated by patient's non-compliance with medications medical management and therapy difficult to continue due to hypotension Cardiology following on dobutamine gtt currently on scheduled IV diuretics making more urine. Labs pending for today (3) Anemia: Code(s): D64.9 - Anemia, unspecified Status: Acute Assessment and Plan: suspect chronic disease no evidence of iron deficiency by anemia studies CBC pending today. (4) Deep vein thrombosis: Code(s): I82.409 - Acute embolism and thrombosis of unspecified deep veins of unspecified lower extremity Status: Acute Assessment and Plan: right basilic vein and external jugular vein thrombosis by imaging on apixaban (5) Urinary tract infection: Code(s): N39.0 - Urinary tract infection, site not specified Status: Acute Assessment and Plan: culture with E.coli completed course of antibiotics Subjective Date/time seen: 12/06/23 08:31 Interval history: Patient is alert. She is wondering how long she will continue the Keflex. I referred her to the hospitalist. She is making lots of urine she says. Breathing is okay Exam Narrative: General: well-developed well-nourished female in NAD Heart: normal S1 and S2; no rub or gallop Lungs: clear anteriorly Abdomen: soft, nontender, nondistended, positive bowel sounds Extremities: no cyanosis or clubbing; 2+ edema bilateral Skin: chronic venous stasis changes noted Objective Data Vital Signs Vital Signs: Vital Signs - 24 hr 12/05/23 08:59 12/05/23 09:18 12/05/23 12:00 Temperature 98.2 F Pulse Rate 90 95 106 H Respiratory Rate 20 Blood Pressure 96/53 L Pulse Oximetry 94 94 Oxygen Delivery Room Air 12/05/23 15:17 12/05/23 10:00 12/05/23 12:00 Temperature Pulse Rate 95 93 100 Respiratory Rate Blood Pressure Pulse Oximetry Oxygen Delivery 12/05/23 14:00 12/05/23 16:00 12/05/23 12:00 Temperature 98.2 F Pulse Rate 105 H 54 L Respiratory Rate 20 Blood Pressure 95/49 L Pulse Oximetry 92 Oxygen Delivery Room Air 12/05/23 16:00 12/05/23 16:00 12/05/23 18:00 Temperature Pulse Rate 98 91 Respiratory Rate Blood Pressure Pulse Oximetry Oxygen Delivery Room Air 12/05/23 20:00 12/05/23 21:22 12/05/23 23:59 Temperature 97.8 F 97 F L Pulse Rate 85 100 90 Respiratory Rate 20 18 Blood Pressure 83/38 L 86/35 L Pulse Oximetry 96 92 Oxygen Delivery 12/05/23 20:00 12/05/23 20:00 12/05/23 22:00 Temperature Pulse Rate 82 90 96 Respiratory
[2023-12-06] MEDS: APIXABAN 5 MG TABLET PO ×2 (08:52→21:07)
[2023-12-06] MEDS: BETAMETHASONE/CLOTRIMAZOLE CR 15 GM TUBE 1 APPLIC TOPICAL (08:52)
[2023-12-06] MEDS: BUMETANIDE INJ 1 MG/4 ML VIAL IV PUSH ×3 (08:54→17:53)
[2023-12-06] MEDS: TOLNAFTATE 1% POWDER 45 GM BTL 1 APPLIC TOPICAL ×2 (08:54→21:08)
[2023-12-06 09:21] LABS: Basophils Percent Auto 0.7 % (0.2-1.2); Eosinophils Absolute Auto 0.1 K/mm3 (0-0.3); Eosinophils Percent Auto 0.9 % (0-4.4); Hematocrit 23.8 % (37.0-47.0); Hemoglobin 7.6 g/dL (12.0-15.0); Immature Granulocyte Absolute 0.04 K/mm3 (0.00-0.031); Immature Granulocyte Percent A 0.7 % (0-0.5); Lymphocytes Absolute Auto 0.56 K/mm3 (0.9-3.2); Lymphocytes Percent Auto 10.1 % (18.3-44.2); Mean Corpuscular HGB Conc 31.9 g/dl (32-36); Mean Corpuscular Hemoglobin 34.2 pg (26-34); Mean Corpuscular Volume 107.2 fl (80-100); Mean Platelet Volume 10.8 fl (7.4-10.4); Monocytes Absolute Auto 0.3 K/mm3 (0.1-0.6); Monocytes Percent Auto 5.9 % (2.6-8.5); Neutrophils Absolute Auto 4.5 K/mm3 (1.3-6.7); Neutrophils Percent Auto 81.7 % (45.5-73.1); Platelet Count Result 209 k/mm3 (150-375); Red Blood Count 2.22 M/mm3 (4.2-5.4); Red Cell Distribution Width 16.3 % (11.5-14.5); White Blood Count 5.6 K/mm3 (4.5-10.0)
[2023-12-06 09:32] LABS: Magnesium 1.7 mg/dL (1.6-2.3); Phosphorus 3.2 mg/dL (2.5-4.5)
[2023-12-06 09:33] LABS: Alanine Aminotransferase 7 U/L (6-35); Albumin Level 3.1 g/dL (3.5-5.1); Alkaline Phosphatase 163 U/L (38-126); Anion Gap 5 mmol/L (8-16); Aspartate Amino Transferase 20 U/L (14-36); Bilirubin,Total 5.2 mg/dL (0.2-1.3); Blood Urea Nitrogen 37 mg/dL (7-17); Calcium 8.6 mg/dL (8.4-10.2); Carbon Dioxide 33 mmol/L (22-30); Chloride 93 mmol/L (98-107); Estimated CRCL calculation 89 ml/min; Estimated Glomerular Filt Rate 57; Glucose 246 mg/dL (65-110); Potassium 3.4 mmol/L (3.4-5.0); Sodium 131 mmol/L (137-145)
[2023-12-06 09:50] LABS: Anisocytosis 1+ (NORMAL); Hypochromasia 1+ (NORMAL); Macrocytosis 1+ (NORMAL); Platelet Estimate Adequate (Adequate); Schistocytes None Seen (NORMAL)
--- NOTE | 2023-12-06 10:32 | PM.PNCARD ---
Progress Note: A&P Assessment and Plan (1) 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ailure: Code(s): I50.43 - 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ailure Status: Acute Assessment and Plan: 58-year-old female with history of CHF with reduced ejection fraction (unclear etiology)-with acute on chronic CHF with reduced ejection fraction. -Standard GDMT on hold because of hypotension and renal function, both of which are improving. Hopefully can start to reintroduce some heart failure meds over the weekend -Will decrease [employer] to 2.5 mcg/kg/min today -Continue aggressive diuresis with bumex 1mg t.i.d. and will give a dose of metolazone 2.5mg as well -Continue to monitor BP and renal function closely (2) MARY (acute kidney injury): Code(s): N17.9 - Acute kidney failure, unspecified Status: Acute Assessment and Plan: Creatinine 1.2 today. Likely from cardiorenal syndrome Nephrology is following. Plan as above (3) At risk for sleep apnea: Code(s): Z91.89 - Other specified personal risk factors, not elsewhere classified Status: Acute Assessment and Plan: Patient is morbidly obese and probably has KRZYSZTOF. Not interested in sleep study as an outpatient at this time. (4) Noncompliance with medication regimen: Code(s): Z91.148 - Patient's other noncompliance with medication regimen for other reason Status: Acute Assessment and Plan: Discussed importance of medication compliance and outpatient follow-up with the patient. She verbalized understanding. She remains at risk for rehospitalization. Subjective Date/time seen: 12/06/23 10:32 Interval history: Date of service: 11/24/2023 Interval history: Patient was sitting up in the recliner, reported improvement in her shortness of breath. At the time of evaluation, patient's son and the nurse was in the room. I spoke at length with the patient and her son about her previous cardiac history. She states that she was diagnosed with CHF many many years ago. According to patient's son, she was probably diagnosed with heart failure after childbirth. Patient does not recall any ischemic evaluation in the past. She has not been fully compliant with medical regimen as an outpatient. Patient denies documented history of KRZYSZTOF and is not willing for evaluation for possible sleep apnea given her morbid obesity. Dr. Alcazar from Nephrology had concerns about patient's renal function and decreased urine output and was wondering about inotropic support. However, after discussion with the patient, patient does not want any additional IV medications at this time. Date of service 11/26/2023: denies any shortness of breath, chest pain, palpitations. She is complaining of pain and swelling in her left arm. Date of service 11/28/2023: Feels about the same today. Denies any shortness of breath, chest pain. She is feeling frustrated with the length of her hospitalization. Date of service 11/29/2023: Left arm remains painful and swollen. BP slightly better and she is actually urinating a little more despite diuretics being held. Date of service 11/30/2023: Seems to be tolerating dobutamine. No chest pain or shortness of breath. Renal function creatinine 1.8 Date of service 12/01/2023: Making no progress and in fact she feels like she is more swollen today Which does correlate to her positive fluid balance. She denies any chest pain. No trouble breathing date of service 12/02/2023: She tolerated furosemide yesterday. No chest pain. Still has marked edema. Date of service 12/03/2023: She is still fluid balance positive and remains edematous. Blood pressure is stable. No shortness of breath, chest pain, palpitations. Left arm swelling/pain is improving Date of service 12/04/2023: Still edematous but her left arm is better. No chest pain shortness of breath
[2023-12-06] MEDS: metOLazone 2.5 MG TABLET PO (13:03)
[2023-12-06] MEDS: DOBUTamine 250 MG/D5W 250 ML 250 MG/250 ML BAG 26.51 MG IV CONT (23:41)
[2023-12-07] VITALS (13 sets, daily range): BP systolic 94–109; BP diastolic 44–56; PULSE 82–102; RESP 18–24; TEMP 36.8–37.1; O2SAT 93–97; BMI 10.0
[2023-12-07] MEDS: CEPHALEXIN 500 MG CAPSULE PO ×2 (05:54→11:47)
[2023-12-07] MEDS: CENTRAL LINE FLUSH 10 ML IV PUSH ×3 (05:54→21:14)
[2023-12-07 06:21] LABS: Alanine Aminotransferase 7 U/L (6-35); Albumin Level 3.3 g/dL (3.5-5.1); Alkaline Phosphatase 173 U/L (38-126); Anion Gap 5 mmol/L (8-16); Aspartate Amino Transferase 25 U/L (14-36); Bilirubin,Total 4.7 mg/dL (0.2-1.3); Blood Urea Nitrogen 38 mg/dL (7-17); Calcium 8.8 mg/dL (8.4-10.2); Carbon Dioxide 35 mmol/L (22-30); Chloride 94 mmol/L (98-107); Estimated CRCL calculation 88 ml/min; Estimated Glomerular Filt Rate 57; Glucose 95 mg/dL (65-110); Magnesium 1.8 mg/dL (1.6-2.3); Phosphorus 3.5 mg/dL (2.5-4.5); Potassium 3.3 mmol/L (3.4-5.0); Sodium 134 mmol/L (137-145)
[2023-12-07 06:22] LABS: Basophils Absolute Auto 0.1 K/mm3 (0.0-0.1); Eosinophils Absolute Auto 0.1 K/mm3 (0-0.3); Eosinophils Percent Auto 1.9 % (0-4.4); Hematocrit 23.9 % (37.0-47.0); Hemoglobin 7.7 g/dL (12.0-15.0); Immature Granulocyte Absolute 0.04 K/mm3 (0.00-0.031); Immature Granulocyte Percent A 0.8 % (0-0.5); Lymphocytes Absolute Auto 0.56 K/mm3 (0.9-3.2); Lymphocytes Percent Auto 10.7 % (18.3-44.2); Mean Corpuscular HGB Conc 32.2 g/dl (32-36); Mean Corpuscular Hemoglobin 34.4 pg (26-34); Mean Corpuscular Volume 106.7 fl (80-100); Mean Platelet Volume 10.9 fl (7.4-10.4); Monocytes Absolute Auto 0.4 K/mm3 (0.1-0.6); Monocytes Percent Auto 7.7 % (2.6-8.5); Neutrophils Absolute Auto 4.1 K/mm3 (1.3-6.7); Neutrophils Percent Auto 77.9 % (45.5-73.1); Platelet Count Result 211 k/mm3 (150-375); Red Blood Count 2.24 M/mm3 (4.2-5.4); Red Cell Distribution Width 16.3 % (11.5-14.5); White Blood Count 5.2 K/mm3 (4.5-10.0)
[2023-12-07 07:23] LABS: Anisocytosis 1+ (NORMAL); Macrocytosis 1+ (NORMAL); Platelet Estimate Adequate (Adequate); Schistocytes None Seen (NORMAL)
[2023-12-07] MEDS: APIXABAN 5 MG TABLET PO ×2 (09:07→21:14)
[2023-12-07] MEDS: BUMETANIDE INJ 1 MG/4 ML VIAL IV PUSH ×3 (09:08→18:00)
[2023-12-07] MEDS: ACETAMINOPHEN 325 MG TABLET 650 MG PO (09:08)
[2023-12-07] MEDS: DOBUTamine 250 MG/D5W 250 ML 250 MG/250 ML BAG 26.51 MG IV CONT ×2 (09:09→18:01)
[2023-12-07] MEDS: BETAMETHASONE/CLOTRIMAZOLE CR 15 GM TUBE 1 APPLIC TOPICAL (09:10)
[2023-12-07] MEDS: TOLNAFTATE 1% POWDER 45 GM BTL 1 APPLIC TOPICAL ×2 (09:11→21:15)
--- NOTE | 2023-12-07 10:15 | PM.PNCARD ---
Progress Note: A&P Assessment and Plan (1) 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ailure: Code(s): I50.43 - 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ailure Status: Acute (2) Left bundle branch block: Code(s): I44.7 - Left bundle-branch block, unspecified Status: Acute (3) Morbid obesity: Code(s): E66.01 - Morbid (severe) obesity due to excess calories Status: Chronic Plan 58-year-old lady with: Severely decompensated volume overload with systolic LV dysfunction. She is making very slow progress with dobutamine and IV Bumex. I believe we will need to start very cautiously specific heart failure medication if she has any chance of a long-term prognosis. I will start a very low dose of Entresto today and cautiously observe her blood pressure. Need to be very careful that we do not hold the medication for mild asymptomatic hypotension. Obviously a very challenging situation Chaz Hasy MD [facility] Subjective Date/time seen: Date of service: 12/07/23 10:15 Interval history: Date of service: 11/24/2023 Interval history: Patient was sitting up in the recliner, reported improvement in her shortness of breath. At the time of evaluation, patient's son and the nurse was in the room. I spoke at length with the patient and her son about her previous cardiac history. She states that she was diagnosed with CHF many many years ago. According to patient's son, she was probably diagnosed with heart failure after childbirth. Patient does not recall any ischemic evaluation in the past. She has not been fully compliant with medical regimen as an outpatient. Patient denies documented history of KRZYSZTOF and is not willing for evaluation for possible sleep apnea given her morbid obesity. Dr. Alaczar from Nephrology had concerns about patient's renal function and decreased urine output and was wondering about inotropic support. However, after discussion with the patient, patient does not want any additional IV medications at this time. Date of service 11/26/2023: denies any shortness of breath, chest pain, palpitations. She is complaining of pain and swelling in her left arm. Date of service 11/28/2023: Feels about the same today. Denies any shortness of breath, chest pain. She is feeling frustrated with the length of her hospitalization. Date of service 11/29/2023: Left arm remains painful and swollen. BP slightly better and she is actually urinating a little more despite diuretics being held. Date of service 11/30/2023: Seems to be tolerating dobutamine. No chest pain or shortness of breath. Renal function creatinine 1.8 Date of service 12/01/2023: Making no progress and in fact she feels like she is more swollen today Which does correlate to her positive fluid balance. She denies any chest pain. No trouble breathing date of service 12/02/2023: She tolerated furosemide yesterday. No chest pain. Still has marked edema. Date of service 12/03/2023: She is still fluid balance positive and remains edematous. Blood pressure is stable. No shortness of breath, chest pain, palpitations. Left arm swelling/pain is improving Date of service 12/04/2023: Still edematous but her left arm is better. No chest pain shortness of breath. Seems to be making a bit more urine and renal function is improved Date of service 12/05/2023: She is finally diuresing. Left arm is much Less swollen. She feels less edematous in her abdomen also. Renal function is stable. No chest pain Date of service 12/06/2023: Feeling about the same. She was able to walk about 20 feet with physical therapy yesterday and didn't have shortness of breath. Her left arm swelling is much better. Date of service 12/07/2023: Patient's principal complaint today is positional left shoulder pain which she says has been off and on for several days. There has
--- NOTE | 2023-12-07 11:00 | P.PNNP_ITS ---
Progress Note: A&P Assessment and Plan (1) MARY (acute kidney injury): Code(s): N17.9 - Acute kidney failure, unspecified Status: Acute Assessment and Plan: * acute kidney injury * patient had a normal creatinine at baseline/prior to admission * evaluation to date: * urine electrolytes are non pre renal by FeNA but the FeUrea shows pre renal azotemia * CT abdomen/renal ultrasound shows normal kidneys and no hydronephrosois * CK is normal * urine protein/creatinine ratio 630 (so this is not contributing much to the edema) * suspect the normal creatinine from admission may have been due to dilution from all the fluid/volume overload. The creatinine might worsen with diuretics. * The patient is getting dobutamine as well as diuretics. * Her urine output is good and the creatinine has improved as well. (2) 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ailure: Code(s): I50.43 - 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ailure Status: Acute Assessment and Plan: * Echo with EF 15 - 20% with grade III diastolic dysfunction * this is complicated by patient's non-compliance with medications * medical management and therapy difficult to continue due to hypotension * Cardiology following * on dobutamine gtt currently . Dose was decreased to 2.5. * on scheduled IV diuretics * making more urine. * Creatinine is improved. (3) Anemia: Code(s): D64.9 - Anemia, unspecified Status: Acute Assessment and Plan: * suspect chronic disease * no evidence of iron deficiency by anemia studies * CBC Showed hemoglobin of 7.7, stable. * No need for Epogen since her creatinine is back down to normal. (4) Deep vein thrombosis: Code(s): I82.409 - Acute embolism and thrombosis of unspecified deep veins of unspecified lower extremity Status: Acute Assessment and Plan: * right basilic vein and external jugular vein thrombosis by imaging * on apixaban (5) Urinary tract infection: Code(s): N39.0 - Urinary tract infection, site not specified Status: Acute Assessment and Plan: * culture with E.coli * completed course of antibiotics Subjective Date/time seen: 12/07/23 11:00 Interval history: Patient is feeling about the same. She made a lot of urine yesterday Exam Narrative: General: well-developed well-nourished female in NAD Heart: normal S1 and S2; no rub or gallop Lungs: clear bilaterally Abdomen: soft, nontender, nondistended, positive bowel sounds Extremities: n 2+ edema bilaterally Skin: chronic venous stasis changes noted Objective Data Vital Signs Vital Signs: Vital Signs - 24 hr 12/06/23 12:00 12/06/23 12:00 12/06/23 12:00 Temperature 98.8 F Pulse Rate 98 89 Respiratory Rate 24 H Blood Pressure 106/52 L Pulse Oximetry 94 Oxygen Delivery Room Air 12/06/23 14:00 12/06/23 15:49 12/06/23 16:00 Temperature 98.5 F Pulse Rate 78 91 91 Respiratory Rate 16 16 Blood Pressure 86/48 L Pulse Oximetry 96 96 Oxygen Delivery Room Air 12/06/23 16:00 12/06/23 18:00 12/06/23 20:00 Temperature 97.6 F Pulse Rate 93 101 H 8
--- NOTE | 2023-12-07 11:00 | PM.PNNEP ---
Progress Note: A&P Assessment and Plan (1) MARY (acute kidney injury): Code(s): N17.9 - Acute kidney failure, unspecified Status: Acute Assessment and Plan: acute kidney injury patient had a normal creatinine at baseline/prior to admission evaluation to date: urine electrolytes are non pre renal by FeNA but the FeUrea shows pre renal azotemia CT abdomen/renal ultrasound shows normal kidneys and no hydronephrosois CK is normal urine protein/creatinine ratio 630 (so this is not contributing much to the edema) suspect the normal creatinine from admission may have been due to dilution from all the fluid/volume overload. The creatinine might worsen with diuretics. The patient is getting dobutamine as well as diuretics. Her urine output is good and the creatinine has improved as well. (2) 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ailure: Code(s): I50.43 - 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ailure Status: Acute Assessment and Plan: Echo with EF 15 - 20% with grade III diastolic dysfunction this is complicated by patient's non-compliance with medications medical management and therapy difficult to continue due to hypotension Cardiology following on dobutamine gtt currently . Dose was decreased to 2.5. on scheduled IV diuretics making more urine. Creatinine is improved. (3) Anemia: Code(s): D64.9 - Anemia, unspecified Status: Acute Assessment and Plan: suspect chronic disease no evidence of iron deficiency by anemia studies CBC Showed hemoglobin of 7.7, stable. No need for Epogen since her creatinine is back down to normal. (4) Deep vein thrombosis: Code(s): I82.409 - Acute embolism and thrombosis of unspecified deep veins of unspecified lower extremity Status: Acute Assessment and Plan: right basilic vein and external jugular vein thrombosis by imaging on apixaban (5) Urinary tract infection: Code(s): N39.0 - Urinary tract infection, site not specified Status: Acute Assessment and Plan: culture with E.coli completed course of antibiotics Subjective Date/time seen: 12/07/23 11:00 Interval history: Patient is feeling about the same. She made a lot of urine yesterday Exam Narrative: General: well-developed well-nourished female in NAD Heart: normal S1 and S2; no rub or gallop Lungs: clear bilaterally Abdomen: soft, nontender, nondistended, positive bowel sounds Extremities: n 2+ edema bilaterally Skin: chronic venous stasis changes noted Objective Data Vital Signs Vital Signs: Vital Signs - 24 hr 12/06/23 12:00 12/06/23 12:00 12/06/23 12:00 Temperature 98.8 F Pulse Rate 98 89 Respiratory Rate 24 H Blood Pressure 106/52 L Pulse Oximetry 94 Oxygen Delivery Room Air 12/06/23 14:00 12/06/23 15:49 12/06/23 16:00 Temperature 98.5 F Pulse Rate 78 91 91 Respiratory Rate 16 16 Blood Pressure 86/48 L Pulse Oximetry 96 96 Oxygen Delivery Room Air 12/06/23 16:00 12/06/23 18:00 12/06/23 20:00 Temperature 97.6 F Pulse Rate 93 101 H 82 Respiratory Rate 18 Blood Pressure 112/52 L Pulse Oximetry 95 Oxygen Delivery 12/06/23 20:00 12/06/23 20:00 12/06/23 22:00 Temperature Pulse Rate 83 85 Respiratory Rate Blood Pressure Pulse Oximetry 95 Oxygen Delivery Room Air 12/06/23 23:23 12/06/23 23:41 12/07/23 00:00 Temperature 98.4 F Pulse Rate 84 83 82 Respiratory Rate 20 Blood Pressure 94/44 L Pulse Oximetry 93 Oxygen Delivery 12/07/23 00:00 12/07/23 02:00 12/07/23 04:00 Temperature 98.4 F Pulse Rate 82 85 Respiratory Rate 20 Blood Pressure 97/48 L Pulse Oximetry 93 95 Oxygen Delivery Room Air 12/07/23 04:00 12/07/23 04:00 12/07/23 08:00 Temperature 98.5 F Puls
[2023-12-07] MEDS: EUCERIN CREAM 120 GM JAR 1 APPLIC TOPICAL (11:47)
[2023-12-07] MEDS: SACUBITRIL/VALSARTAN 12-13 MG TABLET 1 TAB PO ×2 (11:47→21:14)
--- NOTE | 2023-12-07 17:36 | P.PNIM_ITS ---
Progress Note: A&P Assessment and Plan (1) Urinary tract infection: Code(s): N39.0 - Urinary tract infection, site not specified Status: Acute (2) Anasarca: Code(s): R60.1 - Generalized edema Status: Acute (3) Deep vein thrombosis: Code(s): I82.409 - Acute embolism and thrombosis of unspecified deep veins of unspecified lower extremity Status: Acute (4) Left shoulder pain: Code(s): M25.512 - Pain in left shoulder Status: Acute (5) UTI (urinary tract infection), bacterial: Code(s): N39.0 - Urinary tract infection, site not specified; A49.9 - Bacterial infection, unspecified Status: Acute (6) Jaundice: Code(s): R17 - Unspecified jaundice Status: Acute (7) Venous stasis ulcer: Code(s): I83.009 - Varicose veins of unspecified lower extremity with ulcer of unspecified site; L97.909 - Non-pressure chronic ulcer of unspecified part of unspecified lower leg with unspecified severity Status: Acute (8) At risk for sleep apnea: Code(s): Z91.89 - Other specified personal risk factors, not elsewhere classified Status: Acute (9) MARY (acute kidney injury): Code(s): N17.9 - Acute kidney failure, unspecified Status: Acute Plan (1) 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ailure: ?Code(s): I50.43 - 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ailure ?Status:?Acute ?Assessment and Plan: ECHO ?EF is 20% patient may need dialysis for fluid overload, since BP precludes diuresis cardiology following Nephrology following Now getting diuresed as tolerated blood pressure has improved some. 12/05 Continue dobutamine drip.? Left arm swelling still persists, 12/04 started Bumex 1 mg t.i.d. push, negative input output balance 3.73 L in past 24 hours 12/06 : negative input output balance 3.21 L in past 24 hours (2) Left bundle branch block: ?Code(s): I44.7 - Left bundle-branch block, unspecified ?Status:?Acute ?Assessment and Plan: * Stable (3) MARY (acute kidney injury): ?Code(s): N17.9 - Acute kidney failure, unspecified ?Status:?Acute ?Assessment and Plan: * Creatinine on admission was 1.?Worsened with diuresis with creatinine up to 2.2 Possible cardiorenal syndrome Nephrology on board Added albumin Continue dobutamine and Bumex 1 mg t.i.d. IV Kidney function continue to improve Chronic anemia Hemoglobin trending down slowly Follow-up stool guaiac, iron panel: Iron 100, ferritin level 336, reticulocyte: High No need iron supplement now Hemoglobin stable (4) UTI (urinary tract infection), bacterial: ?Code(s): N39.0 - Urinary tract infection, site not specified; A49.9 - Bacterial infection, unspecified ?Status:?Acute ?Assessment and Plan: * 2/ culture growing E coli, sensitivity evaluated now on Kelflex finished course of antibiotics(5) Deep vein thrombosis: Per nurse report, patient declined Keflex p.o. today 12/04. Discussed with patient about importance of compliance with medical treatment I82.409 - Acute embolism and thrombosis of unspecified deep veins of unspecified lower extremity ?Status:?Acute ?Assessment and Plan: * right basilic vein and external jugular vein thrombosis * continue apixaban * US venous doppler negative for LUE this is still edematous.? Elevate arm * Will cover with Ancef for possible cellulitis will switch to Keflex to comp l
[2023-12-07] MEDS: POTASSIUM CHLORIDE 20 MEQ PACKET (FOR LIQUID) 40 MEQ PO (18:14)
[2023-12-07] MEDS: SENNOSIDES 8.6 MG TABLET PO (21:14)
[2023-12-08] VITALS (16 sets, daily range): BP systolic 86–116; BP diastolic 41–62; PULSE 84–98; RESP 18–20; TEMP 36.2–37.1; O2SAT 92–100
[2023-12-08] MEDS: DOBUTamine 250 MG/D5W 250 ML 250 MG/250 ML BAG 26.51 MG IV CONT ×2 (04:54→15:02)
[2023-12-08] MEDS: CENTRAL LINE FLUSH 10 ML IV PUSH ×3 (04:55→21:11)
[2023-12-08 05:23] LABS: Basophils Percent Auto 0.6 % (0.2-1.2); Eosinophils Absolute Auto 0.1 K/mm3 (0-0.3); Eosinophils Percent Auto 1.8 % (0-4.4); Hematocrit 23.6 % (37.0-47.0); Hemoglobin 7.7 g/dL (12.0-15.0); Immature Granulocyte Absolute 0.03 K/mm3 (0.00-0.031); Immature Granulocyte Percent A 0.6 % (0-0.5); Lymphocytes Absolute Auto 0.59 K/mm3 (0.9-3.2); Lymphocytes Percent Auto 11.6 % (18.3-44.2); Mean Corpuscular HGB Conc 32.6 g/dl (32-36); Mean Corpuscular Hemoglobin 34.8 pg (26-34); Mean Corpuscular Volume 106.8 fl (80-100); Monocytes Absolute Auto 0.4 K/mm3 (0.1-0.6); Monocytes Percent Auto 8.2 % (2.6-8.5); Neutrophils Absolute Auto 3.9 K/mm3 (1.3-6.7); Neutrophils Percent Auto 77.2 % (45.5-73.1); Platelet Count Result 214 k/mm3 (150-375); Red Blood Count 2.21 M/mm3 (4.2-5.4); Red Cell Distribution Width 16.3 % (11.5-14.5); White Blood Count 5.1 K/mm3 (4.5-10.0)
[2023-12-08 05:34] LABS: Alanine Aminotransferase 7 U/L (6-35); Albumin Level 3.4 g/dL (3.5-5.1); Alkaline Phosphatase 179 U/L (38-126); Anion Gap 3 mmol/L (8-16); Aspartate Amino Transferase 24 U/L (14-36); Bilirubin,Total 4.5 mg/dL (0.2-1.3); Blood Urea Nitrogen 36 mg/dL (7-17); Carbon Dioxide 37 mmol/L (22-30); Chloride 93 mmol/L (98-107); Estimated CRCL calculation 80 ml/min; Estimated Glomerular Filt Rate 51; Glucose 96 mg/dL (65-110); Magnesium 1.8 mg/dL (1.6-2.3); Phosphorus 3.5 mg/dL (2.5-4.5); Potassium 3.5 mmol/L (3.4-5.0); Sodium 133 mmol/L (137-145)
[2023-12-08] MEDS: APIXABAN 5 MG TABLET PO ×2 (08:28→21:11)
[2023-12-08] MEDS: BUMETANIDE INJ 1 MG/4 ML VIAL IV PUSH ×3 (08:28→18:22)
[2023-12-08] MEDS: SACUBITRIL/VALSARTAN 12-13 MG TABLET 1 TAB PO ×2 (08:28→21:10)
--- NOTE | 2023-12-08 09:49 | P.PNNP_ITS ---
Progress Note: A&P Assessment and Plan (1) MARY (acute kidney injury): Code(s): N17.9 - Acute kidney failure, unspecified Status: Acute Assessment and Plan: * acute kidney injury * patient had a normal creatinine at baseline/prior to admission * evaluation to date: * urine electrolytes are non pre renal by FeNA but the FeUrea shows pre renal azotemia * CT abdomen/renal ultrasound shows normal kidneys and no hydronephrosois * CK is normal * urine protein/creatinine ratio 630 (so this is not contributing much to the edema) * it is likely that the high creatinine is due to pre renal azotemia from poorly functioning LV. Renal venous hypertension is a possibility as well. It is hard to tease out how much of each is causing the high creatinine because the patient received dobutamine in addition to diuretics simultaneously. * The creatinine improved with dobutamine and diuresis. * Will continue to follow. (2) 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ailure: Code(s): I50.43 - 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ailure Status: Acute Assessment and Plan: * Echo with EF 15 - 20% with grade III diastolic dysfunction * this is complicated by patient's non-compliance with medications * medical management and therapy difficult to continue due to hypotension * Cardiology following * on dobutamine gtt currently . Dose was decreased to 2.5. * on scheduled IV diuretics * making more urine. * Creatinine is improved. (3) Anemia: Code(s): D64.9 - Anemia, unspecified Status: Acute Assessment and Plan: * suspect chronic disease * no evidence of iron deficiency by anemia studies * CBC showed hemoglobin of 7.7 again, stable. * No need for Epogen since her creatinine is back down to normal. (4) Deep vein thrombosis: Code(s): I82.409 - Acute embolism and thrombosis of unspecified deep veins of unspecified lower extremity Status: Acute Assessment and Plan: * right basilic vein and external jugular vein thrombosis by imaging * on apixaban (5) Urinary tract infection: Code(s): N39.0 - Urinary tract infection, site not specified Status: Acute Assessment and Plan: * culture with E.coli * completed course of antibiotics Subjective Date/time seen: 12/08/23 09:49 Interval history: Mey is feeling a little better. She still has a lot of swelling. Breathing is fine she made 6L of urine yesterday Exam Narrative: General: well-developed well-nourished female in NAD Heart: normal S1 and S2; no rub or gallop Lungs: clear to auscultation Abdomen: soft, nontender, nondistended, positive bowel sounds Extremities: 2+ edema bilaterally Skin: chronic venous stasis changes noted but no acute rash Objective Data Vital Signs Vital Signs: Vital Signs - 24 hr 12/07/23 12:00 12/07/23 10:00 12/07/23 12:00 Temperature 98.2 F Pulse Rate 92 102 H 102 H Respiratory Rate 24 H Blood Pressure 109/55 L Pulse Oximetry 97 Oxygen Delivery 12/07/23 14:00 12/07/23 16:00 12/07/23 16:00 Temperature 98.5 F Pulse Rate 100 95 99 Respiratory Rate 18 Blood Pressure 94/56 L Pulse O
--- NOTE | 2023-12-08 09:49 | PM.PNNEP ---
Progress Note: A&P Assessment and Plan (1) MARY (acute kidney injury): Code(s): N17.9 - Acute kidney failure, unspecified Status: Acute Assessment and Plan: acute kidney injury patient had a normal creatinine at baseline/prior to admission evaluation to date: urine electrolytes are non pre renal by FeNA but the FeUrea shows pre renal azotemia CT abdomen/renal ultrasound shows normal kidneys and no hydronephrosois CK is normal urine protein/creatinine ratio 630 (so this is not contributing much to the edema) it is likely that the high creatinine is due to pre renal azotemia from poorly functioning LV. Renal venous hypertension is a possibility as well. It is hard to tease out how much of each is causing the high creatinine because the patient received dobutamine in addition to diuretics simultaneously. The creatinine improved with dobutamine and diuresis. Will continue to follow. (2) 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ailure: Code(s): I50.43 - 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ailure Status: Acute Assessment and Plan: Echo with EF 15 - 20% with grade III diastolic dysfunction this is complicated by patient's non-compliance with medications medical management and therapy difficult to continue due to hypotension Cardiology following on dobutamine gtt currently . Dose was decreased to 2.5. on scheduled IV diuretics making more urine. Creatinine is improved. (3) Anemia: Code(s): D64.9 - Anemia, unspecified Status: Acute Assessment and Plan: suspect chronic disease no evidence of iron deficiency by anemia studies CBC showed hemoglobin of 7.7 again, stable. No need for Epogen since her creatinine is back down to normal. (4) Deep vein thrombosis: Code(s): I82.409 - Acute embolism and thrombosis of unspecified deep veins of unspecified lower extremity Status: Acute Assessment and Plan: right basilic vein and external jugular vein thrombosis by imaging on apixaban (5) Urinary tract infection: Code(s): N39.0 - Urinary tract infection, site not specified Status: Acute Assessment and Plan: culture with E.coli completed course of antibiotics Subjective Date/time seen: 12/08/23 09:49 Interval history: Mey is feeling a little better. She still has a lot of swelling. Breathing is fine she made 6L of urine yesterday Exam Narrative: General: well-developed well-nourished female in NAD Heart: normal S1 and S2; no rub or gallop Lungs: clear to auscultation Abdomen: soft, nontender, nondistended, positive bowel sounds Extremities: 2+ edema bilaterally Skin: chronic venous stasis changes noted but no acute rash Objective Data Vital Signs Vital Signs: Vital Signs - 24 hr 12/07/23 12:00 12/07/23 10:00 12/07/23 12:00 Temperature 98.2 F Pulse Rate 92 102 H 102 H Respiratory Rate 24 H Blood Pressure 109/55 L Pulse Oximetry 97 Oxygen Delivery 12/07/23 14:00 12/07/23 16:00 12/07/23 16:00 Temperature 98.5 F Pulse Rate 100 95 99 Respiratory Rate 18 Blood Pressure 94/56 L Pulse Oximetry 94 Oxygen Delivery 12/07/23 18:00 12/07/23 19:59 12/07/23 20:00 Temperature 98.6 F Pulse Rate 88 87 89 Respiratory Rate 18 Blood Pressure 104/44 L Pulse Oximetry 96 Oxygen Delivery 12/07/23 20:00 12/07/23 22:00 12/07/23 23:27 Temperature 98.8 F Pulse Rate 86 84 Respiratory Rate 18 Blood Pressure 100/45 L Pulse Oximetry 96 94 Oxygen Delivery Room Air 12/08/23 00:00 12/08/23 00:00 12/08/23 02:00 Temperature Pulse Rate 84 93 Respiratory Rate Blood Pressure Pulse Oximetry 94 Oxygen Delivery Room Air 12/08/23 03:48 12/08/23 04:00 12/08/23 04:00 Temperature 98.4 F Pulse Rate 87 94
--- NOTE | 2023-12-08 10:23 | PM.PNCARD ---
Progress Note: A&P Assessment and Plan (1) 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ailure: Code(s): I50.43 - 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ailure Status: Acute (2) Morbid obesity: Code(s): E66.01 - Morbid (severe) obesity due to excess calories Status: Chronic (3) Anasarca: Code(s): R60.1 - Generalized edema Status: Acute Plan 58-year-old lady with: Chronic significant cardiomyopathy with morbid obesity and medical noncompliance resulting in marked volume overload. She is making progress with a combination of bumetanide and dobutamine. Happy to see that she has at least tolerated a couple of doses of Entresto without problematic hypotension. Will potentially try to uptitrate that in the next couple of days if she tolerates very small does for another day or 2. Very difficult problem and long-term prognosis is obviously very limited Chaz Hays MD [facility] Subjective Date/time seen: Date of service: 12/08/23 10:23 Interval history: Date of service: 11/24/2023 Interval history: Patient was sitting up in the recliner, reported improvement in her shortness of breath. At the time of evaluation, patient's son and the nurse was in the room. I spoke at length with the patient and her son about her previous cardiac history. She states that she was diagnosed with CHF many many years ago. According to patient's son, she was probably diagnosed with heart failure after childbirth. Patient does not recall any ischemic evaluation in the past. She has not been fully compliant with medical regimen as an outpatient. Patient denies documented history of [id number] and is not willing for evaluation for possible sleep apnea given her morbid obesity. Dr. Alcazar from Nephrology had concerns about patient's renal function and decreased urine output and was wondering about inotropic support. However, after discussion with the patient, patient does not want any additional IV medications at this time. Date of service 11/26/2023: denies any shortness of breath, chest pain, palpitations. She is complaining of pain and swelling in her left arm. Date of service 11/28/2023: Feels about the same today. Denies any shortness of breath, chest pain. She is feeling frustrated with the length of her hospitalization. Date of service 11/29/2023: Left arm remains painful and swollen. BP slightly better and she is actually urinating a little more despite diuretics being held. Date of service 11/30/2023: Seems to be tolerating dobutamine. No chest pain or shortness of breath. Renal function creatinine 1.8 Date of service 12/01/2023: Making no progress and in fact she feels like she is more swollen today Which does correlate to her positive fluid balance. She denies any chest pain. No trouble breathing date of service 12/02/2023: She tolerated furosemide yesterday. No chest pain. Still has marked edema. Date of service 12/03/2023: She is still fluid balance positive and remains edematous. Blood pressure is stable. No shortness of breath, chest pain, palpitations. Left arm swelling/pain is improving Date of service 12/04/2023: Still edematous but her left arm is better. No chest pain shortness of breath. Seems to be making a bit more urine and renal function is improved Date of service 12/05/2023: She is finally diuresing. Left arm is much Less swollen. She feels less edematous in her abdomen also. Renal function is stable. No chest pain Date of service 12/06/2023: Feeling about the same. She was able to walk about 20 feet with physical therapy yesterday and didn't have shortness of breath. Her left arm swelling is much better. Date of service 12/07/2023: Patient's principal complaint today is positional left shoulder pain which she says has been off and on for several days. There has been no problematic hypotensi
--- NOTE | 2023-12-08 12:47 | PM.IMPN ---
Progress Note: A&P Assessment and Plan (1) Urinary tract infection: Code(s): N39.0 - Urinary tract infection, site not specified Status: Acute (2) Anasarca: Code(s): R60.1 - Generalized edema Status: Acute (3) Deep vein thrombosis: Code(s): I82.409 - Acute embolism and thrombosis of unspecified deep veins of unspecified lower extremity Status: Acute (4) Left shoulder pain: Code(s): M25.512 - Pain in left shoulder Status: Acute (5) UTI (urinary tract infection), bacterial: Code(s): N39.0 - Urinary tract infection, site not specified; A49.9 - Bacterial infection, unspecified Status: Acute (6) Jaundice: Code(s): R17 - Unspecified jaundice Status: Acute (7) Venous stasis ulcer: Code(s): I83.009 - Varicose veins of unspecified lower extremity with ulcer of unspecified site; L97.909 - Non-pressure chronic ulcer of unspecified part of unspecified lower leg with unspecified severity Status: Acute (8) At risk for sleep apnea: Code(s): Z91.89 - Other specified personal risk factors, not elsewhere classified Status: Acute (9) MARY (acute kidney injury): Code(s): N17.9 - Acute kidney failure, unspecified Status: Acute Plan (1) 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ailure: ?Code(s): I50.43 - 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ailure ?Status:?Acute ?Assessment and Plan: ECHO ?EF is 20% patient may need dialysis for fluid overload, since BP precludes diuresis cardiology following Nephrology following Now getting diuresed as tolerated blood pressure has improved some. 12/05 Continue dobutamine drip.? Left arm swelling still persists, 12/04 started Bumex 1 mg t.i.d. push, negative input output balance 3.73 L in past 24 hours 12/06 : negative input output balance 3.21 L in past 24 hours (2) Left bundle branch block: ?Code(s): I44.7 - Left bundle-branch block, unspecified ?Status:?Acute ?Assessment and Plan: Stable (3) MARY (acute kidney injury): ?Code(s): N17.9 - Acute kidney failure, unspecified ?Status:?Acute ?Assessment and Plan: Creatinine on admission was 1.?Worsened with diuresis with creatinine up to 2.2 Possible cardiorenal syndrome Nephrology on board Added albumin Continue dobutamine and Bumex 1 mg t.i.d. IV Kidney function continue to improve 12/08/23: Avoid nephrotoxins Chronic anemia Hemoglobin trending down slowly Follow-up stool guaiac, iron panel: Iron 100, ferritin level 336, reticulocyte: High No need iron supplement now Hemoglobin stable (4) UTI (urinary tract infection), bacterial: ?Code(s): N39.0 - Urinary tract infection, site not specified; A49.9 - Bacterial infection, unspecified ?Status:?Acute ?Assessment and Plan: 11/24 culture growing E coli, sensitivity evaluated now on Kelflex finished course of antibiotics(5) Deep vein thrombosis: Per nurse report, patient declined Keflex p.o. today 12/04. Discussed with patient about importance of compliance with medical treatment I82.409 - Acute embolism and thrombosis of unspecified deep veins of unspecified lower extremity ?Status:?Acute ?Assessment and Plan: right basilic vein and external jugular vein thrombosis continue apixaban US venous doppler negative for LUE this is still edematous.? Elevate arm Will cover with Ancef for possible cellulitis will switch to Keflex to complete 7 days course 12/08/23: s/p Cephalexin (6) Jaundice: ?Code(s): R17 - Unspecified jaundice ?Status:?Acute ?Assessment and Plan: Possible cardiac cirrhosis 2/ US abd showed cholelithiasis with non specific gb thickening negative smith's sign Bilirubin still elevated, unable to do MRCP due to GFR less than 30 to avoid NSF b12/folate wnl, LDH, haptoglobin pendingAnti mitochondrial antibody pend
[2023-12-08] MEDS: TOLNAFTATE 1% POWDER 45 GM BTL 1 APPLIC TOPICAL ×2 (15:00→21:11)
[2023-12-08] MEDS: BETAMETHASONE/CLOTRIMAZOLE CR 15 GM TUBE 1 APPLIC TOPICAL (15:00)
[2023-12-08] MEDS: EUCERIN CREAM 120 GM JAR 1 APPLIC TOPICAL (15:00)
[2023-12-09] VITALS (19 sets, daily range): BP systolic 85–98; BP diastolic 36–80; PULSE 80–100; RESP 16–20; TEMP 36.3–36.6; O2SAT 91–100
[2023-12-09] MEDS: DOBUTamine 250 MG/D5W 250 ML 250 MG/250 ML BAG 26.51 MG IV CONT ×3 (00:12→19:44)
[2023-12-09] MEDS: CENTRAL LINE FLUSH 10 ML IV PUSH ×3 (06:19→22:00)
[2023-12-09 06:35] LABS: Basophils Absolute Auto 0.1 K/mm3 (0.0-0.1); Basophils Percent Auto 1.1 % (0.2-1.2); Eosinophils Absolute Auto 0.1 K/mm3 (0-0.3); Eosinophils Percent Auto 2.6 % (0-4.4); Hematocrit 23.2 % (37.0-47.0); Hemoglobin 7.5 g/dL (12.0-15.0); Immature Granulocyte Absolute 0.02 K/mm3 (0.00-0.031); Immature Granulocyte Percent A 0.4 % (0-0.5); Lymphocytes Absolute Auto 0.66 K/mm3 (0.9-3.2); Lymphocytes Percent Auto 14.1 % (18.3-44.2); Mean Corpuscular HGB Conc 32.3 g/dl (32-36); Mean Corpuscular Hemoglobin 34.7 pg (26-34); Mean Corpuscular Volume 107.4 fl (80-100); Mean Platelet Volume 11.1 fl (7.4-10.4); Monocytes Absolute Auto 0.5 K/mm3 (0.1-0.6); Monocytes Percent Auto 10.7 % (2.6-8.5); Neutrophils Absolute Auto 3.3 K/mm3 (1.3-6.7); Neutrophils Percent Auto 71.1 % (45.5-73.1); Platelet Count Result 200 k/mm3 (150-375); Red Blood Count 2.16 M/mm3 (4.2-5.4); Red Cell Distribution Width 16.3 % (11.5-14.5); White Blood Count 4.7 K/mm3 (4.5-10.0)
[2023-12-09 06:55] LABS: Alanine Aminotransferase 7 U/L (6-35); Albumin Level 3.3 g/dL (3.5-5.1); Alkaline Phosphatase 184 U/L (38-126); Anion Gap 4 mmol/L (8-16); Aspartate Amino Transferase 23 U/L (14-36); Bilirubin,Total 4.2 mg/dL (0.2-1.3); Blood Urea Nitrogen 37 mg/dL (7-17); Calcium 8.9 mg/dL (8.4-10.2); Carbon Dioxide 39 mmol/L (22-30); Chloride 92 mmol/L (98-107); Estimated CRCL calculation 86 ml/min; Estimated Glomerular Filt Rate 57; Glucose 95 mg/dL (65-110); Magnesium 1.8 mg/dL (1.6-2.3); Phosphorus 3.8 mg/dL (2.5-4.5); Potassium 3.4 mmol/L (3.4-5.0); Sodium 135 mmol/L (137-145)
[2023-12-09 07:10] LABS: Hypochromasia 2+ (NORMAL); Ovalocytes 2+ (NORMAL); Platelet Estimate Adequate (Adequate); Schistocytes None Seen (NORMAL)
[2023-12-09 07:11] LABS: Tear Drop Cells 1+ (NORMAL)
[2023-12-09] MEDS: TOLNAFTATE 1% POWDER 45 GM BTL 1 APPLIC TOPICAL ×2 (08:27→20:04)
[2023-12-09] MEDS: SACUBITRIL/VALSARTAN 12-13 MG TABLET 1 TAB PO ×2 (08:27→20:03)
[2023-12-09] MEDS: BUMETANIDE INJ 1 MG/4 ML VIAL IV PUSH ×3 (08:27→16:52)
[2023-12-09] MEDS: APIXABAN 5 MG TABLET PO ×2 (08:27→20:03)
[2023-12-09] MEDS: BETAMETHASONE/CLOTRIMAZOLE CR 15 GM TUBE 1 APPLIC TOPICAL (08:28)
[2023-12-09] MEDS: EUCERIN CREAM 120 GM JAR 1 APPLIC TOPICAL (08:28)
--- NOTE | 2023-12-09 10:32 | PM.IMPN ---
Progress Note: A&P Assessment and Plan (1) Urinary tract infection: Code(s): N39.0 - Urinary tract infection, site not specified Status: Acute (2) Anasarca: Code(s): R60.1 - Generalized edema Status: Acute (3) Deep vein thrombosis: Code(s): I82.409 - Acute embolism and thrombosis of unspecified deep veins of unspecified lower extremity Status: Acute (4) Left shoulder pain: Code(s): M25.512 - Pain in left shoulder Status: Acute (5) UTI (urinary tract infection), bacterial: Code(s): N39.0 - Urinary tract infection, site not specified; A49.9 - Bacterial infection, unspecified Status: Acute (6) Jaundice: Code(s): R17 - Unspecified jaundice Status: Acute (7) Venous stasis ulcer: Code(s): I83.009 - Varicose veins of unspecified lower extremity with ulcer of unspecified site; L97.909 - Non-pressure chronic ulcer of unspecified part of unspecified lower leg with unspecified severity Status: Acute (8) At risk for sleep apnea: Code(s): Z91.89 - Other specified personal risk factors, not elsewhere classified Status: Acute (9) MARY (acute kidney injury): Code(s): N17.9 - Acute kidney failure, unspecified Status: Acute Plan (1) 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ailure: ?Code(s): I50.43 - 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ailure ?Status:?Acute ?Assessment and Plan: ECHO ?EF is 20% patient may need dialysis for fluid overload, since BP precludes diuresis cardiology following Nephrology following Now getting diuresed as tolerated blood pressure has improved some. 12/05 Continue dobutamine drip.? Left arm swelling still persists, 12/04 started Bumex 1 mg t.i.d. push, negative input output balance 3.73 L in past 24 hours 12/06 : negative input output balance 3.21 L in past 24 hours 12/09: Input output negative balance 1975 mL in 24 hours, continue dobutamine and Bumex 1 mg b.i.d. IV push per pallet repairer continue Entresto 1 tab q.12 hour per pallet repairer (2) Left bundle branch block: ?Code(s): I44.7 - Left bundle-branch block, unspecified ?Status:?Acute ?Assessment and Plan: Stable (3) MARY (acute kidney injury): ?Code(s): N17.9 - Acute kidney failure, unspecified ?Status:?Acute ?Assessment and Plan: Creatinine on admission was 1.?Worsened with diuresis with creatinine up to 2.2 Possible cardiorenal syndrome Nephrology on board Added albumin Continue dobutamine and Bumex 1 mg t.i.d. IV Kidney function continue to improve 12/08/23: Avoid nephrotoxins 12/09: Creatinine 1.0 Chronic anemia Hemoglobin trending down slowly Follow-up stool guaiac, iron panel: Iron 100, ferritin level 336, reticulocyte: High No need iron supplement now Hemoglobin stable (4) UTI (urinary tract infection), bacterial: ?Code(s): N39.0 - Urinary tract infection, site not specified; A49.9 - Bacterial infection, unspecified ?Status:?Acute ?Assessment and Plan: 11/24 culture growing E coli, sensitivity evaluated now on Kelflex finished course of antibiotics(5) Deep vein thrombosis: Per nurse report, patient declined Keflex p.o. today 12/04. Discussed with patient about importance of compliance with medical treatment I82.409 - Acute embolism and thrombosis of unspecified deep veins of unspecified lower extremity ?Status:?Acute ?Assessment and Plan: right basilic vein and external jugular vein thrombosis continue apixaban US venous doppler negative for LUE this is still edematous.? Elevate arm Will cover with Ancef for possible cellulitis will switch to Keflex to complete 7 days course 12/08/23: s/p Cephalexin (6) Jaundice: ?Code(s): R17 - Unspecified jaundice ?Status:?Acute ?Assessment and Plan: Possible cardiac cirrhosis 11/24 US abd showed cholelithiasis with non spe
--- NOTE | 2023-12-09 10:36 | PM.PNNEP ---
Progress Note: A&P Assessment and Plan (1) MARY (acute kidney injury): Code(s): N17.9 - Acute kidney failure, unspecified Status: Acute Assessment and Plan: acute kidney injury patient had a normal creatinine at baseline/prior to admission evaluation to date: urine electrolytes are non pre renal by FeNA but the FeUrea shows pre renal azotemia CT abdomen/renal ultrasound shows normal kidneys and no hydronephrosois CK is normal urine protein/creatinine ratio 630 (so this is not contributing much to the edema) it is likely that the high creatinine is due to pre renal azotemia from poorly functioning LV. renal venous hypertension is a possibility as well -- hard to tease out how much of each is causing the high creatinine because the patient received dobutamine in addition to diuretics simultaneously follow trend of repeat labs and UOP (2) 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ailure: Code(s): I50.43 - Acute on chronic combined systolic (congestive) and diastolic (congestive) heart failure Status: Acute Assessment and Plan: Echo with EF 15 - 20% with grade III diastolic dysfunction this is complicated by patient's non-compliance with medications medical management and therapy difficult to continue due to hypotension Cardiology following on dobutamine gtt currently on scheduled IV diuretics almost 18L negative... we maybe reaching a limit with diuresis as noted by her rising CO2 levels... (3) Anemia: Code(s): D64.9 - Anemia, unspecified Status: Acute Assessment and Plan: suspect chronic disease no evidence of iron deficiency by anemia studies follow trend of H/H (4) Deep vein thrombosis: Code(s): I82.409 - Acute embolism and thrombosis of unspecified deep veins of unspecified lower extremity Status: Acute Assessment and Plan: right basilic vein and external jugular vein thrombosis by imaging on apixaban (5) Urinary tract infection: Code(s): N39.0 - Urinary tract infection, site not specified Status: Acute Assessment and Plan: culture with E.coli completed course of antibiotics Will continue to follow. Subjective Date/time seen: 12/09/23 10:36 Interval history: Follow-up for acute kidney injury/acute renal failure. Chart reviewed since last seen - remains in negative fluid balance with current interventions/therapy; some improvement in swelling/edema noted; breathing/respiratory status seems stable; no apparent distress noted. Exam Narrative: General: well-developed well-nourished female in NAD Heart: normal S1 and S2; no rub or gallop Lungs: clear to auscultation Abdomen: soft, nontender, nondistended, positive bowel sounds Extremities: 2+ edema bilaterally Skin: chronic venous stasis changes present Objective Data Vital Signs Vital Signs: Vital Signs Temp Pulse Resp BP Pulse Ox O2 Del Method 12/09/23 10:00 94 12/09/23 08:00 86 Room Air 12/09/23 07:47 95/46 L 12/09/23 07:43 97.6 F 85 16 95/36 L 92 12/09/23 06:00 88 12/09/23 05:00 97.7 F 86 20 85/46 L 92 12/09/23 04:00 81 20 100 Room Air 12/09/23 04:00 81 12/09/23 02:00 85 12/09/23 00:00 92 20 100 Room Air 12/09/23 00:00 100 12/08/23 23:52 97.8 F 92 20 90/41 L 100 12/08/23 22:00 90 12/08/23 20:00 98 20 95 Room Air 12/08/23 20:00 88 12/08/23 20:00 97.6 F 98 20 86/46 L 95 12/08/23 18:00 91 12/08/23 16:00 92 12/08/23 14:00 89 12/08/23 16:00 Room Air 12/08/23 16:35 98.7 F 94 20 98/50 L 92 Intake/Output Intake/Output: Intake & Output 12/06/23 12/07/23 12/08/23 12/09/23 23:59 23:59 23:59 23:59 Intake Total 1920 1910 1395 620 Output Total 2900 7000 4000 2950 Balance -120 -2644 -7325 -1760 Meds/Results Me
--- NOTE | 2023-12-09 10:36 | P.PNNP_ITS ---
Progress Note: A&P Assessment and Plan (1) MARY (acute kidney injury): Code(s): N17.9 - Acute kidney failure, unspecified Status: Acute Assessment and Plan: * acute kidney injury * patient had a normal creatinine at baseline/prior to admission * evaluation to date: * urine electrolytes are non pre renal by FeNA but the FeUrea shows pre renal azotemia * CT abdomen/renal ultrasound shows normal kidneys and no hydronephrosois * CK is normal * urine protein/creatinine ratio 630 (so this is not contributing much to the edema) * it is likely that the high creatinine is due to pre renal azotemia from poorly functioning LV. * renal venous hypertension is a possibility as well -- hard to tease out how much of each is causing the high creatinine because the patient received dobutamine in addition to diuretics simultaneously * follow trend of repeat labs and UOP (2) Acute on chronic combined systolic (congestive) and diastolic (congestive) heart failure: Code(s): I50.43 - Acute on chronic combined systolic (congestive) and diastolic (congestive) heart failure Status: Acute Assessment and Plan: * Echo with EF 15 - 20% with grade III diastolic dysfunction * this is complicated by patient's non-compliance with medications * medical management and therapy difficult to continue due to hypotension * Cardiology following * on dobutamine gtt currently * on scheduled IV diuretics * almost 18L negative... * we maybe reaching a limit with diuresis as noted by her rising CO2 levels... (3) Anemia: Code(s): D64.9 - Anemia, unspecified Status: Acute Assessment and Plan: * suspect chronic disease * no evidence of iron deficiency by anemia studies * follow trend of H/H (4) Deep vein thrombosis: Code(s): I82.409 - Acute embolism and thrombosis of unspecified deep veins of unspecified lower extremity Status: Acute Assessment and Plan: * right basilic vein and external jugular vein thrombosis by imaging * on apixaban (5) Urinary tract infection: Code(s): N39.0 - Urinary tract infection, site not specified Status: Acute Assessment and Plan: * culture with E.coli * completed course of antibiotics Will continue to follow. Subjective Date/time seen: 12/09/23 10:36 Interval history: Follow-up for acute kidney injury/acute renal failure. Chart reviewed since last seen - remains in negative fluid balance with current interventions/therapy; some improvement in swelling/edema noted; breathing/respiratory status seems stable; no apparent distress noted. Exam Narrative: General: well-developed well-nourished female in NAD Heart: normal S1 and S2; no rub or gallop Lungs: clear to auscultation Abdomen: soft, nontender, nondistended, positive bowel sounds Extremities: 2+ edema bilaterally Skin: chronic venous stasis changes present Objective Data Vital Signs Vital Signs: Vital Signs Temp Pulse Resp BP Pulse Ox O2 Del Method 12/09/23 10:00 94 12/09/23 08:00 86 Room Air 12/09/23 07:47 95/46 L 12/09/23 07:43 97.6 F 85 16 95/36 L 92 12/09/23 06:00 88 12/09/23 05:00 97.7 F 86 20 85/46 L 92 12/09/23 04:00 81 20 100 Room Air 12/09/23 04:00 81 12/09/23 02:00 85
[2023-12-09] MEDS: ACETAMINOPHEN 325 MG TABLET 650 MG PO (16:51)
--- NOTE | 2023-12-09 17:30 | PM.PNCARD ---
Progress Note: A&P Assessment and Plan (1) Acute on chronic combined systolic (congestive) and diastolic (congestive) heart failure: Code(s): I50.43 - Acute on chronic combined systolic (congestive) and diastolic (congestive) heart failure Status: Acute Assessment and Plan: 58-year-old female with history of CHF with reduced ejection fraction (unclear etiology)-with acute on chronic CHF with reduced ejection fraction. -Continue low dose of Entresto. 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 Perhaps tomorrow can attempt to discontinue the drip. -Continue aggressive diuresis with bumex 1mg t.i.d. She has diuresed ~18L! -Continue to monitor BP and renal function closely (2) MARY (acute kidney injury): Code(s): N17.9 - Acute kidney failure, unspecified Status: Acute Assessment and Plan: Resolved. Likely from cardiorenal syndrome Nephrology is following. Plan as above (3) At risk for sleep apnea: Code(s): Z91.89 - Other specified personal risk factors, not elsewhere classified Status: Acute Assessment and Plan: Patient is morbidly obese and probably has KRZYSZTOF. Not interested in sleep study as an outpatient at this time. (4) Noncompliance with medication regimen: Code(s): Z91.148 - Patient's other noncompliance with medication regimen for other reason Status: Acute Assessment and Plan: Outpatient medication compliance reinforced Subjective Date/time seen: 12/09/23 17:30 Interval history: Date of service: 11/24/2023 Interval history: Patient was sitting up in the recliner, reported improvement in her shortness of breath. At the time of evaluation, patient's son and the nurse was in the room. I spoke at length with the patient and her son about her previous cardiac history. She states that she was diagnosed with CHF many many years ago. According to patient's son, she was probably diagnosed with heart failure after childbirth. Patient does not recall any ischemic evaluation in the past. She has not been fully compliant with medical regimen as an outpatient. Patient denies documented history of KRZYSZTOF and is not willing for evaluation for possible sleep apnea given her morbid obesity. Dr. Alcazar from Nephrology had concerns about patient's renal function and decreased urine output and was wondering about inotropic support. However, after discussion with the patient, patient does not want any additional IV medications at this time. Date of service 11/26/2023: denies any shortness of breath, chest pain, palpitations. She is complaining of pain and swelling in her left arm. Date of service 11/28/2023: Feels about the same today. Denies any shortness of breath, chest pain. She is feeling frustrated with the length of her hospitalization. Date of service 11/29/2023: Left arm remains painful and swollen. BP slightly better and she is actually urinating a little more despite diuretics being held. Date of service 11/30/2023: Seems to be tolerating dobutamine. No chest pain or shortness of breath. Renal function creatinine 1.8 Date of service 12/01/2023: Making no progress and in fact she feels like she is more swollen today Which does correlate to her positive fluid balance. She denies any chest pain. No trouble breathing date of service 12/02/2023: She tolerated furosemide yesterday. No chest pain. Still has marked edema. Date of service 12/03/2023: She is still fluid balance positive and remains edematous. Blood pressure is stable. No shortness of breath, chest pain, palpitations. Left arm swelling/pain is improving Date of service 12/04/2023: Still edematous but her left arm is better. No chest pain shortness of breath. Seems to be making a bit more urine and renal function is improved Date of service 12/05/2023: She is finally diuresing. Left arm is much Less swollen. She feels less edematous in her abdomen also. Renal function is stable. No ch
[2023-12-10] VITALS (17 sets, daily range): BP systolic 88–102; BP diastolic 40–66; PULSE 76–100; RESP 16–28; TEMP 36.3–36.4; O2SAT 92–96
[2023-12-10] MEDS: DOBUTamine 250 MG/D5W 250 ML 250 MG/250 ML BAG 26.51 MG IV CONT (05:11)
[2023-12-10] MEDS: CENTRAL LINE FLUSH 10 ML IV PUSH ×3 (05:12→21:00)
[2023-12-10 05:32] LABS: Basophils Absolute Auto 0.1 K/mm3 (0.0-0.1); Basophils Percent Auto 1.2 % (0.2-1.2); Eosinophils Absolute Auto 0.1 K/mm3 (0-0.3); Eosinophils Percent Auto 2.4 % (0-4.4); Hematocrit 23.1 % (37.0-47.0); Hemoglobin 7.4 g/dL (12.0-15.0); Immature Granulocyte Absolute 0.02 K/mm3 (0.00-0.031); Immature Granulocyte Percent A 0.5 % (0-0.5); Lymphocytes Absolute Auto 0.58 K/mm3 (0.9-3.2); Mean Corpuscular Hemoglobin 34.4 pg (26-34); Mean Corpuscular Volume 107.4 fl (80-100); Mean Platelet Volume 10.7 fl (7.4-10.4); Monocytes Absolute Auto 0.4 K/mm3 (0.1-0.6); Monocytes Percent Auto 9.9 % (2.6-8.5); Platelet Count Result 193 k/mm3 (150-375); Red Blood Count 2.15 M/mm3 (4.2-5.4); Red Cell Distribution Width 16.2 % (11.5-14.5); White Blood Count 4.1 K/mm3 (4.5-10.0)
[2023-12-10 05:57] LABS: Alanine Aminotransferase 7 U/L (6-35); Albumin Level 3.2 g/dL (3.5-5.1); Alkaline Phosphatase 173 U/L (38-126); Aspartate Amino Transferase 22 U/L (14-36); Bilirubin,Total 3.7 mg/dL (0.2-1.3); Blood Urea Nitrogen 34 mg/dL (7-17); Carbon Dioxide > 40 mmol/L (22-30); Chloride 91 mmol/L (98-107); Estimated CRCL calculation 84 ml/min; Estimated Glomerular Filt Rate 57; Glucose 94 mg/dL (65-110); Magnesium 1.8 mg/dL (1.6-2.3); Phosphorus 3.8 mg/dL (2.5-4.5); Potassium 3.2 mmol/L (3.4-5.0); Sodium 135 mmol/L (137-145)
[2023-12-10] MEDS: APIXABAN 5 MG TABLET PO ×2 (08:48→20:56)
[2023-12-10] MEDS: SACUBITRIL/VALSARTAN 12-13 MG TABLET 1 TAB PO ×2 (08:48→20:56)
[2023-12-10] MEDS: BUMETANIDE INJ 1 MG/4 ML VIAL IV PUSH ×2 (08:49→17:20)
[2023-12-10] MEDS: POTASSIUM CHLORIDE 20 MEQ PACKET (FOR LIQUID) 40 MEQ PO (08:49)
[2023-12-10] MEDS: TOLNAFTATE 1% POWDER 45 GM BTL 1 APPLIC TOPICAL ×2 (08:50→20:58)
[2023-12-10] MEDS: BETAMETHASONE/CLOTRIMAZOLE CR 15 GM TUBE 1 APPLIC TOPICAL (08:50)
[2023-12-10] MEDS: EUCERIN CREAM 120 GM JAR 1 APPLIC TOPICAL (08:50)
--- NOTE | 2023-12-10 09:49 | PM.IMPN ---
Progress Note: A&P Assessment and Plan (1) Urinary tract infection: Code(s): N39.0 - Urinary tract infection, site not specified Status: Acute (2) Anasarca: Code(s): R60.1 - Generalized edema Status: Acute (3) Deep vein thrombosis: Code(s): I82.409 - Acute embolism and thrombosis of unspecified deep veins of unspecified lower extremity Status: Acute (4) Left shoulder pain: Code(s): M25.512 - Pain in left shoulder Status: Acute (5) UTI (urinary tract infection), bacterial: Code(s): N39.0 - Urinary tract infection, site not specified; A49.9 - Bacterial infection, unspecified Status: Acute (6) Jaundice: Code(s): R17 - Unspecified jaundice Status: Acute (7) Venous stasis ulcer: Code(s): I83.009 - Varicose veins of unspecified lower extremity with ulcer of unspecified site; L97.909 - Non-pressure chronic ulcer of unspecified part of unspecified lower leg with unspecified severity Status: Acute (8) At risk for sleep apnea: Code(s): Z91.89 - Other specified personal risk factors, not elsewhere classified Status: Acute (9) MARY (acute kidney injury): Code(s): N17.9 - Acute kidney failure, unspecified Status: Acute Plan (1) Acute on chronic combined systolic (congestive) and diastolic (congestive) heart failure: ?Code(s): I50.43 - Acute on chronic combined systolic (congestive) and diastolic (congestive) heart failure ?Status:?Acute ?Assessment and Plan: ECHO ?EF is 20% patient may need dialysis for fluid overload, since BP precludes diuresis cardiology following Nephrology following Now getting diuresed as tolerated blood pressure has improved some. 12/05 Continue dobutamine drip.? Left arm swelling still persists, 12/04 started Bumex 1 mg t.i.d. push, negative input output balance 3.73 L in past 24 hours 12/06 : negative input output balance 3.21 L in past 24 hours 12/09: Input output negative balance 1975 mL in 24 hours, continue dobutamine and Bumex 1 mg b.i.d. IV push per senior business architect continue Entresto 1 tab q.12 hour per senior business architect December 10, dobutamine is stopped per senior business architect, continue Bumex 1 mg t.i.d. IV push per ocean clam boat captain (2) Left bundle branch block: ?Code(s): I44.7 - Left bundle-branch block, unspecified ?Status:?Acute ?Assessment and Plan: Stable (3) MARY (acute kidney injury): ?Code(s): N17.9 - Acute kidney failure, unspecified ?Status:?Acute ?Assessment and Plan: Creatinine on admission was 1.?Worsened with diuresis with creatinine up to 2.2 Possible cardiorenal syndrome Nephrology on board Added albumin Continue dobutamine and Bumex 1 mg t.i.d. IV Kidney function continue to improve Kidney function stable Chronic anemia Hemoglobin trending down slowly Follow-up stool guaiac, iron panel: Iron 100, ferritin level 336, reticulocyte: High No need iron supplement now Hemoglobin stable (4) UTI (urinary tract infection), bacterial: ?Code(s): N39.0 - Urinary tract infection, site not specified; A49.9 - Bacterial infection, unspecified ?Status:?Acute ?Assessment and Plan: 2 culture growing E coli, sensitivity evaluated now on Kelflex finished course of antibiotics(5) Deep vein thrombosis: Per nurse report, patient declined Keflex p.o. today 12/04. Discussed with patient about importance of compliance with medical treatment I82.409 - Acute embolism and thrombosis of unspecified deep veins of unspecified lower extremity ?Status:?Acute ?Assessment and Plan: right basilic vein and external jugular vein thrombosis continue apixaban US venous doppler negative for LUE this is still edematous.? Elevate arm Will cover with Ancef for possible cellulitis will switch to Keflex to complete 7 days course 12/08/23: s/p Cephalexin (6) Jaundice: ?Code(s): R17 - Unspecified jaundice ?Status:?Acute ?Assessment and Pl
--- NOTE | 2023-12-10 10:23 | P.PNNP_ITS ---
Progress Note: A&P Assessment and Plan (1) MARY (acute kidney injury): Code(s): N17.9 - Acute kidney failure, unspecified Status: Acute Assessment and Plan: * patient had a normal creatinine at baseline/prior to admission * evaluation to date: * urine electrolytes are non pre renal by FeNA but the FeUrea shows pre renal azotemia * CT abdomen/renal ultrasound shows normal kidneys and no hydronephrosois * CK is normal * urine protein/creatinine ratio 630 (so this is not contributing much to the edema) * it is likely that the high creatinine is due to pre renal azotemia from poorly functioning LV. * renal venous hypertension is a possibility as well -- hard to tease out how much of each is causing the high creatinine because the patient received dobutamine in addition to diuretics simultaneously * I still have concerns how her creatinine/renal function will respond once dobutamine is discontinued... * follow trend of repeat labs and UOP (2) Acute on chronic combined systolic (congestive) and diastolic (congestive) heart failure: Code(s): I50.43 - Acute on chronic combined systolic (congestive) and diastolic (congestive) heart failure Status: Acute Assessment and Plan: * Echo with EF 15 - 20% with grade III diastolic dysfunction * this is complicated by patient's non-compliance with medications * medical management and therapy difficult to continue due to hypotension * Cardiology following * on dobutamine gtt currently * on scheduled IV diuretics * almost 18L negative to date... * we maybe reaching a limit with diuresis as noted by her rising CO2 levels... * consider use of acetazolamide... (3) Anemia: Code(s): D64.9 - Anemia, unspecified Status: Acute Assessment and Plan: * suspect chronic disease * no evidence of iron deficiency by anemia studies * follow trend of H/H (4) Deep vein thrombosis: Code(s): I82.409 - Acute embolism and thrombosis of unspecified deep veins of unspecified lower extremity Status: Acute Assessment and Plan: * right basilic vein and external jugular vein thrombosis by imaging * on apixaban (5) Urinary tract infection: Code(s): N39.0 - Urinary tract infection, site not specified Status: Acute Assessment and Plan: * culture with E.coli * completed course of antibiotics Will continue to follow. Subjective Date/time seen: 12/10/23 10:23 Interval history: Follow-up for acute kidney injury/acute renal failure. Continues to make good urine output with current interventions/therapy to date; major complaint is still that of left shoulder pain but this seems better; swelling/edema somewhat better. Exam Narrative: General: well-developed well-nourished female in NAD Heart: normal S1 and S2; no rub or gallop Lungs: clear to auscultation Abdomen: soft, nontender, nondistended, positive bowel sounds Extremities: 2+ edema bilaterally Skin: chronic venous stasis changes apparent Objective Data Vital Signs Vital Signs: Vital Signs Temp Pulse Resp BP Pulse Ox O2 Del Method 12/10/23 08:00 97.3 F L 83 16 102/66 95 12/10/23 06:00 88 12/10/23 04:00 87 12/10/23 05:10 76 92/62 L 12/10/23 05:08 97.6 F 94 16 96/40 L 96 12/10/23 02:00 85 12/10/23 00:00 83
--- NOTE | 2023-12-10 10:23 | PM.PNNEP ---
Progress Note: A&P Assessment and Plan (1) MARY (acute kidney injury): Code(s): N17.9 - Acute kidney failure, unspecified Status: Acute Assessment and Plan: patient had a normal creatinine at baseline/prior to admission evaluation to date: urine electrolytes are non pre renal by FeNA but the FeUrea shows pre renal azotemia CT abdomen/renal ultrasound shows normal kidneys and no hydronephrosois CK is normal urine protein/creatinine ratio 630 (so this is not contributing much to the edema) it is likely that the high creatinine is due to pre renal azotemia from poorly functioning LV. renal venous hypertension is a possibility as well -- hard to tease out how much of each is causing the high creatinine because the patient received dobutamine in addition to diuretics simultaneously I still have concerns how her creatinine/renal function will respond once dobutamine is discontinued... follow trend of repeat labs and UOP (2) Acute on chronic combined systolic (congestive) and diastolic (congestive) heart failure: Code(s): I50.43 - Acute on chronic combined systolic (congestive) and diastolic (congestive) heart failure Status: Acute Assessment and Plan: Echo with EF 15 - 20% with grade III diastolic dysfunction this is complicated by patient's non-compliance with medications medical management and therapy difficult to continue due to hypotension Cardiology following on dobutamine gtt currently on scheduled IV diuretics almost 18L negative to date... we maybe reaching a limit with diuresis as noted by her rising CO2 levels... consider use of acetazolamide... (3) Anemia: Code(s): D64.9 - Anemia, unspecified Status: Acute Assessment and Plan: suspect chronic disease no evidence of iron deficiency by anemia studies follow trend of H/H (4) Deep vein thrombosis: Code(s): I82.409 - Acute embolism and thrombosis of unspecified deep veins of unspecified lower extremity Status: Acute Assessment and Plan: right basilic vein and external jugular vein thrombosis by imaging on apixaban (5) Urinary tract infection: Code(s): N39.0 - Urinary tract infection, site not specified Status: Acute Assessment and Plan: culture with E.coli completed course of antibiotics Will continue to follow. Subjective Date/time seen: 12/10/23 10:23 Interval history: Follow-up for acute kidney injury/acute renal failure. Continues to make good urine output with current interventions/therapy to date; major complaint is still that of left shoulder pain but this seems better; swelling/edema somewhat better. Exam Narrative: General: well-developed well-nourished female in NAD Heart: normal S1 and S2; no rub or gallop Lungs: clear to auscultation Abdomen: soft, nontender, nondistended, positive bowel sounds Extremities: 2+ edema bilaterally Skin: chronic venous stasis changes apparent Objective Data Vital Signs Vital Signs: Vital Signs Temp Pulse Resp BP Pulse Ox O2 Del Method 12/10/23 08:00 97.3 F L 83 16 102/66 95 12/10/23 06:00 88 12/10/23 04:00 87 12/10/23 05:10 76 92/62 L 12/10/23 05:08 97.6 F 94 16 96/40 L 96 12/10/23 02:00 85 12/10/23 00:00 83 12/09/23 22:00 82 12/09/23 23:45 97.9 F 82 16 92/45 L 96 12/09/23 20:00 90 12/09/23 20:00 97.7 F 92 16 91/45 L 91 12/09/23 19:44 80 94/80 L 12/09/23 19:44 80 94/80 L 12/09/23 18:00 83 12/09/23 16:00 Room Air 12/09/23 16:00 84 12/09/23 14:00 91 12/09/23 15:38 97.3 F L 84 16 92/39 L 100 Intake/Output Intake/Output: Intake & Output 12/07/23 12/08/23 12/09/23 12/10/23 23:59 23:59 23:59 23:59 Intake Total 1910 1395 1500 520 Output Total 7000 4000 5700 1125 Balance -5090 -2605 -4200 -605 Meds/Results Medications: Activ
--- NOTE | 2023-12-10 10:45 | PM.PNCARD ---
Progress Note: A&P Assessment and Plan (1) Acute on chronic combined systolic (congestive) and diastolic (congestive) heart failure: Code(s): I50.43 - Acute on chronic combined systolic (congestive) and diastolic (congestive) heart failure Status: Acute Assessment and Plan: 58-year-old female with history of CHF with reduced ejection fraction (unclear etiology)-with acute on chronic CHF with reduced ejection fraction. -Continue low dose of Entresto. -Discontinue Dobutamine gtt today -K+ 3.2 and has been repleted. Recheck BMP in a.m. -Continue aggressive diuresis with bumex 1mg t.i.d. Cumulative fluid balance -17.5L -Continue to monitor BP and renal function closely (2) MARY (acute kidney injury): Code(s): N17.9 - Acute kidney failure, unspecified Status: Acute Assessment and Plan: Resolved. Likely from cardiorenal syndrome Nephrology is following. Plan as above (3) At risk for sleep apnea: Code(s): Z91.89 - Other specified personal risk factors, not elsewhere classified Status: Acute Assessment and Plan: Patient is morbidly obese and probably has KRZYSZTOF. Not interested in sleep study as an outpatient at this time. (4) Noncompliance with medication regimen: Code(s): Z91.148 - Patient's other noncompliance with medication regimen for other reason Status: Acute Assessment and Plan: Outpatient medication compliance reinforced Subjective Date/time seen: 12/10/23 10:45 Interval history: Date of service: 11/24/2023 Interval history: Patient was sitting up in the recliner, reported improvement in her shortness of breath. At the time of evaluation, patient's son and the nurse was in the room. I spoke at length with the patient and her son about her previous cardiac history. She states that she was diagnosed with CHF many many years ago. According to patient's son, she was probably diagnosed with heart failure after childbirth. Patient does not recall any ischemic evaluation in the past. She has not been fully compliant with medical regimen as an outpatient. Patient denies documented history of KRZYSZTOF and is not willing for evaluation for possible sleep apnea given her morbid obesity. Dr. Alcazar from Nephrology had concerns about patient's renal function and decreased urine output and was wondering about inotropic support. However, after discussion with the patient, patient does not want any additional IV medications at this time. Date of service 11/26/2023: denies any shortness of breath, chest pain, palpitations. She is complaining of pain and swelling in her left arm. Date of service 11/28/2023: Feels about the same today. Denies any shortness of breath, chest pain. She is feeling frustrated with the length of her hospitalization. Date of service 11/29/2023: Left arm remains painful and swollen. BP slightly better and she is actually urinating a little more despite diuretics being held. Date of service 11/30/2023: Seems to be tolerating dobutamine. No chest pain or shortness of breath. Renal function creatinine 1.8 Date of service 12/01/2023: Making no progress and in fact she feels like she is more swollen today Which does correlate to her positive fluid balance. She denies any chest pain. No trouble breathing date of service 12/02/2023: She tolerated furosemide yesterday. No chest pain. Still has marked edema. Date of service 12/03/2023: She is still fluid balance positive and remains edematous. Blood pressure is stable. No shortness of breath, chest pain, palpitations. Left arm swelling/pain is improving Date of service 12/04/2023: Still edematous but her left arm is better. No chest pain shortness of breath. Seems to be making a bit more urine and renal function is improved Date of service 12/05/2023: She is finally diuresing. Left arm is much Less swollen. She feels less edematous in her abdomen also. Renal function is stable. No ches
[2023-12-10] MEDS: ACETAMINOPHEN 325 MG TABLET 650 MG PO (12:06)
[2023-12-10] MEDS: SENNOSIDES 8.6 MG TABLET PO (20:56)
[2023-12-11] VITALS (16 sets, daily range): BP systolic 91–121; BP diastolic 52–77; PULSE 75–94; RESP 18–20; TEMP 36.1–36.7; O2SAT 92–95
[2023-12-11 05:26] LABS: Eosinophils Absolute Auto 0.1 K/mm3 (0-0.3); Eosinophils Percent Auto 3.4 % (0-4.4); Hematocrit 24.3 % (37.0-47.0); Hemoglobin 7.5 g/dL (12.0-15.0); Immature Granulocyte Absolute 0.01 K/mm3 (0.00-0.031); Immature Granulocyte Percent A 0.3 % (0-0.5); Lymphocytes Absolute Auto 0.61 K/mm3 (0.9-3.2); Lymphocytes Percent Auto 15.8 % (18.3-44.2); Mean Corpuscular HGB Conc 30.9 g/dl (32-36); Mean Corpuscular Hemoglobin 34.1 pg (26-34); Mean Corpuscular Volume 110.5 fl (80-100); Mean Platelet Volume 10.8 fl (7.4-10.4); Monocytes Absolute Auto 0.4 K/mm3 (0.1-0.6); Monocytes Percent Auto 9.6 % (2.6-8.5); Neutrophils Absolute Auto 2.7 K/mm3 (1.3-6.7); Neutrophils Percent Auto 69.9 % (45.5-73.1); Platelet Count Result 182 k/mm3 (150-375); Red Cell Distribution Width 16.2 % (11.5-14.5); White Blood Count 3.9 K/mm3 (4.5-10.0)
[2023-12-11] MEDS: CENTRAL LINE FLUSH 10 ML IV PUSH ×3 (05:31→23:08)
[2023-12-11 05:37] LABS: Alanine Aminotransferase 7 U/L (6-35); Albumin Level 3.3 g/dL (3.5-5.1); Alkaline Phosphatase 184 U/L (38-126); Aspartate Amino Transferase 23 U/L (14-36); Bilirubin,Total 3.5 mg/dL (0.2-1.3); Blood Urea Nitrogen 36 mg/dL (7-17); Carbon Dioxide > 40 mmol/L (22-30); Chloride 92 mmol/L (98-107); Estimated CRCL calculation 83 ml/min; Estimated Glomerular Filt Rate 57; Glucose 94 mg/dL (65-110); Magnesium 1.8 mg/dL (1.6-2.3); Potassium 3.7 mmol/L (3.4-5.0); Sodium 135 mmol/L (137-145)
--- NOTE | 2023-12-11 08:15 | PM.IMPN ---
Progress Note: A&P Assessment and Plan (1) Urinary tract infection: Code(s): N39.0 - Urinary tract infection, site not specified Status: Acute (2) Anasarca: Code(s): R60.1 - Generalized edema Status: Acute (3) Deep vein thrombosis: Code(s): I82.409 - Acute embolism and thrombosis of unspecified deep veins of unspecified lower extremity Status: Acute (4) Left shoulder pain: Code(s): M25.512 - Pain in left shoulder Status: Acute (5) UTI (urinary tract infection), bacterial: Code(s): N39.0 - Urinary tract infection, site not specified; A49.9 - Bacterial infection, unspecified Status: Acute (6) Jaundice: Code(s): R17 - Unspecified jaundice Status: Acute (7) Venous stasis ulcer: Code(s): I83.009 - Varicose veins of unspecified lower extremity with ulcer of unspecified site; L97.909 - Non-pressure chronic ulcer of unspecified part of unspecified lower leg with unspecified severity Status: Acute (8) At risk for sleep apnea: Code(s): Z91.89 - Other specified personal risk factors, not elsewhere classified Status: Acute (9) MARY (acute kidney injury): Code(s): N17.9 - Acute kidney failure, unspecified Status: Acute Plan (1) Acute on chronic combined systolic (congestive) and diastolic (congestive) heart failure: ?Code(s): I50.43 - Acute on chronic combined systolic (congestive) and diastolic (congestive) heart failure ?Status:?Acute ?Assessment and Plan: ECHO ?EF is 20% patient may need dialysis for fluid overload, since BP precludes diuresis cardiology following Nephrology following Now getting diuresed as tolerated blood pressure has improved some. 12/05 Continue dobutamine drip.? Left arm swelling still persists, 12/04 started Bumex 1 mg t.i.d. push, negative input output balance 3.73 L in past 24 hours 12/06 : negative input output balance 3.21 L in past 24 hours 12/09: Input output negative balance 1975 mL in 24 hours, continue dobutamine and Bumex 1 mg b.i.d. IV push per solder sprayer continue Entresto 1 tab q.12 hour per solder sprayer December 10, dobutamine is stopped per solder sprayer, continue Bumex 1 mg t.i.d. IV push per hospice liaison, continue Entresto b.i.d. p.o., (2) Left bundle branch block: ?Code(s): I44.7 - Left bundle-branch block, unspecified ?Status:?Acute ?Assessment and Plan: Stable (3) MARY (acute kidney injury): ?Code(s): N17.9 - Acute kidney failure, unspecified ?Status:?Acute ?Assessment and Plan: Creatinine on admission was 1.?Worsened with diuresis with creatinine up to 2.2 Possible cardiorenal syndrome Nephrology on board Added albumin Continue dobutamine and Bumex 1 mg t.i.d. IV Kidney function continue to improve Kidney function stable Chronic anemia Hemoglobin trending down slowly Follow-up stool guaiac, iron panel: Iron 100, ferritin level 336, reticulocyte: High No need iron supplement now Hemoglobin stable (4) UTI (urinary tract infection), bacterial: ?Code(s): N39.0 - Urinary tract infection, site not specified; A49.9 - Bacterial infection, unspecified ?Status:?Acute ?Assessment and Plan: 11/24 culture growing E coli, sensitivity evaluated now on Kelflex finished course of antibiotics(5) Deep vein thrombosis: Per nurse report, patient declined Keflex p.o. today 12/04. Discussed with patient about importance of compliance with medical treatment I82.409 - Acute embolism and thrombosis of unspecified deep veins of unspecified lower extremity ?Status:?Acute ?Assessment and Plan: right basilic vein and external jugular vein thrombosis continue apixaban US venous doppler negative for LUE this is still edematous.? Elevate arm Will cover with Ancef for possible cellulitis will switch to Keflex to complete 7 days course 12/08/23: s/p Cephalexin (6) Jaundice: ?Code(s): R17 - Unspecified jaundice ?Status
[2023-12-11] MEDS: SACUBITRIL/VALSARTAN 12-13 MG TABLET 1 TAB PO ×2 (09:00→20:30)
[2023-12-11] MEDS: APIXABAN 5 MG TABLET PO ×2 (09:00→20:30)
[2023-12-11] MEDS: BUMETANIDE INJ 1 MG/4 ML VIAL IV PUSH ×3 (09:01→17:28)
[2023-12-11] MEDS: TOLNAFTATE 1% POWDER 45 GM BTL 1 APPLIC TOPICAL ×2 (09:01→20:31)
[2023-12-11] MEDS: POTASSIUM CHLORIDE 20 MEQ PACKET (FOR LIQUID) 40 MEQ PO (09:05)
--- NOTE | 2023-12-11 09:46 | PCNWS ---
Weekly nutritional screen. Patient is tolerating current diet with adequate intake, 100% meals on heart healthy diet. No weight loss reported. No nutritional needs at this time.
--- NOTE | 2023-12-11 12:42 | PM.PNNEP ---
Progress Note: A&P Assessment and Plan (1) MARY (acute kidney injury): Code(s): N17.9 - Acute kidney failure, unspecified Status: Acute Assessment and Plan: patient had a normal creatinine at baseline/prior to admission evaluation to date: urine electrolytes are non pre renal by FeNA but the FeUrea shows pre renal azotemia CT abdomen/renal ultrasound shows normal kidneys and no hydronephrosois CK is normal urine protein/creatinine ratio 630 (so this is not contributing much to the edema) it is likely that the high creatinine is due to pre renal azotemia from poorly functioning LV. renal venous hypertension is a possibility as well -- hard to tease out how much of each is causing the high creatinine because the patient received dobutamine in addition to diuretics simultaneously follow trend of repeat labs and UOP (2) Acute on chronic combined systolic (congestive) and diastolic (congestive) heart failure: Code(s): I50.43 - Acute on chronic combined systolic (congestive) and diastolic (congestive) heart failure Status: Acute Assessment and Plan: Echo with EF 15 - 20% with grade III diastolic dysfunction this is complicated by patient's non-compliance with medications medical management and therapy difficult to continue due to hypotension Cardiology following off dobutamine gtt currently on scheduled IV diuretics almost 18L negative to date... we maybe reaching a limit with diuresis as noted by her rising CO2 levels... add/use of acetazolamide... switch to oral bumex? (3) Anemia: Code(s): D64.9 - Anemia, unspecified Status: Acute Assessment and Plan: suspect chronic disease no evidence of iron deficiency by anemia studies follow trend of H/H (4) Deep vein thrombosis: Code(s): I82.409 - Acute embolism and thrombosis of unspecified deep veins of unspecified lower extremity Status: Acute Assessment and Plan: right basilic vein and external jugular vein thrombosis by imaging on apixaban (5) Urinary tract infection: Code(s): N39.0 - Urinary tract infection, site not specified Status: Acute Assessment and Plan: culture with E.coli completed course of antibiotics Will continue to follow. Subjective Date/time seen: 12/11/23 12:42 Interval history: Follow-up for acute kidney injury/acute renal failure. Still making reasonable urine output but not as much since discontinuation of dobutamine gtt yesterday but stable hemodynamics noted; renal function relatively stable as well; LE edema seems somewhat better as well. Exam Narrative: General: well-developed well-nourished female in NAD Heart: normal S1 and S2; no rub or gallop Lungs: clear to auscultation Abdomen: soft, nontender, nondistended, positive bowel sounds Extremities: 1 - 2+ edema bilaterally Skin: chronic venous stasis changes noted Objective Data Vital Signs Vital Signs: Vital Signs Temp Pulse Resp BP Pulse Ox 12/11/23 12:31 85 12/11/23 10:00 87 12/11/23 08:45 85 12/11/23 12:05 98 F 94 18 121/77 92 12/11/23 08:00 98.1 F 80 18 108/54 L 92 12/11/23 06:00 75 12/11/23 04:51 97.4 F L 78 18 105/60 95 12/11/23 04:00 78 12/11/23 02:00 75 12/11/23 00:00 76 12/10/23 23:31 97.4 F L 81 18 88/54 L 92 12/10/23 22:00 89 12/10/23 20:00 83 12/10/23 20:39 97.4 F L 89 18 95/44 L 95 12/10/23 18:00 81 Intake/Output Intake/Output: Intake & Output 12/08/23 12/09/23 12/10/23 12/11/23 23:59 23:59 23:59 23:59 Intake Total 1395 1500 1160 790 Output Total 4000 5700 1575 2775 [facility] -[id number] [phone] Meds/Results Medications: Active Medications Generic Name Dose Route Start Last Admin Trade Name Freq PRN Reason Stop Dose Admin Acetaminophen 650 mg 11/13/23 21:01 12/10/23 12:06 Acetaminophen 325 Mg Tablet P
--- NOTE | 2023-12-11 12:42 | P.PNNP_ITS ---
Progress Note: A&P Assessment and Plan (1) MARY (acute kidney injury): Code(s): N17.9 - Acute kidney failure, unspecified Status: Acute Assessment and Plan: * patient had a normal creatinine at baseline/prior to admission * evaluation to date: * urine electrolytes are non pre renal by FeNA but the FeUrea shows pre renal azotemia * CT abdomen/renal ultrasound shows normal kidneys and no hydronephrosois * CK is normal * urine protein/creatinine ratio 630 (so this is not contributing much to the edema) * it is likely that the high creatinine is due to pre renal azotemia from poorly functioning LV. * renal venous hypertension is a possibility as well -- hard to tease out how much of each is causing the high creatinine because the patient received dobutamine in addition to diuretics simultaneously * follow trend of repeat labs and UOP (2) Acute on chronic combined systolic (congestive) and diastolic (congestive) heart failure: Code(s): I50.43 - Acute on chronic combined systolic (congestive) and diastolic (congestive) heart failure Status: Acute Assessment and Plan: * Echo with EF 15 - 20% with grade III diastolic dysfunction * this is complicated by patient's non-compliance with medications * medical management and therapy difficult to continue due to hypotension * Cardiology following * off dobutamine gtt currently * on scheduled IV diuretics * almost 18L negative to date... * we maybe reaching a limit with diuresis as noted by her rising CO2 levels... * add/use of acetazolamide... * switch to oral bumex? (3) Anemia: Code(s): D64.9 - Anemia, unspecified Status: Acute Assessment and Plan: * suspect chronic disease * no evidence of iron deficiency by anemia studies * follow trend of H/H (4) Deep vein thrombosis: Code(s): I82.409 - Acute embolism and thrombosis of unspecified deep veins of unspecified lower extremity Status: Acute Assessment and Plan: * right basilic vein and external jugular vein thrombosis by imaging * on apixaban (5) Urinary tract infection: Code(s): N39.0 - Urinary tract infection, site not specified Status: Acute Assessment and Plan: * culture with E.coli * completed course of antibiotics Will continue to follow. Subjective Date/time seen: 12/11/23 12:42 Interval history: Follow-up for acute kidney injury/acute renal failure. Still making reasonable urine output but not as much since discontinuation of dobutamine gtt yesterday but stable hemodynamics noted; renal function relatively stable as well; LE edema seems somewhat better as well. Exam Narrative: General: well-developed well-nourished female in NAD Heart: normal S1 and S2; no rub or gallop Lungs: clear to auscultation Abdomen: soft, nontender, nondistended, positive bowel sounds Extremities: 1 - 2+ edema bilaterally Skin: chronic venous stasis changes noted Objective Data Vital Signs Vital Signs: Vital Signs Temp Pulse Resp BP Pulse Ox 12/11/23 12:31 85 12/11/23 10:00 87 12/11/23 08:45 85 12/11/23 12:05 98 F 94 18 121/77 92 12/11/23 08:00 98.1 F 80 18 108/54 L 92 12/11/23 06:00 75 12/11/23 04:51 97.4 F L 78 18 105/60 95 12/11/23 04:00 78 12/11/23 02:00 7
--- NOTE | 2023-12-11 13:24 | PM.PNCARD ---
Progress Note: A&P Assessment and Plan (1) Acute on chronic combined systolic (congestive) and diastolic (congestive) heart failure: Code(s): I50.43 - Acute on chronic combined systolic (congestive) and diastolic (congestive) heart failure Status: Acute Assessment and Plan: 58-year-old female with history of CHF with reduced ejection fraction (unclear etiology)-with acute on chronic CHF with reduced ejection fraction. -Continue low dose of Entresto. -Discontinued Dobutamine gtt 12/10, maintaining urine output off of Dobutamine thus far -Continue aggressive diuresis with bumex 1mg t.i.d. Cumulative fluid balance -18.7L -Continue to monitor BP and renal function closely (2) MARY (acute kidney injury): Code(s): N17.9 - Acute kidney failure, unspecified Status: Acute Assessment and Plan: Resolved. Likely from cardiorenal syndrome Nephrology is following. Plan as above (3) At risk for sleep apnea: Code(s): Z91.89 - Other specified personal risk factors, not elsewhere classified Status: Acute Assessment and Plan: Patient is morbidly obese and probably has KRZYSZTOF. Not interested in sleep study as an outpatient at this time. (4) Noncompliance with medication regimen: Code(s): Z91.148 - Patient's other noncompliance with medication regimen for other reason Status: Acute Assessment and Plan: Outpatient medication compliance reinforced Subjective Date/time seen: 12/11/23 13:24 Interval history: Reason for visit: CHF Date of service: 11/24/2023 Interval history: Patient was sitting up in the recliner, reported improvement in her shortness of breath. At the time of evaluation, patient's son and the nurse was in the room. I spoke at length with the patient and her son about her previous cardiac history. She states that she was diagnosed with CHF many many years ago. According to patient's son, she was probably diagnosed with heart failure after childbirth. Patient does not recall any ischemic evaluation in the past. She has not been fully compliant with medical regimen as an outpatient. Patient denies documented history of KRZYSZTOF and is not willing for evaluation for possible sleep apnea given her morbid obesity. Dr. Alcazar from Nephrology had concerns about patient's renal function and decreased urine output and was wondering about inotropic support. However, after discussion with the patient, patient does not want any additional IV medications at this time. Date of service 11/26/2023: denies any shortness of breath, chest pain, palpitations. She is complaining of pain and swelling in her left arm. Date of service 11/28/2023: Feels about the same today. Denies any shortness of breath, chest pain. She is feeling frustrated with the length of her hospitalization. Date of service 11/29/2023: Left arm remains painful and swollen. BP slightly better and she is actually urinating a little more despite diuretics being held. Date of service 11/30/2023: Seems to be tolerating dobutamine. No chest pain or shortness of breath. Renal function creatinine 1.8 Date of service 12/01/2023: Making no progress and in fact she feels like she is more swollen today Which does correlate to her positive fluid balance. She denies any chest pain. No trouble breathing date of service 12/02/2023: She tolerated furosemide yesterday. No chest pain. Still has marked edema. Date of service 12/03/2023: She is still fluid balance positive and remains edematous. Blood pressure is stable. No shortness of breath, chest pain, palpitations. Left arm swelling/pain is improving Date of service 12/04/2023: Still edematous but her left arm is better. No chest pain shortness of breath. Seems to be making a bit more urine and renal function is improved Date of service 12/05/2023: She is finally diuresing. Left arm is much Less swollen. She feels less edematous in her abdomen also. Renal funct
[2023-12-11] MEDS: BETAMETHASONE/CLOTRIMAZOLE CR 15 GM TUBE 1 APPLIC TOPICAL (14:01)
[2023-12-11] MEDS: EUCERIN CREAM 120 GM JAR 1 APPLIC TOPICAL (14:01)
--- NOTE | 2023-12-11 14:15 | PCOTNOTE ---
Attempted to see Patient. Patient declined participating this afternoon. Patient stated, I did PT, I did a lot and recently returned back to bed, I can not do anymore this afternoon .
[2023-12-11] MEDS: acetaZOLAMIDE SODIUM FOR INJ 500 MG VIAL IV PUSH (17:29)
[2023-12-11] MEDS: WATER, STERILE FOR INJECTION 10 ML VIAL XX (19:43)
[2023-12-12] VITALS (10 sets, daily range): BP systolic 80–110; BP diastolic 37–59; PULSE 78–90; RESP 16–20; TEMP 36.1–37.1; O2SAT 92–95
[2023-12-12] MEDS: CENTRAL LINE FLUSH 10 ML IV PUSH ×3 (05:27→21:15)
[2023-12-12] MEDS: APIXABAN 5 MG TABLET PO ×2 (08:48→21:10)
[2023-12-12] MEDS: SACUBITRIL/VALSARTAN 12-13 MG TABLET 1 TAB PO ×2 (08:48→21:10)
[2023-12-12] MEDS: TOLNAFTATE 1% POWDER 45 GM BTL 1 APPLIC TOPICAL ×2 (08:52→21:11)
[2023-12-12] MEDS: EUCERIN CREAM 120 GM JAR 1 APPLIC TOPICAL (08:53)
--- NOTE | 2023-12-12 09:20 | PM.PNCARD ---
Progress Note: A&P Assessment and Plan (1) Acute on chronic combined systolic (congestive) and diastolic (congestive) heart failure: Code(s): I50.43 - Acute on chronic combined systolic (congestive) and diastolic (congestive) heart failure Status: Acute Assessment and Plan: 58-year-old female with history of CHF with reduced ejection fraction (unclear etiology)-with acute on chronic CHF with reduced ejection fraction. -Continue low dose of Entresto. -Discontinued Dobutamine gtt 12/10, maintaining urine output and blood pressure off of Dobutamine thus far -Continue aggressive diuresis with bumex, but will shift from IV to p.o. today -Diamox added by nephrology -If BP still stable tomorrow will attempt to add more medical therapy -Continue to monitor BP and renal function closely (2) MARY (acute kidney injury): Code(s): N17.9 - Acute kidney failure, unspecified Status: Acute Assessment and Plan: Resolved. Likely from cardiorenal syndrome Nephrology is following. Plan as above (3) At risk for sleep apnea: Code(s): Z91.89 - Other specified personal risk factors, not elsewhere classified Status: Acute Assessment and Plan: Patient is morbidly obese and probably has KRZYSZTOF. Not interested in sleep study as an outpatient at this time. (4) Noncompliance with medication regimen: Code(s): Z91.148 - Patient's other noncompliance with medication regimen for other reason Status: Acute Assessment and Plan: Outpatient medication compliance reinforced Subjective Date/time seen: 12/12/23 09:20 Interval history: Reason for visit: CHF Date of service: 11/24/2023 Interval history: Patient was sitting up in the recliner, reported improvement in her shortness of breath. At the time of evaluation, patient's son and the nurse was in the room. I spoke at length with the patient and her son about her previous cardiac history. She states that she was diagnosed with CHF many many years ago. According to patient's son, she was probably diagnosed with heart failure after childbirth. Patient does not recall any ischemic evaluation in the past. She has not been fully compliant with medical regimen as an outpatient. Patient denies documented history of KRZYSZTOF and is not willing for evaluation for possible sleep apnea given her morbid obesity. Dr. Alcazar from Nephrology had concerns about patient's renal function and decreased urine output and was wondering about inotropic support. However, after discussion with the patient, patient does not want any additional IV medications at this time. Date of service 11/26/2023: denies any shortness of breath, chest pain, palpitations. She is complaining of pain and swelling in her left arm. Date of service 11/28/2023: Feels about the same today. Denies any shortness of breath, chest pain. She is feeling frustrated with the length of her hospitalization. Date of service 11/29/2023: Left arm remains painful and swollen. BP slightly better and she is actually urinating a little more despite diuretics being held. Date of service 11/30/2023: Seems to be tolerating dobutamine. No chest pain or shortness of breath. Renal function creatinine 1.8 Date of service 12/01/2023: Making no progress and in fact she feels like she is more swollen today Which does correlate to her positive fluid balance. She denies any chest pain. No trouble breathing date of service 12/02/2023: She tolerated furosemide yesterday. No chest pain. Still has marked edema. Date of service 12/03/2023: She is still fluid balance positive and remains edematous. Blood pressure is stable. No shortness of breath, chest pain, palpitations. Left arm swelling/pain is improving Date of service 12/04/2023: Still edematous but her left arm is better. No chest pain shortness of breath. Seems to be making a bit more urine and renal function is improved Date of service 12/05/2023: She is
[2023-12-12] MEDS: BETAMETHASONE/CLOTRIMAZOLE CR 15 GM TUBE 1 APPLIC TOPICAL (09:32)
[2023-12-12] MEDS: ACETAMINOPHEN 325 MG TABLET 650 MG PO (09:33)
--- NOTE | 2023-12-12 10:04 | PM.IMPN ---
Progress Note: A&P Assessment and Plan (1) Urinary tract infection: Code(s): N39.0 - Urinary tract infection, site not specified Status: Acute (2) Anasarca: Code(s): R60.1 - Generalized edema Status: Acute (3) Deep vein thrombosis: Code(s): I82.409 - Acute embolism and thrombosis of unspecified deep veins of unspecified lower extremity Status: Acute (4) Left shoulder pain: Code(s): M25.512 - Pain in left shoulder Status: Acute (5) UTI (urinary tract infection), bacterial: Code(s): N39.0 - Urinary tract infection, site not specified; A49.9 - Bacterial infection, unspecified Status: Acute (6) Jaundice: Code(s): R17 - Unspecified jaundice Status: Acute (7) Venous stasis ulcer: Code(s): I83.009 - Varicose veins of unspecified lower extremity with ulcer of unspecified site; L97.909 - Non-pressure chronic ulcer of unspecified part of unspecified lower leg with unspecified severity Status: Acute (8) At risk for sleep apnea: Code(s): Z91.89 - Other specified personal risk factors, not elsewhere classified Status: Acute (9) MARY (acute kidney injury): Code(s): N17.9 - Acute kidney failure, unspecified Status: Acute Plan (1) Acute on chronic combined systolic (congestive) and diastolic (congestive) heart failure: ?Code(s): I50.43 - Acute on chronic combined systolic (congestive) and diastolic (congestive) heart failure ?Status:?Acute ?Assessment and Plan: ECHO ?EF is 20% patient may need dialysis for fluid overload, since BP precludes diuresis cardiology following Nephrology following Now getting diuresed as tolerated blood pressure has improved some. 12/05 Continue dobutamine drip.? Left arm swelling still persists, 12/04 started Bumex 1 mg t.i.d. push, negative input output balance 3.73 L in past 24 hours 12/06 : negative input output balance 3.21 L in past 24 hours 12/09: Input output negative balance 1975 mL in 24 hours, continue dobutamine and Bumex 1 mg b.i.d. IV push per organisational psychologist continue Entresto 1 tab q.12 hour per organisational psychologist December 10, dobutamine is stopped per organisational psychologist, continue Bumex 1 mg t.i.d. IV push per tester armature or fields, continue Entresto b.i.d. p.o., 12/12: Switch to Bumex 2 mg b.i.d. p.o., continue Entresto 12-13 1 tab b.i.d. continue the MS 25 mg daily p.o., patient has negative balance over 24 hours, exercise tolerance increases (2) Left bundle branch block: ?Code(s): I44.7 - Left bundle-branch block, unspecified ?Status:?Acute ?Assessment and Plan: Stable (3) MARY (acute kidney injury): ?Code(s): N17.9 - Acute kidney failure, unspecified ?Status:?Acute ?Assessment and Plan: Creatinine on admission was 1.?Worsened with diuresis with creatinine up to 2.2 Possible cardiorenal syndrome Nephrology on board Added albumin Continue dobutamine and Bumex 1 mg t.i.d. IV Kidney function continue to improve Kidney function stable Chronic anemia Hemoglobin trending down slowly Follow-up stool guaiac, iron panel: Iron 100, ferritin level 336, reticulocyte: High No need iron supplement now Hemoglobin stable (4) UTI (urinary tract infection), bacterial: ?Code(s): N39.0 - Urinary tract infection, site not specified; A49.9 - Bacterial infection, unspecified ?Status:?Acute ?Assessment and Plan: 11/24 culture growing E coli, sensitivity evaluated now on Kelflex finished course of antibiotics(5) Deep vein thrombosis: Per nurse report, patient declined Keflex p.o. today 12/04. Discussed with patient about importance of compliance with medical treatment I82.409 - Acute embolism and thrombosis of unspecified deep veins of unspecified lower extremity ?Status:?Acute ?Assessment and Plan: right basilic vein and external jugular vein thrombosis continue apixaban US venous doppler negative for LUE this is still edematous.? Elevate arm Will cove
[2023-12-12] MEDS: acetaZOLAMIDE TAB 250 MG TABLET PO (11:20)
--- NOTE | 2023-12-12 13:29 | P.PNNP_ITS ---
Progress Note: A&P Assessment and Plan (1) MARY (acute kidney injury): Code(s): N17.9 - Acute kidney failure, unspecified Status: Acute Assessment and Plan: * patient had a normal creatinine at baseline/prior to admission * evaluation to date: * urine electrolytes are non pre renal by FeNA but the FeUrea shows pre renal azotemia * CT abdomen/renal ultrasound shows normal kidneys and no hydronephrosois * CK is normal * urine protein/creatinine ratio 630 (so this is not contributing much to the edema) * it is likely that the high creatinine is due to pre renal azotemia from poorly functioning LV. * renal venous hypertension is a possibility as well -- hard to tease out how much of each is causing the high creatinine because the patient received dobutamine in addition to diuretics simultaneously * follow trend of repeat labs and UOP (2) Acute on chronic combined systolic (congestive) and diastolic (congestive) heart failure: Code(s): I50.43 - Acute on chronic combined systolic (congestive) and diastolic (congestive) heart failure Status: Acute Assessment and Plan: * Echo with EF 15 - 20% with grade III diastolic dysfunction * this is complicated by patient's non-compliance with medications * medical management and therapy difficult to continue due to hypotension * on low dose Entresto and tolerating * Cardiology following * off dobutamine gtt currently * on scheduled IV diuretics * almost 20L negative to date... * we maybe reaching a limit with diuresis as noted by her rising CO2 levels... * add/use of acetazolamide... * on oral bumex -- consider decreasing to 1mg bid? (3) Anemia: Code(s): D64.9 - Anemia, unspecified Status: Acute Assessment and Plan: * suspect chronic disease * no evidence of iron deficiency by anemia studies * follow trend of H/H (4) Deep vein thrombosis: Code(s): I82.409 - Acute embolism and thrombosis of unspecified deep veins of unspecified lower extremity Status: Acute Assessment and Plan: * right basilic vein and external jugular vein thrombosis by imaging * on apixaban (5) Urinary tract infection: Code(s): N39.0 - Urinary tract infection, site not specified Status: Acute Assessment and Plan: * culture with E.coli * completed course of antibiotics Will continue to follow. Subjective Date/time seen: 12/12/23 13:29 Interval history: Follow-up for acute kidney injury/acute renal failure. Despite transition to oral diuretic therapy and being off diuretic therapy; reasonable urine output noted in the last 24 hours; no labs available for review; no apparent distress noted; patient attempting to mobilize/ambulate as tolerated; no other issues/events overnight or earlier this morning. Exam Narrative: General: large WD/WN female in NAD Heart: normal S1 and S2; no rub Lungs: clear to auscultation Abdomen: soft, nontender, nondistended, positive bowel sounds Extremities: 1 - 2+ edema bilaterally Skin: chronic venous stasis changes in LEs Objective Data Vital Signs Vital Signs: Vital Signs Temp Pulse Resp BP Pulse Ox O2 Del Method 12/12/23 13:00 78 12/12/23 12:00 Room Air 12/12/23 12:00 90 12/12/23 12:00 98.1 F 80 20 110/56 L 92 12/12/23 08:00 80 16 92 Room Air
--- NOTE | 2023-12-12 13:29 | PM.PNNEP ---
Progress Note: A&P Assessment and Plan (1) MARY (acute kidney injury): Code(s): N17.9 - Acute kidney failure, unspecified Status: Acute Assessment and Plan: patient had a normal creatinine at baseline/prior to admission evaluation to date: urine electrolytes are non pre renal by FeNA but the FeUrea shows pre renal azotemia CT abdomen/renal ultrasound shows normal kidneys and no hydronephrosois CK is normal urine protein/creatinine ratio 630 (so this is not contributing much to the edema) it is likely that the high creatinine is due to pre renal azotemia from poorly functioning LV. renal venous hypertension is a possibility as well -- hard to tease out how much of each is causing the high creatinine because the patient received dobutamine in addition to diuretics simultaneously follow trend of repeat labs and UOP (2) Acute on chronic combined systolic (congestive) and diastolic (congestive) heart failure: Code(s): I50.43 - Acute on chronic combined systolic (congestive) and diastolic (congestive) heart failure Status: Acute Assessment and Plan: Echo with EF 15 - 20% with grade III diastolic dysfunction this is complicated by patient's non-compliance with medications medical management and therapy difficult to continue due to hypotension on low dose Entresto and tolerating Cardiology following off dobutamine gtt currently on scheduled IV diuretics almost 20L negative to date... we maybe reaching a limit with diuresis as noted by her rising CO2 levels... add/use of acetazolamide... on oral bumex -- consider decreasing to 1mg bid? (3) Anemia: Code(s): D64.9 - Anemia, unspecified Status: Acute Assessment and Plan: suspect chronic disease no evidence of iron deficiency by anemia studies follow trend of H/H (4) Deep vein thrombosis: Code(s): I82.409 - Acute embolism and thrombosis of unspecified deep veins of unspecified lower extremity Status: Acute Assessment and Plan: right basilic vein and external jugular vein thrombosis by imaging on apixaban (5) Urinary tract infection: Code(s): N39.0 - Urinary tract infection, site not specified Status: Acute Assessment and Plan: culture with E.coli completed course of antibiotics Will continue to follow. Subjective Date/time seen: 12/12/23 13:29 Interval history: Follow-up for acute kidney injury/acute renal failure. Despite transition to oral diuretic therapy and being off diuretic therapy; reasonable urine output noted in the last 24 hours; no labs available for review; no apparent distress noted; patient attempting to mobilize/ambulate as tolerated; no other issues/events overnight or earlier this morning. Exam Narrative: General: large WD/WN female in NAD Heart: normal S1 and S2; no rub Lungs: clear to auscultation Abdomen: soft, nontender, nondistended, positive bowel sounds Extremities: 1 - 2+ edema bilaterally Skin: chronic venous stasis changes in LEs Objective Data Vital Signs Vital Signs: Vital Signs Temp Pulse Resp BP Pulse Ox O2 Del Method 12/12/23 13:00 78 12/12/23 12:00 Room Air 12/12/23 12:00 90 12/12/23 12:00 98.1 F 80 20 110/56 L 92 12/12/23 08:00 80 16 92 Room Air 12/12/23 08:00 80 12/12/23 08:00 98.3 F 80 16 108/59 L 92 12/12/23 04:00 97 F L 79 18 80/45 L 92 12/12/23 04:00 79 12/12/23 02:00 88 12/12/23 00:00 88 12/12/23 00:00 98.7 F 85 20 85/37 L 92 12/11/23 22:00 79 12/11/23 20:00 85 12/11/23 20:00 97 F L 83 18 91/52 L 93 12/11/23 18:00 86 12/11/23 16:30 90 12/11/23 15:57 97.9 F 86 20 102/67 95 Intake/Output Intake/Output: Intake & Output 12/09/23 12/10/23 12/11/23 12/12/23 23:59 23:59 23:59 23:59 Intake Total 1500 1160 1030 730 Output Total 5700 6099 0697
[2023-12-12] MEDS: BUMETANIDE 1 MG TABLET 2 MG PO (17:14)
[2023-12-13] VITALS (10 sets, daily range): BP systolic 80–105; BP diastolic 42–72; PULSE 62–88; RESP 14–20; TEMP 36.2–37; O2SAT 94–97
[2023-12-13 07:25] LABS: Basophils Absolute Auto 0.1 K/mm3 (0.0-0.1); Basophils Percent Auto 1.4 % (0.2-1.2); Eosinophils Absolute Auto 0.2 K/mm3 (0-0.3); Eosinophils Percent Auto 4.9 % (0-4.4); Hematocrit 24.2 % (37.0-47.0); Hemoglobin 7.4 g/dL (12.0-15.0); Immature Granulocyte Absolute 0.01 K/mm3 (0.00-0.031); Immature Granulocyte Percent A 0.3 % (0-0.5); Lymphocytes Absolute Auto 0.63 K/mm3 (0.9-3.2); Lymphocytes Percent Auto 18.2 % (18.3-44.2); Mean Corpuscular HGB Conc 30.6 g/dl (32-36); Mean Corpuscular Hemoglobin 34.1 pg (26-34); Mean Corpuscular Volume 111.5 fl (80-100); Mean Platelet Volume 10.8 fl (7.4-10.4); Monocytes Absolute Auto 0.4 K/mm3 (0.1-0.6); Monocytes Percent Auto 11.6 % (2.6-8.5); Neutrophils Absolute Auto 2.2 K/mm3 (1.3-6.7); Neutrophils Percent Auto 63.6 % (45.5-73.1); Platelet Count Result 172 k/mm3 (150-375); Red Blood Count 2.17 M/mm3 (4.2-5.4); White Blood Count 3.5 K/mm3 (4.5-10.0)
[2023-12-13 07:44] LABS: Alanine Aminotransferase 7 U/L (6-35); Albumin Level 3.4 g/dL (3.5-5.1); Alkaline Phosphatase 200 U/L (38-126); Aspartate Amino Transferase 23 U/L (14-36); Bilirubin,Total 3.4 mg/dL (0.2-1.3); Blood Urea Nitrogen 35 mg/dL (7-17); Calcium 9.4 mg/dL (8.4-10.2); Carbon Dioxide > 40 mmol/L (22-30); Chloride 93 mmol/L (98-107); Estimated CRCL calculation 64 ml/min; Estimated Glomerular Filt Rate 42; Glucose 94 mg/dL (65-110); Potassium 3.7 mmol/L (3.4-5.0); Sodium 137 mmol/L (137-145)
[2023-12-13 07:45] LABS: Hypochromasia 1+ (NORMAL); Schistocytes None Seen (NORMAL)
--- NOTE | 2023-12-13 08:29 | PM.PNCARD ---
Progress Note: A&P Assessment and Plan (1) Acute on chronic combined systolic (congestive) and diastolic (congestive) heart failure: Code(s): I50.43 - Acute on chronic combined systolic (congestive) and diastolic (congestive) heart failure Status: Acute Assessment and Plan: 58-year-old female with history of CHF with reduced ejection fraction (unclear etiology)-with acute on chronic CHF with reduced ejection fraction. -Continue low dose of Entresto. -Discontinued Dobutamine gtt 12/10, maintaining urine output and blood pressure off of Dobutamine thus far -Ideally would like to optimize medical therapy with beta zeb, spironolactone, and up titration of ARNI, but limited by blood pressure -Continue bumex 2mg p.o. b.i.d. -Diamox added by nephrology -Continue to monitor BP and renal function closely -Probably reaching the point of maximum hospital benefit - perhaps home in the next 24 - 48 hours if she remains stable? (2) MARY (acute kidney injury): Code(s): N17.9 - Acute kidney failure, unspecified Status: Acute Assessment and Plan: Likely from cardiorenal syndrome Nephrology is following. SCr 1.3 today (1.00). Plan as above (3) At risk for sleep apnea: Code(s): Z91.89 - Other specified personal risk factors, not elsewhere classified Status: Acute Assessment and Plan: Patient is morbidly obese and probably has KRZYSZTOF. Not interested in sleep study as an outpatient at this time. (4) Noncompliance with medication regimen: Code(s): Z91.148 - Patient's other noncompliance with medication regimen for other reason Status: Acute Assessment and Plan: Outpatient medication compliance reinforced Subjective Date/time seen: 12/13/23 08:29 Interval history: Reason for visit: CHF Date of service: 11/24/2023 Interval history: Patient was sitting up in the recliner, reported improvement in her shortness of breath. At the time of evaluation, patient's son and the nurse was in the room. I spoke at length with the patient and her son about her previous cardiac history. She states that she was diagnosed with CHF many many years ago. According to patient's son, she was probably diagnosed with heart failure after childbirth. Patient does not recall any ischemic evaluation in the past. She has not been fully compliant with medical regimen as an outpatient. Patient denies documented history of KRZYSZTOF and is not willing for evaluation for possible sleep apnea given her morbid obesity. Dr. Alcazar from Nephrology had concerns about patient's renal function and decreased urine output and was wondering about inotropic support. However, after discussion with the patient, patient does not want any additional IV medications at this time. Date of service 11/26/2023: denies any shortness of breath, chest pain, palpitations. She is complaining of pain and swelling in her left arm. Date of service 11/28/2023: Feels about the same today. Denies any shortness of breath, chest pain. She is feeling frustrated with the length of her hospitalization. Date of service 11/29/2023: Left arm remains painful and swollen. BP slightly better and she is actually urinating a little more despite diuretics being held. Date of service 11/30/2023: Seems to be tolerating dobutamine. No chest pain or shortness of breath. Renal function creatinine 1.8 Date of service 12/01/2023: Making no progress and in fact she feels like she is more swollen today Which does correlate to her positive fluid balance. She denies any chest pain. No trouble breathing date of service 12/02/2023: She tolerated furosemide yesterday. No chest pain. Still has marked edema. Date of service 12/03/2023: She is still fluid balance positive and remains edematous. Blood pressure is stable. No shortness of breath, chest pain, palpitations. Left arm swelling/pain is improving Date of service 12/04/2023: Still edematous but her left
[2023-12-13] MEDS: BUMETANIDE 1 MG TABLET 2 MG PO ×2 (09:15→16:48)
[2023-12-13] MEDS: APIXABAN 5 MG TABLET PO ×2 (09:17→21:27)
[2023-12-13] MEDS: SACUBITRIL/VALSARTAN 12-13 MG TABLET 1 TAB PO ×2 (09:17→21:27)
[2023-12-13] MEDS: acetaZOLAMIDE TAB 250 MG TABLET PO (09:18)
--- NOTE | 2023-12-13 09:20 | PM.IMPN ---
Progress Note: A&P Assessment and Plan (1) Urinary tract infection: Code(s): N39.0 - Urinary tract infection, site not specified Status: Acute (2) Anasarca: Code(s): R60.1 - Generalized edema Status: Acute (3) Deep vein thrombosis: Code(s): I82.409 - Acute embolism and thrombosis of unspecified deep veins of unspecified lower extremity Status: Acute (4) Left shoulder pain: Code(s): M25.512 - Pain in left shoulder Status: Acute (5) UTI (urinary tract infection), bacterial: Code(s): N39.0 - Urinary tract infection, site not specified; A49.9 - Bacterial infection, unspecified Status: Acute (6) Jaundice: Code(s): R17 - Unspecified jaundice Status: Acute (7) Venous stasis ulcer: Code(s): I83.009 - Varicose veins of unspecified lower extremity with ulcer of unspecified site; L97.909 - Non-pressure chronic ulcer of unspecified part of unspecified lower leg with unspecified severity Status: Acute (8) At risk for sleep apnea: Code(s): Z91.89 - Other specified personal risk factors, not elsewhere classified Status: Acute (9) MARY (acute kidney injury): Code(s): N17.9 - Acute kidney failure, unspecified Status: Acute Plan (1) Acute on chronic combined systolic (congestive) and diastolic (congestive) heart failure: ?Code(s): I50.43 - Acute on chronic combined systolic (congestive) and diastolic (congestive) heart failure ?Status:?Acute ?Assessment and Plan: ECHO ?EF is 20% patient may need dialysis for fluid overload, since BP precludes diuresis cardiology following Nephrology following Now getting diuresed as tolerated blood pressure has improved some. 12/05 Continue dobutamine drip.? Left arm swelling still persists, 12/04 started Bumex 1 mg t.i.d. push, negative input output balance 3.73 L in past 24 hours 12/06 : negative input output balance 3.21 L in past 24 hours 12/09: Input output negative balance 1975 mL in 24 hours, continue dobutamine and Bumex 1 mg b.i.d. IV push per shoe coverer continue Entresto 1 tab q.12 hour per shoe coverer December 10, dobutamine is stopped per shoe coverer, continue Bumex 1 mg t.i.d. IV push per sample sewer, continue Entresto b.i.d. p.o., 12/12: Switch to Bumex 2 mg b.i.d. p.o., continue Entresto 12-13 1 tab b.i.d. continue the MS 25 mg daily p.o., patient has negative balance over 24 hours, exercise tolerance increases (2) Left bundle branch block: ?Code(s): I44.7 - Left bundle-branch block, unspecified ?Status:?Acute ?Assessment and Plan: Stable (3) MARY (acute kidney injury): ?Code(s): N17.9 - Acute kidney failure, unspecified ?Status:?Acute ?Assessment and Plan: Creatinine on admission was 1.?Worsened with diuresis with creatinine up to 2.2 Possible cardiorenal syndrome Nephrology on board Added albumin Received dobutamine and Bumex 1 mg t.i.d. IV Now patient is on Bumex p.o. BUN creatinine is trending up today 12/13 Monitor BMP tomorrow Chronic anemia Hemoglobin trending down slowly Follow-up stool guaiac, iron panel: Iron 100, ferritin level 336, reticulocyte: High No need iron supplement now Hemoglobin stable (4) UTI (urinary tract infection), bacterial: ?Code(s): N39.0 - Urinary tract infection, site not specified; A49.9 - Bacterial infection, unspecified ?Status:?Acute ?Assessment and Plan: 11/24 culture growing E coli, sensitivity evaluated now on Kelflex finished course of antibiotics(5) Deep vein thrombosis: Per nurse report, patient declined Keflex p.o. today 12/04. Discussed with patient about importance of compliance with medical treatment I82.409 - Acute embolism and thrombosis of unspecified deep veins of unspecified lower extremity ?Status:?Acute ?Assessment and Plan: right basilic vein and external jugular vein thrombosis continue apixaban US venous doppler negative for LUE this is still ed
[2023-12-13] MEDS: ACETAMINOPHEN 325 MG TABLET 650 MG PO ×2 (09:23→16:48)
[2023-12-13 11:05] LABS: Magnesium 2.1 mg/dL (1.6-2.3)
--- NOTE | 2023-12-13 11:26 | PM.PNNEP ---
Progress Note: A&P Assessment and Plan (1) MARY (acute kidney injury): Code(s): N17.9 - Acute kidney failure, unspecified Status: Acute Assessment and Plan: patient had a normal creatinine at baseline/prior to admission evaluation to date: urine electrolytes are non pre renal by FeNA but the FeUrea shows pre renal azotemia CT abdomen/renal ultrasound shows normal kidneys and no hydronephrosois CK is normal urine protein/creatinine ratio 630 (so this is not contributing much to the edema) it is likely that the high creatinine is due to pre renal azotemia from poorly functioning LV. renal venous hypertension is a possibility as well -- hard to tease out how much of each is causing the high creatinine because the patient received dobutamine in addition to diuretics simultaneously follow trend of repeat labs and UOP (2) Acute on chronic combined systolic (congestive) and diastolic (congestive) heart failure: Code(s): I50.43 - Acute on chronic combined systolic (congestive) and diastolic (congestive) heart failure Status: Acute Assessment and Plan: Echo with EF 15 - 20% with grade III diastolic dysfunction this is complicated by patient's non-compliance with medications medical management and therapy difficult to continue due to hypotension on low dose Entresto and tolerating Cardiology following off dobutamine gtt currently on scheduled oral diuretics almost 20L negative to date... we maybe reaching a limit with diuresis as noted by her rising CO2 levels... add/use of acetazolamide for now on oral bumex -- could consider decreasing to 1mg or 1.5mg bid if BUN/creatinine continues to rise (3) Anemia: Code(s): D64.9 - Anemia, unspecified Status: Acute Assessment and Plan: suspect chronic disease no evidence of iron deficiency by anemia studies follow trend of H/H (4) Deep vein thrombosis: Code(s): I82.409 - Acute embolism and thrombosis of unspecified deep veins of unspecified lower extremity Status: Acute Assessment and Plan: right basilic vein and external jugular vein thrombosis by imaging on apixaban (5) Urinary tract infection: Code(s): N39.0 - Urinary tract infection, site not specified Status: Acute Assessment and Plan: culture with E.coli completed course of antibiotics Will continue to follow. Subjective Date/time seen: 12/13/23 11:26 Interval history: Follow-up for acute kidney injury/acute renal failure. Remains in negative fluid balance but BUN & creatinine are slightly higher in comparison to previous testing; overall, continues to do reasonably well; no apparent distress noted; swelling/edema seems to be stable if not better at this time; stable hemodynamics noted as well. Exam Narrative: General: large WD/WN female in NAD Heart: normal S1 and S2; no rub Lungs: clear to auscultation Abdomen: soft, nontender, nondistended, positive bowel sounds Extremities: 1 - 2+ edema bilaterally Skin: chronic venous stasis changes in LEs noted Objective Data Vital Signs Vital Signs: Vital Signs Temp Pulse Resp BP Pulse Ox O2 Del Method 12/13/23 11:00 62 Room Air 12/13/23 08:00 88 12/13/23 07:51 97.7 F 85 14 105/72 94 12/13/23 04:46 97.1 F L 77 20 83/49 L 95 12/13/23 04:00 70 12/13/23 00:00 79 12/12/23 20:00 85 12/12/23 23:56 97.3 F L 84 20 89/52 L 95 12/12/23 20:00 Room Air 12/12/23 17:51 85 Intake/Output Intake/Output: Intake & Output 12/10/23 12/11/23 12/12/23 12/13/23 23:59 23:59 23:59 23:59 Intake Total 1160 4643 189 0118 Output Total 1575 3425 3650 3300 Balance -780 -8952 -2541 -1337 Meds/Results Medications: Active Medications Generic Name Dose Route Start Last Admin Trade Name Susanne PRN Reason Stop Dose Admin Acetaminophen 650 mg 11/13/23 21:01 12/13/23 16
--- NOTE | 2023-12-13 11:26 | P.PNNP_ITS ---
Progress Note: A&P Assessment and Plan (1) MARY (acute kidney injury): Code(s): N17.9 - Acute kidney failure, unspecified Status: Acute Assessment and Plan: * patient had a normal creatinine at baseline/prior to admission * evaluation to date: * urine electrolytes are non pre renal by FeNA but the FeUrea shows pre renal azotemia * CT abdomen/renal ultrasound shows normal kidneys and no hydronephrosois * CK is normal * urine protein/creatinine ratio 630 (so this is not contributing much to the edema) * it is likely that the high creatinine is due to pre renal azotemia from poorly functioning LV. * renal venous hypertension is a possibility as well -- hard to tease out how much of each is causing the high creatinine because the patient received dobutamine in addition to diuretics simultaneously * follow trend of repeat labs and UOP (2) Acute on chronic combined systolic (congestive) and diastolic (congestive) heart failure: Code(s): I50.43 - Acute on chronic combined systolic (congestive) and diastolic (congestive) heart failure Status: Acute Assessment and Plan: * Echo with EF 15 - 20% with grade III diastolic dysfunction * this is complicated by patient's non-compliance with medications * medical management and therapy difficult to continue due to hypotension * on low dose Entresto and tolerating * Cardiology following * off dobutamine gtt currently * on scheduled oral diuretics * almost 20L negative to date... * we maybe reaching a limit with diuresis as noted by her rising CO2 levels... * add/use of acetazolamide for now * on oral bumex -- could consider decreasing to 1mg or 1.5mg bid if BUN/creatinine continues to rise (3) Anemia: Code(s): D64.9 - Anemia, unspecified Status: Acute Assessment and Plan: * suspect chronic disease * no evidence of iron deficiency by anemia studies * follow trend of H/H (4) Deep vein thrombosis: Code(s): I82.409 - Acute embolism and thrombosis of unspecified deep veins of unspecified lower extremity Status: Acute Assessment and Plan: * right basilic vein and external jugular vein thrombosis by imaging * on apixaban (5) Urinary tract infection: Code(s): N39.0 - Urinary tract infection, site not specified Status: Acute Assessment and Plan: * culture with E.coli * completed course of antibiotics Will continue to follow. Subjective Date/time seen: 12/13/23 11:26 Interval history: Follow-up for acute kidney injury/acute renal failure. Remains in negative fluid balance but BUN & creatinine are slightly higher in comparison to previous testing; overall, continues to do reasonably well; no apparent distress noted; swelling/edema seems to be stable if not better at this time; stable hemodynamics noted as well. Exam Narrative: General: large WD/WN female in NAD Heart: normal S1 and S2; no rub Lungs: clear to auscultation Abdomen: soft, nontender, nondistended, positive bowel sounds Extremities: 1 - 2+ edema bilaterally Skin: chronic venous stasis changes in LEs noted Objective Data Vital Signs Vital Signs: Vital Signs Temp Pulse Resp BP Pulse Ox O2 Del Method 12/13/23 11:00 62 Room Air 12/13/23 08:00 88 12/13/23 07:51 97.7 F 85 14 105/72 94 12/13/23 04:46 97.1 F L 77 20
--- NOTE | 2023-12-13 11:37 | PC.NURSE ---
Pt having frequent PVCs and bigemeny. Jessica Carlson [employer] notified. Telemetry reviewed. Mag level ordered
[2023-12-13] MEDS: BETAMETHASONE/CLOTRIMAZOLE CR 15 GM TUBE 1 APPLIC TOPICAL (12:09)
[2023-12-13] MEDS: EUCERIN CREAM 120 GM JAR 1 APPLIC TOPICAL (12:10)
[2023-12-13] MEDS: TOLNAFTATE 1% POWDER 45 GM BTL 1 APPLIC TOPICAL (12:10)
[2023-12-13] MEDS: CENTRAL LINE FLUSH 10 ML IV PUSH (21:28)
[2023-12-14] VITALS (7 sets, daily range): BP systolic 79–89; BP diastolic 40–63; PULSE 67–85; RESP 16–20; TEMP 36.2–36.9; O2SAT 93–96
[2023-12-14 04:55] LABS: Basophils Percent Auto 0.8 % (0.2-1.2); Eosinophils Absolute Auto 0.2 K/mm3 (0-0.3); Eosinophils Percent Auto 4.5 % (0-4.4); Hematocrit 25.1 % (37.0-47.0); Hemoglobin 7.6 g/dL (12.0-15.0); Immature Granulocyte Absolute 0.01 K/mm3 (0.00-0.031); Immature Granulocyte Percent A 0.3 % (0-0.5); Lymphocytes Absolute Auto 0.67 K/mm3 (0.9-3.2); Lymphocytes Percent Auto 17.9 % (18.3-44.2); Mean Corpuscular HGB Conc 30.3 g/dl (32-36); Mean Corpuscular Hemoglobin 33.8 pg (26-34); Mean Corpuscular Volume 111.6 fl (80-100); Mean Platelet Volume 11.5 fl (7.4-10.4); Monocytes Absolute Auto 0.4 K/mm3 (0.1-0.6); Neutrophils Absolute Auto 2.5 K/mm3 (1.3-6.7); Neutrophils Percent Auto 65.5 % (45.5-73.1); Platelet Count Result 195 k/mm3 (150-375); Red Blood Count 2.25 M/mm3 (4.2-5.4); Red Cell Distribution Width 16.1 % (11.5-14.5); White Blood Count 3.7 K/mm3 (4.5-10.0)
[2023-12-14 05:11] LABS: Alanine Aminotransferase 8 U/L (6-35); Albumin Level 3.4 g/dL (3.5-5.1); Alkaline Phosphatase 196 U/L (38-126); Anion Gap 6 mmol/L (8-16); Aspartate Amino Transferase 20 U/L (14-36); Blood Urea Nitrogen 36 mg/dL (7-17); Calcium 9.4 mg/dL (8.4-10.2); Carbon Dioxide 37 mmol/L (22-30); Chloride 93 mmol/L (98-107); Estimated CRCL calculation 69 ml/min; Estimated Glomerular Filt Rate 46; Glucose 100 mg/dL (65-110); Potassium 3.4 mmol/L (3.4-5.0); Sodium 136 mmol/L (137-145)
--- NOTE | 2023-12-14 08:19 | PM.IMPN ---
Progress Note: A&P Assessment and Plan (1) Urinary tract infection: Code(s): N39.0 - Urinary tract infection, site not specified Status: Acute (2) Anasarca: Code(s): R60.1 - Generalized edema Status: Acute (3) Deep vein thrombosis: Code(s): I82.409 - Acute embolism and thrombosis of unspecified deep veins of unspecified lower extremity Status: Acute (4) Left shoulder pain: Code(s): M25.512 - Pain in left shoulder Status: Acute (5) UTI (urinary tract infection), bacterial: Code(s): N39.0 - Urinary tract infection, site not specified; A49.9 - Bacterial infection, unspecified Status: Acute (6) Jaundice: Code(s): R17 - Unspecified jaundice Status: Acute (7) Venous stasis ulcer: Code(s): I83.009 - Varicose veins of unspecified lower extremity with ulcer of unspecified site; L97.909 - Non-pressure chronic ulcer of unspecified part of unspecified lower leg with unspecified severity Status: Acute (8) At risk for sleep apnea: Code(s): Z91.89 - Other specified personal risk factors, not elsewhere classified Status: Acute (9) MARY (acute kidney injury): Code(s): N17.9 - Acute kidney failure, unspecified Status: Acute Plan (1) Acute on chronic combined systolic (congestive) and diastolic (congestive) heart failure: ?Code(s): I50.43 - Acute on chronic combined systolic (congestive) and diastolic (congestive) heart failure ?Status:?Acute ?Assessment and Plan: ECHO ?EF is 20% patient may need dialysis for fluid overload, since BP precludes diuresis cardiology following Nephrology following Now getting diuresed as tolerated blood pressure has improved some. 12/05 Continue dobutamine drip.? Left arm swelling still persists, 12/04 started Bumex 1 mg t.i.d. push, negative input output balance 3.73 L in past 24 hours 12/06 : negative input output balance 3.21 L in past 24 hours 12/09: Input output negative balance 1975 mL in 24 hours, continue dobutamine and Bumex 1 mg b.i.d. IV push per ore roaster continue Entresto 1 tab q.12 hour per ore roaster December 10, dobutamine is stopped per ore roaster, continue Bumex 1 mg t.i.d. IV push per utilization manager, continue Entresto b.i.d. p.o., 12/12: Switch to Bumex 2 mg b.i.d. p.o., continue Entresto 12-13 1 tab b.i.d. continue the MS 25 mg daily p.o., patient has negative balance over 24 hours, exercise tolerance increases 12/14: Patient continue have negative input output balance, negative balance of 1580 mL over the night, blood pressure low, but patient denies lightheadedness, BUN creatinine elevated but stable (2) Left bundle branch block: ?Code(s): I44.7 - Left bundle-branch block, unspecified ?Status:?Acute ?Assessment and Plan: Stable (3) MARY (acute kidney injury): ?Code(s): N17.9 - Acute kidney failure, unspecified ?Status:?Acute ?Assessment and Plan: Creatinine on admission was 1.?Worsened with diuresis with creatinine up to 2.2 Possible cardiorenal syndrome Nephrology on board Added albumin Received dobutamine and Bumex 1 mg t.i.d. IV Now patient is on Bumex p.o. BUN creatinine is trending up today 12/13 Creatinine and BUN stable 12/14 Monitor BMP tomorrow Chronic anemia Hemoglobin trending down slowly Follow-up stool guaiac, iron panel: Iron 100, ferritin level 336, reticulocyte: High No need iron supplement now Hemoglobin stable (4) UTI (urinary tract infection), bacterial: ?Code(s): N39.0 - Urinary tract infection, site not specified; A49.9 - Bacterial infection, unspecified ?Status:?Acute ?Assessment and Plan: 11/24 culture growing E coli, sensitivity evaluated now on Kelflex finished course of antibiotics(5) Deep vein thrombosis: Per nurse report, patient declined Keflex p.o. today 12/04. Discussed with patient about importance of compliance with medical treatment I82.409 - Acute embolism and thrombosis of unspec
[2023-12-14] MEDS: acetaZOLAMIDE TAB 250 MG TABLET PO (09:06)
[2023-12-14] MEDS: APIXABAN 5 MG TABLET PO (09:07)
[2023-12-14] MEDS: BUMETANIDE 1 MG TABLET 2 MG PO (09:07)
[2023-12-14] MEDS: SACUBITRIL/VALSARTAN 12-13 MG TABLET 1 TAB PO (09:07)
[2023-12-14] MEDS: BETAMETHASONE/CLOTRIMAZOLE CR 15 GM TUBE 1 APPLIC TOPICAL (09:08)
[2023-12-14] MEDS: TOLNAFTATE 1% POWDER 45 GM BTL 1 APPLIC TOPICAL (09:08)
[2023-12-14] MEDS: EUCERIN CREAM 120 GM JAR 1 APPLIC TOPICAL (09:08)
[2023-12-14] MEDS: ACETAMINOPHEN 325 MG TABLET 650 MG PO (09:35)
--- NOTE | 2023-12-14 12:49 | P.PNNP_ITS ---
Progress Note: A&P Assessment and Plan (1) MARY (acute kidney injury): Code(s): N17.9 - Acute kidney failure, unspecified Status: Acute Assessment and Plan: * patient had a normal creatinine at baseline/prior to admission * evaluation to date: * urine electrolytes are non pre renal by FeNA but the FeUrea shows pre renal azotemia * CT abdomen/renal ultrasound shows normal kidneys and no hydronephrosois * CK is normal * urine protein/creatinine ratio 630 (so this is not contributing much to the edema) * it is likely that the high creatinine is due to pre renal azotemia from poorly functioning LV. * renal venous hypertension is a possibility as well -- hard to tease out how much of each is causing the high creatinine because the patient received dobutamine in addition to diuretics simultaneously * follow trend of repeat labs and UOP (2) Acute on chronic combined systolic (congestive) and diastolic (congestive) heart failure: Code(s): I50.43 - Acute on chronic combined systolic (congestive) and diastolic (congestive) heart failure Status: Acute Assessment and Plan: * Echo with EF 15 - 20% with grade III diastolic dysfunction * this is complicated by patient's non-compliance with medications * medical management and therapy difficult to continue due to hypotension * on low dose Entresto and tolerating * Cardiology following * off dobutamine gtt currently * on scheduled oral diuretics * almost 20L negative to date... * we maybe reaching a limit with diuresis as noted by her rising CO2 levels... * add/use of acetazolamide for now - wean off as tolerated * on oral bumex (3) Anemia: Code(s): D64.9 - Anemia, unspecified Status: Acute Assessment and Plan: * suspect chronic disease * no evidence of iron deficiency by anemia studies * follow trend of H/H (4) Deep vein thrombosis: Code(s): I82.409 - Acute embolism and thrombosis of unspecified deep veins of unspecified lower extremity Status: Acute Assessment and Plan: * right basilic vein and external jugular vein thrombosis by imaging * on apixaban (5) Urinary tract infection: Code(s): N39.0 - Urinary tract infection, site not specified Status: Acute Assessment and Plan: * culture with E.coli * completed course of antibiotics Not opposed to discharge from renal perspective if otherwise medically stable and okay with other physicians involved in her care. Will continue to follow. Subjective Date/time seen: 12/14/23 12:49 Interval history: Follow-up for acute kidney injury/acute renal failure. Reasonable urine output noted since transition to oral diuretic therapy with relatively stability in renal function as well as hemodynamics in the last 24 - 48 hours; swelling/edema stable if not better at this time; no issues/events overnight or earlier this morning. Exam Narrative: General: large WD/WN female in NAD Heart: normal S1 and S2; no rub Lungs: clear to auscultation Abdomen: soft, nontender, nondistended, positive bowel sounds Extremities: 1+ edema bilaterally Skin: chronic venous stasis changes in LEs apparent Objective Data Vital Signs Vital Signs: Vital Signs Temp Pulse Resp BP Pulse Ox O2 Del Method 12/14/23 11:59 67 Room Air 12/14/23 08:00 85 12/14/23 08:00
--- NOTE | 2023-12-14 12:49 | PM.PNNEP ---
Progress Note: A&P Assessment and Plan (1) MARY (acute kidney injury): Code(s): N17.9 - Acute kidney failure, unspecified Status: Acute Assessment and Plan: patient had a normal creatinine at baseline/prior to admission evaluation to date: urine electrolytes are non pre renal by FeNA but the FeUrea shows pre renal azotemia CT abdomen/renal ultrasound shows normal kidneys and no hydronephrosois CK is normal urine protein/creatinine ratio 630 (so this is not contributing much to the edema) it is likely that the high creatinine is due to pre renal azotemia from poorly functioning LV. renal venous hypertension is a possibility as well -- hard to tease out how much of each is causing the high creatinine because the patient received dobutamine in addition to diuretics simultaneously follow trend of repeat labs and UOP (2) Acute on chronic combined systolic (congestive) and diastolic (congestive) heart failure: Code(s): I50.43 - Acute on chronic combined systolic (congestive) and diastolic (congestive) heart failure Status: Acute Assessment and Plan: Echo with EF 15 - 20% with grade III diastolic dysfunction this is complicated by patient's non-compliance with medications medical management and therapy difficult to continue due to hypotension on low dose Entresto and tolerating Cardiology following off dobutamine gtt currently on scheduled oral diuretics almost 20L negative to date... we maybe reaching a limit with diuresis as noted by her rising CO2 levels... add/use of acetazolamide for now - wean off as tolerated on oral bumex (3) Anemia: Code(s): D64.9 - Anemia, unspecified Status: Acute Assessment and Plan: suspect chronic disease no evidence of iron deficiency by anemia studies follow trend of H/H (4) Deep vein thrombosis: Code(s): I82.409 - Acute embolism and thrombosis of unspecified deep veins of unspecified lower extremity Status: Acute Assessment and Plan: right basilic vein and external jugular vein thrombosis by imaging on apixaban (5) Urinary tract infection: Code(s): N39.0 - Urinary tract infection, site not specified Status: Acute Assessment and Plan: culture with E.coli completed course of antibiotics Not opposed to discharge from renal perspective if otherwise medically stable and okay with other physicians involved in her care. Will continue to follow. Subjective Date/time seen: 02/24/24 12:49 Interval history: Follow-up for acute kidney injury/acute renal failure. Reasonable urine output noted since transition to oral diuretic therapy with relatively stability in renal function as well as hemodynamics in the last 24 - 48 hours; swelling/edema stable if not better at this time; no issues/events overnight or earlier this morning. Exam Narrative: General: large WD/WN female in NAD Heart: normal S1 and S2; no rub Lungs: clear to auscultation Abdomen: soft, nontender, nondistended, positive bowel sounds Extremities: 1+ edema bilaterally Skin: chronic venous stasis changes in LEs apparent Objective Data Vital Signs Vital Signs: Vital Signs Temp Pulse Resp BP Pulse Ox O2 Del Method 12/14/23 11:59 67 Room Air 12/14/23 08:00 85 12/14/23 08:00 Room Air 12/14/23 07:32 97.4 F L 78 16 89/63 L 96 12/14/23 06:00 75 12/14/23 04:00 79 12/14/23 04:33 95 Room Air 12/14/23 04:00 97.1 F L 77 16 84/40 L 94 12/14/23 00:00 76 12/13/23 20:00 82 12/14/23 00:00 98.5 F 81 20 79/45 L 93 12/13/23 21:24 81 83/48 L 12/13/23 19:48 98.6 F 77 18 80/42 L 94 Intake/Output Intake/Output: Intake & Output 12/11/23 12/12/23 12/13/23 12/14/23 23:59 23:59 23:59 23:59 Intake Total 3129 025 0575 1340 Output Total 3425 8350 330 2403 Balance -2395 -2800 -1740 -1060 Meds/R
--- NOTE | 2023-12-14 14:01 | PM.PNCARD ---
Progress Note: A&P Assessment and Plan (1) Acute on chronic combined systolic (congestive) and diastolic (congestive) heart failure: Code(s): I50.43 - Acute on chronic combined systolic (congestive) and diastolic (congestive) heart failure Status: Acute Assessment and Plan: 58-year-old female with history of CHF with reduced ejection fraction (unclear etiology)-with acute on chronic CHF with reduced ejection fraction. -Continue bumex 2mg p.o. b.i.d. -Diamox added by nephrology -Continue to monitor BP and renal function closely -continue current diuretic regimen as BP permits. -BMP in 1 week as an outpatient. [facility]up [facility] 2 weeks in the office. -continue Bumex 2 mg twice daily, Acetazolamide 250 mg daily if renal recommends. -Entresto 12/13 mg twice daily Disposition per hospitalist service. From a cardiac perspective while patient still has additional peripheral edema intravascularly she appears to be reasonably euvolemic and stable for discharge provided blood pressure stable and she is not symptomatic orthostatic. Continue current medical therapy. Okay to discharge today blood pressure stable to follow up as an outpatient. (2) Cardiomyopathy: Code(s): I42.9 - Cardiomyopathy, unspecified Status: Acute Assessment and Plan: Severe LV systolic dysfunction EF 15-20%. Explained the importance of compliance with medication, follow-up recommendation. Patient verbalized understanding states she agrees and understands the importance and associated dangers (3) MARY (acute kidney injury): Code(s): N17.9 - Acute kidney failure, unspecified Status: Acute Assessment and Plan: Likely from cardiorenal syndrome Nephrology is following. SCr 1.2 today. Stable overall. Plan as above (4) Anemia: Code(s): D64.9 - Anemia, unspecified Status: Acute Assessment and Plan: Chronic, severe anemia, stable. No evidence for active bleed follow H& H. Defer to hospitalist service. Remains on Eliquis. (5) Noncompliance with medication regimen: Code(s): Z91.148 - Patient's other noncompliance with medication regimen for other reason Status: Acute Assessment and Plan: Outpatient medication compliance reinforced (6) At risk for sleep apnea: Code(s): Z91.89 - Other specified personal risk factors, not elsewhere classified Status: Acute Assessment and Plan: Patient is morbidly obese and probably has KRZYSZTOF. Not interested in sleep study as an outpatient at this time. Subjective Date/time seen: Date of service: 12/14/23 14:01 Interval history: Reason for visit: CHF Date of service: 11/24/2023 Interval history: Patient was sitting up in the recliner, reported improvement in her shortness of breath. At the time of evaluation, patient's son and the nurse was in the room. I spoke at length with the patient and her son about her previous cardiac history. She states that she was diagnosed with CHF many many years ago. According to patient's son, she was probably diagnosed with heart failure after childbirth. Patient does not recall any ischemic evaluation in the past. She has not been fully compliant with medical regimen as an outpatient. Patient denies documented history of KRZYSZTOF and is not willing for evaluation for possible sleep apnea given her morbid obesity. Dr. Alcazar from Nephrology had concerns about patient's renal function and decreased urine output and was wondering about inotropic support. However, after discussion with the patient, patient does not want any additional IV medications at this time. Date of service 11/26/2023: denies any shortness of breath, chest pain, palpitations. She is complaining of pain and swelling in her left arm. Date of service 11/28/2023: Feels about the same today. Denies any shortness of breath, chest pain. She is feeling frustrated with the length of her hospitalization. Date of service
--- NOTE | 2023-12-14 14:28 | PM.DS ---
DS: Admitting Diagnosis Discharge Date 12/14/23 Admitting Diagnosis (1) Urinary tract infection: ?Code(s): N39.0 - Urinary tract infection, site not specified ?Status:?Acute (2) Anasarca: ?Code(s): R60.1 - Generalized edema ?Status:?Acute (3) Deep vein thrombosis: ?Code(s): I82.409 - Acute embolism and thrombosis of unspecified deep veins of unspecified lower extremity ?Status:?Acute (4) Left shoulder pain: ?Code(s): M25.512 - Pain in left shoulder ?Status:?Acute (5) UTI (urinary tract infection), bacterial: ?Code(s): N39.0 - Urinary tract infection, site not specified; A49.9 - Bacterial infection, unspecified ?Status:?Acute (6) Jaundice: ?Code(s): R17 - Unspecified jaundice ?Status:?Acute (7) Venous stasis ulcer: ?Code(s): I83.009 - Varicose veins of unspecified lower extremity with ulcer of unspecified site; L97.909 - Non-pressure chronic ulcer of unspecified part of unspecified lower leg with unspecified severity ?Status:?Acute (8) At risk for sleep apnea: ?Code(s): Z91.89 - Other specified personal risk factors, not elsewhere classified ?Status:?Acute (9) MARY (acute kidney injury): ?Code(s): N17.9 - Acute kidney failure, unspecified ?Status:?Acute DS: Discharge Diagnosis Discharge Diagnosis (1) Urinary tract infection: Code(s): N39.0 - Urinary tract infection, site not specified Status: Acute (2) Anasarca: Code(s): R60.1 - Generalized edema Status: Acute (3) Deep vein thrombosis: Code(s): I82.409 - Acute embolism and thrombosis of unspecified deep veins of unspecified lower extremity Status: Acute (4) Left shoulder pain: Code(s): M25.512 - Pain in left shoulder Status: Acute (5) UTI (urinary tract infection), bacterial: Code(s): N39.0 - Urinary tract infection, site not specified; A49.9 - Bacterial infection, unspecified Status: Acute (6) Jaundice: Code(s): R17 - Unspecified jaundice Status: Acute (7) Venous stasis ulcer: Code(s): I83.009 - Varicose veins of unspecified lower extremity with ulcer of unspecified site; L97.909 - Non-pressure chronic ulcer of unspecified part of unspecified lower leg with unspecified severity Status: Acute (8) At risk for sleep apnea: Code(s): Z91.89 - Other specified personal risk factors, not elsewhere classified Status: Acute (9) MARY (acute kidney injury): Code(s): N17.9 - Acute kidney failure, unspecified Status: Acute DS: Summary Hospital Course Hospital Course: Per H&P, patient presented to emergency department for evaluation of progressively worsening shortness of bread and weight gain.? She has a history of CHF, she normally take furosemide but she has not been taking it for some months now because she ran out.? She denies chest pain, cough congestion, sore throat or fever.? She was evaluated in the ER and found to have elevated proBNP greater than 5000, and cardiomegaly with pulmonary edema.? Oxygen saturation is above 90%.? She was provided with 80 mg of IV furosemide in the ER. Patient was admitted hospital for further evaluation and treatment The following med issues have been addressed during hospitalization (1) Acute on chronic combined systolic (congestive) and diastolic (congestive) heart failure: ?Code(s): I50.43 - Acute on chronic combined systolic (congestive) and diastolic (congestive) heart failure ?Status:?Acute ?Assessment and Plan: ECHO ?EF is 20% patient may need dialysis for fluid overload, since BP precludes diuresis cardiology following Nephrology following Now getting diuresed as tolerated blood pressure has improved some. 12/05 Continue dobutamine drip.? Left arm swelling still persists, 12/04 started Bumex 1 mg t.i.d. push, negative input output balance 3.73 L in past 24 hours 12/06 : negative input output balance 3.21 L in past
--- NOTE | 2023-12-18 13:57 | PC.NURSE ---
Dr. Centeno approved ordering pt her Eliquis 5mg by mouth every 12 hours; 2 weeks worth. Called pt with order. Pt states agreement and understanding. Called into pharmacy.
== END 2023-12-14 17:00 | disposition home or self-care (01) | DRG 194 ==
LOC: ANHED 20:30 → ANH3MEDSUR 22:15 → ANHIMU 12-12 01:42 → ANH2MED 12-16 09:22 → ANH3MEDSUR 12-16 09:22 → ANHIMU 12-16 09:22
PROVIDERS: Emergency Medicine; General Practice; Internal Medicine; Internal Medicine Cardiovascular Disease; Internal Medicine Gastroenterology; Internal Medicine Nephrology; Nurse Practitioner; Nurse Practitioner Adult Health; Nurse Practitioner Family; Admitting Provider Student in an Organized Health Care Education/Training Program; Emergency Provider Student in an Organized Health Care Education/Training Program; PCP Internal Medicine Infectious Disease; Visit Provider Hospitalist
DX: I50.43 Acute on chronic combined systolic (congestive) and diastolic (congestive) heart failure (principal); Z20.822 Contact with and (suspected) exposure to COVID-19; N17.9 Acute kidney failure, unspecified; E87.6 Hypokalemia; E66.01 Morbid (severe) obesity due to excess calories; I44.7 Left bundle-branch block, unspecified; L97.929 Non-pressure chronic ulcer of unspecified part of left lower leg with unspecified severity; B37.2 Candidiasis of skin and nail; R26.9 Unspecified abnormalities of gait and mobility; E86.0 Dehydration; I82.621 Acute embolism and thrombosis of deep veins of right upper extremity; I82.C11 Acute embolism and thrombosis of right internal jugular vein; M75.02 Adhesive capsulitis of left shoulder; T83.511A Infection and inflammatory reaction due to indwelling urethral catheter, initial encounter; N39.0 Urinary tract infection, site not specified; B96.20 Unspecified Escherichia coli [E. coli] as the cause of diseases classified elsewhere; D63.8 Anemia in other chronic diseases classified elsewhere; I42.9 Cardiomyopathy, unspecified; G47.33 Obstructive sleep apnea (adult) (pediatric); K43.9 Ventral hernia without obstruction or gangrene; R17 Unspecified jaundice; Z87.891 Personal history of nicotine dependence; Z91.148 Patient's other noncompliance with medication regimen for other reason; Z68.44 Body mass index [BMI] 60.0-69.9, adult
CPT/HCPCS: 36415; 36569; 36600; 71045; 71250; 72170; 73020; 74176; 76705; 76775; 80048; 80053; 80069; 80074; 81001; 81050; 82375; 82550; 82570; 82607; 82728; 82746; 82805; 83010; 83036; 83050; 83520; 83540; 83550; 83615; 83735; 83880; 84100; 84155; 84156; 84165; 84166; 84300; 84443; 84484; 84540; 85025; 85027; 85046; 85055; 85610; 85730; 85999; 86038; 86039; 86225; 86235; 87086; 87186; 87637; 93005; 93923; 93970; 93971; 97110; 97116; 97161; 97162; 97166; 97530; 97535; 99285; A9270; C8929; J0690; J0696; J1120; J1250; J1650; J1939; J1940; P9047; Q9957